=== PATIENT | female | born 1945 | race Caucasian/White ===

== ENCOUNTER → 2016-07-22 | Outpatient (CLI) | payer MEDICARE ==
[2015-10-02 11:45] VITALS: BP 170/90
[~2016-07-22] MED LIST: CALC-98 PO; CALC200T3 PO; CARB300C5 PO; CELE200C PO; CHOL239. PO; FURO20TA3 PO; HYDR25TA9 PO; MULT-658 PO; OMEG1CAP6 PO; OMEP20TA PO; SIMBICORT; VITA400C11 PO
--- NOTE | 2016-07-22 11:43 | RAD ---
Indication right leg pain. Grayscale color Doppler and spectral imaging was performed. Examination was targeted to the veins of the right lower extremity. The common femoral, femoral and popliteal vessels demonstrate normal flow compressibility and augmentation. No thrombus is seen. The visualized calf veins appeared unremarkable. The left common femoral vein also appeared normal. The IMPRESSION:: Negative right lower extremity venous analysis for DVT
== END | disposition home or self-care (01) ==
LOC: US 10:31
PROVIDERS: ATTEND Podiatrist Foot & Ankle Surgery
DX: I82.401 Acute embolism and thrombosis of unspecified deep veins of right lower extremity (principal)
CPT/HCPCS: 93971

== ENCOUNTER 2016-10-06 20:38 | Inpatient (IN) | payer MEDICARE ==
[~2016-10-06] VITALS: Ht 152.4 cm; Wt 86.2 kg
[~2016-10-06 20:38] MED LIST changes: -OMEP20TA PO; +OMEP20TA8 PO
[2016-10-06 21:22] LABS: BASO % 0 % (0-3); EOS % 0 % (0-3); HEMATOCRIT 35.5 % (36.0-47.0); HEMOGLOBIN 12.1 g/dL (12.0-15.5); LYMPH # 0.9 x10^3/uL (1.0-4.8); LYMPH % 5 % (24-48); MEAN CORPUSCULAR HEMOGLOBIN 31 pg (25-35); MEAN CORPUSCULAR HGB CONC 34 g/dL (31-37); MEAN CORPUSCULAR VOLUME 92 fL (79-100); MONO % 10 % (0-9); NEUT % 85 % (31-73); PLATELET COUNT 157 x10^3/uL (140-400); RED BLOOD COUNT 3.87 x10^6/uL (3.50-5.40); RED CELL DISTRIBUTION WIDTH 12.3 % (11.5-14.5); WHITE BLOOD COUNT 16.5 x10^3/uL (4.0-11.0)
[2016-10-06] MEDS ORDERED: ONDANSETRON PF 4 MG/2 ML VIAL. IV ONE (21:30)
[2016-10-06 21:37] LABS: CALCIUM 8.3 mg/dL (8.5-10.1); CREATININE 0.7 mg/dL (0.6-1.0); POTASSIUM 3.5 mmol/L (3.5-5.1)
[2016-10-06] MEDS: fentaNYL PF VIAL 100 MCG/2 ML VIAL IV PRN ×2 (21:40→22:47)
[2016-10-06 21:42] LABS: ALBUMIN 3.2 g/dL (3.4-5.0); ALBUMIN/GLOBULIN RATIO 0.9 (1.0-1.7); TOTAL BILIRUBIN 0.7 mg/dL (0.2-1.0); TOTAL PROTEIN 6.9 g/dL (6.4-8.2)
[2016-10-06 21:54] LABS: BILIRUBIN,URINE NEGATIVE (NEG); GLUCOSE,URINE NEGATIVE (NEG); NITRITE,URINE NEGATIVE (NEG); PROTEIN,URINE 30 mg/dL (NEG-TRACE); UROBILINOGEN,URINE 0.2 mg/dL (0.2 mg/dL)
--- NOTE | 2016-10-06 21:56 | ED.ADGEN ---
Past Medical History Past Medical History: COPD, Hypertension, Seizure Past Surgical History: Hip Replacement Alcohol Use: None Drug Use: None Adult General Chief Complaint Chief Complaint: LOWER EXT PAIN HPI HPI Patient is a 71 year old woman, history of COPD, hypertension, seizure disorder , who presents to the emergency department with a three-day history of left lower extremity redness and swelling. Patient denies any similar symptoms previously, denies any injuries, stated that she noted swelling in her leg, and itchiness with pain, denies any recent travel or surgery, any history of DVT or PE, states that she began feeling more fatigued, with mild shortness of breath, denies any chest pain, states she is expressing mild nausea, no focal weakness, numbness or tingling, complains of generalized weakness and malaise, states that she had fever at home up to 101. Currently she is afebrile at 99.2 orally in the ED. States that she has not taken any medication at home since this morning, when she took an [place] plus. States she has been taking all home medications as directed, does not take any blood thinners or aspirin. No GI or complaints. Review of Systems Review of Systems Constitutional: Fever 2 days, with generalized malaise. Eyes: Denies change in visual acuity. [] HENT: Denies nasal congestion or sore throat. [] Respiratory: Denies cough or shortness of breath. [] Cardiovascular: Denies chest pain or edema. [] GI: Denies abdominal pain, nausea, vomiting, bloody stools or diarrhea. [] : Denies dysuria. [] Musculoskeletal: Denies back pain, pain and swelling in the left lower extremity, with redness develop over the past 3 days, associated with generalized malaise. Integument: Denies rash. [] Neurologic: Denies headache, focal weakness or sensory changes. [] Endocrine: Denies polyuria or polydipsia. [] Lymphatic: Denies swollen glands. [] Psychiatric: Denies depression or anxiety. [] Current Medications Current Medications Current Medications Medications (Trade) Dose Ordered Sig/Rosanna Start Time Stop Time Status Last Admin Dose Admin Fentanyl Citrate (Fentanyl 2ml Vial) 25 mcg PRN Q15MIN PRN 10/06/16 21:00 10/07/16 20:59 10/06/16 21:40 25 MCG Ondansetron HCl (Zofran) 4 mg 1X ONCE 10/06/16 21:30 10/06/16 21:31 DC 10/06/16 21:40 4 MG Allergies Allergies Allergies Coded Allergies Type Severity Reaction Last Updated Verified Sulfa (Sulfonamide Antibiotics) Allergy Intermediate 10/06/16 Yes Physical Exam Physical Exam Constitutional: Well developed, well nourished, no acute distress, non-toxic appearance. [] HENT: Normocephalic, atraumatic, bilateral external ears normal, oropharynx moist, no oral exudates, nose normal. [] Eyes: PERRLA, EOMI, conjunctiva normal, no discharge. [] Neck: Normal range of motion, no tenderness, supple, no stridor. [] Cardiovascular:Heart rate regular rhythm, no murmur, S1, S2, no rubs or gallops. [] Lungs & Thorax: Patient with rhonchi noted at the right lung base, which she states is chronic, no chest or crepitus or tenderness. Lungs are otherwise clear. [] Abdomen: Bowel sounds normal, soft, no rebound, rigidity, no guarding, no tenderness, no masses, no pulsatile masses. [] Skin: Warm, dry, no erythema, no rash. [] Back: No midline or paraspinal tenderness, no CVA tenderness. [] Extremities: Patient with redness and swelling noted over the medial malleolus, extending up into the calf, no distinct rash, no abscess formation induration or evidence of injury, right lower extremity is normal, patient with trace pitting edema in the left lower extremity, no cyanosis, no clubbing, ROM intact , no edema. [] Neurologic: Alert and oriented X 3, normal motor function, normal sensory function, no focal deficits noted. [] Psychologic: Affect normal, judgement normal, mood normal. [] Current Patient Data Vital Signs Vital Signs Date Time Temp Pulse Resp B/P (MAP) Pulse Ox O2 Delivery O2 Flow Rate FiO2 10/06/16 21:40 Room Air 10/06/16 20:45 99.2 88 19 160/63 (95) 97 99.2 Lab Values Laboratory Tests Test 10/06/16 21:11 10/06/16 21:48 White Blood Count 16.5 x10^3/uL (4.0-11.0) H Red Blood Count 3.87 x10^6/uL (3.50-5.40) Hemoglobin 12.1 g/dL (12.0-15.5) Hematocrit 35.5 % (36.0-47.0) L Mean Corpuscular Volume 92 fL (79-100) Mean Corpuscular Hemoglobin 31 pg (25-35) Mean Corpuscular Hemoglobin Concent 34 g/dL (31-37) Red Cell Distribution Width 12.3 % (11.5-14.5) Platelet Count 157 x10^3/uL (140-400) Neutrophils (%) (Auto) 85 % (31-73) H Lymphocytes (%) (Auto) 5 % (24-48) L Monocytes (%) (Auto) 10 % (0-9) H Eosinophils (%) (Auto) 0 % (0-3) Basophils (%) (Auto) 0 % (0-3) Neutrophils # (Auto) 13.9 x10^3uL (1.8-7.7) H Lymphocytes # (Auto) 0.9 x10^3/uL (1.0-4.8) L Monocytes # (Auto) 1.6 x10^3/uL (0.0-1.1) H Eosinophils # (Auto) 0.0 x10^3/uL (0.0-0.7) Basophils # (Auto) 0.0 x10^3/uL (0.0-0.2) Segmented Neutrophils % 84 % (35-66) H Band Neutrophils % 2 % (0-9) Lymphocytes % 7 % (24-48) L Monocytes % 7 % (0-10) Platelet Estimate Adequate (ADEQUATE) Sodium Level 127 mmol/L (136-145) L Potassium Level 3.5 mmol/L (3.5-5.1) Chloride Level 91 mmol/L (98-107) L Carbon Dioxide Level 30 mmol/L (21-32) Anion Gap 6 (6-14) Blood Urea Nitrogen 7 mg/dL (7-20) Creatinine 0.7 mg/dL (0.6-1.0) Estimated GFR (Cockcroft-Gault) 82.0 BUN/Creatinine Ratio 10 (6-20) Glucose Level 129 mg/dL (70-99) H Calcium Level 8.3 mg/dL (8.5-10.1) L Total Bilirubin 0.7 mg/dL (0.2-1.0) Aspartate Amino Transferase (AST) 23 U/L (15-37) Alanine Aminotransferase (ALT) 20 U/L (14-59) Alkaline Phosphatase 84 U/L (46-116) Troponin I Quantitative < 0.017 ng/mL (0.000-0.055) Total Protein 6.9 g/dL (6.4-8.2) Albumin 3.2 g/dL (3.4-5.0) L Albumin/Globulin Ratio 0.9 (1.0-1.7) L Urine Collection Type U cath Urine Color Yellow Urine Clarity Clear Urine pH 7.0 Urine Specific [place] 1.010 Urine Protein 30 mg/dL (NEG-TRACE) Urine Glucose (UA) Negative mg/dL (NEG) Urine Ketones (Stick) 15 mg/dL (NEG) Urine Blood Small (NEG) Urine Nitrite Negative (NEG) Urine Bilirubin Negative (NEG) Urine Urobilinogen Dipstick 0.2 mg/dL (0.2 mg/dL) Urine Leukocyte Esterase Moderate (NEG) Urine RBC 11-20 /HPF (0-2) Urine WBC 20-40 /HPF (0-4) Urine Squamous Epithelial Cells Occ /LPF Urine Bacteria Many /HPF (0-FEW) Laboratory Tests 10/06/16 21:11 Laboratory Tests 10/06/16 21:11 EKG EKG EC: Sinus rhythm, heart rate 85 bpm, upright axis, QTC of 448, SC 190, QRS of 98, moderate baseline artifact noted, incomplete right bundle-branch block noted, contour normality is noted in the anterior septal leads, no ST elevations or depressions, abnormal ECG, does not meet STEMI criteria. As interpreted by me. Radiology/Procedures Radiology/Procedures Chest x-ray: One view: Patient slightly rotated, no infiltrates, no effusions, no pneumothorax, no soft tissue or bone abdomen abnormalities identified, normal cardiac silhouette, no changes when compared to chest x-ray from 2015. As interpreted by me. [] Impressions: Ankle x-ray: Three-view: Patient with evidence of degenerative changes, no evidence of acute fracture, subluxation, soft tissue or bony abnormality is identified. As interpreted by me. [facility] [address] [place] [address] IMAGING REPORT Signed PATIENT: ERMIAS DONALD ACCOUNT: [id number] : 1945 LOCATION: ER AGE: 71 SEX: F EXAM STATUS: REG ER ORD. PHYSICIAN: EMELINA CHU DO REASON: swelling/pain/concern for DVT PROCEDURE: VENOUS LOWER EXTREMITY LEFT Left lower extremity venous Doppler ultrasound History: LT LOWER LEG REDNESS SWELLING X3DAYS NO KNOWN INJURY Comparison: None. Procedure: Color flow Doppler, Doppler spectral analysis, and 2D images are obtained with and without compression in the area of the common femoral vein, superficial femoral vein - femoral vein junction, main femoral vein (superficial femoral vein) and popliteal vein. Veins of the proximal calf are also imaged. Findings: There is normal color flow, augmentation, and compressibility of all visualized vein segments. No evidence of deep venous thrombus is present. There is subcutaneous edema of the left lower leg. There is normal flow and compressibility of the lesser saphenous vein. There is thickening of the wall. Phlebitis could produce this appearance. IMPRESSION: 1. No evidence of left lower extremity deep venous thrombosis. 2. Wall thickening of the lesser saphenous vein may be due to phlebitis. Electronically signed by: Shankar Steel MD (10/06/2016 10:06 PM) [facility] DICTATED and SIGNED BY: SHANKAR STEEL MD DATE: 10/06/162203 CC: LITO MUNGUIA MD; EMELINA CHU DO ~ Course & Med Decision Making Course & Med Decision Making Pertinent Labs and Imaging studies reviewed. (See chart for details) Patient agreeable to receiving imaging and laboratory studies, along with pain medication. Ultrasound does not reveal evidence of DVT, x-ray was unremarkable both chest and ankle. Examination is consistent with sialitis as stated, patient noted to have a leukocytosis of 16.5, and hyponatremia with a sodium of 127, and his dehydration, previously patient's sodium was 137. Urinalysis reveals 20-40 WBCs, no nitrates, and has many bacteria, Patient states that she has "a long history of problems with sodium", and is on fluid restriction at home. She states that she has been trying to drink fluids as directed, but has been experiencing fever and other symptoms are the past several days which has been disrupting her usual intake. Patient remains afebrile in the emergency department, is agreeable for admission to the hospital, and initiation on antibiotics and gentle hydration, all questions answered to her satisfaction and the satisfaction of her brother at bedside. Findings as above discussed with Dr. granger of internal medicine, patient accepted to his service as a full admission to the medical telemetry floor, with IV hydration with normal saline 80 ml/hr, vancomycin and cefepime, and close monitoring as stated. Bridge orders entered per discussion. Dragon Disclaimer Dragon Disclaimer This electronic medical record was generated, in whole or in part, using a voice recognition dictation system. Departure Impression: Primary Impression: Cellulitis Additional Impressions: Leg pain, left Hyponatremia Fever Leukocytosis Disposition: ADMITTED INPATIENT Admitting Physician: Sandrine Granger Condition: IMPROVED Problem Qualifiers EMELINA CHU DO Oct 06, 2016 21:56
[2016-10-06 22:03] LABS: BACTERIA,URINE MANY /HPF (0-FEW); SQUAMOUS EPITHELIAL CELL,UR OCC /LPF; WBC,URINE 20-40 /HPF (0-4)
[2016-10-06 22:09] LABS: PLT ESTIMATE ADEQUATE (ADEQUATE)
--- NOTE | 2016-10-06 22:09 | RAD ---
Left lower extremity venous Doppler ultrasound History: LT LOWER LEG REDNESS SWELLING X3DAYS NO KNOWN INJURY Comparison: None. Procedure: Color flow Doppler, Doppler spectral analysis, and 2D images are obtained with and without compression in the area of the common femoral vein, superficial femoral vein - femoral vein junction, main femoral vein (superficial femoral vein) and popliteal vein. Veins of the proximal calf are also imaged. Findings: There is normal color flow, augmentation, and compressibility of all visualized vein segments. No evidence of deep venous thrombus is present. There is subcutaneous edema of the left lower leg. There is normal flow and compressibility of the lesser saphenous vein. There is thickening of the wall. Phlebitis could produce this appearance. IMPRESSION: 1. No evidence of left lower extremity deep venous thrombosis. 2. Wall thickening of the lesser saphenous vein may be due to phlebitis. Electronically signed by: Shankar Steel MD (10/06/2016 10:06 PM) [facility]
[2016-10-06] MEDS: CEFEPIME HCL 2 GM in IV NORMAL SALINE 100ML 100 ML IV SCH (22:44)
[2016-10-06] MEDS ORDERED: fentaNYL PF VIAL 100 MCG/2 ML VIAL IV PRN (22:45)
[2016-10-06] MEDS ORDERED: ONDANSETRON PF 4 MG/2 ML VIAL. IV PRN (22:45)
[2016-10-06] MEDS ORDERED: ACETAMINOPHEN 325 MG TABLET. PO PRN (22:45)
[2016-10-06] MEDS ORDERED: IV NORMAL SALINE 1000ML BAG 1,000 ML IV ONE (23:00)
[2016-10-06] MEDS ORDERED: VANCOMYCIN 2 GM in IV NORMAL SALINE 500ML BAG 500 ML IV ONE (23:00)
[2016-10-06 23:44] VITALS: BP 131/64
[2016-10-07] MEDS ORDERED: LOVA20TA2 PO (01:08)
[2016-10-07] MEDS ORDERED: BUDE10.2 IH (01:08)
[2016-10-07] MEDS ORDERED: AMLO5TAB2 PO (01:08)
[2016-10-07] MEDS ORDERED: WHEA152P PO (01:17)
[2016-10-07] MEDS: IV NORMAL SALINE 1000ML BAG 1,000 ML IV SCH ×2 (01:24→15:47)
[2016-10-07] MEDS: VANCOMYCIN PER PHARMACY MC PRN (02:29)
[2016-10-07 02:42] VITALS: BP 121/57
--- NOTE | 2016-10-07 05:21 | ACF ---
Admission Forms Criteria CELLULITIS Clinical Indications for Admission to Inpatient Care (Place 'X' for any and all applicable criteria): Admission is indicated for ANY ONE of the following(1)(2)(3)(4)(5): [ ]I. Limb-threatening infection [ ]II. High-risk comorbid condition as indicated by ANY ONE of the following: [ ]a) Uncontrolled diabetes (eg, HbA1c greater than 10% (0.1)) [ ]b) Cirrhosis [ ]c) Neutropenia [ ]d) Asplenia [ ]e) Immunosuppression [ ]f) Symptomatic heart failure [ ]III. Failure of outpatient therapy as indicated by ALL of the following: [ ]a) Progression or no improvement after adequate trial (minimum of 48 hours, with longer period for stable lower extremity infection) [ ]b) Adequate antibiotic regimen as indicated by use of ANY ONE of the following: [ ]i) First-generation cephalosporin (e.g., cephalexin) [ ]ii) Antistaphylococcal penicillin (e.g., dicloxacillin) [ ]iii) Penicillin-allergic patient regimen (clindamycin, extended-spectrum fluoroquinolone, or doxycycline) [ ]iv) Resistant organism (eg, methicillin-resistant Staphylococcus aureus) regimen (6) [ ]c) Outpatient intravenous therapy regimen is not appropriate due to ANY ONE of the following. (7)(8)(9)(10): [ ]i) It was tried and was not successful (eg, progression of infection). [ ]ii) It is not available or cannot be arranged in a clinically appropriate time frame (e.g., the next day). [ ]iii) Clinical presentation (eg, acuity of infection, rapidity of progression, confirmed or suspected bacteremia) is judged to require ALL of the following: [ ]1) Immediate initiation of intravenous therapy ( eg, cannot wait for next day) [ ]2) Intensity of patient monitoring and observation (eg, vital sign measurement, checks for infection progression) that cannot be provided at other than inpatient level of care [ ]IV. Mental status changes [ ]V. Bacteremia [ ]. Hemodynamic instability [ ]VII. Suspected necrotizing soft tissue infection (e.g., gas in tissue)(11)( 12) [ ]VIII. Orbital infection (13)(14) [ ]IX. Associated surgical procedure (e.g., abscess drainage, debridement) not amenable to outpatient, emergency department, or observation care [ ]X. Cutaneous gangrene [ ]XI. High fever (temperature greater than 39.5 degrees C (103.1 degrees F) (oral)) not responsive to outpatient, emergency department, or observation care therapy [X ]XIII. Inpatient admission required rather than observation care (Also use Cellulitis: Observation Care as appropriate) because of ANY ONE of the following : [ ]a) Periorbital or perineal infection that is severe or worsening [ ]b) Severe pain requiring acute inpatient management [ ]c) IV fluid to replace significant ongoing (e.g., for over 24 hours) losses (greater than 3L/m2 per day) [ ]d) Compartment syndrome monitoring (17) [ ]e) Strict or protective (eg, laminar flow) isolation [ ]f) Urgent debridement or skin grafting [ ]g) Bone or joint debridement [ ]h) Immediate inpatient surgery [X ]i) Other condition, treatment or monitoring requiring inpatient admission Extended stay beyond goal length of stay may be needed for (1)(18): [ ]a) Necrotizing soft tissue infection or fasciitis [ ]b) Gram-negative infection [ ]c) Methicillin-resistant Staphylococcal aureus (MRSA) infection [ ]d) Peripheral venous insufficiency with cellulitis [ ]e) Extensive edema [ ]f) Sepsis or continued Hemodynamic instability [ ]g) Continued high fever or mental status change [ ]h) Bacteremia [ ]i) Active serious comorbid conditions ( eg, heart failure, renal insufficiency) The original [facility] content created by [employer] has been revised. The portions of the content which have been revised are identified through the use of italic text or in bold, and [facility] has neither reviewed nor approved the modified material. All other unmodified content is copyright [facility] [employer] Please see references footnoted in the original [facility] edition 2016 Admission Criteria Met?: Yes PETERSON TOM Oct 07, 2016 05:21
--- NOTE | 2016-10-07 06:16 | EKG ---
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
[2016-10-07 06:23] LABS: BASO % 0 % (0-3); EOS % 0 % (0-3); HEMATOCRIT 32.8 % (36.0-47.0); HEMOGLOBIN 11.5 g/dL (12.0-15.5); LYMPH # 1.1 x10^3/uL (1.0-4.8); LYMPH % 8 % (24-48); MEAN CORPUSCULAR HEMOGLOBIN 32 pg (25-35); MEAN CORPUSCULAR HGB CONC 35 g/dL (31-37); MEAN CORPUSCULAR VOLUME 90 fL (79-100); MONO % 11 % (0-9); NEUT % 81 % (31-73); PLATELET COUNT 156 x10^3/uL (140-400); RED BLOOD COUNT 3.65 x10^6/uL (3.50-5.40); RED CELL DISTRIBUTION WIDTH 12.2 % (11.5-14.5); WHITE BLOOD COUNT 14.6 x10^3/uL (4.0-11.0)
[2016-10-07 06:38] LABS: CALCIUM 8.3 mg/dL (8.5-10.1); CREATININE 0.6 mg/dL (0.6-1.0); POTASSIUM 3.2 mmol/L (3.5-5.1)
[2016-10-07 07:00] VITALS: BP 120/75
--- NOTE | 2016-10-07 07:36 | RAD ---
Indication shortness of breath. A single view of the chest was obtained and is compared to an examination just over one year ago. There is mild cardiomegaly similar to the previous exam. Chronic interstitial background changes are noted similar to the previous exam. There is no consolidated pneumonia. Significant pleural fluid is not seen. There is no pneumothorax. There has not been a significant change compared to the prior exam. Chondroid lesion associated with the left humeral neck is noted appearing similar. IMPRESSION: Chronic changes. No acute finding. No significant change
--- NOTE | 2016-10-07 07:38 | RAD ---
Indication pain. No history of injury. AP oblique and lateral views of the left ankle were obtained. There is soft tissue swelling particularly medially. No acute bony finding is seen. Significant degenerative changes at the ankle are not seen. There is a bony density, seen on the lateral view, adjacent to the talus having a chronic appearance. IMPRESSION: No acute bony finding
[2016-10-07] MEDS: CEFEPIME HCL 2 GM in IV NORMAL SALINE 100ML 100 ML IV SCH (08:46)
[2016-10-07] MEDS: fentaNYL PF VIAL 100 MCG/2 ML VIAL IV PRN (08:47)
[2016-10-07 11:00] VITALS: BP 125/62
[2016-10-07] MEDS ORDERED: CALCIUM CARBONATE 500 MG TAB.CHEW PO PRN (11:15)
[2016-10-07] MEDS: BUDESONIDE 0.5 MG/2 ML NEBU. NEB SCH ×2 (12:00→19:24)
--- NOTE | 2016-10-07 12:32 | PDOC ---
Infectious Disease Note ROS ROS GEN: Denies fevers, chills, sweats HEENT: Denies blurred vision, sore throat CV: Denies chest pain RESP: Denies shortness of air, cough GI: Denies n/v/d NEURO: Denies confusion, dizziness MSK: Denies weakness, joint pain/swelling Vital Sign Vital Signs Vital Signs Date Time Temp Pulse Resp B/P (MAP) Pulse Ox O2 Delivery O2 Flow Rate FiO2 10/07/16 11:00 100.8 79 125/62 (83) 98 Room Air 100.8 10/07/16 08:47 20 Physical Exam PHYSICAL EXAM GENERAL: NAD, Alert HEENT: PERRL, OC/OP NECK: Supple, no JVD, no LN LUNGS: Clear HEART: S1S2, no gallop, no murmur ABD: Soft, NT, no organomegaly, no rebound EXT: No edema, no cyanosis DEAN OF GRADUATE STUDIES: Alert, oriented x 3, no focal neurologic deficit SKIN: No rash IV: ok Labs Lab Laboratory Tests Test 10/06/16 21:11 10/06/16 21:48 10/07/16 05:55 White Blood Count 16.5 x10^3/uL (4.0-11.0) 14.6 x10^3/uL (4.0-11.0) Red Blood Count 3.87 x10^6/uL (3.50-5.40) 3.65 x10^6/uL (3.50-5.40) Hemoglobin 12.1 g/dL (12.0-15.5) 11.5 g/dL (12.0-15.5) Hematocrit 35.5 % (36.0-47.0) 32.8 % (36.0-47.0) Mean Corpuscular Volume 92 fL (79-100) 90 fL (79-100) Mean Corpuscular Hemoglobin 31 pg (25-35) 32 pg (25-35) Mean Corpuscular Hemoglobin Concent 34 g/dL (31-37) 35 g/dL (31-37) Red Cell Distribution Width 12.3 % (11.5-14.5) 12.2 % (11.5-14.5) Platelet Count 157 x10^3/uL (140-400) 156 x10^3/uL (140-400) Neutrophils (%) (Auto) 85 % (31-73) 81 % (31-73) Lymphocytes (%) (Auto) 5 % (24-48) 8 % (24-48) Monocytes (%) (Auto) 10 % (0-9) 11 % (0-9) Eosinophils (%) (Auto) 0 % (0-3) 0 % (0-3) Basophils (%) (Auto) 0 % (0-3) 0 % (0-3) Neutrophils # (Auto) 13.9 x10^3uL (1.8-7.7) 11.8 x10^3uL (1.8-7.7) Lymphocytes # (Auto) 0.9 x10^3/uL (1.0-4.8) 1.1 x10^3/uL (1.0-4.8) Monocytes # (Auto) 1.6 x10^3/uL (0.0-1.1) 1.6 x10^3/uL (0.0-1.1) Eosinophils # (Auto) 0.0 x10^3/uL (0.0-0.7) 0.0 x10^3/uL (0.0-0.7) Basophils # (Auto) 0.0 x10^3/uL (0.0-0.2) 0.0 x10^3/uL (0.0-0.2) Segmented Neutrophils % 84 % (35-66) Band Neutrophils % 2 % (0-9) Lymphocytes % 7 % (24-48) Monocytes % 7 % (0-10) Platelet Estimate Adequate (ADEQUATE) Sodium Level 127 mmol/L (136-145) 129 mmol/L (136-145) Potassium Level 3.5 mmol/L (3.5-5.1) 3.2 mmol/L (3.5-5.1) Chloride Level 91 mmol/L (98-107) 95 mmol/L (98-107) Carbon Dioxide Level 30 mmol/L (21-32) 25 mmol/L (21-32) Anion Gap 6 (6-14) 9 (6-14) Blood Urea Nitrogen 7 mg/dL (7-20) 6 mg/dL (7-20) Creatinine 0.7 mg/dL (0.6-1.0) 0.6 mg/dL (0.6-1.0) Estimated GFR (Cockcroft-Gault) 82.0 98.0 BUN/Creatinine Ratio 10 (6-20) Glucose Level 129 mg/dL (70-99) 101 mg/dL (70-99) Calcium Level 8.3 mg/dL (8.5-10.1) 8.3 mg/dL (8.5-10.1) Total Bilirubin 0.7 mg/dL (0.2-1.0) Aspartate Amino Transf (AST/SGOT) 23 U/L (15-37) Alanine Aminotransferase (ALT/SGPT) 20 U/L (14-59) Alkaline Phosphatase 84 U/L (46-116) Troponin I Quantitative < 0.017 ng/mL (0.000-0.055) Total Protein 6.9 g/dL (6.4-8.2) Albumin 3.2 g/dL (3.4-5.0) Albumin/Globulin Ratio 0.9 (1.0-1.7) Urine Collection Type U cath Urine Color Yellow Urine Clarity Clear Urine pH 7.0 Urine Specific [place] 1.010 Urine Protein 30 mg/dL (NEG-TRACE) Urine Glucose (UA) Negative mg/dL (NEG) Urine Ketones (Stick) 15 mg/dL (NEG) Urine Blood Small (NEG) Urine Nitrite Negative (NEG) Urine Bilirubin Negative (NEG) Urine Urobilinogen Dipstick 0.2 mg/dL (0.2 mg/dL) Urine Leukocyte Esterase Moderate (NEG) Urine RBC 11-20 /HPF (0-2) Urine WBC 20-40 /HPF (0-4) Urine Squamous Epithelial Cells Occ /LPF Urine Bacteria Many /HPF (0-FEW) Objective Assessment Left foot cellulitis UTI with dysuria Sulfa allergy - rash Fever Plan Plan of Care Cont Vanc Change to Zosyn F/u labs and cults Await Ortho eval. May need further imaging Thank you # [id number] FREEMAN BROWN MD Oct 07, 2016 12:31
[2016-10-07] MEDS: PIPERACILLIN/TAZOBACTAM 3.375 GM in IV NORMAL SALINE 50ML 50 ML IV SCH ×2 (13:00→19:13)
--- NOTE | 2016-10-07 13:00 | PREOP HP ---
DATE OF SERVICE: 10/07/2016 CHIEF COMPLAINT: Ankle pain, dysuria, fatigue. HISTORY OF PRESENT ILLNESS: The patient is a 71-year-old obese woman with past medical history of hypertension, who presented to the hospital with a 3-day history of increasing fatigue as well as left ankle swelling and pain. She also had noted some urinary incontinence and mild dysuria in this time. She denies any fevers at home, but notes that she had a temperature of 100 in the Emergency Room. She denies any nausea, vomiting, any diarrhea, any chest pain or shortness of breath. In the Emergency Room, she was found with left ankle cellulitis, question septic joint as well as UTI and promptly admitted to the medical floor. PAST MEDICAL HISTORY: Hypertension, COPD, seizures. FAMILY HISTORY: Positive for AFib in mother. No diabetes, known in family. SOCIAL HISTORY: Lives by herself. No ongoing toxic habits, quit smoking several years ago. ALLERGIES: SULFA. MEDICATIONS: MAR reconciled with home medications. REVIEW OF SYSTEMS: Positive as per HPI. Rest of organ system review shows no further symptoms. PHYSICAL EXAMINATION: VITAL SIGNS: From today show a blood pressure of 120/75, heart rate at 76, respiratory rate at 20, currently afebrile, had a temperature of 100.6 at midnight. GENERAL: This is a morbidly obese woman, alert and oriented, in no acute distress. LUNGS: Clear to auscultation bilaterally. HEART: Regular rate and rhythm. ABDOMEN: Obese, positive bowel sounds. EXTREMITIES: Show significant 2-3+ swelling in the left ankle and fci up the snell surrounded with patchy erythema, significant pain to palpation and passive movement of the foot. Right foot shows no edema. SKIN: Warm, soft and dry. NEUROLOGIC: She appears grossly intact. LABORATORY DATA: CBC with a WBC of 14.6, hemoglobin 11.5 and platelets of 156. Chemistries with a BUN and creatinine of 6 and 0.6, sodium at 129 (improved from last night at 127), potassium at 3.2, calcium at 8.3 with an albumin of 3.2. Urine with 20-40 wbc and many bacteria. IMAGING: Ankle x-ray shows no acute bony findings, a soft tissue swelling particularly medially is noted. Chest x-ray shows chronic changes with a mild cardiomegaly and chronic interstitial background changes. Lower extremity ultrasound was obtained as well without any evidence of lower extremity DVT. ASSESSMENT AND PLAN: The patient is a 71-year-old woman presenting with at least cellulitis around her left ankle. Suspicion for a septic joint is given as well. We will obtain ID and Ortho consult for potential aspiration of the joint. She is currently on cefepime and vancomycin, which may be a bit of an overkill, but I leave decisions to Infectious Disease. We will continue all her home medications including several blood pressure medications as well as a celecoxib for arthritis. She is on Symbicort at home and this will be replaced with DuoNeb here in the hospital. Changes in her medications were discussed with her. She will be started on Lovenox for prophylaxis once a decision about the procedures has been made. Her hyponatremia is probably secondary to urinary tract infection. We will replete for now and continue to monitor. JASMYN PERALTA MD DR: ZAID/nts JOB#: [id number] / [id number] CHALO
[2016-10-07 15:00] VITALS: BP 148/82
[2016-10-07] MEDS: OMEGA-3 FATTY ACIDS/FISH OIL 1,000 MG CAPSULE. PO SCH (15:48)
[2016-10-07] MEDS: MULTIVITAMIN with MINERAL TABLET. PO SCH (15:48)
[2016-10-07] MEDS: CALCIUM CARB/VIT D3 500/200 TABLET. PO SCH (15:49)
[2016-10-07] MEDS: VITAMIN E 200 UNIT CAPSULE. PO SCH (15:49)
[2016-10-07] MEDS: PANTOPRAZOLE 40 MG TABLET.DR. PO SCH (15:49)
[2016-10-07] MEDS: carBAMazepine 200 MG TABLET PO SCH ×2 (15:49→21:19)
[2016-10-07] MEDS: amLODIPine BESYLATE 5 MG TABLET PO SCH (15:50)
[2016-10-07] MEDS: ALBUTEROL SULFATE 2.5 MG/3 ML NEBU. NEB SCH ×2 (16:00→19:24)
[2016-10-07 19:00] VITALS: BP_SYST 102; BP_SYST 119; BP_DIAS 59; BP_DIAS 61
[2016-10-07] MEDS: ATORVASTATIN CALCIUM 10 MG TABLET. PO SCH (21:19)
[2016-10-07 23:00] VITALS: BP 133/66
[2016-10-07] MEDS ORDERED: VANCOMYCIN 1.25 GM in IV NORMAL SALINE 250ML 250 ML IV SCH (23:00)
--- NOTE | 2016-10-08 | CONS ---
DATE OF CONSULTATION: 10/07/2016 ROOM: 558. REQUESTING PHYSICIAN: Dr. Gresham. REASON FOR CONSULTATION: Cellulitis, UTI. HISTORY OF PRESENT ILLNESS: The patient is a pleasant 71-year-old female with a history of obesity, COPD, and previous urinary tract infections, who states last she awakened with swelling and pain in her left ankle. She denies any trauma, no bites. No falls. Over the course of the next several days remained somewhat painful. She has tried not to take any medications for, but she began to feel groggy and felt that she had a fever. She had a temperature of 101 and then she presented to [facility] Emergency Room. White blood cell count was elevated at 16.5. Urinalysis was consistent with urinary tract infection, although she was not having any symptoms until this morning when she felt some burning. She has been placed on vancomycin and cefepime and currently states she is feeling somewhat better. She ate some lunch. She denies any headaches, no change in vision, no sore throat. She does have a runny nose she states every time she eats, but no nausea, vomiting, no diarrhea. She denies any falls or trauma. PAST MEDICAL HISTORY: Positive for obesity. She does have a history of previous urinary tract infection with Klebsiella back in 2013, hypertension, history of seizure disorder and COPD. PAST SURGICAL HISTORY: Positive for hip replacement. REVIEW OF SYSTEMS: Otherwise negative except for mentioned above. ALLERGIES: Listed as SULFA, which causes itching and rash she believes. SOCIAL HISTORY: She has no pets at home. No tobacco. FAMILY HISTORY: Noncontributory. No history of gout in the family. CURRENT MEDICATIONS: Include cefepime, vancomycin, amlodipine, Pulmicort, Tegretol, vitamin E. Other meds are available and reviewed in the chart. PHYSICAL EXAMINATION: VITAL SIGNS: Temperature currently 100.8, pulse 79, respirations 20, blood pressure 125/62, satting 98% on room air. CONSTITUTIONAL: She is very pleasant. She is cooperative. She is in no acute distress. She is obese. HEENT: Pupils are equal and reactive. Normal conjunctivae. Oral cavity, pharynx is clear. NECK: Supple. Good range of motion, no JVD. LUNGS: Clear to auscultation bilaterally. HEART: S1, S2. ABDOMEN: Obese, soft, nontender, nondistended, positive bowel sounds. EXTREMITIES: Without clubbing, cyanosis. Her left ankle has 2+ edema. Warm to touch. She can move the ankle joint without complications and she has gross erythema. SKIN: Otherwise, warm to touch without signs of rash. NEUROLOGIC: She is nonfocal, moves all extremities. PSYCHIATRIC: Affect is pleasant. LABORATORY DATA: White count 14.6, hemoglobin 11.5, platelets 156, neutrophils of 81, lymphs are 8, glucose of 101, creatinine of 0.68, normal liver function study tests on arrival. Urinalysis consistent with urinary tract infection. Cultures are currently pending. Ankle x-ray, no acute bony abnormality. Chest x-ray was clear. IMPRESSION: 1. Left foot cellulitis. 2. Urinary tract infection with dysuria. 3. SULFA ALLERGY CAUSES A RASH. 4. Fever. RECOMMENDATIONS: We will continue the vancomycin. We will change to Zosyn. Follow up labs and cultures, await orthopedic evaluation, may need additional imaging. Thank you for allowing us to participate in the patient's care. If you have any questions, please do not hesitate to contact me. FREEMAN BROWN MD DR: WILLA/evangelist JOB#: [id number] / [id number]
[2016-10-08] MEDS: PIPERACILLIN/TAZOBACTAM 3.375 GM in IV NORMAL SALINE 50ML 50 ML IV SCH ×5 (01:23→23:25)
[2016-10-08 03:00] VITALS: BP 118/59
[2016-10-08 05:14] LABS: BASO % 0 % (0-3); EOS % 1 % (0-3); HEMATOCRIT 30.5 % (36.0-47.0); HEMOGLOBIN 10.4 g/dL (12.0-15.5); LYMPH # 1.3 x10^3/uL (1.0-4.8); LYMPH % 12 % (24-48); MEAN CORPUSCULAR HEMOGLOBIN 31 pg (25-35); MEAN CORPUSCULAR HGB CONC 34 g/dL (31-37); MEAN CORPUSCULAR VOLUME 93 fL (79-100); MONO % 11 % (0-9); NEUT % 77 % (31-73); PLATELET COUNT 149 x10^3/uL (140-400); RED CELL DISTRIBUTION WIDTH 12.5 % (11.5-14.5); WHITE BLOOD COUNT 11.2 x10^3/uL (4.0-11.0)
[2016-10-08 05:34] LABS: CALCIUM 7.8 mg/dL (8.5-10.1); CREATININE 0.6 mg/dL (0.6-1.0); POTASSIUM 3.1 mmol/L (3.5-5.1)
[2016-10-08 07:00] VITALS: BP 129/57
[2016-10-08] MEDS: ALBUTEROL SULFATE 2.5 MG/3 ML NEBU. NEB SCH ×4 (07:34→19:22)
[2016-10-08] MEDS: BUDESONIDE 0.5 MG/2 ML NEBU. NEB SCH ×2 (07:35→19:22)
[2016-10-08] MEDS ORDERED: PSYLLIUM HUSK (SUGAR FREE) 1 PKT PACKET PO PRN (09:00)
[2016-10-08] MEDS: PANTOPRAZOLE 40 MG TABLET.DR. PO SCH (09:49)
[2016-10-08] MEDS: VITAMIN E 200 UNIT CAPSULE. PO SCH (09:49)
[2016-10-08] MEDS: OMEGA-3 FATTY ACIDS/FISH OIL 1,000 MG CAPSULE. PO SCH (09:49)
[2016-10-08] MEDS: MULTIVITAMIN with MINERAL TABLET. PO SCH (09:50)
[2016-10-08] MEDS: amLODIPine BESYLATE 5 MG TABLET PO SCH (09:50)
[2016-10-08] MEDS: carBAMazepine 200 MG TABLET PO SCH ×2 (09:51→20:23)
[2016-10-08] MEDS: CALCIUM CARB/VIT D3 500/200 TABLET. PO SCH (10:02)
[2016-10-08 11:11] VITALS: BP 129/56
--- NOTE | 2016-10-08 11:30 | PDOC ---
Infectious Disease Note Subjective Subjective Doing ok but foot hurst when she puts it down. A little wheezy this am ROS ROS GEN: Denies fevers, chills, sweats HEENT: Denies blurred vision, sore throat CV: Denies chest pain RESP: Denies shortness of air, cough GI: Denies n/v/d No dyuria NEURO: Denies confusion, dizziness MSK: Denies weakness Vital Sign Vital Signs Vital Signs Date Time Temp Pulse Resp B/P (MAP) Pulse Ox O2 Delivery O2 Flow Rate FiO2 10/08/16 11:11 98.8 76 18 129/56 (80) 96 Room Air 98.8 Physical Exam PHYSICAL EXAM GENERAL: NAD, Alert, coop HEENT: PERRL, OC/OP - clear NECK: Supple, no JVD, no LN LUNGS: Clear HEART: S1S2, no gallop, no murmur ABD: Soft, NT, no organomegaly, no rebound, obese EXT: LLE with 2 plus edema, still some warmth and erythema. 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, no focal neurologic deficit SKIN: No rash IV: ok Labs Lab Laboratory Tests Test 10/08/16 03:30 White Blood Count 11.2 x10^3/uL (4.0-11.0) Red Blood Count 3.30 x10^6/uL (3.50-5.40) Hemoglobin 10.4 g/dL (12.0-15.5) Hematocrit 30.5 % (36.0-47.0) Mean Corpuscular Volume 93 fL (79-100) Mean Corpuscular Hemoglobin 31 pg (25-35) Mean Corpuscular Hemoglobin Concent 34 g/dL (31-37) Red Cell Distribution Width 12.5 % (11.5-14.5) Platelet Count 149 x10^3/uL (140-400) Neutrophils (%) (Auto) 77 % (31-73) Lymphocytes (%) (Auto) 12 % (24-48) Monocytes (%) (Auto) 11 % (0-9) Eosinophils (%) (Auto) 1 % (0-3) Basophils (%) (Auto) 0 % (0-3) Neutrophils # (Auto) 8.6 x10^3uL (1.8-7.7) Lymphocytes # (Auto) 1.3 x10^3/uL (1.0-4.8) Monocytes # (Auto) 1.2 x10^3/uL (0.0-1.1) Eosinophils # (Auto) 0.1 x10^3/uL (0.0-0.7) Basophils # (Auto) 0.0 x10^3/uL (0.0-0.2) Sodium Level 129 mmol/L (136-145) Potassium Level 3.1 mmol/L (3.5-5.1) Chloride Level 96 mmol/L (98-107) Carbon Dioxide Level 26 mmol/L (21-32) Anion Gap 7 (6-14) Blood Urea Nitrogen 7 mg/dL (7-20) Creatinine 0.6 mg/dL (0.6-1.0) Estimated GFR (Cockcroft-Gault) 98.0 Glucose Level 124 mg/dL (70-99) Calcium Level 7.8 mg/dL (8.5-10.1) Objective Assessment Left foot cellulitis GNR UTI with dysuria - POA Sulfa allergy - rash Fever Plan Plan of Care Cont Vanc Zosyn F/u labs and cults Await Ortho eval. May need further imaging if worsens Elevation D/w family FREEMAN BROWN MD Oct 08, 2016 11:30
--- NOTE | 2016-10-08 12:22 | PDOC ---
PROGRESS NOTES Chief Complaint Chief Complaint Ankle cellulitis L ASSESSMENT AND PLAN: 1. L ankle cellulitis/ ? septic joint. appreciate ID service input. await ortho 2. Pain control: adequate 3. OA: celecoxib 4. COPD: no acute issues. nebs PRN 5. Hyponatremia: persisting. restart IVF. obtain urine lytes to r/o SIADH 6. UTI: prelim with >100K CFU GNR. should be covered by broad spectrum Abx for cellulitis 7. Epilepsy: no acute issues. continue home meds History of Present Illness History of Present Illness feels better today. no sob. Vitals Vitals Vital Signs Date Time Temp Pulse Resp B/P (MAP) Pulse Ox O2 Delivery O2 Flow Rate FiO2 10/08/16 11:37 Room Air 10/08/16 11:11 98.8 76 18 129/56 (80) 96 98.8 Physical Exam General: Alert, Oriented X3, Cooperative, No acute distress Heart: Regular rate Lungs: Clear Abdomen: Normal bowel sounds, No tenderness Extremities: No edema Skin: No rashes Labs LABS Laboratory Tests Test 10/08/16 03:30 White Blood Count 11.2 x10^3/uL (4.0-11.0) Red Blood Count 3.30 x10^6/uL (3.50-5.40) Hemoglobin 10.4 g/dL (12.0-15.5) Hematocrit 30.5 % (36.0-47.0) Mean Corpuscular Volume 93 fL (79-100) Mean Corpuscular Hemoglobin 31 pg (25-35) Mean Corpuscular Hemoglobin Concent 34 g/dL (31-37) Red Cell Distribution Width 12.5 % (11.5-14.5) Platelet Count 149 x10^3/uL (140-400) Neutrophils (%) (Auto) 77 % (31-73) Lymphocytes (%) (Auto) 12 % (24-48) Monocytes (%) (Auto) 11 % (0-9) Eosinophils (%) (Auto) 1 % (0-3) Basophils (%) (Auto) 0 % (0-3) Neutrophils # (Auto) 8.6 x10^3uL (1.8-7.7) Lymphocytes # (Auto) 1.3 x10^3/uL (1.0-4.8) Monocytes # (Auto) 1.2 x10^3/uL (0.0-1.1) Eosinophils # (Auto) 0.1 x10^3/uL (0.0-0.7) Basophils # (Auto) 0.0 x10^3/uL (0.0-0.2) Sodium Level 129 mmol/L (136-145) Potassium Level 3.1 mmol/L (3.5-5.1) Chloride Level 96 mmol/L (98-107) Carbon Dioxide Level 26 mmol/L (21-32) Anion Gap 7 (6-14) Blood Urea Nitrogen 7 mg/dL (7-20) Creatinine 0.6 mg/dL (0.6-1.0) Estimated GFR (Cockcroft-Gault) 98.0 Glucose Level 124 mg/dL (70-99) Calcium Level 7.8 mg/dL (8.5-10.1) JASMYN PERALTA MD Oct 08, 2016 12:22
[2016-10-08 14:55] VITALS: BP 130/57
--- NOTE | 2016-10-08 16:17 | PDOC ---
Provider Note Provider Note dictated MALGORZATA BECKMAN MD Oct 08, 2016 16:17
--- NOTE | 2016-10-08 16:20 | PDOC2 ---
CONSULT Date of Consult Date of Consult DATE: 10/08/16 TIME: 16:13 Reason for Consult Reason for Consult: left ankle pain and swelling Identification/Chief Complaint Chief Complaint left ankle pain Problems: Source Source: Chart review, Patient History of Present Illness Reason for Visit: The patient is a 71 year old chronically ill female who states that she woke up on am and had a painful and swollen left ankle. She came to the hospital and was found to have an elevated wbc to 16.5, and a uti. She was admitted and placed on antibiotics. She has no positive blood cultures, we are consulted to rule out septic arthritis versus cellulitus. She states that her ankle pain is the same or worsening since admission. ID is on board. She reports no subjective fevers, chills, nausea, or vomiting. Past Medical History Past Medical History noncontributory Past Surgical History Past Surgical History noncontributory Family History Family History noncontributory Social History No ALCOHOL: none Lives: Alone Current Problem List Problem List Problems Medical Problems: (1) Cellulitis Status: Acute (2) Fever Status: Acute (3) Hyponatremia Status: Acute (4) Leg pain, left Status: Acute (5) Leukocytosis Status: Acute Current Medications Current Medications Current Medications Fentanyl Citrate (Fentanyl 2ml Vial) 25 mcg PRN Q15MIN PRN IV PAIN GREATER THAN 3/10 Last administered on 10/07/16 08:47; Start 10/06/16 at 21:00; Stop 10/07 at 11:12; Status DC Ondansetron HCl (Zofran) 4 mg 1X ONCE IV Last administered on 10/06/16 21:40; Start 10/06/16 at 21:30; Stop 10/06/16 at 21:31; Status DC Vancomycin HCl (Vanco Per Pharmacy) 1 each PRN DAILY PRN MC SEE COMMENTS Last administered on 10/07/16 02:29; Start 10/06/16 at 22:30 Cefepime HCl 2 gm/ Sodium Chloride 100 ml @ 200 mls/hr Q12HR IV Last administered on 10/07/16 08:46; Start 10/06/16 at 23:00; Stop 10/07/16 at 12:25; Status DC Vancomycin HCl 2 gm/Sodium Chloride 500 ml @ 250 mls/hr 1X ONCE IV Last administered on 10/06/16 23:23; Start 10/06/16 at 23:00; Stop 10/07/16 at 00:59; Status DC Sodium Chloride 1,000 ml @ 80 mls/hr 1X ONCE IV Last administered on 22:45; Start 10/06/16 at 23:00; Stop 10/07/16 at 11:29; Status DC Ondansetron HCl (Zofran) 4 mg PRN Q8HRS PRN IV NAUSEA/VOMITING; Start 10/06/16 at 22:45; Stop 10/07/16 at 22:44; Status DC Fentanyl Citrate (Fentanyl 2ml Vial) 50 mcg PRN Q2HR PRN IV SEVERE PAIN Last administered on 10/07/16 15:48; Start 10/06/16 at 22:45; Stop 10/07/16 at 22:44; Status DC Sodium Chloride 1,000 ml @ 80 mls/hr [id number] IV Last administered on 10/07/16 15:47; Start 10/06/16 at 23:00; Stop 10/07/16 at 22:59; Status DC Acetaminophen (Tylenol) 650 mg PRN Q4HRS PRN PO FEVER; Start 10/06/16 at 22:45; Stop 10/07/16 at 22:44; Status DC Vancomycin HCl 1.25 gm/Sodium Chloride 250 ml @ 167 mls/hr Q24H IV Last administered on 10/07/16 23:06; Start 10/07/16 at 23:00 Vancomycin HCl 1 each 1X ONCE MC ; Start 10/08/16 at 22:30; Stop 10/08/16 at 22: 31 Amlodipine Besylate (Norvasc) 5 mg DAILY PO Last administered on 10/08/16 09:50 ; Start 10/07/16 at 12:00 Calcium Carbonate/ Glycine (Tums) 500 mg PRN BID PRN PO HEARTBURN / GAS Last administered on 10/08/16 09:52; Start 10/07/16 at 11:15 Celecoxib (CeleBREX) 200 mg QODAY PO ; Start 10/09/16 at 09:00 Fish Oil (Fish Oil) 1,000 mg DAILY PO Last administered on 10/08/16 09:49; Start 10/07/16 at 12:00 Budesonide (Pulmicort) 0.5 mg RTBID NEB Last administered on 10/08/16 07:35; Start 10/07/16 at 12:00 Calcium/Vitamin D (Oscal D 500mg/ 200uts) 1 tab [id number] PO Last administered on 10/08/16 10:02; Start 10/07/16 at 12:00 Carbamazepine (TEGretol) 300 mg BID PO Last administered on 10/08/16 09:51; Start 10/07/16 at 12:00; Stop 10/08/16 at 13:16; Status DC Atorvastatin Calcium (Lipitor) 5 mg QHS PO Last administered on 10/07/16 21:19 ; Start 10/07/16 at 21:00 Multivitamins (Thera M Plus) 1 tab DAILY PO Last administered on 10/08/16 09:50 ; Start 10/07/16 at 12:00 Pantoprazole Sodium (Protonix) 40 mg DAILYAC PO Last administered on 10/08/16 09:49; Start 10/07/16 at 12:00 Vitamin E 400 unit DAILY PO Last administered on 10/08/16 09:49; Start 10/07/16 at 12:00 Psyllium Hydrophilic Mucilloid (Metamucil Fiber Packet) 1 pkt PRN DAILY PRN PO CONSTIPATION; Start 10/08/16 at 09:00 Albuterol Sulfate (Ventolin Neb Soln) 2.5 mg RTQID NEB Last administered on 10/08 15:55; Start 10/07/16 at 12:00 Piperacillin Sod/ Tazobactam Sod 3.375 gm/Sodium Chloride 50 ml @ 100 mls/hr Q6HRS IV Last administered on 10/08/16 11:28; Start 10/07/16 at 13:00 Carbamazepine (TEGretol) 600 mg BID PO ; Start 10/08/16 at 21:00 Active Scripts Active Reported Benefiber (Wheat Dextrin) 152 Gm Powder 152 Gm PO PRN DAILY PRN Lovastatin 20 Mg Tablet 20 Mg PO HS Amlodipine Besylate 5 Mg Tablet 5 Mg PO DAILY Symbicort 160-4.5 Mcg Inhaler (Budesonide/Formoterol Fumarate) 10.2 Gm Hfa.aer.ad 2 Puff IH BID Tums (Calcium Carbonate) 200 Mg Tab.chew 200 Mg PO PRN BID PRN Fish Oil 1,000 Mg Capsule ([place]-3 Fatty Acids/Fish Oil) 1 Each Capsule 1 Each PO DAILY Calcium + Vitamin D Tablet (Calcium Carbonate/Vitamin D3) 1 Each Tablet 1 Each PO DAILY Centrum Silver Tablet (Multivits-Min/Fa/Lycopene/Lut) 1 Each Tablet 1 Each PO GUERO Vitamin E 400 Unit Capsule 400 Unit PO DAILY Omeprazole 20 Mg Tablet.dr 20 Mg PO DAILY Celebrex (Celecoxib) 200 Mg Capsule 200 Mg PO QODAY Carbatrol (Carbamazepine) 300 Mg Cpmp.12hr 300 Mg PO BID Allergies Allergies: Coded Allergies: Sulfa (Sulfonamide Antibiotics) (Verified Allergy, Intermediate, 10/06/16) ROS General: No: Chills, Night Sweats, Fatigue, Malaise, Appetite, Other Musculoskeletal: Yes Gait Disturbance, Yes Other (pain and swelling in the left ankle) Physical Exam General: Alert, Oriented X3, Cooperative, No acute distress Lungs: Normal air movement MUSCULOSKELETAL: Other (Left ankle with dark erythema centered over the medial and lateral malleolus. swelling over the medial malleolus. no fluctuance or drainage. no pain with df/ pf of the ankle. nvi distally. 2+ DP. ) Vitals VITALS Vital Signs Date Time Temp Pulse Resp B/P (MAP) Pulse Ox O2 Delivery O2 Flow Rate FiO2 10/08/16 15:56 Room Air 10/08/16 14:56 99.9 99.9 10/08/16 14:55 80 19 130/57 (81) 94 Labs Labs Laboratory Tests Test 10/06/16 21:11 10/06/16 21:48 10/07/16 05:55 10/08/16 03:30 White Blood Count 16.5 x10^3/uL (4.0-11.0) 14.6 x10^3/uL (4.0-11.0) 11.2 x10^3/uL (4.0-11.0) Red Blood Count 3.87 x10^6/uL (3.50-5.40) 3.65 x10^6/uL (3.50-5.40) 3.30 x10^6/uL (3.50-5.40) Hemoglobin 12.1 g/dL (12.0-15.5) 11.5 g/dL (12.0-15.5) 10.4 g/dL (12.0-15.5) Hematocrit 35.5 % (36.0-47.0) 32.8 % (36.0-47.0) 30.5 % (36.0-47.0) Mean Corpuscular Volume 92 fL (79-100) 90 fL (79-100) 93 fL (79-100) Mean Corpuscular Hemoglobin 31 pg (25-35) 32 pg (25-35) 31 pg (25-35) Mean Corpuscular Hemoglobin Concent 34 g/dL (31-37) 35 g/dL (31-37) 34 g/dL (31-37) Red Cell Distribution Width 12.3 % (11.5-14.5) 12.2 % (11.5-14.5) 12.5 % (11.5-14.5) Platelet Count 157 x10^3/uL (140-400) 156 x10^3/uL (140-400) 149 x10^3/uL (140-400) Neutrophils (%) (Auto) 85 % (31-73) 81 % (31-73) 77 % (31-73) Lymphocytes (%) (Auto) 5 % (24-48) 8 % (24-48) 12 % (24-48) Monocytes (%) (Auto) 10 % (0-9) 11 % (0-9) 11 % (0-9) Eosinophils (%) (Auto) 0 % (0-3) 0 % (0-3) 1 % (0-3) Basophils (%) (Auto) 0 % (0-3) 0 % (0-3) 0 % (0-3) Neutrophils # (Auto) 13.9 x10^3uL (1.8-7.7) 11.8 x10^3uL (1.8-7.7) 8.6 x10^3uL (1.8-7.7) Lymphocytes # (Auto) 0.9 x10^3/uL (1.0-4.8) 1.1 x10^3/uL (1.0-4.8) 1.3 x10^3/uL (1.0-4.8) Monocytes # (Auto) 1.6 x10^3/uL (0.0-1.1) 1.6 x10^3/uL (0.0-1.1) 1.2 x10^3/uL (0.0-1.1) Eosinophils # (Auto) 0.0 x10^3/uL (0.0-0.7) 0.0 x10^3/uL (0.0-0.7) 0.1 x10^3/uL (0.0-0.7) Basophils # (Auto) 0.0 x10^3/uL (0.0-0.2) 0.0 x10^3/uL (0.0-0.2) 0.0 x10^3/uL (0.0-0.2) Segmented Neutrophils % 84 % (35-66) Band Neutrophils % 2 % (0-9) Lymphocytes % 7 % (24-48) Monocytes % 7 % (0-10) Platelet Estimate Adequate (ADEQUATE) Sodium Level 127 mmol/L (136-145) 129 mmol/L (136-145) 129 mmol/L (136-145) Potassium Level 3.5 mmol/L (3.5-5.1) 3.2 mmol/L (3.5-5.1) 3.1 mmol/L (3.5-5.1) Chloride Level 91 mmol/L (98-107) 95 mmol/L (98-107) 96 mmol/L (98-107) Carbon Dioxide Level 30 mmol/L (21-32) 25 mmol/L (21-32) 26 mmol/L (21-32) Anion Gap 6 (6-14) 9 (6-14) 7 (6-14) Blood Urea Nitrogen 7 mg/dL (7-20) 6 mg/dL (7-20) 7 mg/dL (7-20) Creatinine 0.7 mg/dL (0.6-1.0) 0.6 mg/dL (0.6-1.0) 0.6 mg/dL (0.6-1.0) Estimated GFR (Cockcroft-Gault) 82.0 98.0 98.0 BUN/Creatinine Ratio 10 (6-20) Glucose Level 129 mg/dL (70-99) 101 mg/dL (70-99) 124 mg/dL (70-99) Calcium Level 8.3 mg/dL (8.5-10.1) 8.3 mg/dL (8.5-10.1) 7.8 mg/dL (8.5-10.1) Total Bilirubin 0.7 mg/dL (0.2-1.0) Aspartate Amino Transf (AST/SGOT) 23 U/L (15-37) Alanine Aminotransferase (ALT/SGPT) 20 U/L (14-59) Alkaline Phosphatase 84 U/L (46-116) Troponin I Quantitative < 0.017 ng/mL (0.000-0.055) Total Protein 6.9 g/dL (6.4-8.2) Albumin 3.2 g/dL (3.4-5.0) Albumin/Globulin Ratio 0.9 (1.0-1.7) Urine Collection Type U cath Urine Color Yellow Urine Clarity Clear Urine pH 7.0 Urine Specific [place] 1.010 Urine Protein 30 mg/dL (NEG-TRACE) Urine Glucose (UA) Negative mg/dL (NEG) Urine Ketones (Stick) 15 mg/dL (NEG) Urine Blood Small (NEG) Urine Nitrite Negative (NEG) Urine Bilirubin Negative (NEG) Urine Urobilinogen Dipstick 0.2 mg/dL (0.2 mg/dL) Urine Leukocyte Esterase Moderate (NEG) Urine RBC 11-20 /HPF (0-2) Urine WBC 20-40 /HPF (0-4) Urine Squamous Epithelial Cells Occ /LPF Urine Bacteria Many /HPF (0-FEW) Laboratory Tests Test 10/08/16 03:30 White Blood Count 11.2 x10^3/uL (4.0-11.0) Red Blood Count 3.30 x10^6/uL (3.50-5.40) Hemoglobin 10.4 g/dL (12.0-15.5) Hematocrit 30.5 % (36.0-47.0) Mean Corpuscular Volume 93 fL (79-100) Mean Corpuscular Hemoglobin 31 pg (25-35) Mean Corpuscular Hemoglobin Concent 34 g/dL (31-37) Red Cell Distribution Width 12.5 % (11.5-14.5) Platelet Count 149 x10^3/uL (140-400) Neutrophils (%) (Auto) 77 % (31-73) Lymphocytes (%) (Auto) 12 % (24-48) Monocytes (%) (Auto) 11 % (0-9) Eosinophils (%) (Auto) 1 % (0-3) Basophils (%) (Auto) 0 % (0-3) Neutrophils # (Auto) 8.6 x10^3uL (1.8-7.7) Lymphocytes # (Auto) 1.3 x10^3/uL (1.0-4.8) Monocytes # (Auto) 1.2 x10^3/uL (0.0-1.1) Eosinophils # (Auto) 0.1 x10^3/uL (0.0-0.7) Basophils # (Auto) 0.0 x10^3/uL (0.0-0.2) Sodium Level 129 mmol/L (136-145) Potassium Level 3.1 mmol/L (3.5-5.1) Chloride Level 96 mmol/L (98-107) Carbon Dioxide Level 26 mmol/L (21-32) Anion Gap 7 (6-14) Blood Urea Nitrogen 7 mg/dL (7-20) Creatinine 0.6 mg/dL (0.6-1.0) Estimated GFR (Cockcroft-Gault) 98.0 Glucose Level 124 mg/dL (70-99) Calcium Level 7.8 mg/dL (8.5-10.1) Images Images Xrays of the left ankle reveal anterior osteophytes. no acute fractures or dislocations. no subcutaneous gas. soft tissue stranding and swelling evident medially and laterally on xray. Assessment/Plan Assessment/Plan The patient is a chronically ill 71 year old female with 5 days of left ankle and lower leg pain, swelling, erythema. She has been on antibiotics for cellulitus with not much interval improvement per the patient. I do not want to aspirate her joint through the infected superficial tissue. She has no pain with ankle rom, no small arc pain with rom, decreased suspicion for septic arthritis. I believe this is overlying cellulitius with a possible abscess. I would recc an MRI if there is concern that she is not improving or may have an abscess. No indication for joint aspiration at this time because the risks outweigh the benefits. Please contact us if you believe surgical intervention is warranted. Thank you for this consult. JOAQUIN MARTINEZ MD Oct 08, 2016 16:19
--- NOTE | 2016-10-08 17:26 | CONS ---
DATE OF CONSULTATION: ATTENDING PHYSICIAN: Dr. Cristine Gresham. REASON FOR CONSULTATION: Dyspnea. HISTORY OF PRESENT ILLNESS: The patient is a pleasant 71-year-old female who follows me in the office for mild interstitial lung disease as well as obstructive sleep apnea. The patient was brought into the hospital after she started to have increasing fatigue and weakness and some encephalopathy. She noticed that her left ankle had swollen and was painful and red and indurated. She had mild urinary incontinence and dysuria as well. She had a fever of 100. She has no nausea, vomiting, diarrhea or any chest pain at the time of admission. However, since yesterday, she says she has been having more shortness of breath with exertion. She says she also has a cough with some green sputum production. Her chest x-ray shows mild chronic interstitial changes which correlates with her history of mild interstitial lung disease. She was started on broad-spectrum antibiotics. Venous Dopplers were negative of the lower extremity. Orthopedic has been consulted for possible left ankle abscess. PAST MEDICAL HISTORY: Hypertension, history of seizure disorder, history of CHELY and mild interstitial lung disease. PAST SURGICAL HISTORY: No recent surgeries. FAMILY HISTORY: Noncontributory to lungs. SOCIAL HISTORY: Minimal history of tobacco use, quit in 1990. ALLERGIES: SULFA. MEDICATIONS: All reviewed as listed in the MRAD including broad-spectrum antibiotics. REVIEW OF SYSTEMS: Twelve-point systems review obtained, pertinent positives discussed in my history of present illness, otherwise noncontributory. All systems that were negative were reviewed as well. PHYSICAL EXAMINATION: GENERAL: She is in no obvious respiratory distress. VITAL SIGNS: T-max of 100.4, room air pulse ox 94%. HEENT: Sclerae nonicteric. NECK: Supple. LUNGS: With diminished breath sounds. No crackles. CARDIOVASCULAR: Regular rate and rhythm. ABDOMEN: Soft, obese. EXTREMITIES: With left ankle swelling, induration, and erythema on the medial aspect. LABORATORY DATA: Reviewed. White cell count was 16.5 on admission, now 11.2, hemoglobin 10.4 and platelets are 149. BUN is 7 and creatinine 0.6. IMPRESSION: 1. Dyspnea associated with acute bronchitis. Her oxygen status stable and currently on room air at 94% saturation. 2. History of mild interstitial lung disease. Radiographically, does not appear to have any significant change. We will continue to monitor on a yearly basis by CT chest. 3. Acute bronchitis. 4. Left ankle cellulitis versus early abscess. Orthopedics are following along with Infectious Disease. 5. History of obstructive sleep apnea with good compliance with CPAP. RECOMMENDATIONS: 1. Continue broad-spectrum antibiotics per ID recommendation. 2. Follow chest x-ray if clinically anything changes. 3. Follow orthopedic recommendation. 4. P.r.n. oxygen. 5. CPAP at bedtime. 6. We will follow along with you. MALGORZATA BECKMAN MD DR: NELSON/evangelist JOB#: [id number] / [id number] CHALO
[2016-10-08 19:00] VITALS: BP 132/68
[2016-10-08] MEDS: ATORVASTATIN CALCIUM 10 MG TABLET. PO SCH (20:24)
[2016-10-08 23:00] VITALS: BP 135/69
[2016-10-09] MEDS: VANCOMYCIN PER PHARMACY MC PRN ×2 (00:05→12:36)
[2016-10-09] MEDS: VANCOMYCIN 1.5 GM in IV NORMAL SALINE 500ML BAG 500 ML IV SCH ×3 (00:26→22:59)
[2016-10-09] MEDS: PIPERACILLIN/TAZOBACTAM 3.375 GM in IV NORMAL SALINE 50ML 50 ML IV SCH ×3 (05:57→18:26)
[2016-10-09 07:00] VITALS: BP 151/71
[2016-10-09] MEDS: ALBUTEROL SULFATE 2.5 MG/3 ML NEBU. NEB SCH ×4 (07:04→19:31)
[2016-10-09] MEDS: BUDESONIDE 0.5 MG/2 ML NEBU. NEB SCH ×2 (07:04→19:31)
[2016-10-09] MEDS: VITAMIN E 200 UNIT CAPSULE. PO SCH (08:07)
[2016-10-09] MEDS: OMEGA-3 FATTY ACIDS/FISH OIL 1,000 MG CAPSULE. PO SCH (08:08)
[2016-10-09] MEDS: MULTIVITAMIN with MINERAL TABLET. PO SCH (08:08)
[2016-10-09] MEDS: amLODIPine BESYLATE 5 MG TABLET PO SCH (08:08)
[2016-10-09] MEDS: CALCIUM CARB/VIT D3 500/200 TABLET. PO SCH (08:08)
[2016-10-09] MEDS: carBAMazepine 200 MG TABLET PO SCH ×2 (08:08→21:59)
[2016-10-09] MEDS: CELECOXIB 200 MG CAPSULE. PO SCH (08:08)
[2016-10-09] MEDS: PANTOPRAZOLE 40 MG TABLET.DR. PO SCH (08:09)
[2016-10-09] MEDS ORDERED: ONDANSETRON PF 4 MG/2 ML VIAL. IV PRN (09:00)
--- NOTE | 2016-10-09 09:55 | PDOC ---
Infectious Disease Note Subjective Subjective Doing ok but foot hurts when she puts it down still ROS ROS GEN: Denies fevers, chills, sweats HEENT: Denies blurred vision, sore throat CV: Denies chest pain RESP: Denies shortness of air, cough GI: Denies n/v/d NEURO: Denies confusion, dizziness MSK: Denies weakness, joint pain/swelling Vital Sign Vital Signs Vital Signs Date Time Temp Pulse Resp B/P (MAP) Pulse Ox O2 Delivery O2 Flow Rate FiO2 10/09/16 08:08 68 151/71 10/09/16 07:05 94 Room Air 10/09/16 07:00 97.9 20 97.9 Physical Exam PHYSICAL EXAM GENERAL: NAD, Alert, coop HEENT: PERRL, OC/OP - clear NECK: Supple, no JVD, no LN LUNGS: Clear HEART: S1S2, no gallop, no murmur ABD: Soft, NT, no organomegaly, no rebound, obese EXT: LLE with 2 plus edema about the ankle only mainly on medial aspect, still some warmth and erythema. tender, no cyanosis RECEPTIONIST/TELEPHONE OPERATOR: Alert, oriented x 3, no focal neurologic deficit SKIN: No rash IV: ok Labs Lab Laboratory Tests Test 10/08/16 22:30 Vancomycin Level Trough 2.8 mcg/mL (10.0-20.0) Vancomycin Last Dose Date Vancomycin Last Dose Time Micro Klebsiella pneumoniae Greater than 100,000 colony forming units per mL ANTIMICROBIAL SUSCEPTIBILITY Final Comment S = Susceptible; I = Intermediate; R = Resistant P = Positive; N = Negative MICS are expressed in micrograms per mL Antibiotic RSLT#1 RSLT#2 RSLT#3 RSLT#4 Amoxicillin/Clavulanic Acid S Ampicillin R Cefepime S Ceftriaxone S Cefuroxime S Cephalothin S Ciprofloxacin S Ertapenem S Gentamicin S Imipenem S Levofloxacin S Nitrofurantoin S Piperacillin S Tetracycline S Tobramycin S Trimethoprim/Sulfa S Objective Assessment Left foot cellulitis - potential for abscess given stalling of improvement about the ankle Klebsiella UTI with dysuria - POA 10/06 Sulfa allergy - rash Fever Plan Plan of Care Cont Vanc Zosyn F/u labs in am and cults Needs MRI foot Elevation D/w family D/w FREEMAN Wise MD Oct 09, 2016 09:55
--- NOTE | 2016-10-09 10:19 | PDOC ---
PROGRESS NOTES Chief Complaint Chief Complaint Ankle cellulitis L ASSESSMENT AND PLAN: 1. L ankle cellulitis 2. SIRS POA, no sepsis 3. ILD, CHELY< chronic stable 4. Obesity BMI 37 5. Hypokalemia 3.3 6. Hyponatremia 129 in a COPD-er History of Present Illness History of Present Illness LEft ankle same, no improvement NOn diabetic NO fevers WBC down to 11 from 16 on admit ID on board Discussed with ID, swelling significant, xray neg for fx I still want to do imaging to r/o drainable fluid or abscess PT CANNOT bear weight on that extremity bec of pain Ortho note reviewed PLAN: MRI that joint COnt IV abx Add PT/OT PAin control CBC mariusz\ Replace K Vitals Vitals Vital Signs Date Time Temp Pulse Resp B/P (MAP) Pulse Ox O2 Delivery O2 Flow Rate FiO2 10/09/16 08:08 68 151/71 10/09/16 07:05 94 Room Air 10/09/16 07:00 97.9 20 97.9 Physical Exam General: Alert, Oriented X3, Cooperative, No acute distress Heart: Regular rate Lungs: Clear Abdomen: Normal bowel sounds, No tenderness Extremities: No edema Skin: No rashes Labs LABS Laboratory Tests Test 10/08/16 22:30 Vancomycin Level Trough 2.8 mcg/mL (10.0-20.0) Vancomycin Last Dose Date Vancomycin Last Dose Time Review of Systems Review of Systems pain left ankle, all else is neg Assessment and Plan Assessmemt and Plan Problems Medical Problems: (1) Cellulitis Status: Acute (2) Fever Status: Acute (3) Hyponatremia Status: Acute (4) Leg pain, left Status: Acute (5) Leukocytosis Status: Acute Problems: Comment Review of Relevant I have reviewed the following items kina (where applicable) has been applied. Labs Laboratory Tests Test 10/08/16 03:30 10/08/16 22:30 White Blood Count 11.2 x10^3/uL (4.0-11.0) Red Blood Count 3.30 x10^6/uL (3.50-5.40) Hemoglobin 10.4 g/dL (12.0-15.5) Hematocrit 30.5 % (36.0-47.0) Mean Corpuscular Volume 93 fL (79-100) Mean Corpuscular Hemoglobin 31 pg (25-35) Mean Corpuscular Hemoglobin Concent 34 g/dL (31-37) Red Cell Distribution Width 12.5 % (11.5-14.5) Platelet Count 149 x10^3/uL (140-400) Neutrophils (%) (Auto) 77 % (31-73) Lymphocytes (%) (Auto) 12 % (24-48) Monocytes (%) (Auto) 11 % (0-9) Eosinophils (%) (Auto) 1 % (0-3) Basophils (%) (Auto) 0 % (0-3) Neutrophils # (Auto) 8.6 x10^3uL (1.8-7.7) Lymphocytes # (Auto) 1.3 x10^3/uL (1.0-4.8) Monocytes # (Auto) 1.2 x10^3/uL (0.0-1.1) Eosinophils # (Auto) 0.1 x10^3/uL (0.0-0.7) Basophils # (Auto) 0.0 x10^3/uL (0.0-0.2) Sodium Level 129 mmol/L (136-145) Potassium Level 3.1 mmol/L (3.5-5.1) Chloride Level 96 mmol/L (98-107) Carbon Dioxide Level 26 mmol/L (21-32) Anion Gap 7 (6-14) Blood Urea Nitrogen 7 mg/dL (7-20) Creatinine 0.6 mg/dL (0.6-1.0) Estimated GFR (Cockcroft-Gault) 98.0 Glucose Level 124 mg/dL (70-99) Calcium Level 7.8 mg/dL (8.5-10.1) Vancomycin Level Trough 2.8 mcg/mL (10.0-20.0) Vancomycin Last Dose Date Vancomycin Last Dose Time Laboratory Tests Test 10/08/16 22:30 Vancomycin Level Trough 2.8 mcg/mL (10.0-20.0) Vancomycin Last Dose Date Vancomycin Last Dose Time Microbiology 10/06/16 Urine Culture - Final, Complete 10/06/16 Urine Culture Result 1 (PRAKASH) - Final, Complete 10/06/16 Antimicrobic Susceptibility - Final, Complete Medications Current Medications Fentanyl Citrate (Fentanyl 2ml Vial) 25 mcg PRN Q15MIN PRN IV PAIN GREATER THAN 3/10 Last administered on 10/07/16t 08:47; Start 10/06/16 at 21:00; Stop 10/07 at 11:12; Status DC Ondansetron HCl (Zofran) 4 mg 1X ONCE IV Last administered on 10/06/16 21:40; Start 10/06/16 at 21:30; Stop 10/06/16 at 21:31; Status DC Vancomycin HCl (Vanco Per Pharmacy) 1 each PRN DAILY PRN MC SEE COMMENTS Last administered on 10/09/16 00:05; Start 10/06/16 at 22:30 Cefepime HCl 2 gm/ Sodium Chloride 100 ml @ 200 mls/hr Q12HR IV Last administered on 10/07/16 08:46; Start 10/06/16 at 23:00; Stop 10/07/16 at 12:25; Status DC Vancomycin HCl 2 gm/Sodium Chloride 500 ml @ 250 mls/hr 1X ONCE IV Last administered on 10/06/16 23:23; Start 10/06/16 at 23:00; Stop 10/07/16 at 00:59; Status DC Sodium Chloride 1,000 ml @ 80 mls/hr 1X ONCE IV Last administered on 22:45; Start 10/06/16 at 23:00; Stop 10/07/16 at 11:29; Status DC Ondansetron HCl (Zofran) 4 mg PRN Q8HRS PRN IV NAUSEA/VOMITING; Start 10/06/16 at 22:45; Stop 10/07/16 at 22:44; Status DC Fentanyl Citrate (Fentanyl 2ml Vial) 50 mcg PRN Q2HR PRN IV SEVERE PAIN Last administered on 10/07/16 15:48; Start 10/06/16 at 22:45; Stop 10/07/16 at 22:44; Status DC Sodium Chloride 1,000 ml @ 80 mls/hr [id number] IV Last administered on 10/07/16 15:47; Start 10/06/16 at 23:00; Stop 10/07/16 at 22:59; Status DC Acetaminophen (Tylenol) 650 mg PRN Q4HRS PRN PO FEVER; Start 10/06/16 at 22:45; Stop 10/07/16 at 22:44; Status DC Vancomycin HCl 1.25 gm/Sodium Chloride 250 ml @ 167 mls/hr Q24H IV Last administered on 10/07/16 23:06; Start 10/07/16 at 23:00; Stop 10/08/16 at 23:01; Status DC Vancomycin HCl 1 each 1X ONCE MC Last administered on 10/08/16 22:30; Start at 22:30; Stop 10/08/16 at 22:31; Status DC Amlodipine Besylate (Norvasc) 5 mg DAILY PO Last administered on 10/09/16 08:08 ; Start 10/07/16 at 12:00 Calcium Carbonate/ Glycine (Tums) 500 mg PRN BID PRN PO HEARTBURN / GAS Last administered on 10/08/16 09:52; Start 10/07/16 at 11:15 Celecoxib (CeleBREX) 200 mg QODAY PO Last administered on 10/09/16 08:08; Start 10/09/16 at 09:00 Fish Oil (Fish Oil) 1,000 mg DAILY PO Last administered on 10/09/16 08:08; Start 10/07/16 at 12:00 Budesonide (Pulmicort) 0.5 mg RTBID NEB Last administered on 10/09/16 07:04; Start 10/07/16 at 12:00 Calcium/Vitamin D (Oscal D 500mg/ 200uts) 1 tab [id number] PO Last administered on 10/09/16 08:08; Start 10/07/16 at 12:00 Carbamazepine (TEGretol) 300 mg BID PO Last administered on 10/08/16 09:51; Start 10/07/16 at 12:00; Stop 10/08/16 at 13:16; Status DC Atorvastatin Calcium (Lipitor) 5 mg QHS PO Last administered on 10/08/16 20:24 ; Start 10/07/16 at 21:00 Multivitamins (Thera M Plus) 1 tab DAILY PO Last administered on 10/09/16 08:08 ; Start 10/07/16 at 12:00 Pantoprazole Sodium (Protonix) 40 mg DAILYAC PO Last administered on 10/09/16 08:09; Start 10/07/16 at 12:00 Vitamin E 400 unit DAILY PO Last administered on 10/09/16 08:07; Start 10/07/16 at 12:00 Psyllium Hydrophilic Mucilloid (Metamucil Fiber Packet) 1 pkt PRN DAILY PRN PO CONSTIPATION; Start 10/08/16 at 09:00 Albuterol Sulfate (Ventolin Neb Soln) 2.5 mg RTQID NEB Last administered on 10/09 07:04; Start 10/07/16 at 12:00 Piperacillin Sod/ Tazobactam Sod 3.375 gm/Sodium Chloride 50 ml @ 100 mls/hr Q6HRS IV Last administered on 10/09/16 05:57; Start 10/07/16 at 13:00 Carbamazepine (TEGretol) 600 mg BID PO Last administered on 10/09/16 08:08; Start 10/08/16 at 21:00 Potassium Chloride/Sodium Chloride 1,000 ml @ 125 mls/hr Q8H IV Last administered on 10/09/16 00:25; Start 10/08/16 at 23:00 Vancomycin HCl 1.5 gm/Sodium Chloride 500 ml @ 250 mls/hr Q12H IV Last administered on 10/09/16 00:26; Start 10/08/16 at 23:30 Vancomycin HCl 1 each 1X ONCE MC ; Start 10/10/16 at 11:00; Stop 10/10/16 at 11 :01 Acetaminophen (Tylenol) 500 mg PRN Q6HRS PRN PO MILD PAIN / TEMP; Start at 09:00 Ondansetron HCl (Zofran) 4 mg PRN Q6HRS PRN IV NAUSEA/VOMITING; Start 10/09/16 at 09:00 Active Scripts Active Reported Benefiber (Wheat Dextrin) 152 Gm Powder 152 Gm PO PRN DAILY PRN Lovastatin 20 Mg Tablet 20 Mg PO HS Amlodipine Besylate 5 Mg Tablet 5 Mg PO DAILY Symbicort 160-4.5 Mcg Inhaler (Budesonide/Formoterol Fumarate) 10.2 Gm Hfa.aer.ad 2 Puff IH BID Tums (Calcium Carbonate) 200 Mg Tab.chew 200 Mg PO PRN BID PRN Fish Oil 1,000 Mg Capsule ([place]-3 Fatty Acids/Fish Oil) 1 Each Capsule 1 Each PO DAILY Calcium + Vitamin D Tablet (Calcium Carbonate/Vitamin D3) 1 Each Tablet 1 Each PO DAILY Centrum Silver Tablet (Multivits-Min/Fa/Lycopene/Lut) 1 Each Tablet 1 Each PO GUERO Vitamin E 400 Unit Capsule 400 Unit PO DAILY Omeprazole 20 Mg Tablet.dr 20 Mg PO DAILY Celebrex (Celecoxib) 200 Mg Capsule 200 Mg PO QODAY Carbatrol (Carbamazepine) 300 Mg Cpmp.12hr 300 Mg PO BID Vitals/I & O Vital Sign - Last 24 Hours 10/08/16 10/08/16 10/08/16 10/08/16 11:11 11:37 14:55 14:56 Temp 98.8 100.4 99.9 98.8 100.4 99.9 Pulse 76 80 Resp 18 19 B/P (MAP) 129/56 (80) 130/57 (81) Pulse Ox 96 94 O2 Delivery Room Air Room Air Room Air 10/08/16 10/08/16 10/08/16 10/08/16 15:56 19:00 19:23 20:00 Temp 100.7 100.7 Pulse 77 Resp 20 B/P (MAP) 132/68 (89) Pulse Ox 93 O2 Delivery Room Air Room Air Room Air Room Air 10/08/16 10/09/16 10/09/16 10/09/16 23:00 07:00 07:05 08:08 Temp 99.5 97.9 99.5 97.9 Pulse 77 68 68 Resp 20 20 B/P (MAP) 135/69 (91) 151/71 (97) 151/71 Pulse Ox 92 95 94 O2 Delivery Room Air Room Air Room Air Intake and Output 10/08/16 10/08/16 10/09/16 15:00 23:00 07:00 Intake Total 488 ml 300 ml Output Total 1 ml Balance 488 ml -1 ml 300 ml ESPERANZA STARKS MD Oct 09, 2016 10:19
--- NOTE | 2016-10-09 10:33 | PDOC ---
PULMONARY PROGRESS NOTES Subjective no soa at rest Vitals Vital Signs Date Time Temp Pulse Resp B/P (MAP) Pulse Ox O2 Delivery O2 Flow Rate FiO2 10/09/16 08:08 68 151/71 10/09/16 07:05 94 Room Air 10/09/16 07:00 97.9 20 97.9 General: Alert, No acute distress Lungs: Clear Cardiovascular: S1 Abdomen: Soft Neuro Exam: Alert Extremities: Other (left ankle swelling, erythema) Labs Laboratory Tests Test 10/08/16 03:30 10/08/16 22:30 White Blood Count 11.2 x10^3/uL (4.0-11.0) Red Blood Count 3.30 x10^6/uL (3.50-5.40) Hemoglobin 10.4 g/dL (12.0-15.5) Hematocrit 30.5 % (36.0-47.0) Mean Corpuscular Volume 93 fL (79-100) Mean Corpuscular Hemoglobin 31 pg (25-35) Mean Corpuscular Hemoglobin Concent 34 g/dL (31-37) Red Cell Distribution Width 12.5 % (11.5-14.5) Platelet Count 149 x10^3/uL (140-400) Neutrophils (%) (Auto) 77 % (31-73) Lymphocytes (%) (Auto) 12 % (24-48) Monocytes (%) (Auto) 11 % (0-9) Eosinophils (%) (Auto) 1 % (0-3) Basophils (%) (Auto) 0 % (0-3) Neutrophils # (Auto) 8.6 x10^3uL (1.8-7.7) Lymphocytes # (Auto) 1.3 x10^3/uL (1.0-4.8) Monocytes # (Auto) 1.2 x10^3/uL (0.0-1.1) Eosinophils # (Auto) 0.1 x10^3/uL (0.0-0.7) Basophils # (Auto) 0.0 x10^3/uL (0.0-0.2) Sodium Level 129 mmol/L (136-145) Potassium Level 3.1 mmol/L (3.5-5.1) Chloride Level 96 mmol/L (98-107) Carbon Dioxide Level 26 mmol/L (21-32) Anion Gap 7 (6-14) Blood Urea Nitrogen 7 mg/dL (7-20) Creatinine 0.6 mg/dL (0.6-1.0) Estimated GFR (Cockcroft-Gault) 98.0 Glucose Level 124 mg/dL (70-99) Calcium Level 7.8 mg/dL (8.5-10.1) Vancomycin Level Trough 2.8 mcg/mL (10.0-20.0) Vancomycin Last Dose Date Vancomycin Last Dose Time Laboratory Tests Test 10/08/16 22:30 Vancomycin Level Trough 2.8 mcg/mL (10.0-20.0) Vancomycin Last Dose Date Vancomycin Last Dose Time Medications Active Scripts Medications Dose Route/Sig Max Daily Dose Days Date Category Benefiber (Wheat Dextrin) 152 Gm Powder 152 Gm PO PRN DAILY PRN 10/07/16 Reported Lovastatin 20 Mg Tablet 20 Mg PO HS 10/07/16 Reported Amlodipine Besylate 5 Mg Tablet 5 Mg PO DAILY 10/07/16 Reported Symbicort 160-4.5 Mcg Inhaler (Budesonide/Formoterol Fumarate) 10.2 Gm Hfa.aer.ad 2 Puff IH BID 10/07/16 Reported Tums (Calcium Carbonate) 200 Mg Tab.chew 200 Mg PO PRN BID PRN 05/10/13 Reported Fish Oil 1,000 Mg Capsule ([place]-3 Fatty Acids/Fish Oil) 1 Each Capsule 1 Each PO DAILY 05/10/13 Reported Calcium + Vitamin D Tablet (Calcium Carbonate/Vitamin D3) 1 Each Tablet 1 Each PO DAILY 05/10/13 Reported Centrum Silver Tablet (Multivits-Min/Fa/Lycopene/Lut) 1 Each Tablet 1 Each PO GUERO 05/10/13 Reported Vitamin E 400 Unit Capsule 400 Unit PO DAILY 05/10/13 Reported Omeprazole 20 Mg Tablet.dr 20 Mg PO DAILY 05/10/13 Reported Celebrex (Celecoxib) 200 Mg Capsule 200 Mg PO QODAY 05/10/13 Reported Carbatrol (Carbamazepine) 300 Mg Cpmp.12hr 300 Mg PO BID 05/10/13 Reported Impression . 1. Dyspnea associated with acute bronchitis. Her oxygen status stable and currently on room air at 94% saturation. 2. History of mild interstitial lung disease. Radiographically, does not appear to have any significant change. We will continue to monitor on a yearly basis by CT chest. 3. Acute bronchitis. 4. Left ankle cellulitis versus early abscess. Orthopedics are following along with Infectious Disease. 5. History of obstructive sleep apnea with good compliance with CPAP. Plan . 1. Continue broad-spectrum antibiotics per ID recommendation. 2. Follow chest x-ray if clinically anything changes. 3. Follow orthopedic recommendation. 4. P.r.n. oxygen. 5. CPAP at bedtime. 6. We will follow along with you. MALGORZATA BECKMAN MD Oct 09, 2016 10:33
[2016-10-09 11:00] VITALS: BP 149/75
[2016-10-09] MEDS ORDERED: GADOBUTROL 10 MMOL/10 ML VIAL IV ONE (14:45)
[2016-10-09 14:56] VITALS: BP 145/72
--- NOTE | 2016-10-09 16:00 | RAD ---
MR of the left ankle with and without contrast. HISTORY: Pain and swelling in left ankle. No known injury. Possible abscess. TECHNIQUE: Standard imaging before and after intravenous contrast. FINDINGS: There is generalized subcutaneous edema and swelling around the ankle. There is also some enhancement of the soft tissues mostly medially and posteriorly. No evidence of an organized fluid collection or abscess. No bone lesion or acute fracture. No marrow edema. No acute osteomyelitis. No significant joint effusion. 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 The visualized tendons are intact. No significant tendon sheath fluid. Mild thickening of the central band of the plantar aponeurosis compatible with mild scarring or chronic plantar fasciitis. The lateral ankle ligaments are poorly defined, possibly due to motion degradation but tearing or scarring is possible. IMPRESSION: 1. Diffuse soft tissue edema or swelling, compatible with cellulitis or soft tissue infection. 2. No drainable abscess or acute osteomyelitis. 3. Poorly visualized lateral ankle ligaments, suggesting injury of indeterminate age. Electronically signed by: Atilio Beverly MD (10/09/2016 3:57 PM) [facility]
--- NOTE | 2016-10-09 16:47 | PDOC ---
PROGRESS NOTES Subjective Subjective Problems overnight: None No nausea, vomiting, chest pain, worsened shortness of breath from baseline or new acute issues. Objective Vital Signs Vital Signs Date Time Temp Pulse Resp B/P (MAP) Pulse Ox O2 Delivery O2 Flow Rate FiO2 10/09/16 15:09 Room Air 10/09/16 14:56 97.9 70 20 145/72 (96) 94 97.9 Physical Exam Left ankle with continued dark erythema centered over the medial and lateral malleolus. swelling over the medial malleolus. no fluctuance or drainage. no pain with df/ pf of the ankle. nvi distally. 2+ DP Labs Laboratory Tests Test 10/08/16 03:30 10/08/16 22:30 White Blood Count 11.2 x10^3/uL (4.0-11.0) Red Blood Count 3.30 x10^6/uL (3.50-5.40) Hemoglobin 10.4 g/dL (12.0-15.5) Hematocrit 30.5 % (36.0-47.0) Mean Corpuscular Volume 93 fL (79-100) Mean Corpuscular Hemoglobin 31 pg (25-35) Mean Corpuscular Hemoglobin Concent 34 g/dL (31-37) Red Cell Distribution Width 12.5 % (11.5-14.5) Platelet Count 149 x10^3/uL (140-400) Neutrophils (%) (Auto) 77 % (31-73) Lymphocytes (%) (Auto) 12 % (24-48) Monocytes (%) (Auto) 11 % (0-9) Eosinophils (%) (Auto) 1 % (0-3) Basophils (%) (Auto) 0 % (0-3) Neutrophils # (Auto) 8.6 x10^3uL (1.8-7.7) Lymphocytes # (Auto) 1.3 x10^3/uL (1.0-4.8) Monocytes # (Auto) 1.2 x10^3/uL (0.0-1.1) Eosinophils # (Auto) 0.1 x10^3/uL (0.0-0.7) Basophils # (Auto) 0.0 x10^3/uL (0.0-0.2) Sodium Level 129 mmol/L (136-145) Potassium Level 3.1 mmol/L (3.5-5.1) Chloride Level 96 mmol/L (98-107) Carbon Dioxide Level 26 mmol/L (21-32) Anion Gap 7 (6-14) Blood Urea Nitrogen 7 mg/dL (7-20) Creatinine 0.6 mg/dL (0.6-1.0) Estimated GFR (Cockcroft-Gault) 98.0 Glucose Level 124 mg/dL (70-99) Calcium Level 7.8 mg/dL (8.5-10.1) Vancomycin Level Trough 2.8 mcg/mL (10.0-20.0) Vancomycin Last Dose Date Vancomycin Last Dose Time Laboratory Tests Test 10/08/16 22:30 Vancomycin Level Trough 2.8 mcg/mL (10.0-20.0) Vancomycin Last Dose Date Vancomycin Last Dose Time Imaging MRI of left ankle reveals soft tissue changes consisted with cellulitis with no focal drainable areas of fluid such as an abscess. Assessment Problems: (1) Cellulitis Problem Qualifiers (1) Cellulitis: Site of cellulitis: extremity Site of cellulitis of extremity: lower extremity Laterality: left Qualified Codes: L03.116 - Cellulitis of left lower limb RASHAD AGUIRRE PAC Oct 09, 2016 16:47
[2016-10-09 19:00] VITALS: BP 145/79
[2016-10-09] MEDS: ATORVASTATIN CALCIUM 10 MG TABLET. PO SCH (21:59)
[2016-10-09 23:00] VITALS: BP 136/77
[2016-10-10] MEDS: PIPERACILLIN/TAZOBACTAM 3.375 GM in IV NORMAL SALINE 50ML 50 ML IV SCH ×5 (01:13→23:55)
[2016-10-10 04:31] LABS: BASO % 0 % (0-3); EOS % 1 % (0-3); HEMATOCRIT 31.9 % (36.0-47.0); HEMOGLOBIN 10.8 g/dL (12.0-15.5); LYMPH % 21 % (24-48); MEAN CORPUSCULAR HEMOGLOBIN 32 pg (25-35); MEAN CORPUSCULAR HGB CONC 34 g/dL (31-37); MEAN CORPUSCULAR VOLUME 93 fL (79-100); MONO % 12 % (0-9); NEUT % 65 % (31-73); PLATELET COUNT 204 x10^3/uL (140-400); RED BLOOD COUNT 3.42 x10^6/uL (3.50-5.40); RED CELL DISTRIBUTION WIDTH 12.3 % (11.5-14.5); WHITE BLOOD COUNT 9.5 x10^3/uL (4.0-11.0)
[2016-10-10 05:09] LABS: CALCIUM 8.4 mg/dL (8.5-10.1); CREATININE 0.6 mg/dL (0.6-1.0); POTASSIUM 3.1 mmol/L (3.5-5.1)
[2016-10-10 07:00] VITALS: BP 158/81
[2016-10-10] MEDS: BUDESONIDE 0.5 MG/2 ML NEBU. NEB SCH ×2 (07:26→19:37)
[2016-10-10] MEDS: ALBUTEROL SULFATE 2.5 MG/3 ML NEBU. NEB SCH ×4 (07:26→19:37)
[2016-10-10] MEDS: PANTOPRAZOLE 40 MG TABLET.DR. PO SCH (07:49)
[2016-10-10] MEDS: MULTIVITAMIN with MINERAL TABLET. PO SCH (08:37)
[2016-10-10] MEDS: CALCIUM CARB/VIT D3 500/200 TABLET. PO SCH (08:38)
[2016-10-10] MEDS: VITAMIN E 200 UNIT CAPSULE. PO SCH (08:38)
[2016-10-10] MEDS: carBAMazepine 200 MG TABLET PO SCH ×2 (08:42→21:00)
[2016-10-10] MEDS: OMEGA-3 FATTY ACIDS/FISH OIL 1,000 MG CAPSULE. PO SCH (08:42)
[2016-10-10] MEDS: amLODIPine BESYLATE 5 MG TABLET PO SCH (08:42)
[2016-10-10 10:55] VITALS: BP 173/97
[2016-10-10] MEDS ORDERED: POTASSIUM CHLORIDE 20 MEQ TABLET.ER. PO ONE ×2 (11:00→11:39)
[2016-10-10] MEDS: VANCOMYCIN 1.5 GM in IV NORMAL SALINE 500ML BAG 500 ML IV SCH (11:30)
--- NOTE | 2016-10-10 11:50 | PDOC ---
PULMONARY PROGRESS NOTES Subjective no soa at rest Vitals Vital Signs Date Time Temp Pulse Resp B/P (MAP) Pulse Ox O2 Delivery O2 Flow Rate FiO2 10/10/16 11:34 96 Room Air 10/10/16 10:55 97.7 93 20 173/97 (122) 97.7 General: Alert, No acute distress Lungs: Clear Cardiovascular: S1 Abdomen: Soft Neuro Exam: Alert Extremities: Other (left ankle swelling, erythema) Labs Laboratory Tests Test 10/08/16 22:30 10/10/16 03:20 10/10/16 03:25 10/10/16 10:45 Vancomycin Level Trough 2.8 mcg/mL (10.0-20.0) 12.8 mcg/mL (10.0-20.0) Vancomycin Last Dose Date 10/09/16 Vancomycin Last Dose Time 2330 White Blood Count 9.5 x10^3/uL (4.0-11.0) Red Blood Count 3.42 x10^6/uL (3.50-5.40) Hemoglobin 10.8 g/dL (12.0-15.5) Hematocrit 31.9 % (36.0-47.0) Mean Corpuscular Volume 93 fL (79-100) Mean Corpuscular Hemoglobin 32 pg (25-35) Mean Corpuscular Hemoglobin Concent 34 g/dL (31-37) Red Cell Distribution Width 12.3 % (11.5-14.5) Platelet Count 204 x10^3/uL (140-400) Neutrophils (%) (Auto) 65 % (31-73) Lymphocytes (%) (Auto) 21 % (24-48) Monocytes (%) (Auto) 12 % (0-9) Eosinophils (%) (Auto) 1 % (0-3) Basophils (%) (Auto) 0 % (0-3) Neutrophils # (Auto) 6.2 x10^3uL (1.8-7.7) Lymphocytes # (Auto) 2.0 x10^3/uL (1.0-4.8) Monocytes # (Auto) 1.1 x10^3/uL (0.0-1.1) Eosinophils # (Auto) 0.1 x10^3/uL (0.0-0.7) Basophils # (Auto) 0.0 x10^3/uL (0.0-0.2) Sodium Level 135 mmol/L (136-145) Potassium Level 3.1 mmol/L (3.5-5.1) Chloride Level 99 mmol/L (98-107) Carbon Dioxide Level 26 mmol/L (21-32) Anion Gap 10 (6-14) Blood Urea Nitrogen 4 mg/dL (7-20) Creatinine 0.6 mg/dL (0.6-1.0) Estimated GFR (Cockcroft-Gault) 98.0 Glucose Level 124 mg/dL (70-99) Calcium Level 8.4 mg/dL (8.5-10.1) Laboratory Tests Test 10/10/16 03:20 10/10/16 03:25 10/10/16 10:45 White Blood Count 9.5 x10^3/uL (4.0-11.0) Red Blood Count 3.42 x10^6/uL (3.50-5.40) Hemoglobin 10.8 g/dL (12.0-15.5) Hematocrit 31.9 % (36.0-47.0) Mean Corpuscular Volume 93 fL (79-100) Mean Corpuscular Hemoglobin 32 pg (25-35) Mean Corpuscular Hemoglobin Concent 34 g/dL (31-37) Red Cell Distribution Width 12.3 % (11.5-14.5) Platelet Count 204 x10^3/uL (140-400) Neutrophils (%) (Auto) 65 % (31-73) Lymphocytes (%) (Auto) 21 % (24-48) Monocytes (%) (Auto) 12 % (0-9) Eosinophils (%) (Auto) 1 % (0-3) Basophils (%) (Auto) 0 % (0-3) Neutrophils # (Auto) 6.2 x10^3uL (1.8-7.7) Lymphocytes # (Auto) 2.0 x10^3/uL (1.0-4.8) Monocytes # (Auto) 1.1 x10^3/uL (0.0-1.1) Eosinophils # (Auto) 0.1 x10^3/uL (0.0-0.7) Basophils # (Auto) 0.0 x10^3/uL (0.0-0.2) Sodium Level 135 mmol/L (136-145) Potassium Level 3.1 mmol/L (3.5-5.1) Chloride Level 99 mmol/L (98-107) Carbon Dioxide Level 26 mmol/L (21-32) Anion Gap 10 (6-14) Blood Urea Nitrogen 4 mg/dL (7-20) Creatinine 0.6 mg/dL (0.6-1.0) Estimated GFR (Cockcroft-Gault) 98.0 Glucose Level 124 mg/dL (70-99) Calcium Level 8.4 mg/dL (8.5-10.1) Vancomycin Level Trough 12.8 mcg/mL (10.0-20.0) Vancomycin Last Dose Date 10/09/16 Vancomycin Last Dose Time 2330 Medications Active Scripts Medications Dose Route/Sig Max Daily Dose Days Date Category Benefiber (Wheat Dextrin) 152 Gm Powder 152 Gm PO PRN DAILY PRN 10/07/16 Reported Lovastatin 20 Mg Tablet 20 Mg PO HS 10/07/16 Reported Amlodipine Besylate 5 Mg Tablet 5 Mg PO DAILY 10/07/16 Reported Symbicort 160-4.5 Mcg Inhaler (Budesonide/Formoterol Fumarate) 10.2 Gm Hfa.aer.ad 2 Puff IH BID 10/07/16 Reported Tums (Calcium Carbonate) 200 Mg Tab.chew 200 Mg PO PRN BID PRN 05/10/13 Reported Fish Oil 1,000 Mg Capsule ([place]-3 Fatty Acids/Fish Oil) 1 Each Capsule 1 Each PO DAILY 05/10/13 Reported Calcium + Vitamin D Tablet (Calcium Carbonate/Vitamin D3) 1 Each Tablet 1 Each PO DAILY 05/10/13 Reported Centrum Silver Tablet (Multivits-Min/Fa/Lycopene/Lut) 1 Each Tablet 1 Each PO GUERO 05/10/13 Reported Vitamin E 400 Unit Capsule 400 Unit PO DAILY 05/10/13 Reported Omeprazole 20 Mg Tablet.dr 20 Mg PO DAILY 05/10/13 Reported Celebrex (Celecoxib) 200 Mg Capsule 200 Mg PO QODAY 05/10/13 Reported Carbatrol (Carbamazepine) 300 Mg Cpmp.12hr 300 Mg PO BID 05/10/13 Reported Impression . 1. Dyspnea associated with acute bronchitis. Her oxygen status stable and currently on room air at 94% saturation. 2. History of mild interstitial lung disease. Radiographically, does not appear to have any significant change. We will continue to monitor on a yearly basis by CT chest. 3. Acute bronchitis. 4. Left ankle cellulitis versus early abscess. Orthopedics are following along with Infectious Disease. 5. History of obstructive sleep apnea with good compliance with CPAP. Plan . 1. Continue broad-spectrum antibiotics per ID recommendation. 2. Follow chest x-ray if clinically anything changes. 3. Follow orthopedic recommendation. 4. P.r.n. oxygen. 5. CPAP at bedtime. 6. We will follow along with you. MALGORZATA BECKMAN MD Oct 10, 2016 11:50
--- NOTE | 2016-10-10 12:21 | PDOC ---
PROGRESS NOTES Chief Complaint Chief Complaint Ankle cellulitis L ASSESSMENT AND PLAN: L ankle cellulitis. no osteo or abscess . SIRS POA, no sepsis ILD, CHELY< chronic stable Obesity BMI 37 Hypokalemia 3.3 Hyponatremia 129 in a COPD-er possible acute bronchitis copd previous smoker + ucx mild ILD HTN plan: fu with ortho, id, pulm no sx planning on vanco and zosyn elevated left ankle dc ivf albuterol qid as per pulm replete k dvt ppx gi ppx ptot History of Present Illness History of Present Illness LEft ankle same, no improvement NOn diabetic NO fevers WBC down to 9.5 from 16 on admit ID on board Na 135, K 3.1 said some cough Vitals Vitals Vital Signs Date Time Temp Pulse Resp B/P (MAP) Pulse Ox O2 Delivery O2 Flow Rate FiO2 10/10/16 11:34 96 Room Air 10/10/16 10:55 97.7 93 20 173/97 (122) 97.7 Physical Exam General: Alert, Oriented X3, Cooperative, No acute distress Heart: Regular rate Lungs: Crackles (bl basilar mild crackles) Abdomen: Normal bowel sounds, No tenderness Extremities: No edema, Other (left ankle moderate swelling, with dark erythema , tenderness, no wound) Skin: No rashes Labs LABS Laboratory Tests Test 10/10/16 03:20 10/10/16 03:25 10/10/16 10:45 White Blood Count 9.5 x10^3/uL (4.0-11.0) Red Blood Count 3.42 x10^6/uL (3.50-5.40) Hemoglobin 10.8 g/dL (12.0-15.5) Hematocrit 31.9 % (36.0-47.0) Mean Corpuscular Volume 93 fL (79-100) Mean Corpuscular Hemoglobin 32 pg (25-35) Mean Corpuscular Hemoglobin Concent 34 g/dL (31-37) Red Cell Distribution Width 12.3 % (11.5-14.5) Platelet Count 204 x10^3/uL (140-400) Neutrophils (%) (Auto) 65 % (31-73) Lymphocytes (%) (Auto) 21 % (24-48) Monocytes (%) (Auto) 12 % (0-9) Eosinophils (%) (Auto) 1 % (0-3) Basophils (%) (Auto) 0 % (0-3) Neutrophils # (Auto) 6.2 x10^3uL (1.8-7.7) Lymphocytes # (Auto) 2.0 x10^3/uL (1.0-4.8) Monocytes # (Auto) 1.1 x10^3/uL (0.0-1.1) Eosinophils # (Auto) 0.1 x10^3/uL (0.0-0.7) Basophils # (Auto) 0.0 x10^3/uL (0.0-0.2) Sodium Level 135 mmol/L (136-145) Potassium Level 3.1 mmol/L (3.5-5.1) Chloride Level 99 mmol/L (98-107) Carbon Dioxide Level 26 mmol/L (21-32) Anion Gap 10 (6-14) Blood Urea Nitrogen 4 mg/dL (7-20) Creatinine 0.6 mg/dL (0.6-1.0) Estimated GFR (Cockcroft-Gault) 98.0 Glucose Level 124 mg/dL (70-99) Calcium Level 8.4 mg/dL (8.5-10.1) Vancomycin Level Trough 12.8 mcg/mL (10.0-20.0) Vancomycin Last Dose Date 10/09/16 Vancomycin Last Dose Time 2330 Review of Systems Review of Systems no fever, chills, sob or chest pain Assessment and Plan Assessmemt and Plan Problems Medical Problems: (1) Cellulitis Status: Acute (2) Fever Status: Acute (3) Hyponatremia Status: Acute (4) Leg pain, left Status: Acute (5) Leukocytosis Status: Acute Problems: Comment Review of Relevant I have reviewed the following items kina (where applicable) has been applied. Labs Laboratory Tests Test 10/08/16 22:30 10/10/16 03:20 10/10/16 03:25 10/10/16 10:45 Vancomycin Level Trough 2.8 mcg/mL (10.0-20.0) 12.8 mcg/mL (10.0-20.0) Vancomycin Last Dose Date 10/09/16 Vancomycin Last Dose Time 2330 White Blood Count 9.5 x10^3/uL (4.0-11.0) Red Blood Count 3.42 x10^6/uL (3.50-5.40) Hemoglobin 10.8 g/dL (12.0-15.5) Hematocrit 31.9 % (36.0-47.0) Mean Corpuscular Volume 93 fL (79-100) Mean Corpuscular Hemoglobin 32 pg (25-35) Mean Corpuscular Hemoglobin Concent 34 g/dL (31-37) Red Cell Distribution Width 12.3 % (11.5-14.5) Platelet Count 204 x10^3/uL (140-400) Neutrophils (%) (Auto) 65 % (31-73) Lymphocytes (%) (Auto) 21 % (24-48) Monocytes (%) (Auto) 12 % (0-9) Eosinophils (%) (Auto) 1 % (0-3) Basophils (%) (Auto) 0 % (0-3) Neutrophils # (Auto) 6.2 x10^3uL (1.8-7.7) Lymphocytes # (Auto) 2.0 x10^3/uL (1.0-4.8) Monocytes # (Auto) 1.1 x10^3/uL (0.0-1.1) Eosinophils # (Auto) 0.1 x10^3/uL (0.0-0.7) Basophils # (Auto) 0.0 x10^3/uL (0.0-0.2) Sodium Level 135 mmol/L (136-145) Potassium Level 3.1 mmol/L (3.5-5.1) Chloride Level 99 mmol/L (98-107) Carbon Dioxide Level 26 mmol/L (21-32) Anion Gap 10 (6-14) Blood Urea Nitrogen 4 mg/dL (7-20) Creatinine 0.6 mg/dL (0.6-1.0) Estimated GFR (Cockcroft-Gault) 98.0 Glucose Level 124 mg/dL (70-99) Calcium Level 8.4 mg/dL (8.5-10.1) Laboratory Tests Test 10/10/16 03:20 10/10/16 03:25 10/10/16 10:45 White Blood Count 9.5 x10^3/uL (4.0-11.0) Red Blood Count 3.42 x10^6/uL (3.50-5.40) Hemoglobin 10.8 g/dL (12.0-15.5) Hematocrit 31.9 % (36.0-47.0) Mean Corpuscular Volume 93 fL (79-100) Mean Corpuscular Hemoglobin 32 pg (25-35) Mean Corpuscular Hemoglobin Concent 34 g/dL (31-37) Red Cell Distribution Width 12.3 % (11.5-14.5) Platelet Count 204 x10^3/uL (140-400) Neutrophils (%) (Auto) 65 % (31-73) Lymphocytes (%) (Auto) 21 % (24-48) Monocytes (%) (Auto) 12 % (0-9) Eosinophils (%) (Auto) 1 % (0-3) Basophils (%) (Auto) 0 % (0-3) Neutrophils # (Auto) 6.2 x10^3uL (1.8-7.7) Lymphocytes # (Auto) 2.0 x10^3/uL (1.0-4.8) Monocytes # (Auto) 1.1 x10^3/uL (0.0-1.1) Eosinophils # (Auto) 0.1 x10^3/uL (0.0-0.7) Basophils # (Auto) 0.0 x10^3/uL (0.0-0.2) Sodium Level 135 mmol/L (136-145) Potassium Level 3.1 mmol/L (3.5-5.1) Chloride Level 99 mmol/L (98-107) Carbon Dioxide Level 26 mmol/L (21-32) Anion Gap 10 (6-14) Blood Urea Nitrogen 4 mg/dL (7-20) Creatinine 0.6 mg/dL (0.6-1.0) Estimated GFR (Cockcroft-Gault) 98.0 Glucose Level 124 mg/dL (70-99) Calcium Level 8.4 mg/dL (8.5-10.1) Vancomycin Level Trough 12.8 mcg/mL (10.0-20.0) Vancomycin Last Dose Date 10/09/16 Vancomycin Last Dose Time 2330 Microbiology 10/06/16 Urine Culture - Final, Complete 10/06/16 Urine Culture Result 1 (PRAKASH) - Final, Complete 10/06/16 Antimicrobic Susceptibility - Final, Complete Medications Current Medications Fentanyl Citrate (Fentanyl 2ml Vial) 25 mcg PRN Q15MIN PRN IV PAIN GREATER THAN 3/10 Last administered on 10/07/16 08:47; Start 10/06/16 at 21:00; Stop 10/07 at 11:12; Status DC Ondansetron HCl (Zofran) 4 mg 1X ONCE IV Last administered on 10/06/16 21:40; Start 10/06/16 at 21:30; Stop 10/06/16 at 21:31; Status DC Vancomycin HCl (Vanco Per Pharmacy) 1 each PRN DAILY PRN MC SEE COMMENTS Last administered on 10/09/16 12:36; Start 10/06/16 at 22:30 Cefepime HCl 2 gm/ Sodium Chloride 100 ml @ 200 mls/hr Q12HR IV Last administered on 10/07/16 08:46; Start 10/06/16 at 23:00; Stop 10/07/16 at 12:25; Status DC Vancomycin HCl 2 gm/Sodium Chloride 500 ml @ 250 mls/hr 1X ONCE IV Last administered on 10/06/16 23:23; Start 10/06/16 at 23:00; Stop 10/07/16 at 00:59; Status DC Sodium Chloride 1,000 ml @ 80 mls/hr 1X ONCE IV Last administered on 22:45; Start 10/06/16 at 23:00; Stop 10/07/16 at 11:29; Status DC Ondansetron HCl (Zofran) 4 mg PRN Q8HRS PRN IV NAUSEA/VOMITING; Start 10/06/16 at 22:45; Stop 10/07/16 at 22:44; Status DC Fentanyl Citrate (Fentanyl 2ml Vial) 50 mcg PRN Q2HR PRN IV SEVERE PAIN Last administered on 10/07/16 15:48; Start 10/06/16 at 22:45; Stop 10/07/16 at 22:44; Status DC Sodium Chloride 1,000 ml @ 80 mls/hr [id number] IV Last administered on 10/07/16 15:47; Start 10/06/16 at 23:00; Stop 10/07/16 at 22:59; Status DC Acetaminophen (Tylenol) 650 mg PRN Q4HRS PRN PO FEVER; Start 10/06/16 at 22:45; Stop 10/07/16 at 22:44; Status DC Vancomycin HCl 1.25 gm/Sodium Chloride 250 ml @ 167 mls/hr Q24H IV Last administered on 10/07/16 23:06; Start 10/07/16 at 23:00; Stop 10/08/16 at 23:01; Status DC Vancomycin HCl 1 each 1X ONCE MC Last administered on 10/08/16 22:30; Start at 22:30; Stop 10/08/16 at 22:31; Status DC Amlodipine Besylate (Norvasc) 5 mg DAILY PO Last administered on 10/10/16 08: 42; Start 10/07/16 at 12:00 Calcium Carbonate/ Glycine (Tums) 500 mg PRN BID PRN PO HEARTBURN / GAS Last administered on 10/08/16 09:52; Start 10/07/16 at 11:15 Celecoxib (CeleBREX) 200 mg QODAY PO Last administered on 10/09/16 08:08; Start 10/09/16 at 09:00 Fish Oil (Fish Oil) 1,000 mg DAILY PO Last administered on 10/10/16 08:42; Start 10/07/16 at 12:00 Budesonide (Pulmicort) 0.5 mg RTBID NEB Last administered on 10/10/16 07:26; Start 10/07/16 at 12:00 Calcium/Vitamin D (Oscal D 500mg/ 200uts) 1 tab [id number] PO Last administered on 10/10/16 08:38; Start 10/07/16 at 12:00 Carbamazepine (TEGretol) 300 mg BID PO Last administered on 10/08/16 09:51; Start 10/07/16 at 12:00; Stop 10/08/16 at 13:16; Status DC Atorvastatin Calcium (Lipitor) 5 mg QHS PO Last administered on 10/09/16 21:59 ; Start 10/07/16 at 21:00 Multivitamins (Thera M Plus) 1 tab DAILY PO Last administered on 10/10/16 08: 37; Start 10/07/16 at 12:00 Pantoprazole Sodium (Protonix) 40 mg DAILYAC PO Last administered on 10/10/16 07:49; Start 10/07/16 at 12:00 Vitamin E 400 unit DAILY PO Last administered on 10/10/16 08:38; Start at 12:00 Psyllium Hydrophilic Mucilloid (Metamucil Fiber Packet) 1 pkt PRN DAILY PRN PO CONSTIPATION; Start 10/08/16 at 09:00 Albuterol Sulfate (Ventolin Neb Soln) 2.5 mg RTQID NEB Last administered on 11:34; Start 10/07/16 at 12:00 Piperacillin Sod/ Tazobactam Sod 3.375 gm/Sodium Chloride 50 ml @ 100 mls/hr Q6HRS IV Last administered on 10/10/16 06:27; Start 10/07/16 at 13:00 Carbamazepine (TEGretol) 600 mg BID PO Last administered on 10/10/16 08:42; Start 10/08/16 at 21:00 Potassium Chloride/Sodium Chloride 1,000 ml @ 125 mls/hr Q8H IV Last administered on 10/10/16 04:38; Start 10/08/16 at 23:00; Stop 10/10/16 at 10:52 ; Status DC Vancomycin HCl 1.5 gm/Sodium Chloride 500 ml @ 250 mls/hr Q12H IV Last administered on 10/10/16 11:30; Start 10/08/16 at 23:30 Vancomycin HCl 1 each 1X ONCE MC ; Start 10/10/16 at 11:00; Stop 10/10/16 at 11 :01; Status DC Acetaminophen (Tylenol) 500 mg PRN Q6HRS PRN PO MILD PAIN / TEMP; Start at 09:00 Ondansetron HCl (Zofran) 4 mg PRN Q6HRS PRN IV NAUSEA/VOMITING; Start 10/09/16 at 09:00 Gadobutrol (Gadavist) 9 mmol 1X ONCE IV ; Start 10/09/16 at 14:45; Stop 10/09/16 at 14:46; Status DC Potassium Chloride (Klor-Con) 40 meq 1X ONCE PO Last administered on 11:46; Start 10/10/16 at 11:00; Stop 10/10/16 at 11:01; Status DC Active Scripts Active Reported Benefiber (Wheat Dextrin) 152 Gm Powder 152 Gm PO PRN DAILY PRN Lovastatin 20 Mg Tablet 20 Mg PO HS Amlodipine Besylate 5 Mg Tablet 5 Mg PO DAILY Symbicort 160-4.5 Mcg Inhaler (Budesonide/Formoterol Fumarate) 10.2 Gm Hfa.aer.ad 2 Puff IH BID Tums (Calcium Carbonate) 200 Mg Tab.chew 200 Mg PO PRN BID PRN Fish Oil 1,000 Mg Capsule ([place]-3 Fatty Acids/Fish Oil) 1 Each Capsule 1 Each PO DAILY Calcium + Vitamin D Tablet (Calcium Carbonate/Vitamin D3) 1 Each Tablet 1 Each PO DAILY Centrum Silver Tablet (Multivits-Min/Fa/Lycopene/Lut) 1 Each Tablet 1 Each PO GUERO Vitamin E 400 Unit Capsule 400 Unit PO DAILY Omeprazole 20 Mg Tablet.dr 20 Mg PO DAILY Celebrex (Celecoxib) 200 Mg Capsule 200 Mg PO QODAY Carbatrol (Carbamazepine) 300 Mg Cpmp.12hr 300 Mg PO BID Vitals/I & O Vital Sign - Last 24 Hours 10/09/16 10/09/16 10/09/16 10/09/16 14:56 15:09 19:00 19:22 Temp 97.9 99.6 97.9 99.6 Pulse 70 84 Resp 20 20 B/P (MAP) 145/72 (96) 145/79 (101) Pulse Ox 94 92 94 O2 Delivery Room Air Room Air Room Air Room Air 10/09/16 10/09/16 10/10/16 10/10/16 20:00 23:00 07:00 07:28 Temp 97.8 97.7 97.8 97.7 Pulse 84 70 Resp 20 20 B/P (MAP) 136/77 (96) 158/81 (106) Pulse Ox 93 95 94 O2 Delivery Room Air Room Air Room Air Room Air 10/10/16 10/10/16 10/10/16 10/10/16 08:00 08:42 10:55 11:34 Temp 97.7 97.7 Pulse 70 93 Resp 20 B/P (MAP) 158/81 173/97 (122) Pulse Ox 94 96 O2 Delivery Room Air Nasal Cannula Room Air Intake and Output 10/09/16 10/09/16 10/10/16 15:00 23:00 07:00 Intake Total 600 ml 1200 ml 1870 ml Output Total 500 ml 1550 ml Balance 600 ml 700 ml 320 ml EMMA BARNES MD Oct 10, 2016 12:21
[2016-10-10] MEDS ORDERED: ENOXAPARIN 40 MG/0.4 ML SYRINGE. SQ ONE (12:28)
--- NOTE | 2016-10-10 12:31 | PDOC ---
Infectious Disease Note Subjective Subjective Comfortable at the moment, Sharp pains w/ dependent position Tolerating abx well w/o problems ROS ROS GEN: Denies fevers, chills, sweats CV: Denies chest pain RESP: Denies shortness of air, cough GI: Denies n/v/d Vital Sign Vital Signs Vital Signs Date Time Temp Pulse Resp B/P (MAP) Pulse Ox O2 Delivery O2 Flow Rate FiO2 10/10/16 11:34 96 Room Air 10/10/16 10:55 97.7 93 20 173/97 (122) 97.7 Physical Exam PHYSICAL EXAM GENERAL: Up in chair, legs elevated, smiling LUNGS: Clear HEART: S1S2, no gallop, no murmur ABD: Obese, soft, NT EXT: Left ankle swelling, erythematous and warm [employer] TE[employer]ER: Alert, oriented x 3, no focal neurologic deficit SKIN: No rash IV: ok Labs Lab Laboratory Tests Test 10/10/16 03:20 10/10/16 03:25 10/10/16 10:45 White Blood Count 9.5 x10^3/uL (4.0-11.0) Red Blood Count 3.42 x10^6/uL (3.50-5.40) Hemoglobin 10.8 g/dL (12.0-15.5) Hematocrit 31.9 % (36.0-47.0) Mean Corpuscular Volume 93 fL (79-100) Mean Corpuscular Hemoglobin 32 pg (25-35) Mean Corpuscular Hemoglobin Concent 34 g/dL (31-37) Red Cell Distribution Width 12.3 % (11.5-14.5) Platelet Count 204 x10^3/uL (140-400) Neutrophils (%) (Auto) 65 % (31-73) Lymphocytes (%) (Auto) 21 % (24-48) Monocytes (%) (Auto) 12 % (0-9) Eosinophils (%) (Auto) 1 % (0-3) Basophils (%) (Auto) 0 % (0-3) Neutrophils # (Auto) 6.2 x10^3uL (1.8-7.7) Lymphocytes # (Auto) 2.0 x10^3/uL (1.0-4.8) Monocytes # (Auto) 1.1 x10^3/uL (0.0-1.1) Eosinophils # (Auto) 0.1 x10^3/uL (0.0-0.7) Basophils # (Auto) 0.0 x10^3/uL (0.0-0.2) Sodium Level 135 mmol/L (136-145) Potassium Level 3.1 mmol/L (3.5-5.1) Chloride Level 99 mmol/L (98-107) Carbon Dioxide Level 26 mmol/L (21-32) Anion Gap 10 (6-14) Blood Urea Nitrogen 4 mg/dL (7-20) Creatinine 0.6 mg/dL (0.6-1.0) Estimated GFR (Cockcroft-Gault) 98.0 Glucose Level 124 mg/dL (70-99) Calcium Level 8.4 mg/dL (8.5-10.1) Vancomycin Level Trough 12.8 mcg/mL (10.0-20.0) Vancomycin Last Dose Date 10/09/16 MRIVancomycin Last Dose Time 2330 MRI IMPRESSION: 1. Diffuse soft tissue edema or swelling, compatible with cellulitis or soft tissue infection. 2. No drainable abscess or acute osteomyelitis. 3. Poorly visualized lateral ankle ligaments, suggesting injury of indeterminate age. Objective Assessment Left foot cellulitis, MRI neg fluid collection reviewed 10/09 Klebsiella UTI with dysuria - POA 10/06 Sulfa allergy - rash Fever, better Plan Plan of Care Vanc and Zosyn Monitor labs Elevation Tubigrip D/w brother Attending Co-Sign Attending Co-Sign The patient was seen and interviewed as well as examined at the bedside. The chart was reviewed. The case was discussed. Agree with the plan of care. IRMA SIU APRN Oct 10, 2016 12:31 FREEMAN BROWN MD Oct 10, 2016 15:56
[2016-10-10] MEDS: VANCOMYCIN PER PHARMACY MC PRN (12:49)
[2016-10-10] MEDS: ENOXAPARIN 40 MG/0.4 ML SYRINGE. SQ SCH (13:12)
[2016-10-10 14:54] VITALS: BP 155/80
[2016-10-10 19:00] VITALS: BP 147/82
[2016-10-10] MEDS: ATORVASTATIN CALCIUM 10 MG TABLET. PO SCH (21:02)
[2016-10-10 22:53] VITALS: BP 157/91
[2016-10-11] MEDS: VANCOMYCIN 1.5 GM in IV NORMAL SALINE 500ML BAG 500 ML IV SCH ×2 (00:56→11:44)
[2016-10-11 02:39] VITALS: BP 159/99
[2016-10-11] MEDS: ACETAMINOPHEN 500 MG TABLET PO PRN ×2 (04:10→20:37)
[2016-10-11 05:26] LABS: BASO % 0 % (0-3); EOS % 2 % (0-3); HEMATOCRIT 30.3 % (36.0-47.0); HEMOGLOBIN 10.4 g/dL (12.0-15.5); LYMPH # 1.5 x10^3/uL (1.0-4.8); LYMPH % 14 % (24-48); MEAN CORPUSCULAR HEMOGLOBIN 31 pg (25-35); MEAN CORPUSCULAR HGB CONC 34 g/dL (31-37); MEAN CORPUSCULAR VOLUME 91 fL (79-100); MONO % 11 % (0-9); NEUT % 73 % (31-73); PLATELET COUNT 237 x10^3/uL (140-400); RED BLOOD COUNT 3.32 x10^6/uL (3.50-5.40); RED CELL DISTRIBUTION WIDTH 12.5 % (11.5-14.5)
[2016-10-11 05:36] LABS: CREATININE 0.8 mg/dL (0.6-1.0); GFR 70.3; POTASSIUM 3.4 mmol/L (3.5-5.1)
[2016-10-11] MEDS: PIPERACILLIN/TAZOBACTAM 3.375 GM in IV NORMAL SALINE 50ML 50 ML IV SCH ×3 (05:40→17:41)
[2016-10-11 05:44] LABS: CALCIUM 8.4 mg/dL (8.5-10.1)
[2016-10-11 07:00] VITALS: BP 171/89
[2016-10-11] MEDS: PANTOPRAZOLE 40 MG TABLET.DR. PO SCH (07:35)
[2016-10-11] MEDS: BUDESONIDE 0.5 MG/2 ML NEBU. NEB SCH ×2 (07:47→19:32)
[2016-10-11] MEDS: ALBUTEROL SULFATE 2.5 MG/3 ML NEBU. NEB SCH ×4 (07:47→19:32)
[2016-10-11] MEDS: CELECOXIB 200 MG CAPSULE. PO SCH (08:37)
[2016-10-11] MEDS: VITAMIN E 200 UNIT CAPSULE. PO SCH (08:37)
[2016-10-11] MEDS: carBAMazepine 200 MG TABLET PO SCH ×2 (08:37→20:37)
[2016-10-11] MEDS: OMEGA-3 FATTY ACIDS/FISH OIL 1,000 MG CAPSULE. PO SCH (08:38)
[2016-10-11] MEDS: MULTIVITAMIN with MINERAL TABLET. PO SCH (08:38)
[2016-10-11] MEDS: amLODIPine BESYLATE 5 MG TABLET PO SCH (08:38)
[2016-10-11] MEDS: CALCIUM CARB/VIT D3 500/200 TABLET. PO SCH (08:38)
--- NOTE | 2016-10-11 10:49 | PDOC ---
Infectious Disease Note Subjective Subjective Couldn't tolerate Tubigrip during sleep, plans to put them back on in a bit Starting to have some "skoots" now, small bouts of diarrhea Denies cramping, bloating or nausea ROS ROS GEN: Denies fevers, chills, sweats CV: Denies chest pain RESP: Denies shortness of air, cough GI: Denies n/v Vital Sign Vital Signs Vital Signs Date Time Temp Pulse Resp B/P (MAP) Pulse Ox O2 Delivery O2 Flow Rate FiO2 10/11/16 08:38 81 171/89 10/11/16 08:00 Room Air 10/11/16 07:47 95 10/11/16 07:00 97.7 20 97.7 Physical Exam PHYSICAL EXAM GENERAL: Up in chair, legs elevated, smiling LUNGS: Clear HEART: S1S2, no gallop, no murmur ABD: Obese, soft, NT EXT: Left ankle less swollen and warm. erythema slightly better, DP palpable BRIDGE INSTRUCTOR: Alert, oriented x 3, no focal neurologic deficit SKIN: No rash IV: ok Labs Lab Laboratory Tests Test 10/11/16 05:10 White Blood Count 11.0 x10^3/uL (4.0-11.0) Red Blood Count 3.32 x10^6/uL (3.50-5.40) Hemoglobin 10.4 g/dL (12.0-15.5) Hematocrit 30.3 % (36.0-47.0) Mean Corpuscular Volume 91 fL (79-100) Mean Corpuscular Hemoglobin 31 pg (25-35) Mean Corpuscular Hemoglobin Concent 34 g/dL (31-37) Red Cell Distribution Width 12.5 % (11.5-14.5) Platelet Count 237 x10^3/uL (140-400) Neutrophils (%) (Auto) 73 % (31-73) Lymphocytes (%) (Auto) 14 % (24-48) Monocytes (%) (Auto) 11 % (0-9) Eosinophils (%) (Auto) 2 % (0-3) Basophils (%) (Auto) 0 % (0-3) Neutrophils # (Auto) 8.1 x10^3uL (1.8-7.7) Lymphocytes # (Auto) 1.5 x10^3/uL (1.0-4.8) Monocytes # (Auto) 1.2 x10^3/uL (0.0-1.1) Eosinophils # (Auto) 0.2 x10^3/uL (0.0-0.7) Basophils # (Auto) 0.0 x10^3/uL (0.0-0.2) Sodium Level 137 mmol/L (136-145) Potassium Level 3.4 mmol/L (3.5-5.1) Chloride Level 101 mmol/L (98-107) Carbon Dioxide Level 27 mmol/L (21-32) Anion Gap 9 (6-14) Blood Urea Nitrogen 6 mg/dL (7-20) Creatinine 0.8 mg/dL (0.6-1.0) Estimated GFR (Cockcroft-Gault) 70.3 Glucose Level 142 mg/dL (70-99) Calcium Level 8.4 mg/dL (8.5-10.1) Objective Assessment Left foot cellulitis, MRI neg fluid collection, slowly improving Klebsiella UTI with dysuria - POA 8/6 Sulfa allergy - rash Fever, better Plan Plan of Care D/c Vanc begin zyvox po. Reduce fluid intake Cont Zosyn Monitor labs Elevation Tubigrip - couldnt tolerate Attending Co-Sign Attending Co-Sign The patient was seen and interviewed as well as examined at the bedside. The chart was reviewed. The case was discussed. Agree with the plan of care. IRMA SIU APRN Oct 11, 2016 10:49 FREEMAN BROWN MD Oct 11, 2016 15:24
[2016-10-11 11:00] VITALS: BP 141/66
[2016-10-11] MEDS ORDERED: POTASSIUM CHLORIDE 20 MEQ TABLET.ER. PO ONE (11:30)
--- NOTE | 2016-10-11 12:03 | PDOC ---
PULMONARY PROGRESS NOTES Subjective no soa at rest Vitals Vital Signs Date Time Temp Pulse Resp B/P (MAP) Pulse Ox O2 Delivery O2 Flow Rate FiO2 10/11/16 11:17 Room Air 10/11/16 11:00 97.7 70 20 141/66 (91) 95 97.7 General: Alert, No acute distress Lungs: Crackles (bl basilar mild crackles) Cardiovascular: S1 Abdomen: Soft Neuro Exam: Alert Extremities: Other (left ankle swelling, erythema) Labs Laboratory Tests Test 10/10/16 03:20 10/10/16 03:25 10/10/16 10:45 10/11/16 05:10 White Blood Count 9.5 x10^3/uL (4.0-11.0) 11.0 x10^3/uL (4.0-11.0) Red Blood Count 3.42 x10^6/uL (3.50-5.40) 3.32 x10^6/uL (3.50-5.40) Hemoglobin 10.8 g/dL (12.0-15.5) 10.4 g/dL (12.0-15.5) Hematocrit 31.9 % (36.0-47.0) 30.3 % (36.0-47.0) Mean Corpuscular Volume 93 fL (79-100) 91 fL (79-100) Mean Corpuscular Hemoglobin 32 pg (25-35) 31 pg (25-35) Mean Corpuscular Hemoglobin Concent 34 g/dL (31-37) 34 g/dL (31-37) Red Cell Distribution Width 12.3 % (11.5-14.5) 12.5 % (11.5-14.5) Platelet Count 204 x10^3/uL (140-400) 237 x10^3/uL (140-400) Neutrophils (%) (Auto) 65 % (31-73) 73 % (31-73) Lymphocytes (%) (Auto) 21 % (24-48) 14 % (24-48) Monocytes (%) (Auto) 12 % (0-9) 11 % (0-9) Eosinophils (%) (Auto) 1 % (0-3) 2 % (0-3) Basophils (%) (Auto) 0 % (0-3) 0 % (0-3) Neutrophils # (Auto) 6.2 x10^3uL (1.8-7.7) 8.1 x10^3uL (1.8-7.7) Lymphocytes # (Auto) 2.0 x10^3/uL (1.0-4.8) 1.5 x10^3/uL (1.0-4.8) Monocytes # (Auto) 1.1 x10^3/uL (0.0-1.1) 1.2 x10^3/uL (0.0-1.1) Eosinophils # (Auto) 0.1 x10^3/uL (0.0-0.7) 0.2 x10^3/uL (0.0-0.7) Basophils # (Auto) 0.0 x10^3/uL (0.0-0.2) 0.0 x10^3/uL (0.0-0.2) Sodium Level 135 mmol/L (136-145) 137 mmol/L (136-145) Potassium Level 3.1 mmol/L (3.5-5.1) 3.4 mmol/L (3.5-5.1) Chloride Level 99 mmol/L (98-107) 101 mmol/L (98-107) Carbon Dioxide Level 26 mmol/L (21-32) 27 mmol/L (21-32) Anion Gap 10 (6-14) 9 (6-14) Blood Urea Nitrogen 4 mg/dL (7-20) 6 mg/dL (7-20) Creatinine 0.6 mg/dL (0.6-1.0) 0.8 mg/dL (0.6-1.0) Estimated GFR (Cockcroft-Gault) 98.0 70.3 Glucose Level 124 mg/dL (70-99) 142 mg/dL (70-99) Calcium Level 8.4 mg/dL (8.5-10.1) 8.4 mg/dL (8.5-10.1) Vancomycin Level Trough 12.8 mcg/mL (10.0-20.0) Vancomycin Last Dose Date 10/09/16 Vancomycin Last Dose Time 2330 Laboratory Tests Test 10/11/16 05:10 White Blood Count 11.0 x10^3/uL (4.0-11.0) Red Blood Count 3.32 x10^6/uL (3.50-5.40) Hemoglobin 10.4 g/dL (12.0-15.5) Hematocrit 30.3 % (36.0-47.0) Mean Corpuscular Volume 91 fL (79-100) Mean Corpuscular Hemoglobin 31 pg (25-35) Mean Corpuscular Hemoglobin Concent 34 g/dL (31-37) Red Cell Distribution Width 12.5 % (11.5-14.5) Platelet Count 237 x10^3/uL (140-400) Neutrophils (%) (Auto) 73 % (31-73) Lymphocytes (%) (Auto) 14 % (24-48) Monocytes (%) (Auto) 11 % (0-9) Eosinophils (%) (Auto) 2 % (0-3) Basophils (%) (Auto) 0 % (0-3) Neutrophils # (Auto) 8.1 x10^3uL (1.8-7.7) Lymphocytes # (Auto) 1.5 x10^3/uL (1.0-4.8) Monocytes # (Auto) 1.2 x10^3/uL (0.0-1.1) Eosinophils # (Auto) 0.2 x10^3/uL (0.0-0.7) Basophils # (Auto) 0.0 x10^3/uL (0.0-0.2) Sodium Level 137 mmol/L (136-145) Potassium Level 3.4 mmol/L (3.5-5.1) Chloride Level 101 mmol/L (98-107) Carbon Dioxide Level 27 mmol/L (21-32) Anion Gap 9 (6-14) Blood Urea Nitrogen 6 mg/dL (7-20) Creatinine 0.8 mg/dL (0.6-1.0) Estimated GFR (Cockcroft-Gault) 70.3 Glucose Level 142 mg/dL (70-99) Calcium Level 8.4 mg/dL (8.5-10.1) Medications Active Scripts Medications Dose Route/Sig Max Daily Dose Days Date Category Benefiber (Wheat Dextrin) 152 Gm Powder 152 Gm PO PRN DAILY PRN 10/07/16 Reported Lovastatin 20 Mg Tablet 20 Mg PO HS 10/07/16 Reported Amlodipine Besylate 5 Mg Tablet 5 Mg PO DAILY 10/07/16 Reported Symbicort 160-4.5 Mcg Inhaler (Budesonide/Formoterol Fumarate) 10.2 Gm Hfa.aer.ad 2 Puff IH BID 10/07/16 Reported Tums (Calcium Carbonate) 200 Mg Tab.chew 200 Mg PO PRN BID PRN 05/10/13 Reported Fish Oil 1,000 Mg Capsule ([place]-3 Fatty Acids/Fish Oil) 1 Each Capsule 1 Each PO DAILY 05/10/13 Reported Calcium + Vitamin D Tablet (Calcium Carbonate/Vitamin D3) 1 Each Tablet 1 Each PO DAILY 05/10/13 Reported Centrum Silver Tablet (Multivits-Min/Fa/Lycopene/Lut) 1 Each Tablet 1 Each PO GUERO 05/10/13 Reported Vitamin E 400 Unit Capsule 400 Unit PO DAILY 05/10/13 Reported Omeprazole 20 Mg Tablet.dr 20 Mg PO DAILY 05/10/13 Reported Celebrex (Celecoxib) 200 Mg Capsule 200 Mg PO QODAY 05/10/13 Reported Carbatrol (Carbamazepine) 300 Mg Cpmp.12hr 300 Mg PO BID 05/10/13 Reported Impression . 1. Dyspnea associated with acute bronchitis. Her oxygen status stable and currently on room air at 94% saturation. 2. History of mild interstitial lung disease. Radiographically, does not appear to have any significant change. We will continue to monitor on a yearly basis by CT chest. 3. Acute bronchitis. 4. Left ankle cellulitis versus early abscess. Orthopedics are following along with Infectious Disease. 5. History of obstructive sleep apnea with good compliance with CPAP. Plan . 1. Continue broad-spectrum antibiotics per ID recommendation. 2. Follow chest x-ray PRN 3. Follow orthopedic/ ID recommendation. 4. P.r.n. oxygen. 5. CPAP at bedtime. 6. We will follow along with you. MALGORZATA BECKMAN MD Oct 11, 2016 12:03
[2016-10-11 12:15] LABS: ALBUMIN RAND UR 20.8 % (.); BETA RAND UR 34.3 % (.); GAMMA RAND UR 18.7 % (.); M-SPIKE, % Not Observed % (Not Observed); PROTEIN UR RAND 42.9 mg/dL (Not Estab.)
--- NOTE | 2016-10-11 12:51 | PDOC ---
PROGRESS NOTES Chief Complaint Chief Complaint Ankle cellulitis L ASSESSMENT AND PLAN: L ankle cellulitis. no osteo or abscess . SIRS POA, no sepsis ILD, CHELY< chronic stable Obesity BMI 37 Hypokalemia 3.3 Hyponatremia 129 in a COPD-er possible acute bronchitis copd previous smoker + ucx mild ILD HTN plan: fu with ortho, id, pulm no sx planning on vanco and zosyn elevated left ankle dc ivf albuterol qid as per pulm replete k dvt ppx gi ppx ptot History of Present Illness History of Present Illness LEft ankle still red, but swelling slightly better today NOn diabetic NO fevers wbc better ID on board Na 137, K 3.4 said some cough Vitals Vitals Vital Signs Date Time Temp Pulse Resp B/P (MAP) Pulse Ox O2 Delivery O2 Flow Rate FiO2 10/11/16 11:17 Room Air 10/11/16 11:00 97.7 70 20 141/66 (91) 95 97.7 Physical Exam General: Alert, Oriented X3, Cooperative, No acute distress Heart: Regular rate Lungs: Crackles (bl basilar mild crackles) Abdomen: Normal bowel sounds, No tenderness Extremities: No edema, Other (left ankle moderate swelling, with dark erythema , tenderness, no wound) Skin: No rashes Labs LABS Laboratory Tests Test 10/11/16 05:10 White Blood Count 11.0 x10^3/uL (4.0-11.0) Red Blood Count 3.32 x10^6/uL (3.50-5.40) Hemoglobin 10.4 g/dL (12.0-15.5) Hematocrit 30.3 % (36.0-47.0) Mean Corpuscular Volume 91 fL (79-100) Mean Corpuscular Hemoglobin 31 pg (25-35) Mean Corpuscular Hemoglobin Concent 34 g/dL (31-37) Red Cell Distribution Width 12.5 % (11.5-14.5) Platelet Count 237 x10^3/uL (140-400) Neutrophils (%) (Auto) 73 % (31-73) Lymphocytes (%) (Auto) 14 % (24-48) Monocytes (%) (Auto) 11 % (0-9) Eosinophils (%) (Auto) 2 % (0-3) Basophils (%) (Auto) 0 % (0-3) Neutrophils # (Auto) 8.1 x10^3uL (1.8-7.7) Lymphocytes # (Auto) 1.5 x10^3/uL (1.0-4.8) Monocytes # (Auto) 1.2 x10^3/uL (0.0-1.1) Eosinophils # (Auto) 0.2 x10^3/uL (0.0-0.7) Basophils # (Auto) 0.0 x10^3/uL (0.0-0.2) Sodium Level 137 mmol/L (136-145) Potassium Level 3.4 mmol/L (3.5-5.1) Chloride Level 101 mmol/L (98-107) Carbon Dioxide Level 27 mmol/L (21-32) Anion Gap 9 (6-14) Blood Urea Nitrogen 6 mg/dL (7-20) Creatinine 0.8 mg/dL (0.6-1.0) Estimated GFR (Cockcroft-Gault) 70.3 Glucose Level 142 mg/dL (70-99) Calcium Level 8.4 mg/dL (8.5-10.1) Review of Systems Review of Systems no fever, chills, sob or chest pain Assessment and Plan Assessmemt and Plan Problems Medical Problems: (1) Cellulitis Status: Acute (2) Fever Status: Acute (3) Hyponatremia Status: Acute (4) Leg pain, left Status: Acute (5) Leukocytosis Status: Acute Problems: Comment Review of Relevant I have reviewed the following items kina (where applicable) has been applied. Labs Laboratory Tests Test 10/10/16 03:20 10/10/16 03:25 10/10/16 10:45 10/11/16 05:10 White Blood Count 9.5 x10^3/uL (4.0-11.0) 11.0 x10^3/uL (4.0-11.0) Red Blood Count 3.42 x10^6/uL (3.50-5.40) 3.32 x10^6/uL (3.50-5.40) Hemoglobin 10.8 g/dL (12.0-15.5) 10.4 g/dL (12.0-15.5) Hematocrit 31.9 % (36.0-47.0) 30.3 % (36.0-47.0) Mean Corpuscular Volume 93 fL (79-100) 91 fL (79-100) Mean Corpuscular Hemoglobin 32 pg (25-35) 31 pg (25-35) Mean Corpuscular Hemoglobin Concent 34 g/dL (31-37) 34 g/dL (31-37) Red Cell Distribution Width 12.3 % (11.5-14.5) 12.5 % (11.5-14.5) Platelet Count 204 x10^3/uL (140-400) 237 x10^3/uL (140-400) Neutrophils (%) (Auto) 65 % (31-73) 73 % (31-73) Lymphocytes (%) (Auto) 21 % (24-48) 14 % (24-48) Monocytes (%) (Auto) 12 % (0-9) 11 % (0-9) Eosinophils (%) (Auto) 1 % (0-3) 2 % (0-3) Basophils (%) (Auto) 0 % (0-3) 0 % (0-3) Neutrophils # (Auto) 6.2 x10^3uL (1.8-7.7) 8.1 x10^3uL (1.8-7.7) Lymphocytes # (Auto) 2.0 x10^3/uL (1.0-4.8) 1.5 x10^3/uL (1.0-4.8) Monocytes # (Auto) 1.1 x10^3/uL (0.0-1.1) 1.2 x10^3/uL (0.0-1.1) Eosinophils # (Auto) 0.1 x10^3/uL (0.0-0.7) 0.2 x10^3/uL (0.0-0.7) Basophils # (Auto) 0.0 x10^3/uL (0.0-0.2) 0.0 x10^3/uL (0.0-0.2) Sodium Level 135 mmol/L (136-145) 137 mmol/L (136-145) Potassium Level 3.1 mmol/L (3.5-5.1) 3.4 mmol/L (3.5-5.1) Chloride Level 99 mmol/L (98-107) 101 mmol/L (98-107) Carbon Dioxide Level 26 mmol/L (21-32) 27 mmol/L (21-32) Anion Gap 10 (6-14) 9 (6-14) Blood Urea Nitrogen 4 mg/dL (7-20) 6 mg/dL (7-20) Creatinine 0.6 mg/dL (0.6-1.0) 0.8 mg/dL (0.6-1.0) Estimated GFR (Cockcroft-Gault) 98.0 70.3 Glucose Level 124 mg/dL (70-99) 142 mg/dL (70-99) Calcium Level 8.4 mg/dL (8.5-10.1) 8.4 mg/dL (8.5-10.1) Vancomycin Level Trough 12.8 mcg/mL (10.0-20.0) Vancomycin Last Dose Date 10/09/16 Vancomycin Last Dose Time 2330 Laboratory Tests Test 10/11/16 05:10 White Blood Count 11.0 x10^3/uL (4.0-11.0) Red Blood Count 3.32 x10^6/uL (3.50-5.40) Hemoglobin 10.4 g/dL (12.0-15.5) Hematocrit 30.3 % (36.0-47.0) Mean Corpuscular Volume 91 fL (79-100) Mean Corpuscular Hemoglobin 31 pg (25-35) Mean Corpuscular Hemoglobin Concent 34 g/dL (31-37) Red Cell Distribution Width 12.5 % (11.5-14.5) Platelet Count 237 x10^3/uL (140-400) Neutrophils (%) (Auto) 73 % (31-73) Lymphocytes (%) (Auto) 14 % (24-48) Monocytes (%) (Auto) 11 % (0-9) Eosinophils (%) (Auto) 2 % (0-3) Basophils (%) (Auto) 0 % (0-3) Neutrophils # (Auto) 8.1 x10^3uL (1.8-7.7) Lymphocytes # (Auto) 1.5 x10^3/uL (1.0-4.8) Monocytes # (Auto) 1.2 x10^3/uL (0.0-1.1) Eosinophils # (Auto) 0.2 x10^3/uL (0.0-0.7) Basophils # (Auto) 0.0 x10^3/uL (0.0-0.2) Sodium Level 137 mmol/L (136-145) Potassium Level 3.4 mmol/L (3.5-5.1) Chloride Level 101 mmol/L (98-107) Carbon Dioxide Level 27 mmol/L (21-32) Anion Gap 9 (6-14) Blood Urea Nitrogen 6 mg/dL (7-20) Creatinine 0.8 mg/dL (0.6-1.0) Estimated GFR (Cockcroft-Gault) 70.3 Glucose Level 142 mg/dL (70-99) Calcium Level 8.4 mg/dL (8.5-10.1) Microbiology 10/06/16 Urine Culture - Final, Complete 10/06/16 Urine Culture Result 1 (PRAKASH) - Final, Complete 10/06/16 Antimicrobic Susceptibility - Final, Complete Medications Current Medications Fentanyl Citrate (Fentanyl 2ml Vial) 25 mcg PRN Q15MIN PRN IV PAIN GREATER THAN 3/10 Last administered on 10/07/16 08:47; Start 10/06/16 at 21:00; Stop 10/07 at 11:12; Status DC Ondansetron HCl (Zofran) 4 mg 1X ONCE IV Last administered on 10/06/16 21:40; Start 10/06/16 at 21:30; Stop 10/06/16 at 21:31; Status DC Vancomycin HCl (Vanco Per Pharmacy) 1 each PRN DAILY PRN MC SEE COMMENTS Last administered on 10/10/16 12:49; Start 10/06/16 at 22:30 Cefepime HCl 2 gm/ Sodium Chloride 100 ml @ 200 mls/hr Q12HR IV Last administered on 10/07/16 08:46; Start 10/06/16 at 23:00; Stop 10/07/16 at 12:25; Status DC Vancomycin HCl 2 gm/Sodium Chloride 500 ml @ 250 mls/hr 1X ONCE IV Last administered on 10/06/16 23:23; Start 10/06/16 at 23:00; Stop 10/07/16 at 00:59; Status DC Sodium Chloride 1,000 ml @ 80 mls/hr 1X ONCE IV Last administered on 22:45; Start 10/06/16 at 23:00; Stop 10/07/16 at 11:29; Status DC Ondansetron HCl (Zofran) 4 mg PRN Q8HRS PRN IV NAUSEA/VOMITING; Start 10/06/16 at 22:45; Stop 10/07/16 at 22:44; Status DC Fentanyl Citrate (Fentanyl 2ml Vial) 50 mcg PRN Q2HR PRN IV SEVERE PAIN Last administered on 10/07/16 15:48; Start 10/06/16 at 22:45; Stop 10/07/16 at 22:44; Status DC Sodium Chloride 1,000 ml @ 80 mls/hr [id number] IV Last administered on 10/07/16 15:47; Start 10/06/16 at 23:00; Stop 10/07/16 at 22:59; Status DC Acetaminophen (Tylenol) 650 mg PRN Q4HRS PRN PO FEVER; Start 10/06/16 at 22:45; Stop 10/07/16 at 22:44; Status DC Vancomycin HCl 1.25 gm/Sodium Chloride 250 ml @ 167 mls/hr Q24H IV Last administered on 10/07/16 23:06; Start 10/07/16 at 23:00; Stop 10/08/16 at 23:01; Status DC Vancomycin HCl 1 each 1X ONCE MC Last administered on 10/08/16 22:30; Start at 22:30; Stop 10/08/16 at 22:31; Status DC Amlodipine Besylate (Norvasc) 5 mg DAILY PO Last administered on 10/11/16 08: 38; Start 10/07/16 at 12:00 Calcium Carbonate/ Glycine (Tums) 500 mg PRN BID PRN PO HEARTBURN / GAS Last administered on 10/08/16 09:52; Start 10/07/16 at 11:15 Celecoxib (CeleBREX) 200 mg QODAY PO Last administered on 10/11/16 08:37; Start 10/09/16 at 09:00 Fish Oil (Fish Oil) 1,000 mg DAILY PO Last administered on 10/11/16 08:38; Start 10/07/16 at 12:00 Budesonide (Pulmicort) 0.5 mg RTBID NEB Last administered on 10/11/16 07:47; Start 10/07/16 at 12:00 Calcium/Vitamin D (Oscal D 500mg/ 200uts) 1 tab [id number] PO Last administered on 10/11/16 08:38; Start 10/07/16 at 12:00 Carbamazepine (TEGretol) 300 mg BID PO Last administered on 10/08/16 09:51; Start 10/07/16 at 12:00; Stop 10/08/16 at 13:16; Status DC Atorvastatin Calcium (Lipitor) 5 mg QHS PO Last administered on 10/10/16 21:02 ; Start 10/07/16 at 21:00 Multivitamins (Thera M Plus) 1 tab DAILY PO Last administered on 10/11/16 08: 38; Start 10/07/16 at 12:00 Pantoprazole Sodium (Protonix) 40 mg DAILYAC PO Last administered on 10/11/16 07:35; Start 10/07/16 at 12:00 Vitamin E 400 unit DAILY PO Last administered on 10/11/16 08:37; Start at 12:00 Psyllium Hydrophilic Mucilloid (Metamucil Fiber Packet) 1 pkt PRN DAILY PRN PO CONSTIPATION; Start 10/08/16 at 09:00 Albuterol Sulfate (Ventolin Neb Soln) 2.5 mg RTQID NEB Last administered on 11:16; Start 10/07/16 at 12:00 Piperacillin Sod/ Tazobactam Sod 3.375 gm/Sodium Chloride 50 ml @ 100 mls/hr Q6HRS IV Last administered on 10/11/16 11:09; Start 10/07/16 at 13:00 Carbamazepine (TEGretol) 600 mg BID PO Last administered on 10/11/16 08:37; Start 10/08/16 at 21:00 Potassium Chloride/Sodium Chloride 1,000 ml @ 125 mls/hr Q8H IV Last administered on 10/10/16 04:38; Start 10/08/16 at 23:00; Stop 10/10/16 at 10:52 ; Status DC Vancomycin HCl 1.5 gm/Sodium Chloride 500 ml @ 250 mls/hr Q12H IV Last administered on 10/11/16 11:44; Start 10/08/16 at 23:30 Vancomycin HCl 1 each 1X ONCE MC ; Start 10/10/16 at 11:00; Stop 10/10/16 at 11 :01; Status DC Acetaminophen (Tylenol) 500 mg PRN Q6HRS PRN PO MILD PAIN / TEMP Last administered on 10/11/16 04:10; Start 10/09/16 at 09:00 Ondansetron HCl (Zofran) 4 mg PRN Q6HRS PRN IV NAUSEA/VOMITING; Start 10/09/16 at 09:00 Gadobutrol (Gadavist) 9 mmol 1X ONCE IV ; Start 10/09/16 at 14:45; Stop 10/09/16 at 14:46; Status DC Potassium Chloride (Klor-Con) 40 meq 1X ONCE PO Last administered on 11:46; Start 10/10/16 at 11:00; Stop 10/10/16 at 11:01; Status DC Enoxaparin Sodium (Lovenox 40mg Syringe) 40 mg Q24H SQ Last administered on 13:12; Start 10/10/16 at 13:00 Potassium Chloride (Klor-Con) 20 meq STK-MED ONCE PO ; Start 10/10/16 at 11:39; Stop 10/10/16 at 12:55; Status DC Enoxaparin Sodium (Lovenox 40mg Syringe) 40 mg STK-MED ONCE SQ ; Start 10/10/16 at 12:28; Stop 10/10/16 at 12:55; Status DC Potassium Chloride (Klor-Con) 40 meq 1X ONCE PO Last administered on 11:45; Start 10/11/16 at 11:30; Stop 10/11/16 at 11:31; Status DC Active Scripts Active Reported Benefiber (Wheat Dextrin) 152 Gm Powder 152 Gm PO PRN DAILY PRN Lovastatin 20 Mg Tablet 20 Mg PO HS Amlodipine Besylate 5 Mg Tablet 5 Mg PO DAILY Symbicort 160-4.5 Mcg Inhaler (Budesonide/Formoterol Fumarate) 10.2 Gm Hfa.aer.ad 2 Puff IH BID Tums (Calcium Carbonate) 200 Mg Tab.chew 200 Mg PO PRN BID PRN Fish Oil 1,000 Mg Capsule ([place]-3 Fatty Acids/Fish Oil) 1 Each Capsule 1 Each PO DAILY Calcium + Vitamin D Tablet (Calcium Carbonate/Vitamin D3) 1 Each Tablet 1 Each PO DAILY Centrum Silver Tablet (Multivits-Min/Fa/Lycopene/Lut) 1 Each Tablet 1 Each PO GUERO Vitamin E 400 Unit Capsule 400 Unit PO DAILY Omeprazole 20 Mg Tablet.dr 20 Mg PO DAILY Celebrex (Celecoxib) 200 Mg Capsule 200 Mg PO QODAY Carbatrol (Carbamazepine) 300 Mg Cpmp.12hr 300 Mg PO BID Vitals/I & O Vital Sign - Last 24 Hours 10/10/16 10/10/16 10/10/16 10/10/16 14:54 15:38 19:00 19:38 Temp 97.7 98.6 97.7 98.6 Pulse 81 78 Resp 20 18 B/P (MAP) 155/80 (105) 147/82 (103) Pulse Ox 94 97 95 O2 Delivery Room Air Room Air Room Air Room Air 10/10/16 10/10/16 10/11/16 10/11/16 20:00 22:53 02:39 07:00 Temp 99.1 97.7 97.7 99.1 97.7 97.7 Pulse 76 88 81 Resp 19 19 20 B/P (MAP) 157/91 (113) 159/99 (119) 171/89 (116) Pulse Ox 92 91 95 O2 Delivery Room Air Room Air Room Air Room Air 10/11/16 10/11/16 10/11/16 10/11/16 07:47 08:00 08:38 11:00 Temp 97.7 97.7 Pulse 81 70 Resp 20 B/P (MAP) 171/89 141/66 (91) Pulse Ox 95 95 O2 Delivery Room Air Room Air Room Air 10/11/16 11:17 O2 Delivery Room Air Intake and Output 10/10/16 10/10/16 10/11/16 15:00 23:00 07:00 Intake Total 1650 ml 1950 ml 600 ml Output Total 450 ml 800 ml Balance 1200 ml 1150 ml 600 ml EMMA BARNES MD Oct 11, 2016 12:51
[2016-10-11] MEDS: ENOXAPARIN 40 MG/0.4 ML SYRINGE. SQ SCH (13:02)
[2016-10-11] MEDS: VANCOMYCIN PER PHARMACY MC PRN (13:24)
[2016-10-11 15:00] VITALS: BP 143/68
[2016-10-11 19:42] VITALS: BP 143/76
[2016-10-11] MEDS: LINEZOLID 600 MG TABLET PO SCH (20:37)
[2016-10-11] MEDS: ATORVASTATIN CALCIUM 10 MG TABLET. PO SCH (20:37)
[2016-10-11 22:35] VITALS: BP 149/82
[2016-10-12] VITALS (7 sets, daily range): BP systolic 147–175; BP diastolic 79–104
[2016-10-12] MEDS: PIPERACILLIN/TAZOBACTAM 3.375 GM in IV NORMAL SALINE 50ML 50 ML IV SCH ×5 (00:08→23:21)
[2016-10-12] MEDS: ACETAMINOPHEN 500 MG TABLET PO PRN ×2 (02:58→20:28)
[2016-10-12 05:17] LABS: BASO # 0.1 x10^3/uL (0.0-0.2); BASO % 1 % (0-3); EOS % 2 % (0-3); HEMATOCRIT 31.1 % (36.0-47.0); HEMOGLOBIN 10.5 g/dL (12.0-15.5); LYMPH # 1.9 x10^3/uL (1.0-4.8); LYMPH % 20 % (24-48); MEAN CORPUSCULAR HEMOGLOBIN 31 pg (25-35); MEAN CORPUSCULAR HGB CONC 34 g/dL (31-37); MEAN CORPUSCULAR VOLUME 93 fL (79-100); MONO % 11 % (0-9); NEUT % 68 % (31-73); PLATELET COUNT 278 x10^3/uL (140-400); RED BLOOD COUNT 3.34 x10^6/uL (3.50-5.40); WHITE BLOOD COUNT 9.6 x10^3/uL (4.0-11.0)
[2016-10-12 05:34] LABS: CALCIUM 8.1 mg/dL (8.5-10.1); CREATININE 0.7 mg/dL (0.6-1.0); POTASSIUM 3.5 mmol/L (3.5-5.1)
[2016-10-12] MEDS: BUDESONIDE 0.5 MG/2 ML NEBU. NEB SCH ×2 (06:58→19:38)
[2016-10-12] MEDS: ALBUTEROL SULFATE 2.5 MG/3 ML NEBU. NEB SCH ×4 (06:58→19:38)
[2016-10-12] MEDS: CALCIUM CARB/VIT D3 500/200 TABLET. PO SCH (09:13)
[2016-10-12] MEDS: LINEZOLID 600 MG TABLET PO SCH ×2 (09:13→20:29)
[2016-10-12] MEDS: VITAMIN E 200 UNIT CAPSULE. PO SCH (09:13)
[2016-10-12] MEDS: MULTIVITAMIN with MINERAL TABLET. PO SCH (09:13)
[2016-10-12] MEDS: OMEGA-3 FATTY ACIDS/FISH OIL 1,000 MG CAPSULE. PO SCH (09:13)
[2016-10-12] MEDS: PANTOPRAZOLE 40 MG TABLET.DR. PO SCH (09:14)
--- NOTE | 2016-10-12 09:15 | PDOC ---
PROGRESS NOTES Chief Complaint Chief Complaint Ankle cellulitis L ASSESSMENT AND PLAN: L ankle cellulitis. no osteo or abscess . SIRS POA, no sepsis ILD, CHELY< chronic stable Obesity BMI 37 Hypokalemia 3.3 Hyponatremia 129 in a COPD-er possible acute bronchitis copd previous smoker + ucx mild ILD HTN History of Present Illness History of Present Illness Left ankle better! LEss swollen Able to work good with PT yesterday PT recs HH NO fevers, no white ct on iV abx by ID BP high! Getting her home norvasc 5 qD PLAN: INc norvasc to 1o qD Add labetolol prn Goal dc day is Friday Vitals Vitals Vital Signs Date Time Temp Pulse Resp B/P (MAP) Pulse Ox O2 Delivery O2 Flow Rate FiO2 10/12/16 07:00 98.1 93 20 175/104 (127) 95 Room Air 98.1 Physical Exam General: Alert, Oriented X3, Cooperative, No acute distress Heart: Regular rate Lungs: Crackles (bl basilar mild crackles) Abdomen: Normal bowel sounds, No tenderness Extremities: No edema, Other (left ankle moderate swelling, with dark erythema , tenderness, no wound) Skin: No rashes Labs LABS Laboratory Tests Test 10/12/16 04:40 White Blood Count 9.6 x10^3/uL (4.0-11.0) Red Blood Count 3.34 x10^6/uL (3.50-5.40) Hemoglobin 10.5 g/dL (12.0-15.5) Hematocrit 31.1 % (36.0-47.0) Mean Corpuscular Volume 93 fL (79-100) Mean Corpuscular Hemoglobin 31 pg (25-35) Mean Corpuscular Hemoglobin Concent 34 g/dL (31-37) Red Cell Distribution Width 13.0 % (11.5-14.5) Platelet Count 278 x10^3/uL (140-400) Neutrophils (%) (Auto) 68 % (31-73) Lymphocytes (%) (Auto) 20 % (24-48) Monocytes (%) (Auto) 11 % (0-9) Eosinophils (%) (Auto) 2 % (0-3) Basophils (%) (Auto) 1 % (0-3) Neutrophils # (Auto) 6.5 x10^3uL (1.8-7.7) Lymphocytes # (Auto) 1.9 x10^3/uL (1.0-4.8) Monocytes # (Auto) 1.0 x10^3/uL (0.0-1.1) Eosinophils # (Auto) 0.2 x10^3/uL (0.0-0.7) Basophils # (Auto) 0.1 x10^3/uL (0.0-0.2) Sodium Level 140 mmol/L (136-145) Potassium Level 3.5 mmol/L (3.5-5.1) Chloride Level 104 mmol/L (98-107) Carbon Dioxide Level 26 mmol/L (21-32) Anion Gap 10 (6-14) Blood Urea Nitrogen 7 mg/dL (7-20) Creatinine 0.7 mg/dL (0.6-1.0) Estimated GFR (Cockcroft-Gault) 82.0 Glucose Level 112 mg/dL (70-99) Calcium Level 8.1 mg/dL (8.5-10.1) Review of Systems Review of Systems denies 14 pt reviewed Assessment and Plan Assessmemt and Plan Problems Medical Problems: (1) Cellulitis Status: Acute (2) Fever Status: Acute (3) Hyponatremia Status: Acute (4) Leg pain, left Status: Acute (5) Leukocytosis Status: Acute Problems: Comment Review of Relevant I have reviewed the following items kina (where applicable) has been applied. Labs Laboratory Tests Test 10/10/16 10:45 10/11/16 05:10 10/12/16 04:40 Vancomycin Level Trough 12.8 mcg/mL (10.0-20.0) Vancomycin Last Dose Date 10/09/16 Vancomycin Last Dose Time 2330 White Blood Count 11.0 x10^3/uL (4.0-11.0) 9.6 x10^3/uL (4.0-11.0) Red Blood Count 3.32 x10^6/uL (3.50-5.40) 3.34 x10^6/uL (3.50-5.40) Hemoglobin 10.4 g/dL (12.0-15.5) 10.5 g/dL (12.0-15.5) Hematocrit 30.3 % (36.0-47.0) 31.1 % (36.0-47.0) Mean Corpuscular Volume 91 fL (79-100) 93 fL (79-100) Mean Corpuscular Hemoglobin 31 pg (25-35) 31 pg (25-35) Mean Corpuscular Hemoglobin Concent 34 g/dL (31-37) 34 g/dL (31-37) Red Cell Distribution Width 12.5 % (11.5-14.5) 13.0 % (11.5-14.5) Platelet Count 237 x10^3/uL (140-400) 278 x10^3/uL (140-400) Neutrophils (%) (Auto) 73 % (31-73) 68 % (31-73) Lymphocytes (%) (Auto) 14 % (24-48) 20 % (24-48) Monocytes (%) (Auto) 11 % (0-9) 11 % (0-9) Eosinophils (%) (Auto) 2 % (0-3) 2 % (0-3) Basophils (%) (Auto) 0 % (0-3) 1 % (0-3) Neutrophils # (Auto) 8.1 x10^3uL (1.8-7.7) 6.5 x10^3uL (1.8-7.7) Lymphocytes # (Auto) 1.5 x10^3/uL (1.0-4.8) 1.9 x10^3/uL (1.0-4.8) Monocytes # (Auto) 1.2 x10^3/uL (0.0-1.1) 1.0 x10^3/uL (0.0-1.1) Eosinophils # (Auto) 0.2 x10^3/uL (0.0-0.7) 0.2 x10^3/uL (0.0-0.7) Basophils # (Auto) 0.0 x10^3/uL (0.0-0.2) 0.1 x10^3/uL (0.0-0.2) Sodium Level 137 mmol/L (136-145) 140 mmol/L (136-145) Potassium Level 3.4 mmol/L (3.5-5.1) 3.5 mmol/L (3.5-5.1) Chloride Level 101 mmol/L (98-107) 104 mmol/L (98-107) Carbon Dioxide Level 27 mmol/L (21-32) 26 mmol/L (21-32) Anion Gap 9 (6-14) 10 (6-14) Blood Urea Nitrogen 6 mg/dL (7-20) 7 mg/dL (7-20) Creatinine 0.8 mg/dL (0.6-1.0) 0.7 mg/dL (0.6-1.0) Estimated GFR (Cockcroft-Gault) 70.3 82.0 Glucose Level 142 mg/dL (70-99) 112 mg/dL (70-99) Calcium Level 8.4 mg/dL (8.5-10.1) 8.1 mg/dL (8.5-10.1) Laboratory Tests Test 10/12/16 04:40 White Blood Count 9.6 x10^3/uL (4.0-11.0) Red Blood Count 3.34 x10^6/uL (3.50-5.40) Hemoglobin 10.5 g/dL (12.0-15.5) Hematocrit 31.1 % (36.0-47.0) Mean Corpuscular Volume 93 fL (79-100) Mean Corpuscular Hemoglobin 31 pg (25-35) Mean Corpuscular Hemoglobin Concent 34 g/dL (31-37) Red Cell Distribution Width 13.0 % (11.5-14.5) Platelet Count 278 x10^3/uL (140-400) Neutrophils (%) (Auto) 68 % (31-73) Lymphocytes (%) (Auto) 20 % (24-48) Monocytes (%) (Auto) 11 % (0-9) Eosinophils (%) (Auto) 2 % (0-3) Basophils (%) (Auto) 1 % (0-3) Neutrophils # (Auto) 6.5 x10^3uL (1.8-7.7) Lymphocytes # (Auto) 1.9 x10^3/uL (1.0-4.8) Monocytes # (Auto) 1.0 x10^3/uL (0.0-1.1) Eosinophils # (Auto) 0.2 x10^3/uL (0.0-0.7) Basophils # (Auto) 0.1 x10^3/uL (0.0-0.2) Sodium Level 140 mmol/L (136-145) Potassium Level 3.5 mmol/L (3.5-5.1) Chloride Level 104 mmol/L (98-107) Carbon Dioxide Level 26 mmol/L (21-32) Anion Gap 10 (6-14) Blood Urea Nitrogen 7 mg/dL (7-20) Creatinine 0.7 mg/dL (0.6-1.0) Estimated GFR (Cockcroft-Gault) 82.0 Glucose Level 112 mg/dL (70-99) Calcium Level 8.1 mg/dL (8.5-10.1) Microbiology 10/06/16 Urine Culture - Final, Complete 10/06/16 Urine Culture Result 1 (PRAKASH) - Final, Complete 10/06/16 Antimicrobic Susceptibility - Final, Complete Medications Current Medications Fentanyl Citrate (Fentanyl 2ml Vial) 25 mcg PRN Q15MIN PRN IV PAIN GREATER THAN 3/10 Last administered on 10/07/16 08:47; Start 10/06/16 at 21:00; Stop 10/07 at 11:12; Status DC Ondansetron HCl (Zofran) 4 mg 1X ONCE IV Last administered on 10/06/16 21:40; Start 10/06/16 at 21:30; Stop 10/06/16 at 21:31; Status DC Vancomycin HCl (Vanco Per Pharmacy) 1 each PRN DAILY PRN MC SEE COMMENTS Last administered on 10/11/16 13:24; Start 10/06/16 at 22:30; Stop 10/11/16 at 15:23 ; Status DC Cefepime HCl 2 gm/ Sodium Chloride 100 ml @ 200 mls/hr Q12HR IV Last administered on 10/07/16 08:46; Start 10/06/16 at 23:00; Stop 10/07/16 at 12:25; Status DC Vancomycin HCl 2 gm/Sodium Chloride 500 ml @ 250 mls/hr 1X ONCE IV Last administered on 10/06/16 23:23; Start 10/06/16 at 23:00; Stop 10/07/16 at 00:59; Status DC Sodium Chloride 1,000 ml @ 80 mls/hr 1X ONCE IV Last administered on 22:45; Start 10/06/16 at 23:00; Stop 10/07/16 at 11:29; Status DC Ondansetron HCl (Zofran) 4 mg PRN Q8HRS PRN IV NAUSEA/VOMITING; Start 10/06/16 at 22:45; Stop 10/07/16 at 22:44; Status DC Fentanyl Citrate (Fentanyl 2ml Vial) 50 mcg PRN Q2HR PRN IV SEVERE PAIN Last administered on 10/07/16 15:48; Start 10/06/16 at 22:45; Stop 10/07/16 at 22:44; Status DC Sodium Chloride 1,000 ml @ 80 mls/hr [id number] IV Last administered on 10/07/16 15:47; Start 10/06/16 at 23:00; Stop 10/07/16 at 22:59; Status DC Acetaminophen (Tylenol) 650 mg PRN Q4HRS PRN PO FEVER; Start 10/06/16 at 22:45; Stop 10/07/16 at 22:44; Status DC Vancomycin HCl 1.25 gm/Sodium Chloride 250 ml @ 167 mls/hr Q24H IV Last administered on 10/07/16 23:06; Start 10/07/16 at 23:00; Stop 10/08/16 at 23:01; Status DC Vancomycin HCl 1 each 1X ONCE MC Last administered on 10/08/16 22:30; Start at 22:30; Stop 10/08/16 at 22:31; Status DC Amlodipine Besylate (Norvasc) 5 mg DAILY PO Last administered on 10/11/16 08: 38; Start 10/07/16 at 12:00 Calcium Carbonate/ Glycine (Tums) 500 mg PRN BID PRN PO HEARTBURN / GAS Last administered on 10/08/16 09:52; Start 10/07/16 at 11:15 Celecoxib (CeleBREX) 200 mg QODAY PO Last administered on 10/11/16 08:37; Start 10/09/16 at 09:00 Fish Oil (Fish Oil) 1,000 mg DAILY PO Last administered on 10/11/16 08:38; Start 10/07/16 at 12:00 Budesonide (Pulmicort) 0.5 mg RTBID NEB Last administered on 10/12/16 06:58; Start 10/07/16 at 12:00 Calcium/Vitamin D (Oscal D 500mg/ 200uts) 1 tab [id number] PO Last administered on 10/11/16 08:38; Start 10/07/16 at 12:00 Carbamazepine (TEGretol) 300 mg BID PO Last administered on 10/08/16 09:51; Start 10/07/16 at 12:00; Stop 10/08/16 at 13:16; Status DC Atorvastatin Calcium (Lipitor) 5 mg QHS PO Last administered on 10/11/16 20:37 ; Start 10/07/16 at 21:00 Multivitamins (Thera M Plus) 1 tab DAILY PO Last administered on 10/11/16 08: 38; Start 10/07/16 at 12:00 Pantoprazole Sodium (Protonix) 40 mg DAILYAC PO Last administered on 10/11/16 07:35; Start 10/07/16 at 12:00 Vitamin E 400 unit DAILY PO Last administered on 10/11/16 08:37; Start at 12:00 Psyllium Hydrophilic Mucilloid (Metamucil Fiber Packet) 1 pkt PRN DAILY PRN PO CONSTIPATION; Start 10/08/16 at 09:00 Albuterol Sulfate (Ventolin Neb Soln) 2.5 mg RTQID NEB Last administered on 06:58; Start 10/07/16 at 12:00 Piperacillin Sod/ Tazobactam Sod 3.375 gm/Sodium Chloride 50 ml @ 100 mls/hr Q6HRS IV Last administered on 10/12/16 06:08; Start 10/07/16 at 13:00 Carbamazepine (TEGretol) 600 mg BID PO Last administered on 10/11/16 20:37; Start 10/08/16 at 21:00 Potassium Chloride/Sodium Chloride 1,000 ml @ 125 mls/hr Q8H IV Last administered on 10/10/16 04:38; Start 10/08/16 at 23:00; Stop 10/10/16 at 10:52 ; Status DC Vancomycin HCl 1.5 gm/Sodium Chloride 500 ml @ 250 mls/hr Q12H IV Last administered on 10/11/16 11:44; Start 10/08/16 at 23:30; Stop 10/11/16 at 15:23 ; Status DC Vancomycin HCl 1 each 1X ONCE MC ; Start 10/10/16 at 11:00; Stop 10/10/16 at 11 :01; Status DC Acetaminophen (Tylenol) 500 mg PRN Q6HRS PRN PO MILD PAIN / TEMP Last administered on 10/12/16 02:58; Start 10/09/16 at 09:00 Ondansetron HCl (Zofran) 4 mg PRN Q6HRS PRN IV NAUSEA/VOMITING; Start 10/09/16 at 09:00 Gadobutrol (Gadavist) 9 mmol 1X ONCE IV ; Start 10/09/16 at 14:45; Stop 10/09/16 at 14:46; Status DC Potassium Chloride (Klor-Con) 40 meq 1X ONCE PO Last administered on 11:46; Start 10/10/16 at 11:00; Stop 10/10/16 at 11:01; Status DC Enoxaparin Sodium (Lovenox 40mg Syringe) 40 mg Q24H SQ Last administered on 13:02; Start 10/10/16 at 13:00 Potassium Chloride (Klor-Con) 20 meq STK-MED ONCE PO ; Start 10/10/16 at 11:39; Stop 10/10/16 at 12:55; Status DC Enoxaparin Sodium (Lovenox 40mg Syringe) 40 mg STK-MED ONCE SQ ; Start 10/10/16 at 12:28; Stop 10/10/16 at 12:55; Status DC Potassium Chloride (Klor-Con) 40 meq 1X ONCE PO Last administered on 11:45; Start 10/11/16 at 11:30; Stop 10/11/16 at 11:31; Status DC Linezolid (Zyvox) 600 mg BID PO Last administered on 10/11/16 20:37; Start 01/17 at 21:00 Labetalol HCl (Normodyne) 20 mg PRN Q2HR PRN IVP HYPERTENSION, SEE COMMENTS; Start 10/12/16 at 08:45 Active Scripts Active Reported Benefiber (Wheat Dextrin) 152 Gm Powder 152 Gm PO PRN DAILY PRN Lovastatin 20 Mg Tablet 20 Mg PO HS Amlodipine Besylate 5 Mg Tablet 5 Mg PO DAILY Symbicort 160-4.5 Mcg Inhaler (Budesonide/Formoterol Fumarate) 10.2 Gm Hfa.aer.ad 2 Puff IH BID Tums (Calcium Carbonate) 200 Mg Tab.chew 200 Mg PO PRN BID PRN Fish Oil 1,000 Mg Capsule ([place]-3 Fatty Acids/Fish Oil) 1 Each Capsule 1 Each PO DAILY Calcium + Vitamin D Tablet (Calcium Carbonate/Vitamin D3) 1 Each Tablet 1 Each PO DAILY Centrum Silver Tablet (Multivits-Min/Fa/Lycopene/Lut) 1 Each Tablet 1 Each PO GUERO Vitamin E 400 Unit Capsule 400 Unit PO DAILY Omeprazole 20 Mg Tablet.dr 20 Mg PO DAILY Celebrex (Celecoxib) 200 Mg Capsule 200 Mg PO QODAY Carbatrol (Carbamazepine) 300 Mg Cpmp.12hr 300 Mg PO BID Vitals/I & O Vital Sign - Last 24 Hours 10/11/16 10/11/16 10/11/16 10/11/16 11:00 11:17 15:00 15:29 Temp 97.7 98.2 97.7 98.2 Pulse 70 66 Resp 20 20 B/P (MAP) 141/66 (91) 143/68 (93) Pulse Ox 95 97 O2 Delivery Room Air Room Air Room Air Room Air 10/11/16 10/11/16 10/11/16 10/11/16 19:34 19:42 20:15 22:35 Temp 97.8 98.3 97.8 98.3 Pulse 71 76 Resp 16 16 B/P (MAP) 143/76 (98) 149/82 (104) Pulse Ox 96 96 93 O2 Delivery Room Air Room Air Room Air Room Air 10/12/16 10/12/16 10/12/16 03:02 06:59 07:00 Temp 97.4 98.1 97.4 98.1 Pulse 77 93 Resp 18 20 B/P (MAP) 172/103 (126) 175/104 (127) Pulse Ox 95 96 95 O2 Delivery Room Air Room Air Room Air Intake and Output 10/11/16 10/11/16 10/12/16 14:59 22:59 06:59 Intake Total 970 ml 180 ml 900 ml Output Total 250 ml Balance 720 ml 180 ml 900 ml ESPERANZA STARKS MD Oct 12, 2016 09:15
[2016-10-12] MEDS: carBAMazepine 200 MG TABLET PO SCH ×2 (09:45→20:29)
[2016-10-12] MEDS: LABETALOL 20 MG/4 ML DISP.SYRIN. IVP PRN (09:45)
[2016-10-12] MEDS: ENOXAPARIN 40 MG/0.4 ML SYRINGE. SQ SCH (12:13)
--- NOTE | 2016-10-12 12:17 | PDOC ---
Infectious Disease Note Subjective Subjective patient says left leg is less painful and is looking better ROS ROS GEN: Denies fevers, chills, sweats CV: Denies chest pain RESP: Denies shortness of air, cough GI: Denies n/v Vital Sign Vital Signs Vital Signs Date Time Temp Pulse Resp B/P (MAP) Pulse Ox O2 Delivery O2 Flow Rate FiO2 10/12/16 11:42 95 Room Air 10/12/16 11:00 98.1 66 20 162/91 (114) 98.1 Physical Exam PHYSICAL EXAM GENERAL: Up in chair, legs elevated LUNGS: Clear HEART: S1S2, no gallop, no murmur ABD: Obese, soft, NT EXT: Left ankle less swollen and warm. erythema slightly better, DP palpable INVESTIGATION OFFICER: Alert, oriented x 3, no focal neurologic deficit SKIN: No rash IV: ok Labs Lab Laboratory Tests Test 10/12/16 04:40 White Blood Count 9.6 x10^3/uL (4.0-11.0) Red Blood Count 3.34 x10^6/uL (3.50-5.40) Hemoglobin 10.5 g/dL (12.0-15.5) Hematocrit 31.1 % (36.0-47.0) Mean Corpuscular Volume 93 fL (79-100) Mean Corpuscular Hemoglobin 31 pg (25-35) Mean Corpuscular Hemoglobin Concent 34 g/dL (31-37) Red Cell Distribution Width 13.0 % (11.5-14.5) Platelet Count 278 x10^3/uL (140-400) Neutrophils (%) (Auto) 68 % (31-73) Lymphocytes (%) (Auto) 20 % (24-48) Monocytes (%) (Auto) 11 % (0-9) Eosinophils (%) (Auto) 2 % (0-3) Basophils (%) (Auto) 1 % (0-3) Neutrophils # (Auto) 6.5 x10^3uL (1.8-7.7) Lymphocytes # (Auto) 1.9 x10^3/uL (1.0-4.8) Monocytes # (Auto) 1.0 x10^3/uL (0.0-1.1) Eosinophils # (Auto) 0.2 x10^3/uL (0.0-0.7) Basophils # (Auto) 0.1 x10^3/uL (0.0-0.2) Sodium Level 140 mmol/L (136-145) Potassium Level 3.5 mmol/L (3.5-5.1) Chloride Level 104 mmol/L (98-107) Carbon Dioxide Level 26 mmol/L (21-32) Anion Gap 10 (6-14) Blood Urea Nitrogen 7 mg/dL (7-20) Creatinine 0.7 mg/dL (0.6-1.0) Estimated GFR (Cockcroft-Gault) 82.0 Glucose Level 112 mg/dL (70-99) Calcium Level 8.1 mg/dL (8.5-10.1) Objective Assessment Left foot cellulitis, MRI neg fluid collection, slowly improving Klebsiella UTI with dysuria - POA / Sulfa allergy - rash Fever, better Plan Plan of Care zyvox po. Reduce fluid intake Cont Zosyn Monitor labs Elevation Tubigrip - couldn't tolerate Patient seen and examined. Chart reviewed. Case discussed with SURVEILLANCE CAMERA TECHNICIAN. Agree with above plan IRMA SIU APRN Oct 12, 2016 12:17 KWESI WANG MD Oct 12, 2016 19:03
[2016-10-12] MEDS: ATORVASTATIN CALCIUM 10 MG TABLET. PO SCH (20:29)
[2016-10-13 03:23] VITALS: BP 177/98
[2016-10-13] MEDS: PIPERACILLIN/TAZOBACTAM 3.375 GM in IV NORMAL SALINE 50ML 50 ML IV SCH ×4 (06:00→21:34)
[2016-10-13 07:00] VITALS: BP 171/105
[2016-10-13] MEDS: ALBUTEROL SULFATE 2.5 MG/3 ML NEBU. NEB SCH ×4 (07:45→20:15)
[2016-10-13] MEDS: BUDESONIDE 0.5 MG/2 ML NEBU. NEB SCH ×2 (07:45→20:15)
[2016-10-13] MEDS: MULTIVITAMIN with MINERAL TABLET. PO SCH (08:08)
[2016-10-13] MEDS: carBAMazepine 200 MG TABLET PO SCH ×2 (08:08→21:33)
[2016-10-13] MEDS: VITAMIN E 200 UNIT CAPSULE. PO SCH (08:08)
[2016-10-13] MEDS: CELECOXIB 200 MG CAPSULE. PO SCH (08:09)
[2016-10-13] MEDS: LINEZOLID 600 MG TABLET PO SCH ×2 (08:09→21:32)
[2016-10-13] MEDS: PANTOPRAZOLE 40 MG TABLET.DR. PO SCH (08:09)
[2016-10-13] MEDS: CALCIUM CARB/VIT D3 500/200 TABLET. PO SCH (08:09)
[2016-10-13] MEDS: OMEGA-3 FATTY ACIDS/FISH OIL 1,000 MG CAPSULE. PO SCH (08:09)
[2016-10-13] MEDS: amLODIPine BESYLATE 5 MG TABLET PO SCH (08:10)
--- NOTE | 2016-10-13 09:49 | PDOC ---
PULMONARY PROGRESS NOTES Subjective no soa at rest Vitals Vital Signs Date Time Temp Pulse Resp B/P (MAP) Pulse Ox O2 Delivery O2 Flow Rate FiO2 10/13/16 08:10 65 177/98 10/13/16 07:49 96 Room Air 10/13/16 07:00 97.7 18 97.7 General: Alert, No acute distress Lungs: Crackles (bl basilar mild crackles) Cardiovascular: S1 Abdomen: Soft Neuro Exam: Alert Extremities: Other (left ankle swelling, erythema) Labs Laboratory Tests Test 10/12/16 04:40 White Blood Count 9.6 x10^3/uL (4.0-11.0) Red Blood Count 3.34 x10^6/uL (3.50-5.40) Hemoglobin 10.5 g/dL (12.0-15.5) Hematocrit 31.1 % (36.0-47.0) Mean Corpuscular Volume 93 fL (79-100) Mean Corpuscular Hemoglobin 31 pg (25-35) Mean Corpuscular Hemoglobin Concent 34 g/dL (31-37) Red Cell Distribution Width 13.0 % (11.5-14.5) Platelet Count 278 x10^3/uL (140-400) Neutrophils (%) (Auto) 68 % (31-73) Lymphocytes (%) (Auto) 20 % (24-48) Monocytes (%) (Auto) 11 % (0-9) Eosinophils (%) (Auto) 2 % (0-3) Basophils (%) (Auto) 1 % (0-3) Neutrophils # (Auto) 6.5 x10^3uL (1.8-7.7) Lymphocytes # (Auto) 1.9 x10^3/uL (1.0-4.8) Monocytes # (Auto) 1.0 x10^3/uL (0.0-1.1) Eosinophils # (Auto) 0.2 x10^3/uL (0.0-0.7) Basophils # (Auto) 0.1 x10^3/uL (0.0-0.2) Sodium Level 140 mmol/L (136-145) Potassium Level 3.5 mmol/L (3.5-5.1) Chloride Level 104 mmol/L (98-107) Carbon Dioxide Level 26 mmol/L (21-32) Anion Gap 10 (6-14) Blood Urea Nitrogen 7 mg/dL (7-20) Creatinine 0.7 mg/dL (0.6-1.0) Estimated GFR (Cockcroft-Gault) 82.0 Glucose Level 112 mg/dL (70-99) Calcium Level 8.1 mg/dL (8.5-10.1) Medications Active Scripts Medications Dose Route/Sig Max Daily Dose Days Date Category Benefiber (Wheat Dextrin) 152 Gm Powder 152 Gm PO PRN DAILY PRN 10/07/16 Reported Lovastatin 20 Mg Tablet 20 Mg PO HS 10/07/16 Reported Amlodipine Besylate 5 Mg Tablet 5 Mg PO DAILY 10/07/16 Reported Symbicort 160-4.5 Mcg Inhaler (Budesonide/Formoterol Fumarate) 10.2 Gm Hfa.aer.ad 2 Puff IH BID 10/07/16 Reported Tums (Calcium Carbonate) 200 Mg Tab.chew 200 Mg PO PRN BID PRN 05/10/13 Reported Fish Oil 1,000 Mg Capsule ([place]-3 Fatty Acids/Fish Oil) 1 Each Capsule 1 Each PO DAILY 05/10/13 Reported Calcium + Vitamin D Tablet (Calcium Carbonate/Vitamin D3) 1 Each Tablet 1 Each PO DAILY 05/10/13 Reported Centrum Silver Tablet (Multivits-Min/Fa/Lycopene/Lut) 1 Each Tablet 1 Each PO GUERO 05/10/13 Reported Vitamin E 400 Unit Capsule 400 Unit PO DAILY 05/10/13 Reported Omeprazole 20 Mg Tablet.dr 20 Mg PO DAILY 05/10/13 Reported Celebrex (Celecoxib) 200 Mg Capsule 200 Mg PO QODAY 05/10/13 Reported Carbatrol (Carbamazepine) 300 Mg Cpmp.12hr 300 Mg PO BID 05/10/13 Reported Impression . 1. Dyspnea associated with acute bronchitis. Her oxygen status stable and currently on room air at 94% saturation. 2. History of mild interstitial lung disease. Radiographically, does not appear to have any significant change. We will continue to monitor on a yearly basis by CT chest. 3. Acute bronchitis. 4. Left ankle cellulitis versus early abscess. Orthopedics are following along with Infectious Disease. 5. History of obstructive sleep apnea with good compliance with CPAP. Plan . 1. Continue broad-spectrum antibiotics per ID recommendation. 2. Follow chest x-ray PRN 3. Follow ID recommendation. 4. P.r.n. oxygen. 5. CPAP at bedtime. 6. We will follow along with you. MALGORZATA BECKMAN MD Oct 13, 2016 09:49
[2016-10-13 10:30] VITALS: BP 113/88
--- NOTE | 2016-10-13 11:18 | PDOC ---
PROGRESS NOTES Chief Complaint Chief Complaint Ankle cellulitis L ASSESSMENT AND PLAN: L ankle cellulitis. no osteo or abscess . SIRS POA, no sepsis ILD, CHELY, chronic stable Obesity BMI 37 Hypokalemia 3.3, corrected Hyponatremia 129 in a COPD-er - BETTER/RESOLVED possible acute bronchitis, stable copd, stable previous smoker History of Present Illness History of Present Illness Left ankle better, but pt still unable to bear weight LEss swollen, redness seem to be more concentrated now BUt patient wants SNU than HH PT recs HH NO fevers, no white ct on iV abx by ID zosyn Being sifted to PO zyvox now by ID BP better once home med norvasc restarted PLAN: PO zyvox per ID Await Friday - see if can do SNU not HH Patient wants HH - I am agreeable to do that SHe lives alone and can barely bear weight on left leg Vitals Vitals Vital Signs Date Time Temp Pulse Resp B/P (MAP) Pulse Ox O2 Delivery O2 Flow Rate FiO2 10/13/16 10:30 98.1 67 18 113/88 (96) 96 Room Air 98.1 Physical Exam General: Alert, Oriented X3, Cooperative, No acute distress Heart: Regular rate Lungs: Crackles (bl basilar mild crackles) Abdomen: Normal bowel sounds, No tenderness Extremities: No edema, Other (left ankle moderate swelling, with dark erythema , tenderness, no wound) Skin: No rashes Review of Systems Review of Systems left leg pain unable to bear weight Assessment and Plan Assessmemt and Plan Problems Medical Problems: (1) Cellulitis Status: Acute (2) Fever Status: Acute (3) Hyponatremia Status: Acute (4) Leg pain, left Status: Acute (5) Leukocytosis Status: Acute Problems: Comment Review of Relevant I have reviewed the following items kina (where applicable) has been applied. Labs Laboratory Tests Test 10/12/16 04:40 White Blood Count 9.6 x10^3/uL (4.0-11.0) Red Blood Count 3.34 x10^6/uL (3.50-5.40) Hemoglobin 10.5 g/dL (12.0-15.5) Hematocrit 31.1 % (36.0-47.0) Mean Corpuscular Volume 93 fL (79-100) Mean Corpuscular Hemoglobin 31 pg (25-35) Mean Corpuscular Hemoglobin Concent 34 g/dL (31-37) Red Cell Distribution Width 13.0 % (11.5-14.5) Platelet Count 278 x10^3/uL (140-400) Neutrophils (%) (Auto) 68 % (31-73) Lymphocytes (%) (Auto) 20 % (24-48) Monocytes (%) (Auto) 11 % (0-9) Eosinophils (%) (Auto) 2 % (0-3) Basophils (%) (Auto) 1 % (0-3) Neutrophils # (Auto) 6.5 x10^3uL (1.8-7.7) Lymphocytes # (Auto) 1.9 x10^3/uL (1.0-4.8) Monocytes # (Auto) 1.0 x10^3/uL (0.0-1.1) Eosinophils # (Auto) 0.2 x10^3/uL (0.0-0.7) Basophils # (Auto) 0.1 x10^3/uL (0.0-0.2) Sodium Level 140 mmol/L (136-145) Potassium Level 3.5 mmol/L (3.5-5.1) Chloride Level 104 mmol/L (98-107) Carbon Dioxide Level 26 mmol/L (21-32) Anion Gap 10 (6-14) Blood Urea Nitrogen 7 mg/dL (7-20) Creatinine 0.7 mg/dL (0.6-1.0) Estimated GFR (Cockcroft-Gault) 82.0 Glucose Level 112 mg/dL (70-99) Calcium Level 8.1 mg/dL (8.5-10.1) Microbiology 10/06/16 Urine Culture - Final, Complete 10/06/16 Urine Culture Result 1 (PRAKASH) - Final, Complete 10/06/16 Antimicrobic Susceptibility - Final, Complete Medications Current Medications Fentanyl Citrate (Fentanyl 2ml Vial) 25 mcg PRN Q15MIN PRN IV PAIN GREATER THAN 3/10 Last administered on 10/07/16 08:47; Start 10/06/16 at 21:00; Stop 10/07 at 11:12; Status DC Ondansetron HCl (Zofran) 4 mg 1X ONCE IV Last administered on 10/06/16 21:40; Start 10/06/16 at 21:30; Stop 10/06/16 at 21:31; Status DC Vancomycin HCl (Vanco Per Pharmacy) 1 each PRN DAILY PRN MC SEE COMMENTS Last administered on 10/11/16 13:24; Start 10/06/16 at 22:30; Stop 10/11/16 at 15:23 ; Status DC Cefepime HCl 2 gm/ Sodium Chloride 100 ml @ 200 mls/hr Q12HR IV Last administered on 10/07/16 08:46; Start 10/06/16 at 23:00; Stop 10/07/16 at 12:25; Status DC Vancomycin HCl 2 gm/Sodium Chloride 500 ml @ 250 mls/hr 1X ONCE IV Last administered on 10/06/16 23:23; Start 10/06/16 at 23:00; Stop 10/07/16 at 00:59; Status DC Sodium Chloride 1,000 ml @ 80 mls/hr 1X ONCE IV Last administered on 22:45; Start 10/06/16 at 23:00; Stop 10/07/16 at 11:29; Status DC Ondansetron HCl (Zofran) 4 mg PRN Q8HRS PRN IV NAUSEA/VOMITING; Start 10/06/16 at 22:45; Stop 10/07/16 at 22:44; Status DC Fentanyl Citrate (Fentanyl 2ml Vial) 50 mcg PRN Q2HR PRN IV SEVERE PAIN Last administered on 10/07/16 15:48; Start 10/06/16 at 22:45; Stop 10/07/16 at 22:44; Status DC Sodium Chloride 1,000 ml @ 80 mls/hr [id number] IV Last administered on 10/07/16 15:47; Start 10/06/16 at 23:00; Stop 10/07/16 at 22:59; Status DC Acetaminophen (Tylenol) 650 mg PRN Q4HRS PRN PO FEVER; Start 10/06/16 at 22:45; Stop 10/07/16 at 22:44; Status DC Vancomycin HCl 1.25 gm/Sodium Chloride 250 ml @ 167 mls/hr Q24H IV Last administered on 10/07/16 23:06; Start 10/07/16 at 23:00; Stop 10/08/16 at 23:01; Status DC Vancomycin HCl 1 each 1X ONCE MC Last administered on 10/08/16 22:30; Start at 22:30; Stop 10/08/16 at 22:31; Status DC Amlodipine Besylate (Norvasc) 5 mg DAILY PO Last administered on 10/11/16 08: 38; Start 10/07/16 at 12:00; Stop 10/12/16 at 09:13; Status DC Calcium Carbonate/ Glycine (Tums) 500 mg PRN BID PRN PO HEARTBURN / GAS Last administered on 10/08/16 09:52; Start 10/07/16 at 11:15 Celecoxib (CeleBREX) 200 mg QODAY PO Last administered on 10/13/16 08:09; Start 10/09/16 at 09:00 Fish Oil (Fish Oil) 1,000 mg DAILY PO Last administered on 10/13/16 08:09; Start 10/07/16 at 12:00 Budesonide (Pulmicort) 0.5 mg RTBID NEB Last administered on 10/13/16 07:45; Start 10/07/16 at 12:00 Calcium/Vitamin D (Oscal D 500mg/ 200uts) 1 tab [id number] PO Last administered on 10/13/16 08:09; Start 10/07/16 at 12:00 Carbamazepine (TEGretol) 300 mg BID PO Last administered on 10/08/16 09:51; Start 10/07/16 at 12:00; Stop 10/08/16 at 13:16; Status DC Atorvastatin Calcium (Lipitor) 5 mg QHS PO Last administered on 10/12/16 20:29 ; Start 10/07/16 at 21:00 Multivitamins (Thera M Plus) 1 tab DAILY PO Last administered on 10/13/16 08: 08; Start 10/07/16 at 12:00 Pantoprazole Sodium (Protonix) 40 mg DAILYAC PO Last administered on 10/13/16 08:09; Start 10/07/16 at 12:00 Vitamin E 400 unit DAILY PO Last administered on 10/13/16 08:08; Start at 12:00 Psyllium Hydrophilic Mucilloid (Metamucil Fiber Packet) 1 pkt PRN DAILY PRN PO CONSTIPATION; Start 10/08/16 at 09:00 Albuterol Sulfate (Ventolin Neb Soln) 2.5 mg RTQID NEB Last administered on 07:45; Start 10/07/16 at 12:00 Piperacillin Sod/ Tazobactam Sod 3.375 gm/Sodium Chloride 50 ml @ 100 mls/hr Q6HRS IV Last administered on 10/13/16 06:00; Start 10/07/16 at 13:00 Carbamazepine (TEGretol) 600 mg BID PO Last administered on 10/13/16 08:08; Start 10/08/16 at 21:00 Potassium Chloride/Sodium Chloride 1,000 ml @ 125 mls/hr Q8H IV Last administered on 10/10/16 04:38; Start 10/08/16 at 23:00; Stop 10/10/16 at 10:52 ; Status DC Vancomycin HCl 1.5 gm/Sodium Chloride 500 ml @ 250 mls/hr Q12H IV Last administered on 10/11/16 11:44; Start 10/08/16 at 23:30; Stop 10/11/16 at 15:23 ; Status DC Vancomycin HCl 1 each 1X ONCE MC ; Start 10/10/16 at 11:00; Stop 10/10/16 at 11 :01; Status DC Acetaminophen (Tylenol) 500 mg PRN Q6HRS PRN PO MILD PAIN / TEMP Last administered on 10/12/16 20:28; Start 10/09/16 at 09:00 Ondansetron HCl (Zofran) 4 mg PRN Q6HRS PRN IV NAUSEA/VOMITING; Start 10/09/16 at 09:00 Gadobutrol (Gadavist) 9 mmol 1X ONCE IV ; Start 10/09/16 at 14:45; Stop 10/09/16 at 14:46; Status DC Potassium Chloride (Klor-Con) 40 meq 1X ONCE PO Last administered on 11:46; Start 10/10/16 at 11:00; Stop 10/10/16 at 11:01; Status DC Enoxaparin Sodium (Lovenox 40mg Syringe) 40 mg Q24H SQ Last administered on 12:13; Start 10/10/16 at 13:00 Potassium Chloride (Klor-Con) 20 meq STK-MED ONCE PO ; Start 10/10/16 at 11:39; Stop 10/10/16 at 12:55; Status DC Enoxaparin Sodium (Lovenox 40mg Syringe) 40 mg STK-MED ONCE SQ ; Start 10/10/16 at 12:28; Stop 10/10/16 at 12:55; Status DC Potassium Chloride (Klor-Con) 40 meq 1X ONCE PO Last administered on 11:45; Start 10/11/16 at 11:30; Stop 10/11/16 at 11:31; Status DC Linezolid (Zyvox) 600 mg BID PO Last administered on 10/13/16 08:09; Start 01/17 at 21:00 Labetalol HCl (Normodyne) 20 mg PRN Q2HR PRN IVP HYPERTENSION, SEE COMMENTS Last administered on 10/12/16 09:45; Start 10/12/16 at 08:45 Amlodipine Besylate (Norvasc) 10 mg DAILY PO Last administered on 10/13/16 08: 10; Start 10/13/16 at 09:00 Active Scripts Active Reported Benefiber (Wheat Dextrin) 152 Gm Powder 152 Gm PO PRN DAILY PRN Lovastatin 20 Mg Tablet 20 Mg PO HS Amlodipine Besylate 5 Mg Tablet 5 Mg PO DAILY Symbicort 160-4.5 Mcg Inhaler (Budesonide/Formoterol Fumarate) 10.2 Gm Hfa.aer.ad 2 Puff IH BID Tums (Calcium Carbonate) 200 Mg Tab.chew 200 Mg PO PRN BID PRN Fish Oil 1,000 Mg Capsule ([place]-3 Fatty Acids/Fish Oil) 1 Each Capsule 1 Each PO DAILY Calcium + Vitamin D Tablet (Calcium Carbonate/Vitamin D3) 1 Each Tablet 1 Each PO DAILY Centrum Silver Tablet (Multivits-Min/Fa/Lycopene/Lut) 1 Each Tablet 1 Each PO GUERO Vitamin E 400 Unit Capsule 400 Unit PO DAILY Omeprazole 20 Mg Tablet.dr 20 Mg PO DAILY Celebrex (Celecoxib) 200 Mg Capsule 200 Mg PO QODAY Carbatrol (Carbamazepine) 300 Mg Cpmp.12hr 300 Mg PO BID Vitals/I & O Vital Sign - Last 24 Hours 10/12/16 10/12/16 10/12/16 10/12/16 11:42 14:56 15:34 19:30 Temp 98.4 98.4 98.4 98.4 Pulse 67 70 Resp 20 18 B/P (MAP) 147/79 (101) 160/89 (112) Pulse Ox 95 96 97 94 O2 Delivery Room Air Room Air Room Air Room Air 10/12/16 10/12/16 10/12/16 10/12/16 19:39 19:44 20:00 20:06 Temp 98.4 98.4 Pulse 70 Resp 18 B/P (MAP) 160/89 (112) Pulse Ox 97 97 94 O2 Delivery Room Air Room Air Room Air Room Air 10/12/16 10/13/16 10/13/16 10/13/16 23:04 03:23 07:00 07:48 Temp 97.8 98.0 97.7 97.8 98.0 97.7 Pulse 72 65 84 Resp 16 14 18 B/P (MAP) 175/101 (125) 177/98 (124) 171/105 (127) Pulse Ox 92 95 94 96 O2 Delivery Room Air Room Air Room Air Room Air 10/13/16 10/13/16 10/13/16 10/13/16 07:49 08:00 08:10 10:30 Temp 98.1 98.1 Pulse 65 67 Resp 18 B/P (MAP) 177/98 113/88 (96) Pulse Ox 96 96 O2 Delivery Room Air Room Air Room Air Intake and Output 10/12/16 10/12/16 10/13/16 15:00 23:00 07:00 Intake Total 360 ml 2080 ml 700 ml Output Total 300 ml 2 ml Balance 360 ml 1780 ml 698 ml ESPERANZA STARKS MD Oct 13, 2016 11:18
--- NOTE | 2016-10-13 11:27 | PDOC ---
Infectious Disease Note Subjective Subjective Still painful and not able to plant heel to floor when walking Not very hungry but is but is eating. Loose stools. Denies cramping or bloating ROS ROS GEN: Denies fevers, chills, sweats CV: Denies chest pain RESP: Denies shortness of air, cough GI: Denies n/v Vital Sign Vital Signs Vital Signs Date Time Temp Pulse Resp B/P (MAP) Pulse Ox O2 Delivery O2 Flow Rate FiO2 10/13/16 10:30 98.1 67 18 113/88 (96) 96 Room Air 98.1 Physical Exam PHYSICAL EXAM GENERAL: Up in chair, legs elevated LUNGS: Clear HEART: S1S2, no gallop, no murmur ABD: Obese, soft, NT EXT: Left ankle less swollen and warm. erythema slightly better, DP palpable CASE PREPARER AND LINER: Alert, oriented x 3, no focal neurologic deficit SKIN: No rash IV: ok Objective Assessment Left foot cellulitis, MRI neg fluid collection, slowly improving Klebsiella UTI with dysuria - POA / Sulfa allergy - rash Fever, better Plan Plan of Care Zyvox and Zosyn Monitor labs Elevation Tubigrip - couldn't tolerate Patient seen and examined. Chart reviewed. Case discussed with SEO ASSOCIATE. Agree with above note and plan. IRMA SIU APRN Oct 13, 2016 11:27 KWESI WANG MD Oct 13, 2016 19:05
[2016-10-13] MEDS: ENOXAPARIN 40 MG/0.4 ML SYRINGE. SQ SCH (12:11)
[2016-10-13] MEDS: ACETAMINOPHEN 500 MG TABLET PO PRN ×2 (14:58→21:32)
[2016-10-13 15:00] VITALS: BP 145/81
[2016-10-13 19:00] VITALS: BP 163/67
[2016-10-13] MEDS: ATORVASTATIN CALCIUM 10 MG TABLET. PO SCH (21:33)
[2016-10-13 23:00] VITALS: BP 166/92
[2016-10-14 03:00] VITALS: BP 164/91
[2016-10-14] MEDS: PIPERACILLIN/TAZOBACTAM 3.375 GM in IV NORMAL SALINE 50ML 50 ML IV SCH ×3 (04:42→17:15)
[2016-10-14] MEDS: ALBUTEROL SULFATE 2.5 MG/3 ML NEBU. NEB SCH ×5 (07:03→19:18)
[2016-10-14] MEDS: BUDESONIDE 0.5 MG/2 ML NEBU. NEB SCH ×2 (07:05→19:18)
[2016-10-14 07:30] VITALS: BP 186/88
[2016-10-14] MEDS: LINEZOLID 600 MG TABLET PO SCH ×2 (08:19→21:53)
[2016-10-14] MEDS: CALCIUM CARB/VIT D3 500/200 TABLET. PO SCH (08:19)
[2016-10-14] MEDS: amLODIPine BESYLATE 5 MG TABLET PO SCH (08:20)
[2016-10-14] MEDS: OMEGA-3 FATTY ACIDS/FISH OIL 1,000 MG CAPSULE. PO SCH (08:20)
[2016-10-14] MEDS: MULTIVITAMIN with MINERAL TABLET. PO SCH (08:20)
[2016-10-14] MEDS: ACETAMINOPHEN 500 MG TABLET PO PRN ×3 (08:20→21:53)
[2016-10-14] MEDS: PANTOPRAZOLE 40 MG TABLET.DR. PO SCH (08:20)
[2016-10-14] MEDS: VITAMIN E 200 UNIT CAPSULE. PO SCH (08:20)
--- NOTE | 2016-10-14 10:23 | PDOC ---
PULMONARY PROGRESS NOTES Subjective no soa at rest Vitals Vital Signs Date Time Temp Pulse Resp B/P (MAP) Pulse Ox O2 Delivery O2 Flow Rate FiO2 10/14/16 08:20 83 186/88 10/14/16 07:30 97.5 18 92 Room Air 97.5 General: Alert, No acute distress Lungs: Crackles (bl basilar mild crackles) Cardiovascular: S1 Abdomen: Soft Neuro Exam: Alert Extremities: Other (left ankle swelling, erythema) Medications Active Scripts Medications Dose Route/Sig Max Daily Dose Days Date Category Benefiber (Wheat Dextrin) 152 Gm Powder 152 Gm PO PRN DAILY PRN 10/07/16 Reported Lovastatin 20 Mg Tablet 20 Mg PO HS 10/07/16 Reported Amlodipine Besylate 5 Mg Tablet 5 Mg PO DAILY 10/07/16 Reported Symbicort 160-4.5 Mcg Inhaler (Budesonide/Formoterol Fumarate) 10.2 Gm Hfa.aer.ad 2 Puff IH BID 10/07/16 Reported Tums (Calcium Carbonate) 200 Mg Tab.chew 200 Mg PO PRN BID PRN 05/10/13 Reported Fish Oil 1,000 Mg Capsule ([place]-3 Fatty Acids/Fish Oil) 1 Each Capsule 1 Each PO DAILY 05/10/13 Reported Calcium + Vitamin D Tablet (Calcium Carbonate/Vitamin D3) 1 Each Tablet 1 Each PO DAILY 05/10/13 Reported Centrum Silver Tablet (Multivits-Min/Fa/Lycopene/Lut) 1 Each Tablet 1 Each PO GUERO 05/10/13 Reported Vitamin E 400 Unit Capsule 400 Unit PO DAILY 05/10/13 Reported Omeprazole 20 Mg Tablet.dr 20 Mg PO DAILY 05/10/13 Reported Celebrex (Celecoxib) 200 Mg Capsule 200 Mg PO QODAY 05/10/13 Reported Carbatrol (Carbamazepine) 300 Mg Cpmp.12hr 300 Mg PO BID 05/10/13 Reported Impression . 1. Dyspnea associated with acute bronchitis. Her oxygen status stable and currently on room air at 94% saturation. 2. History of mild interstitial lung disease. Radiographically, does not appear to have any significant change. We will continue to monitor on a yearly basis by CT chest. 3. Acute bronchitis. 4. Left ankle cellulitis. Orthopedics are following along with Infectious Disease. 5. History of obstructive sleep apnea with good compliance with CPAP. Plan . 1. Continue broad-spectrum antibiotics per ID recommendation. 2. Follow chest x-ray PRN 3. Follow ID recommendation. 4. P.r.n. oxygen. 5. CPAP at bedtime. dc plans per MALGORZATA JAMES MD Oct 14, 2016 10:23
[2016-10-14 11:05] VITALS: BP 174/89
[2016-10-14] MEDS: carBAMazepine 200 MG TABLET PO SCH ×2 (11:46→21:52)
[2016-10-14] MEDS: ENOXAPARIN 40 MG/0.4 ML SYRINGE. SQ SCH (12:52)
--- NOTE | 2016-10-14 13:17 | PDOC ---
Infectious Disease Note Subjective Subjective Still painful and not able to plant heel to floor when walking, PT working with her Not very hungry but is but is eating. Loose stools. Denies cramping or bloating ROS ROS GEN: Denies fevers, chills, sweats CV: Denies chest pain RESP: Denies shortness of air, cough GI: Denies n/v Vital Sign Vital Signs Vital Signs Date Time Temp Pulse Resp B/P (MAP) Pulse Ox O2 Delivery O2 Flow Rate FiO2 10/14/16 11:44 Room Air 10/14/16 11:05 97.9 70 18 174/89 (117) 93 97.9 Physical Exam PHYSICAL EXAM GENERAL: Propped up in chair, NAD LUNGS: Clear HEART: S1S2, no gallop, no murmur ABD: Obese, soft, NT EXT: Left ankle less swollen; still erythematous but slightly better, DP palpable. mild warmth FRAMEWORK DEVELOPER: Alert, oriented x 3, no focal neurologic deficit SKIN: No rash IV: ok Objective Assessment Left foot cellulitis, MRI neg fluid collection, slowly improving Klebsiella UTI with dysuria - POA 10/06 Sulfa allergy - rash Fever, better Plan Plan of Care Zyvox and Zosyn. Expect to d/c Zosyn 10/15. cont po Zyvox. hope for D/c Monitor labs Elevation Tubigrip - now loose - will get tighter one Attending Co-Sign Attending Co-Sign The patient was seen and interviewed as well as examined at the bedside. The chart was reviewed. The case was discussed. Agree with the plan of care. IRMA SIU APRN Oct 14, 2016 13:17 FREEMAN BROWN MD Oct 14, 2016 17:05
[2016-10-14 15:00] VITALS: BP 156/72
--- NOTE | 2016-10-14 17:13 | PDOC ---
PROGRESS NOTES Chief Complaint Chief Complaint Ankle cellulitis L ASSESSMENT AND PLAN: 1. L ankle cellulitis: no osteo or abscess. appreciate ID service input: finishing yang tomorrow, adarsh castaneda 2. Hypokalemia: repleted. monitor 3. Hyponatremia: resolved 4. COPD/CHELY/ILD: no acute issues. nebs, O2 PRN 5. Obesity BMI 37 6. Dispo: poss rehab in AM History of Present Illness History of Present Illness able to walk with walker some. concerned about persistent redness, swelling Vitals Vitals Vital Signs Date Time Temp Pulse Resp B/P (MAP) Pulse Ox O2 Delivery O2 Flow Rate FiO2 10/14/16 15:24 Room Air 10/14/16 15:00 97.9 76 18 156/72 (100) 96 97.9 Physical Exam General: Alert, Oriented X3, Cooperative, No acute distress Heart: Regular rate Lungs: Clear Abdomen: Normal bowel sounds, No tenderness Extremities: No edema, Other (left ankle moderate swelling, with dark erythema , tenderness, no wound) Skin: No rashes JASMYN PERALTA MD Oct 14, 2016 17:12
[2016-10-14 19:00] VITALS: BP 174/82
[2016-10-14] MEDS: ATORVASTATIN CALCIUM 10 MG TABLET. PO SCH (21:53)
[2016-10-14 23:00] VITALS: BP 170/68
[2016-10-15] MEDS: PIPERACILLIN/TAZOBACTAM 3.375 GM in IV NORMAL SALINE 50ML 50 ML IV SCH ×2 (00:41→05:16)
[2016-10-15 03:00] VITALS: BP 173/81
[2016-10-15] MEDS: ACETAMINOPHEN 500 MG TABLET PO PRN ×2 (05:16→17:57)
[2016-10-15 07:00] LABS: BASO # 0.1 x10^3/uL (0.0-0.2); BASO % 1 % (0-3); EOS % 1 % (0-3); HEMATOCRIT 32.4 % (36.0-47.0); LYMPH # 1.6 x10^3/uL (1.0-4.8); LYMPH % 18 % (24-48); MEAN CORPUSCULAR HEMOGLOBIN 32 pg (25-35); MEAN CORPUSCULAR HGB CONC 34 g/dL (31-37); MEAN CORPUSCULAR VOLUME 93 fL (79-100); MONO % 7 % (0-9); NEUT % 73 % (31-73); PLATELET COUNT 329 x10^3/uL (140-400); RED BLOOD COUNT 3.49 x10^6/uL (3.50-5.40); RED CELL DISTRIBUTION WIDTH 13.2 % (11.5-14.5)
[2016-10-15] MEDS: ALBUTEROL SULFATE 2.5 MG/3 ML NEBU. NEB SCH ×4 (07:25→19:04)
[2016-10-15] MEDS: BUDESONIDE 0.5 MG/2 ML NEBU. NEB SCH ×2 (07:26→19:04)
[2016-10-15 07:32] LABS: CALCIUM 8.7 mg/dL (8.5-10.1); CREATININE 0.7 mg/dL (0.6-1.0)
[2016-10-15 07:52] LABS: POTASSIUM 2.8 mmol/L (3.5-5.1)
[2016-10-15 07:53] VITALS: BP 187/85
--- NOTE | 2016-10-15 08:46 | PDOC ---
PROGRESS NOTES Chief Complaint Chief Complaint Ankle cellulitis L ASSESSMENT AND PLAN: 1. L ankle cellulitis: slowly improving. no osteo or abscess. appreciate ID service input: finishing zosyn today, cont zyvox 2. HTN: porrly controlled. on max norvasc. add lisinopril 3. Hypokalemia: recurrent. replete aggressively PO. ?cause 4. Hyponatremia: resolved 5. COPD/CHELY/ILD: no acute issues. nebs, O2 PRN 6. Obesity BMI 37 7. Dispo: rehab when K stable History of Present Illness History of Present Illness feels good, foot still very stiff, achilles tendon tight Vitals Vitals Vital Signs Date Time Temp Pulse Resp B/P (MAP) Pulse Ox O2 Delivery O2 Flow Rate FiO2 10/15/16 07:26 Room Air 10/15/16 03:00 97.3 69 18 173/81 (111) 95 97.3 Physical Exam General: Alert, Oriented X3, Cooperative, No acute distress Heart: Regular rate Lungs: Clear Abdomen: Normal bowel sounds, No tenderness Extremities: No edema, Other (left ankle moderate swelling, with dark erythema , tenderness, no wound) Skin: No rashes Labs LABS Laboratory Tests Test 10/15/16 06:35 White Blood Count 9.0 x10^3/uL (4.0-11.0) Red Blood Count 3.49 x10^6/uL (3.50-5.40) Hemoglobin 11.0 g/dL (12.0-15.5) Hematocrit 32.4 % (36.0-47.0) Mean Corpuscular Volume 93 fL (79-100) Mean Corpuscular Hemoglobin 32 pg (25-35) Mean Corpuscular Hemoglobin Concent 34 g/dL (31-37) Red Cell Distribution Width 13.2 % (11.5-14.5) Platelet Count 329 x10^3/uL (140-400) Neutrophils (%) (Auto) 73 % (31-73) Lymphocytes (%) (Auto) 18 % (24-48) Monocytes (%) (Auto) 7 % (0-9) Eosinophils (%) (Auto) 1 % (0-3) Basophils (%) (Auto) 1 % (0-3) Neutrophils # (Auto) 6.6 x10^3uL (1.8-7.7) Lymphocytes # (Auto) 1.6 x10^3/uL (1.0-4.8) Monocytes # (Auto) 0.6 x10^3/uL (0.0-1.1) Eosinophils # (Auto) 0.1 x10^3/uL (0.0-0.7) Basophils # (Auto) 0.1 x10^3/uL (0.0-0.2) Sodium Level 140 mmol/L (136-145) Potassium Level 2.8 mmol/L (3.5-5.1) Chloride Level 101 mmol/L (98-107) Carbon Dioxide Level 28 mmol/L (21-32) Anion Gap 11 (6-14) Blood Urea Nitrogen 6 mg/dL (7-20) Creatinine 0.7 mg/dL (0.6-1.0) Estimated GFR (Cockcroft-Gault) 82.0 Glucose Level 111 mg/dL (70-99) Calcium Level 8.7 mg/dL (8.5-10.1) Magnesium Level 2.0 mg/dL (1.8-2.4) JASMYN PERALTA MD Oct 15, 2016 08:46
[2016-10-15] MEDS: OMEGA-3 FATTY ACIDS/FISH OIL 1,000 MG CAPSULE. PO SCH (09:25)
[2016-10-15] MEDS: LINEZOLID 600 MG TABLET PO SCH (09:25)
[2016-10-15] MEDS: MULTIVITAMIN with MINERAL TABLET. PO SCH (09:25)
[2016-10-15] MEDS: PANTOPRAZOLE 40 MG TABLET.DR. PO SCH (09:25)
[2016-10-15] MEDS: VITAMIN E 200 UNIT CAPSULE. PO SCH (09:25)
[2016-10-15] MEDS: amLODIPine BESYLATE 5 MG TABLET PO SCH (09:26)
[2016-10-15] MEDS: carBAMazepine 200 MG TABLET PO SCH ×2 (09:26→20:56)
[2016-10-15] MEDS: CALCIUM CARB/VIT D3 500/200 TABLET. PO SCH (09:26)
[2016-10-15] MEDS: POTASSIUM CHLORIDE 20 MEQ TABLET.ER. PO SCH ×3 (09:27→17:50)
[2016-10-15] MEDS: CELECOXIB 200 MG CAPSULE. PO SCH (09:28)
[2016-10-15] MEDS: LABETALOL 20 MG/4 ML DISP.SYRIN. IVP PRN (09:29)
--- NOTE | 2016-10-15 10:19 | PDOC ---
PULMONARY PROGRESS NOTES Subjective no soa at rest Vitals Vital Signs Date Time Temp Pulse Resp B/P (MAP) Pulse Ox O2 Delivery O2 Flow Rate FiO2 10/15/16 09:29 77 187/85 10/15/16 07:53 97.9 18 92 Room Air 97.9 General: Alert, No acute distress Lungs: Clear Cardiovascular: S1 Abdomen: Soft Neuro Exam: Alert Extremities: Other (left ankle swelling, erythema) Labs Laboratory Tests Test 10/15/16 06:35 White Blood Count 9.0 x10^3/uL (4.0-11.0) Red Blood Count 3.49 x10^6/uL (3.50-5.40) Hemoglobin 11.0 g/dL (12.0-15.5) Hematocrit 32.4 % (36.0-47.0) Mean Corpuscular Volume 93 fL (79-100) Mean Corpuscular Hemoglobin 32 pg (25-35) Mean Corpuscular Hemoglobin Concent 34 g/dL (31-37) Red Cell Distribution Width 13.2 % (11.5-14.5) Platelet Count 329 x10^3/uL (140-400) Neutrophils (%) (Auto) 73 % (31-73) Lymphocytes (%) (Auto) 18 % (24-48) Monocytes (%) (Auto) 7 % (0-9) Eosinophils (%) (Auto) 1 % (0-3) Basophils (%) (Auto) 1 % (0-3) Neutrophils # (Auto) 6.6 x10^3uL (1.8-7.7) Lymphocytes # (Auto) 1.6 x10^3/uL (1.0-4.8) Monocytes # (Auto) 0.6 x10^3/uL (0.0-1.1) Eosinophils # (Auto) 0.1 x10^3/uL (0.0-0.7) Basophils # (Auto) 0.1 x10^3/uL (0.0-0.2) Sodium Level 140 mmol/L (136-145) Potassium Level 2.8 mmol/L (3.5-5.1) Chloride Level 101 mmol/L (98-107) Carbon Dioxide Level 28 mmol/L (21-32) Anion Gap 11 (6-14) Blood Urea Nitrogen 6 mg/dL (7-20) Creatinine 0.7 mg/dL (0.6-1.0) Estimated GFR (Cockcroft-Gault) 82.0 Glucose Level 111 mg/dL (70-99) Calcium Level 8.7 mg/dL (8.5-10.1) Magnesium Level 2.0 mg/dL (1.8-2.4) Laboratory Tests Test 10/15/16 06:35 White Blood Count 9.0 x10^3/uL (4.0-11.0) Red Blood Count 3.49 x10^6/uL (3.50-5.40) Hemoglobin 11.0 g/dL (12.0-15.5) Hematocrit 32.4 % (36.0-47.0) Mean Corpuscular Volume 93 fL (79-100) Mean Corpuscular Hemoglobin 32 pg (25-35) Mean Corpuscular Hemoglobin Concent 34 g/dL (31-37) Red Cell Distribution Width 13.2 % (11.5-14.5) Platelet Count 329 x10^3/uL (140-400) Neutrophils (%) (Auto) 73 % (31-73) Lymphocytes (%) (Auto) 18 % (24-48) Monocytes (%) (Auto) 7 % (0-9) Eosinophils (%) (Auto) 1 % (0-3) Basophils (%) (Auto) 1 % (0-3) Neutrophils # (Auto) 6.6 x10^3uL (1.8-7.7) Lymphocytes # (Auto) 1.6 x10^3/uL (1.0-4.8) Monocytes # (Auto) 0.6 x10^3/uL (0.0-1.1) Eosinophils # (Auto) 0.1 x10^3/uL (0.0-0.7) Basophils # (Auto) 0.1 x10^3/uL (0.0-0.2) Sodium Level 140 mmol/L (136-145) Potassium Level 2.8 mmol/L (3.5-5.1) Chloride Level 101 mmol/L (98-107) Carbon Dioxide Level 28 mmol/L (21-32) Anion Gap 11 (6-14) Blood Urea Nitrogen 6 mg/dL (7-20) Creatinine 0.7 mg/dL (0.6-1.0) Estimated GFR (Cockcroft-Gault) 82.0 Glucose Level 111 mg/dL (70-99) Calcium Level 8.7 mg/dL (8.5-10.1) Magnesium Level 2.0 mg/dL (1.8-2.4) Medications Active Scripts Medications Dose Route/Sig Max Daily Dose Days Date Category Benefiber (Wheat Dextrin) 152 Gm Powder 152 Gm PO PRN DAILY PRN 10/07/16 Reported Lovastatin 20 Mg Tablet 20 Mg PO HS 10/07/16 Reported Amlodipine Besylate 5 Mg Tablet 5 Mg PO DAILY 10/07/16 Reported Symbicort 160-4.5 Mcg Inhaler (Budesonide/Formoterol Fumarate) 10.2 Gm Hfa.aer.ad 2 Puff IH BID 10/07/16 Reported Tums (Calcium Carbonate) 200 Mg Tab.chew 200 Mg PO PRN BID PRN 05/10/13 Reported Fish Oil 1,000 Mg Capsule ([place]-3 Fatty Acids/Fish Oil) 1 Each Capsule 1 Each PO DAILY 05/10/13 Reported Calcium + Vitamin D Tablet (Calcium Carbonate/Vitamin D3) 1 Each Tablet 1 Each PO DAILY 05/10/13 Reported Centrum Silver Tablet (Multivits-Min/Fa/Lycopene/Lut) 1 Each Tablet 1 Each PO GUERO 05/10/13 Reported Vitamin E 400 Unit Capsule 400 Unit PO DAILY 05/10/13 Reported Omeprazole 20 Mg Tablet.dr 20 Mg PO DAILY 05/10/13 Reported Celebrex (Celecoxib) 200 Mg Capsule 200 Mg PO QODAY 05/10/13 Reported Carbatrol (Carbamazepine) 300 Mg Cpmp.12hr 300 Mg PO BID 05/10/13 Reported Impression . 1. Dyspnea associated with acute bronchitis. Her oxygen status stable and currently on room air at 94% saturation. 2. History of mild interstitial lung disease. Radiographically, does not appear to have any significant change. We will continue to monitor on a yearly basis by CT chest. 3. Acute bronchitis. better 4. Left ankle cellulitis. Orthopedics are following along with Infectious Disease. 5. History of obstructive sleep apnea with good compliance with CPAP. 6. hypokalemia Plan . 1. Continue broad-spectrum antibiotics per ID recommendation. 2. Follow chest x-ray PRN 3. Follow ID recommendation. 4. P.r.n. oxygen. 5. CPAP at bedtime. 6. replace K dc plans per ID will see MALGORZATA Young MD Oct 15, 2016 10:19
[2016-10-15 10:56] VITALS: BP 147/65
--- NOTE | 2016-10-15 11:20 | PDOC ---
Infectious Disease Note Subjective Subjective Has some nausea post BP meds Not very hungry but is but is eating. Loose stools. Denies cramping or bloating ROS ROS GEN: Denies fevers, chills, sweats HEENT: Denies blurred vision, sore throat CV: Denies chest pain RESP: Denies shortness of air, cough GI: Denies n/v/d NEURO: Denies confusion, dizziness MSK: Denies weakness, joint pain/swelling Vital Sign Vital Signs Vital Signs Date Time Temp Pulse Resp B/P (MAP) Pulse Ox O2 Delivery O2 Flow Rate FiO2 10/15/16 09:29 77 187/85 10/15/16 07:53 97.9 18 92 Room Air 97.9 Physical Exam PHYSICAL EXAM GENERAL: Propped up in chair, NAD LUNGS: Clear HEART: S1S2, no gallop, no murmur ABD: Obese, soft, NT EXT: Left ankle less swollen; still erythematous but slightly better, DP palpable. mild warmth PROOFER: Alert, oriented x 3, no focal neurologic deficit SKIN: No rash IV: ok Labs Lab Laboratory Tests Test 10/15/16 06:35 White Blood Count 9.0 x10^3/uL (4.0-11.0) Red Blood Count 3.49 x10^6/uL (3.50-5.40) Hemoglobin 11.0 g/dL (12.0-15.5) Hematocrit 32.4 % (36.0-47.0) Mean Corpuscular Volume 93 fL (79-100) Mean Corpuscular Hemoglobin 32 pg (25-35) Mean Corpuscular Hemoglobin Concent 34 g/dL (31-37) Red Cell Distribution Width 13.2 % (11.5-14.5) Platelet Count 329 x10^3/uL (140-400) Neutrophils (%) (Auto) 73 % (31-73) Lymphocytes (%) (Auto) 18 % (24-48) Monocytes (%) (Auto) 7 % (0-9) Eosinophils (%) (Auto) 1 % (0-3) Basophils (%) (Auto) 1 % (0-3) Neutrophils # (Auto) 6.6 x10^3uL (1.8-7.7) Lymphocytes # (Auto) 1.6 x10^3/uL (1.0-4.8) Monocytes # (Auto) 0.6 x10^3/uL (0.0-1.1) Eosinophils # (Auto) 0.1 x10^3/uL (0.0-0.7) Basophils # (Auto) 0.1 x10^3/uL (0.0-0.2) Sodium Level 140 mmol/L (136-145) Potassium Level 2.8 mmol/L (3.5-5.1) Chloride Level 101 mmol/L (98-107) Carbon Dioxide Level 28 mmol/L (21-32) Anion Gap 11 (6-14) Blood Urea Nitrogen 6 mg/dL (7-20) Creatinine 0.7 mg/dL (0.6-1.0) Estimated GFR (Cockcroft-Gault) 82.0 Glucose Level 111 mg/dL (70-99) Calcium Level 8.7 mg/dL (8.5-10.1) Magnesium Level 2.0 mg/dL (1.8-2.4) Micro Klebsiella pneumoniae Greater than 100,000 colony forming units per mL ANTIMICROBIAL SUSCEPTIBILITY Final Comment S = Susceptible; I = Intermediate; R = Resistant P = Positive; N = Negative MICS are expressed in micrograms per mL Antibiotic RSLT#1 RSLT#2 RSLT#3 RSLT#4 Amoxicillin/Clavulanic Acid S Ampicillin R Cefepime S Ceftriaxone S Cefuroxime S Cephalothin S Ciprofloxacin S Ertapenem S Gentamicin S Imipenem S Levofloxacin S Nitrofurantoin S Piperacillin S Tetracycline S Tobramycin S Trimethoprim/Sulfa S Objective Assessment Left foot cellulitis, MRI neg fluid collection reviewed 10/09 -better HTN Klebsiella UTI with dysuria - POA 10/06 Sulfa allergy - rash Fever, better Plan Plan of Care Given HTN will stop Zyvox. She is not tachy or anxious but r/o a serotonin component Change to Doxy/Cefazolin Add probiotics Monitor labs Elevation Tubigrip - now loose - will get tighter one FREEMAN BROWN MD Oct 15, 2016 11:20
[2016-10-15] MEDS: DOXYCYCLINE HYCLATE 100 MG TABLET PO SCH ×2 (13:25→20:55)
[2016-10-15] MEDS: LISINOPRIL 10 MG TABLET PO SCH (13:25)
[2016-10-15] MEDS: LACTOBACILLUS ACIDOPH & BULGAR 1 TABLET. PO SCH ×2 (13:25→17:50)
[2016-10-15] MEDS: ENOXAPARIN 40 MG/0.4 ML SYRINGE. SQ SCH (13:27)
[2016-10-15 14:46] VITALS: BP 152/75
[2016-10-15 19:00] VITALS: BP 139/77
[2016-10-15] MEDS: ATORVASTATIN CALCIUM 10 MG TABLET. PO SCH (20:56)
[2016-10-15 23:00] VITALS: BP 171/92
[2016-10-16] MEDS: LABETALOL 20 MG/4 ML DISP.SYRIN. IVP PRN (01:55)
[2016-10-16 03:00] VITALS: BP 147/84
[2016-10-16] MEDS: ACETAMINOPHEN 500 MG TABLET PO PRN ×2 (04:22→10:54)
[2016-10-16 07:00] VITALS: BP 164/89
[2016-10-16] MEDS: BUDESONIDE 0.5 MG/2 ML NEBU. NEB SCH (07:17)
[2016-10-16] MEDS: ALBUTEROL SULFATE 2.5 MG/3 ML NEBU. NEB SCH ×3 (07:17→15:50)
[2016-10-16 08:32] LABS: BASO # 0.1 x10^3/uL (0.0-0.2); BASO % 1 % (0-3); EOS % 2 % (0-3); HEMATOCRIT 35.3 % (36.0-47.0); HEMOGLOBIN 11.5 g/dL (12.0-15.5); LYMPH # 1.9 x10^3/uL (1.0-4.8); LYMPH % 22 % (24-48); MEAN CORPUSCULAR HEMOGLOBIN 31 pg (25-35); MEAN CORPUSCULAR HGB CONC 33 g/dL (31-37); MEAN CORPUSCULAR VOLUME 95 fL (79-100); MONO % 7 % (0-9); NEUT % 69 % (31-73); PLATELET COUNT 306 x10^3/uL (140-400); RED BLOOD COUNT 3.73 x10^6/uL (3.50-5.40); RED CELL DISTRIBUTION WIDTH 13.3 % (11.5-14.5); WHITE BLOOD COUNT 8.7 x10^3/uL (4.0-11.0)
[2016-10-16 08:50] LABS: CALCIUM 8.7 mg/dL (8.5-10.1); CREATININE 0.9 mg/dL (0.6-1.0); GFR 61.4; MAGNESIUM 2.2 mg/dL (1.8-2.4); POTASSIUM 4.4 mmol/L (3.5-5.1)
[2016-10-16] MEDS ORDERED: LISINOPRIL 5 MG TABLET. PO SCH (09:00)
[2016-10-16] MEDS: LISINOPRIL 10 MG TABLET PO SCH (09:14)
[2016-10-16] MEDS: MULTIVITAMIN with MINERAL TABLET. PO SCH (09:14)
[2016-10-16] MEDS: amLODIPine BESYLATE 5 MG TABLET PO SCH (09:15)
[2016-10-16] MEDS: carBAMazepine 200 MG TABLET PO SCH (09:15)
[2016-10-16] MEDS: DOXYCYCLINE HYCLATE 100 MG TABLET PO SCH (09:15)
[2016-10-16] MEDS: PANTOPRAZOLE 40 MG TABLET.DR. PO SCH (09:15)
[2016-10-16] MEDS: CALCIUM CARB/VIT D3 500/200 TABLET. PO SCH (09:15)
[2016-10-16] MEDS: OMEGA-3 FATTY ACIDS/FISH OIL 1,000 MG CAPSULE. PO SCH (09:15)
[2016-10-16] MEDS: LACTOBACILLUS ACIDOPH & BULGAR 1 TABLET. PO SCH ×2 (09:15→12:38)
[2016-10-16] MEDS: VITAMIN E 200 UNIT CAPSULE. PO SCH (09:16)
--- NOTE | 2016-10-16 10:07 | PDOC ---
Infectious Disease Note Subjective Subjective Some better. Foot still hurts when ambulating Loose stools. Denies cramping or bloating - has been taking po potassium ROS ROS GEN: Denies fevers, chills, sweats HEENT: Denies blurred vision, sore throat CV: Denies chest pain RESP: Denies shortness of air, cough GI: Denies n/v/d NEURO: Denies confusion, dizziness MSK: Denies weakness, joint pain/swelling Vital Sign Vital Signs Vital Signs Date Time Temp Pulse Resp B/P (MAP) Pulse Ox O2 Delivery O2 Flow Rate FiO2 10/16/16 09:15 66 164/89 10/16/16 07:18 96 Room Air 10/16/16 07:00 98.1 17 98.1 Physical Exam PHYSICAL EXAM GENERAL: NAD, Alert, in chair HEENT: PERRL, OC/OP- clear NECK: Supple, no JVD, no LN LUNGS: Clear HEART: S1S2, no gallop, no murmur ABD: Soft, NT, no organomegaly, no rebound EXT: LLE with trace edema. No warmth. Still 2 plus erythema but improved. Skin is wrinkling, no cyanosis DYNAMOMETER TESTER ENGINE: Alert, oriented x 3, no focal neurologic deficit SKIN: No rash IV: ok Labs Lab Laboratory Tests Test 10/16/16 08:10 White Blood Count 8.7 x10^3/uL (4.0-11.0) Red Blood Count 3.73 x10^6/uL (3.50-5.40) Hemoglobin 11.5 g/dL (12.0-15.5) Hematocrit 35.3 % (36.0-47.0) Mean Corpuscular Volume 95 fL (79-100) Mean Corpuscular Hemoglobin 31 pg (25-35) Mean Corpuscular Hemoglobin Concent 33 g/dL (31-37) Red Cell Distribution Width 13.3 % (11.5-14.5) Platelet Count 306 x10^3/uL (140-400) Neutrophils (%) (Auto) 69 % (31-73) Lymphocytes (%) (Auto) 22 % (24-48) Monocytes (%) (Auto) 7 % (0-9) Eosinophils (%) (Auto) 2 % (0-3) Basophils (%) (Auto) 1 % (0-3) Neutrophils # (Auto) 6.0 x10^3uL (1.8-7.7) Lymphocytes # (Auto) 1.9 x10^3/uL (1.0-4.8) Monocytes # (Auto) 0.6 x10^3/uL (0.0-1.1) Eosinophils # (Auto) 0.1 x10^3/uL (0.0-0.7) Basophils # (Auto) 0.1 x10^3/uL (0.0-0.2) Sodium Level 142 mmol/L (136-145) Potassium Level 4.4 mmol/L (3.5-5.1) Chloride Level 104 mmol/L (98-107) Carbon Dioxide Level 29 mmol/L (21-32) Anion Gap 9 (6-14) Blood Urea Nitrogen 6 mg/dL (7-20) Creatinine 0.9 mg/dL (0.6-1.0) Estimated GFR (Cockcroft-Gault) 61.4 Glucose Level 108 mg/dL (70-99) Calcium Level 8.7 mg/dL (8.5-10.1) Magnesium Level 2.2 mg/dL (1.8-2.4) Micro Klebsiella pneumoniae Greater than 100,000 colony forming units per mL ANTIMICROBIAL SUSCEPTIBILITY Final Comment S = Susceptible; I = Intermediate; R = Resistant P = Positive; N = Negative MICS are expressed in micrograms per mL Antibiotic RSLT#1 RSLT#2 RSLT#3 RSLT#4 Amoxicillin/Clavulanic Acid S Ampicillin R Cefepime S Ceftriaxone S Cefuroxime S Cephalothin S Ciprofloxacin S Ertapenem S Gentamicin S Imipenem S Levofloxacin S Nitrofurantoin S Piperacillin S Tetracycline S Tobramycin S Trimethoprim/Sulfa S Objective Assessment Left foot cellulitis, - better MRI neg fluid collection reviewed 10/09 -better HTN -better Klebsiella UTI with dysuria - POA 10/06 Sulfa allergy - rash Fever, better Plan Plan of Care On abx since 10/07 and she is improving Doxy/Cefazolin. Change to po Keflex for d/c when HTN and K controlled Cont probiotics Monitor labs Elevation Tubigrip - now loose - will get tighter one FREEMAN BROWN MD Oct 16, 2016 10:07
[2016-10-16 10:37] VITALS: BP 151/81
[2016-10-16] MEDS: ENOXAPARIN 40 MG/0.4 ML SYRINGE. SQ SCH (12:39)
[2016-10-16 14:51] VITALS: BP 145/70
[2016-10-16] MEDS ORDERED: LISI10TA2 PO (15:21)
[2016-10-16] MEDS ORDERED: CEPH-263 PO (15:22)
== END 2016-10-16 17:30 | DRG 602 ==
LOC: ER 20:38 → 5 SOUTH 22:19
PROVIDERS: ADMIT Internal Medicine; ATTEND Internal Medicine
DX: L03.116 Cellulitis of left lower limb (principal); G93.40 Encephalopathy, unspecified; J84.9 Interstitial pulmonary disease, unspecified; N39.0 Urinary tract infection, site not specified; E87.1 Hypo-osmolality and hyponatremia; J44.0 Chronic obstructive pulmonary disease with (acute) lower respiratory infection; M00.9 Pyogenic arthritis, unspecified; B96.1 Klebsiella pneumoniae [K. pneumoniae] as the cause of diseases classified elsewhere; J20.9 Acute bronchitis, unspecified; B96.89 Other specified bacterial agents as the cause of diseases classified elsewhere; E66.9 Obesity, unspecified; Z68.37 Body mass index [BMI] 37.0-37.9, adult; E87.6 Hypokalemia; G40.909 Epilepsy, unspecified, not intractable, without status epilepticus; G47.33 Obstructive sleep apnea (adult) (pediatric); I10 Essential (primary) hypertension; M19.90 Unspecified osteoarthritis, unspecified site; R32 Unspecified urinary incontinence; Z96.649 Presence of unspecified artificial hip joint; Z88.2 Allergy status to sulfonamides; Z87.891 Personal history of nicotine dependence
CPT/HCPCS: 36415; 71010; 73610; 73723; 80048; 80053; 80202; 81001; 83735; 84166; 84484; 85007; 85025; 85027; 87086; 87186; 93005; 93971; 94250; 94640; 94760; 96361; 96374; J0690; J0692; J1650; J2405; J2543; J3010; J3370; J3490; J7030; J7040; J7050; J7613; J7626; 97110; 97116; 97530; 97535; 99285-25

== ENCOUNTER → 2017-01-03 | Outpatient (CLI) | payer MEDICARE ==
[~2017-01-03] MED LIST changes: +AMLO5TAB2 PO; +BUDE10.2 IH; +CEPH-263 PO; +LISI10TA2 PO; +LOVA20TA2 PO; +WHEA152P PO
--- NOTE | 2017-01-03 10:38 | RAD ---
Indication: Interstitial lung disease. Axial imaging through the chest was performed without contrast. Correlation is made with prior CT chest from 02/09/2016. No axillary lymphadenopathy is identified. Lymph nodes in the mediastinum and right paratracheal region appear stable. There are coronary arterial calcifications present. No pericardial or pleural fluid is identified. Significant bullous emphysematous changes throughout both lungs are again noted. The area of ill-defined airspace parenchymal density in the right middle lobe has significantly improved. There is a small stable nodular density identified in the right upper lobe, image 25 series 2. No new parenchymal mass is identified. The upper abdomen is unremarkable. Impression: Improved aeration to the right middle lobe when compared with exam from 02/09/2016. PQRS Compliance Statement: One or more of the following individualized dose reduction techniques were utilized for this examination: 1. Automated exposure control 2. Adjustment of the mA and/or kV according to patient size 3. Use of iterative reconstruction technique
== END | disposition home or self-care (01) ==
LOC: CT 09:27
PROVIDERS: ATTEND Internal Medicine Critical Care Medicine
DX: J84.9 Interstitial pulmonary disease, unspecified (principal)
CPT/HCPCS: 71250

== ENCOUNTER 2020-08-04 09:52 | Emergency (ER) | payer MEDICARE ==
[~2020-08-04] VITALS: Ht 152.4 cm; Wt 90.9 kg
[2020-08-04 09:52] VITALS: BP 204/79
[~2020-08-04 09:52] MED LIST changes: +AMLO-186 PO; -AMLO5TAB2 PO; +HYDR-2145 PO; -HYDR25TA9 PO; +LISI10TA16 PO; -LISI10TA2 PO
--- NOTE | 2020-08-04 10:02 | PHYS DOC ---
Past Medical History Past Medical History: COPD, Hypertension, Seizure Past Surgical History: Hip Replacement Smoking Status: Former Smoker Alcohol Use: None Drug Use: None General Adult EDM: Chief Complaint: KNEE PAIN HPI: HPI: This is a pleasant 75-year-old female who presents emergency department after injuring her right knee when she fell sustaining a mechanical fall by tripping on the concrete outside her house. This happened yesterday. She has had some swelling since with the throbbing aching nonradiating pain. She denies any pain in her hips or ankle. She denies hitting her head or loss of consciousness. Review of systems negative for chest pain shortness of breath abdominal pain vomiting diaphoresis fevers chills neck pain or headache. All other review of systems negative. Heart Score: C/O Chest Pain: No Risk Factors: Risk Factors: DM, Current or recent (<one month) smoker, HTN, HLP, family history of CAD, obesity. Risk Scores: Score 0 - 3: 2.5% MACE over next 6 weeks - Discharge Home Score 4 - 6: 20.3% MACE over next 6 weeks - Admit for Clinical Observation Score 7 - 10: 72.7% MACE over next 6 weeks - Early Invasive Strategies Allergies: Allergies: Allergies Coded Allergies Type Severity Reaction Last Updated Verified Sulfa (Sulfonamide Antibiotics) Allergy Intermediate 10/06/16 Yes Physical Exam: PE: Constitutional: Well developed, well nourished, no acute distress, non-toxic appearance. [] HENT: Normocephalic, atraumatic, bilateral external ears normal, oropharynx moist, no oral exudates, nose normal. [] No abrasions lacerations or ecchymosis of the head or neck. Eyes: PERRLA, EOMI, conjunctiva normal, no discharge. [] Neck: Normal range of motion, no tenderness, supple, no stridor. [] Cardiovascular:Heart rate regular rhythm, no murmur [] Lungs & Thorax: Bilateral breath sounds clear to auscultation [] Abdomen: Bowel sounds normal, soft, no tenderness, no masses, no pulsatile masses. [] Skin: Warm, dry, no erythema, no rash. [] Back: No tenderness, no CVA tenderness. [] Extremities: The patient's right lower extremity has swelling with ecchymosis and a mild abrasion overlying the anterior portion of the knee. No pain with passive range of motion of the right hip. Tenderness bilaterally on the knee. The ankle is nontender with normal range of motion. Palpable pulse and 2-second cap refill distally in the foot. The patient's left lower extremity is nontender and the joints with normal range of motion. No pain with passive range of motion of the left hip. The patient's left knee has mild area of ecchymosis but is nontender with normal range of motion. Ankle is nontender. The upper extremities are nontender with normal range of motion. No deformities. Palpable pulse with using cap refill and neurovascular intact. Neurologic: Alert and oriented X 3, normal motor function, normal sensory function, no focal deficits noted. [] Psychologic: Affect normal, judgement normal, mood normal. [] EKG: EKG: [] Radiology/Procedures: Radiology/Procedures: [] Course & Med Decision Making: Course & Med Decision Making Pertinent Labs and Imaging studies reviewed. (See chart for details) [] Knee x-ray shows no acute fracture. We will discharge patient to follow-up with PCP in 1 to 2 days for an outpatient MRI if her pain persists over the next 5 to 7 days. Dragon Disclaimer: Dragon Disclaimer: This electronic medical record was generated, in whole or in part, using a voice recognition dictation system. Departure Departure Impression: Primary Impression: Knee pain Disposition: HOME / SELF CARE / HOMELESS Condition: STABLE Referrals: LITO MUNGUIA MD (PCP) Patient Instructions: Knee Pain Additional Instructions: EMERGENCY DEPARTMENT GENERAL DISCHARGE INSTRUCTIONS Follow-up with your primary physician in 1 to 2 days. Return to the emergency department if you have any new or concerning findings. Thank you for coming to [facility] Emergency Department (ED) today and trusting us with you care. We trust that you had a positive experien ce in our Emergency Department. If you wish to speak to the department management, you may call the Director at [phone]. Follow up is important in emergency/acute care visits. This condition should be evaluated by your primary care physician and any necessary consulting services for continued management within a few days (1-2) after discharge. Return to the emergency department if you have any new or concerning symptoms including but not limited to fever, chills, nausea, vomiting, intractable pain, any new rashes, chest pain, shortness of breath, uncontrolled bleeding, difficulty breathing, and/or vision loss. 1. Do you have a private Doctor? If you do not have a private doctor, please ask for a resource list of physicians or clinics that may be able to assist you with follow up care. 2. If a lab test or culture has been done and does not come back immediately, your results will be reviewed and you will be notified if you need a change in treatment. 3. Your care today has been supervised by a physician who is specially trained in emergency care. Many problems require more than one evaluation for a complete diagnosis and treatment. We recommend that you schedule your follow up appointment as recommended to ensure complete treatment of you illness or injury. If you are unable to obtain follow up care and continue to have a problem, or if your condition worsens, we recommend that you return to the ED. 4. We are not able to safely determine your condition over the phone nor are we able to give sound medical advice over the phone. For these safety reasons, if you call for medical advice we will ask you to come to the ED for further evaluation. IF YOUR SYMPTOMS WORSEN OR NEW SYMPTOMS DEVELOP, OR YOU HAVE CONCERNS ABOUT YOUR CONDITION; OR IF YOUR CONDITION WORSENS WHILE YOU ARE WAITING FOR YOUR FOLLOW UP APPOINTMENT; EITHER CONTACT YOUR PRIMARY CARE DOCTOR, THE PHYSICIAN WHOSE NAME AND NUMBER YOU WERE GIVEN, OR RETURN TO THE ED IMMEDIATELY. MORENO BANSAL MD Aug 04, 2020 10:02
--- NOTE | 2020-08-04 10:39 | RAD ---
3 view study of the right knee Clinical indications: Right knee pain after a fall. FINDINGS: No acute fracture or dislocation or lytic process is seen. There is severe tricompartmental primary degenerative osteoarthritis of the right knee. Small right knee joint effusion is seen. IMPRESSION: No acute fracture. Tricompartmental primary degenerative osteoarthritis. Electronically signed by: Triston Esteban MD (08/04/2020 10:37 AM) [id number]
== END 2020-08-04 11:10 | disposition home or self-care (01) ==
LOC: ER 09:52
DX: S80.01XA Contusion of right knee, initial encounter (principal); J44.9 Chronic obstructive pulmonary disease, unspecified; I10 Essential (primary) hypertension; Z87.891 Personal history of nicotine dependence; Z88.2 Allergy status to sulfonamides; W01.0XXA Fall on same level from slipping, tripping and stumbling without subsequent striking against object, initial encounter; Y93.89 Activity, other specified; Y92.89 Other specified places as the place of occurrence of the external cause; Y99.8 Other external cause status
CPT/HCPCS: 73562; 99284

== ENCOUNTER → 2020-09-06 | Outpatient (CLI) | payer MEDICARE ==
[~2020-09-06] MED LIST changes: +CARV3.1210 PO; +LOSA100T14 PO
[2020-09-06 14:55] LABS: BASO % 0 % (0-3); EOS # 0.1 x10^3/uL (0.0-0.7); EOS % 2 % (0-3); HEMATOCRIT 39.3 % (36.0-47.0); HEMOGLOBIN 13.7 g/dL (12.0-15.5); LYMPH % 33 % (24-48); MEAN CORPUSCULAR HEMOGLOBIN 32 pg (25-35); MEAN CORPUSCULAR HGB CONC 35 g/dL (31-37); MEAN CORPUSCULAR VOLUME 93 fL (79-100); MONO # 0.5 x10^3/uL (0.0-1.1); MONO % 8 % (0-9); NEUT # 3.4 x10^3/uL (1.8-7.7); NEUT % 56 % (31-73); PLATELET COUNT 215 x10^3/uL (140-400); RED BLOOD COUNT 4.22 x10^6/uL (3.50-5.40); RED CELL DISTRIBUTION WIDTH 12.5 % (11.5-14.5)
[2020-09-06 15:03] LABS: PROTHROMBIN TIME PATIENT 12.4 SEC (11.7-14.0)
[2020-09-06 15:08] LABS: CALCIUM 9.2 mg/dL (8.5-10.1); CREATININE 0.7 mg/dL (0.6-1.0); GFR 81.1; POTASSIUM 4.3 mmol/L (3.5-5.1)
--- NOTE | 2020-09-06 15:39 | RAD ---
EXAMINATION: XR CHEST 2V CLINICAL HISTORY: Chest pain EXAM DATE/TIME: 09/06/2020 3:14 PM COMPARISON: 10/06/2016 FINDINGS: Lines, Tubes, and Devices: None. Cardiomediastinal Silhouette: Normal heart size. Aortic atherosclerotic calcification. Lungs and Pleura: Pulmonary hyperexpansion with increased AP diameter of the chest. Coarse diffuse in terstitial prominence bilaterally, increased from prior study and likely related to chronic changes. No definitive evidence of focal airspace consolidation or pleural effusion. Bones and Soft Tissues: Degenerative changes of the thoracic spine. Patchy sclerosis in the left prox imal humerus, incompletely evaluated but similar to prior study. IMPRESSION: No definitive evidence of acute cardiopulmonary abnormality. Findings compatible with COPD/emphysema. Electronically signed by: Bret Muñzo DO (09/06/2020 3:37 PM) GUIDO
[2020-09-07 04:20] LABS: HEMOGLOBIN A1C 5.4 % (4.8-5.6)
== END ==
LOC: SURGPAT 13:56
PROVIDERS: ATTEND Orthopaedic Surgery
DX: Z01.818 Encounter for other preprocedural examination (principal); M17.12 Unilateral primary osteoarthritis, left knee
CPT/HCPCS: 36415; 71046; 80048; 82306; 83036; 85025; 85610; 85651; 85730; 87641

== ENCOUNTER → 2020-09-13 | Outpatient (CLI) | payer MEDICARE ==
--- NOTE | 2020-09-13 14:02 | EKG ---
[facility] [address] [place] [address] Test Date: 2020-09-13 Test Time: 13:58:34 Pat Name: ERMIAS DONALD Department: Room: Gender: F Pet Stylist: : 1945 Requested By: JOSE J BAXTER Order Number: [id number] Reading MD: Reed Bledsoe Measurements Intervals Startex Rate: 56 P: 0 MT: 192 QRS: 0 QRSD: 82 T: 43 QT: 402 QTc: 390 Interpretive Statements SINUS RHYTHM LEFTWARD AXIS OTHERWISE NORMAL ECG Electronically Signed On 09-15-2020 15:25:08 CDT by Reed Bledsoe
== END ==
LOC: SURGPAT 13:32
PROVIDERS: ATTEND Orthopaedic Surgery
DX: Z01.818 Encounter for other preprocedural examination (principal); M17.12 Unilateral primary osteoarthritis, left knee
CPT/HCPCS: 93005

== ENCOUNTER → 2020-09-22 | Outpatient (CLI) | payer MEDICARE ==
[2020-09-06 14:30] VITALS: BP 198/84
--- NOTE | 2020-09-22 15:47 | CARD ---
MR#: [id number] Date of Study: 09/22/2020 Ordering Physician: MELODY BLEDSOE, Referring Physician: MELODY BLEDSOE, Tech: Tabatha Leslie, [facility] APPROVED REPORT EXAM: Two-dimensional and M-mode echocardiogram with Doppler and color Doppler. Other Information Quality : AverageHR: 67bpm INDICATION Murmur Congestive Heart Failure RISK FACTORS Hypertension Hyperlipidemia 2D DIMENSIONS RVDd3.4 (2.9-3.5cm)Left Atrium(2D)4.1 (1.6-4.0cm) IVSd1.1 (0.7-1.1cm)Aortic Root(2D)3.2 (2.0-3.7cm) LVDd5.2 (3.9-5.9cm)LVOT Diameter2.1 (1.8-2.4cm) PWd1.1 (0.7-1.1cm)LVDs3.3 (2.5-4.0cm) FS (%) 36.0 %SV85.3 ml Aortic Valve AoV Peak Tian.129.9cm/sAoV VTI30.7cm AO Peak GR.6.7mmHgLVOT Peak Tian.123.7cm/s LVOT VTI 28.32cmAO Mean GR.4mmHg IBIS (VMAX)2.26en8VJP (VTI)3.09cm2 AI P 1/2 Jrai637si Mitral Valve MV E Cqpiepxq32.8cm/sMV DECEL OVKL630wx MV A Qdkmsxbv84.0cm/sMV YKE63hn E/A Ratio1.2MVA (PHT)3.06cm2 TDI E/Lateral E'6.9E/Medial E'7.0 Pulmonary Valve PV Peak Oowciqaz99.0cm/sPV Peak Grad.3mmHg Tricuspid Valve TR P. Wdbcgivz341lx/sRAP XZZNWXFH0asWh TR Peak Gr.15vxQnOZBT78fuUu Pulmonary Vein S1 Hyavgaem48.2cm/sD2 Kzrtxnfm00.5cm/s PVa [id number] LEFT VENTRICLE The left ventricle is normal size. There is mild concentric left ventricular hypertrophy. The left ve ntricular systolic function is normal and the ejection fraction is within normal range. The Ejection Fraction is 55-60%. There is normal LV segmental wall motion. The left ventricular diastolic function and filling is normal for age. RIGHT VENTRICLE The right ventricle is normal size. There is normal right ventricular wall thickness. The right ventr icular systolic function is normal. ATRIA The left atrium size is normal. The right atrium size is normal. The interatrial septum is intact wit h no evidence for an atrial septal defect or patent foramen ovale as noted on 2-D or Doppler imaging. AORTIC VALVE The aortic valve is normal in structure and function. Doppler and Color Flow revealed trace aortic re gurgitation. There is no significant aortic valvular stenosis. Calculated aortic valve area is 2.68 c m2 with maximum pressure gradient of 8 mmHg and mean pressure gradient of 5 mmHg. MITRAL VALVE The mitral valve is normal in structure and function. There is no evidence of mitral valve prolapse. There is no mitral valve stenosis. Doppler and Color-flow revealed trace mitral regurgitation. TRICUSPID VALVE The tricuspid valve is normal in structure and function. Doppler and Color Flow revealed trace tricus pid regurgitation with an estimated PAP of 29 mmHg. There is no tricuspid valve stenosis. PULMONIC VALVE The pulmonic valve is not well visualized. Doppler and Color Flow revealed no pulmonic valvular regur gitation. GREAT VESSELS The aortic root is normal in size. The ascending aorta is normal in size. The IVC is normal in size a nd collapses >50% with inspiration. PERICARDIAL EFFUSION There is no evidence of significant pericardial effusion. Critical Notification Critical Value: No <Conclusion> The left ventricle is normal size. The left ventricular systolic function is normal and the ejection fraction is within normal range. The Ejection Fraction is 55-60%. There is mild concentric left ventricular hypertrophy. Doppler and Color Flow revealed trace aortic regurgitation. There is no significant aortic valvular stenosis. Doppler and Color-flow revealed trace mitral regurgitation. Doppler and Color Flow revealed trace tricuspid regurgitation with an estimated PAP of 29 mmHg. Signed by : Melody Bledsoe MD Electronically Approved : 09/22/2020 15:46:31
== END ==
LOC: ECHO 10:40
PROVIDERS: ATTEND Internal Medicine Cardiovascular Disease
DX: I51.7 Cardiomegaly (principal); R01.1 Cardiac murmur, unspecified
CPT/HCPCS: 93306

== ENCOUNTER → 2020-10-09 | Outpatient (CLI) | payer MEDICARE ==
[2020-09-06 14:30] VITALS: BP 198/84
== END ==
LOC: LAB 10:38
PROVIDERS: ATTEND Orthopaedic Surgery
DX: Z01.812 Encounter for preprocedural laboratory examination (principal); M17.12 Unilateral primary osteoarthritis, left knee
CPT/HCPCS: 87641

== ENCOUNTER 2020-10-17 09:35 | Inpatient (IN) | payer MEDICARE ==
[2020-09-06 14:30] VITALS: BP 198/84
[2020-10-17] VITALS (8 sets, daily range): BP systolic 105–186; BP diastolic 47–88
[~2020-10-17] VITALS: Ht 144.8 cm; Wt 101.5 kg
[~2020-10-17 09:35] MED LIST changes: +ACETAMINOPHEN 500 MG TABLET PO PRN; +CELECOXIB 100 MG CAPSULE. PO PRN; +GABAPENTIN 300 MG CAPSULE. PO PRN; +IV RINGERS,LACTATED 1000ML 1,000 ML IV SCH; +MORPHINE SULFATE 5 MG, KETOROLAC 30MG VIAL 30 MG, ROPIVacaine 0.5% PF 60 ML, EPINEPHrin... INT ART ONE; +PROCHLORPERAZINE 10 MG/2 ML VIAL. IVP PRN; +TRANEXAMIC ACID 1,000 MG in IV NS 50ML -- 1ST BAG INJ ONE; +TRANEXAMIC ACID 1,000 MG in IV NS 50ML -- 2ND BAG INJ ONE; +fentaNYL PF VIAL 100 MCG/2 ML VIAL IVP PRN
[2020-10-17] MEDS ORDERED: PROPOFOL 10 MG/ML (20ML) VIAL. IV ONE (10:08)
[2020-10-17] MEDS ORDERED: DEXAMETHASONE SOD PHOS 4 MG/ML VIAL ONE (10:08)
[2020-10-17] MEDS ORDERED: ONDANSETRON PF 4 MG/2 ML VIAL. ONE (10:08)
[2020-10-17 10:39] LABS: PROTHROMBIN TIME PATIENT 12.5 SEC (11.7-14.0)
[2020-10-17] MEDS ORDERED: fentaNYL PF VIAL 100 MCG/2 ML VIAL ONE (11:00)
--- NOTE | 2020-10-17 11:18 | HP ---
ADMIT DATE: 10/17/2020 CHIEF COMPLAINT: Degenerative joint disease, left knee. HISTORY OF PRESENT ILLNESS: The patient has longstanding degenerative joint disease of bilateral knees and has had significant worsening in the left knee pain after a fall in the driveway in early August. Right knee is functioning reasonably well and left knee hurts a lot and is very difficult to get up out of the chair and ambulate and continues to have severe pain and limitations to her activities of daily living. PAST MEDICAL HISTORY: Significant for high blood pressure, high cholesterol, reflux disease, seizures that are well controlled and COPD. PAST SURGICAL HISTORY: Bilateral total hip replacements, cataract removal and previous arthroscopic surgery remotely on the left knee. FAMILY HISTORY: She denies any family history. SOCIAL HISTORY: Quit smoking many years ago. Denies alcohol or drug use. MEDICATIONS: List is reviewed. ALLERGIES: SHE HAS AN ALLERGY TO SULFA. REVIEW OF SYSTEMS: Denies any chest pain, shortness of breath, recent febrile illness, focal weakness, numbness, tingling, radiating pain. PHYSICAL EXAMINATION: VITAL SIGNS: Per admission sheet. HEENT: Atraumatic, normocephalic. HEART: Regular rate and rhythm. LUNGS: Clear to auscultation bilaterally. ABDOMEN: Benign. EXTREMITIES: Examination of the left knee shows a varus more so than the right, medial more so than lateral joint line tenderness, moderate patellofemoral crepitus. No ligamentous instability other than the medial collateral ligament pseudolaxity. Moderate symptoms on the right knee. Normal alignment and stability of hips and ankles bilaterally. LABORATORY DATA: X-rays of bilateral knees show severe tricompartmental degenerative changes with most severe wear bone on bone medially. IMPRESSION: Primary osteoarthritis of bilateral knees, left knee pain, worse than right, history of bilateral total hip arthroplasties. TREATMENT PLAN: I went over with her risks, benefits, postoperative course of total knee arthroplasty including the possibility of continued pain, infection, nerve or blood vessel damage, medical or other anesthetic complications among others along with premature wear or loosening. All her questions were answered. She wishes to proceed with surgical evaluation and treatment, which will include [facility] observation to follow. [place] DR: Lea TID: [id number]
[2020-10-17] MEDS ORDERED: VANCOMYCIN 1 GM VIAL. ONE (11:31)
[2020-10-17] MEDS ORDERED: DEXTROSE 50% 25 GM / 50ML DISP.SYRIN. IV PRN (12:45)
[2020-10-17] MEDS ORDERED: fentaNYL PF VIAL 100 MCG/2 ML VIAL IVP PRN (12:45)
[2020-10-17] MEDS ORDERED: CALCIUM CARBONATE 500 MG TAB.CHEW PO PRN ×2 (12:45)
[2020-10-17] MEDS ORDERED: 0.9 % SODIUM CHLORIDE 10 ML DISP.SYRIN. IV PRN (12:45)
[2020-10-17] MEDS ORDERED: ZOLPIDEM 5 MG TABLET. PO PRN (12:45)
[2020-10-17] MEDS ORDERED: PROCHLORPERAZINE 5 MG TABLET. PO PRN (12:45)
[2020-10-17] MEDS ORDERED: MORPHINE SULFATE 2 MG/ML INJ. IVP PRN (12:45)
[2020-10-17] MEDS ORDERED: diphenhydrAMINE 50 MG/ML VIAL IVP PRN (12:45)
[2020-10-17] MEDS: MORPHINE SULFATE 2 MG/ML INJ. IVP PRN ×2 (12:52→13:01)
[2020-10-17] MEDS: SENNOSIDES/DOCUSATE 8.6/50MG TABLET. PO SCH (13:00)
--- NOTE | 2020-10-17 13:08 | PDOC4 ---
Operative Note Operative Note Date of surgery: 10/17/2020 Preoperative diagnosis: Degenerative arthritis left knee Postoperative diagnosis: Same Operative procedure: Left total knee arthroplasty Surgeon: Dougie Assist: Zachary espinal Anesthesia: General Estimated blood loss: 25 cc Complications: None Specimens: Cartilage surfaces to pathology Operative indications: Please see my dictated preoperative history and physical for detailed operative indications and note that we had reviewed preoperatively risks benefits postoperative course of the surgery including the possibility of infection continued pain nerve or blood vessel damage premature wear or loosening instability medical or other anesthetic complications among others and she agrees to proceed with surgical evaluation and treatment having given informed consent Operative text: Patient was identified procedure verified patient placed in the supine position on the operating table. After adequate amounts of general anesthesia were administered the left lower extremity was prepped and draped in standard sterile fashion with a thigh tourniquet and after timeout was performed patient procedure identified and verified the left lower extremity was exsanguinated by Esmarch bandage tourniquet inflated to 300 mmHg and a midline incision was made followed by a medial parapatellar approach fat pad was excised and patella everted and the distal femur drilled to accommodate the intramedullary cutting guide which was set at 5 degrees with standard distal cut. Menisci and cruciate ligaments were excised and a tibial cut was made using the extra medullary cutting guide aligned with the second toe and alignment verified with a spacer and drop jay. Tibia was prepared with a size E persona trial component. Femur was sized at a size 7 and AP lateral chamfer cuts were made and ligament balancing carried out. A medial release was carried out and I did achieve excellent stability with a 12 mm trial medial congruent articular surface spacer. Femoral lug holes were drilled and patella was not resurfaced. She had excellent tracking. Trial components were removed thorough irrigation carried out with normal saline solution and the following persona components were cemented in place with polymethylmethacrylate cement: A size E persona natural tibial component and size 8 standard right persona cruciate retaining femur. Excess cement was removed with a curette and a vitamin E medial congruent 12 mm height articular spacer was locked into place and the knee held into extension until cement was dry. Irrigation again carried out with dilute Betadine lavage and normal saline solution and 1 g vancomycin was placed in the knee joint. Retinaculum closed with #1 PDS suture in a running fashion subcutaneous closure with buried Vicryl sutures subcuticular closure with 3-0 strata fix Monocryl. A duke dressing was placed. Toes were noted to be warm pink following deflation of the tourniquet patient was returned to recovery room in stable condition having tolerated procedure well. Zachary espinal was present for the procedure and assisted in patient positioning prepping draping retraction closure dressings. JOSE J BAXTER MD Oct 17, 2020 13:08
[2020-10-17] MEDS: fentaNYL PF VIAL 100 MCG/2 ML VIAL IVP PRN ×2 (13:09→13:22)
--- NOTE | 2020-10-17 13:37 | RAD ---
EXAM: AP and Crosstable lateral views of the left knee. DATE: 10/17/2020 12:54 PM INDICATION: Reason: POST OP / Spl. Instructions: / History: COMPARISON: No Prior FINDINGS/ IMPRESSION: Changes of left total knee arthroplasty in good alignment without definite hardware complication or f racture. Expected soft tissue changes including soft tissue gas. Atherosclerotic vascular calcifications are seen. Electronically signed by: Tanner Augustin MD (10/17/2020 1:34 PM) [id number]
[2020-10-17] MEDS ORDERED: HYDROmorphone 2 MG/ML VIAL ONE (14:52)
[2020-10-17] MEDS: HYDROmorphone 2 MG/ML VIAL IVP PRN ×2 (14:56→15:08)
[2020-10-17] MEDS: IV NORMAL SALINE 1000ML BAG 1,000 ML IV SCH (15:05)
--- NOTE | 2020-10-17 15:26 | NUR ---
Arrived to unit by bed from PACU. Awakens but falls back to sleep. Can't keep conversation without falling asleep. Dressing on left knee is d/i with ice pack. Pedal pulses + bilaterally and warm touch. IVF's intact and infusing. O2 at 2l per n/c. Side rails up x's 2 with call light in reach. Brother at bedside. Cont. monitor.
[2020-10-17] MEDS ORDERED: WARFARIN 7.5 MG TABLET. PO ONE (16:00)
[2020-10-17] MEDS: FERROUS SULFATE 325 MG TABLET. PO SCH (17:00)
[2020-10-17] MEDS: CARVEDILOL 3.125 MG TABLET. PO SCH (17:00)
[2020-10-17] MEDS: ONDANSETRON PF 4 MG/2 ML VIAL. IVP SCH (18:00)
[2020-10-17] MEDS: ONDANSETRON ODT 4 MG TAB.RAPDIS. PO SCH (18:00)
--- NOTE | 2020-10-17 18:00 | NUR ---
Zofran and Iron not given due pt is sedated.
[2020-10-17] MEDS: ALBUTEROL SULFATE 2.5 MG/3 ML NEBU. NEB SCH (20:43)
[2020-10-17] MEDS: BUDESONIDE 0.5 MG/2 ML NEBU. NEB SCH (20:43)
[2020-10-17] MEDS ORDERED: NON FORMULARY ITEM (Budesonide/Formoterol Fumarate (Symbicort 160-4.5 Mcg Inhaler) 2 PUFF) IH SCH (21:00)
[2020-10-17] MEDS: carBAMazepine 200 MG TABLET PO SCH (21:04)
[2020-10-17] MEDS: ATORVASTATIN CALCIUM 10 MG TABLET. PO SCH (21:05)
[2020-10-18] MEDS: IV NORMAL SALINE 1000ML BAG 1,000 ML IV SCH (03:39)
[2020-10-18 03:40] VITALS: BP 117/50
[2020-10-18] MEDS: ONDANSETRON PF 4 MG/2 ML VIAL. IVP SCH ×3 (03:57→12:00)
[2020-10-18] MEDS: ONDANSETRON ODT 4 MG TAB.RAPDIS. PO SCH ×3 (05:35→12:00)
[2020-10-18] MEDS: GABAPENTIN 100 MG CAPSULE. PO SCH ×2 (05:35→14:00)
[2020-10-18] MEDS: traMADol 50 MG TABLET PO SCH ×3 (05:49→17:56)
[2020-10-18] MEDS ORDERED: MAGNESIUM HYDROXIDE 2,400 MG/30 ML ORAL.SUSP. PO PRN (06:00)
[2020-10-18 06:26] VITALS: BP 134/62
[2020-10-18 06:54] LABS: PROTHROMBIN TIME PATIENT 14.2 SEC (11.7-14.0)
[2020-10-18] MEDS: ALBUTEROL SULFATE 2.5 MG/3 ML NEBU. NEB SCH ×5 (07:24→20:48)
[2020-10-18] MEDS: BUDESONIDE 0.5 MG/2 ML NEBU. NEB SCH ×2 (07:24→20:48)
[2020-10-18] MEDS: CARVEDILOL 3.125 MG TABLET. PO SCH ×2 (08:00→17:00)
[2020-10-18] MEDS: FERROUS SULFATE 325 MG TABLET. PO SCH ×2 (08:06→17:55)
[2020-10-18] MEDS: MULTIVITAMIN with MINERAL TABLET. PO SCH (08:06)
[2020-10-18] MEDS: MELOXICAM 7.5 MG TABLET PO SCH (08:07)
[2020-10-18] MEDS: ACETAMINOPHEN 500 MG TABLET PO SCH ×2 (08:08→15:00)
[2020-10-18] MEDS: carBAMazepine 200 MG TABLET PO SCH ×2 (08:19→20:23)
[2020-10-18] MEDS: SENNOSIDES/DOCUSATE 8.6/50MG TABLET. PO SCH (08:20)
[2020-10-18] MEDS: LOSARTAN POTASSIUM 50 MG TABLET. PO SCH (09:00)
--- NOTE | 2020-10-18 09:30 | NUR ---
Pt had an episode with OT this morning. Pt was assisted to BSC and got light headed and diaphoretic. OT got the nurse to assess pt. Pt diaphoretic and pale. BP 117/52 with heart rate 71. Pt assisted back to med, cold cloth placed on forehead. Pt felt better. IVF's continued. Side rails up x's 2 with call light in reach. Pt stated " I just want to sleep". Cont. monitor.
--- NOTE | 2020-10-18 10:45 | NUR ---
Pt is able to participate in therapy without further incident.
--- NOTE | 2020-10-18 10:59 | NUR ---
Pharmacy Warfarin Dosing Note S: Pharmacy consulted to assist with anticoagulation therapy started 10/17/20 O: ERMIAS DONALD is a 75 year old F with TKA LABS: Last INR: 1.1 Last dose of 7.5 mg given on 10/17/20 at 2105 Ongoing Drug Interactions: MOBIC A:INR of 1.1 is below desired range. Target range for this patient is: 1.6 - 2.5 P: Warfarin dose: 5 mg Today at 1600 Bridge Therapy: None Next INR due 10/19/20 AM Pharmacy anticoagulation service will continue to follow. SABINE ANN [facility], 10/18/20 7013
[2020-10-18 11:15] VITALS: BP 138/54
[2020-10-18] MEDS ORDERED: ONDANSETRON ODT 4 MG TAB.RAPDIS. PO PRN (12:00)
--- NOTE | 2020-10-18 14:00 | NUR ---
Gabapentin and Tylenol not given. Pt taking Tramadol and hydrocodone.
[2020-10-18] MEDS ORDERED: WARFARIN 5 MG TABLET. PO ONE (16:00)
[2020-10-18] MEDS ORDERED: BISACODYL 10 MG SUPP.RECT. PR PRN (16:00)
[2020-10-18] MEDS: HYDROcodone/APAP 10/325 1 TAB TABLET PO PRN (16:41)
[2020-10-18] MEDS ORDERED: ACETAMINOPHEN 500 MG TABLET PO PRN (17:30)
[2020-10-18 18:51] VITALS: BP 128/59
[2020-10-18] MEDS: ATORVASTATIN CALCIUM 10 MG TABLET. PO SCH (20:22)
--- NOTE | 2020-10-18 20:37 | PDOC ---
PROGRESS NOTES Date of Service DATE: 10/18/20 TIME: 20:35 Subjective Subjective Problems overnight: Knee is sore and worse with getting up but overall has no other complaints Objective Vital Signs Vital Signs Date Time Temp Pulse Resp B/P (MAP) Pulse Ox O2 Delivery O2 Flow Rate FiO2 10/18/20 18:51 98.7 97 18 128/59 (82) 95 Room Air 98.7 10/18/20 16:50 2.0 Physical Exam Heriberto dressing bled through and was changed, good motion, neurovascular intact Labs Laboratory Tests Test 10/17/20 09:55 10/18/20 06:20 Prothrombin Time 12.5 SEC (11.7-14.0) 14.2 SEC (11.7-14.0) Prothromb Time International Ratio 0.9 (0.8-1.1) 1.1 (0.8-1.1) Activated Partial Thromboplast Time 31 SEC (24-38) Laboratory Tests Test 10/18/20 06:20 Prothrombin Time 14.2 SEC (11.7-14.0) Prothromb Time International Ratio 1.1 (0.8-1.1) Imaging Postop x-rays show good placement total knee arthroplasty Assessment Assessment POD#1 total knee arthroplasty Plan Plan of Care Continue mobilize with physical therapy Warfarin anticoagulation Plan [facility] facility on discharge due to lack of any family support and lives alone Justicifation of Admission Dx: Justifications for Admission: Justification of Admission Dx: N/A JOSE J BAXTER MD Oct 18, 2020 20:37
[2020-10-19] MEDS: traMADol 50 MG TABLET PO SCH ×2 (00:29→05:56)
[2020-10-19] MEDS: HYDROcodone/APAP 10/325 1 TAB TABLET PO PRN ×2 (01:42→07:58)
[2020-10-19 05:14] VITALS: BP 120/56
[2020-10-19 06:57] LABS: HEMATOCRIT 25.9 % (36.0-47.0)
[2020-10-19 07:23] LABS: PROTHROMBIN TIME PATIENT 26.8 SEC (11.7-14.0)
[2020-10-19] MEDS: SENNOSIDES/DOCUSATE 8.6/50MG TABLET. PO SCH (07:58)
[2020-10-19] MEDS: FERROUS SULFATE 325 MG TABLET. PO SCH ×2 (07:59→16:31)
[2020-10-19] MEDS: carBAMazepine 200 MG TABLET PO SCH ×2 (07:59→21:10)
[2020-10-19] MEDS: MELOXICAM 7.5 MG TABLET PO SCH (07:59)
[2020-10-19] MEDS: MULTIVITAMIN with MINERAL TABLET. PO SCH (07:59)
[2020-10-19] MEDS: CARVEDILOL 3.125 MG TABLET. PO SCH ×2 (08:00→16:30)
[2020-10-19] MEDS: ALBUTEROL SULFATE 2.5 MG/3 ML NEBU. NEB SCH ×3 (08:19→20:39)
[2020-10-19] MEDS: BUDESONIDE 0.5 MG/2 ML NEBU. NEB SCH ×2 (08:19→20:39)
[2020-10-19] MEDS: LOSARTAN POTASSIUM 50 MG TABLET. PO SCH (09:00)
--- NOTE | 2020-10-19 09:53 | NUR ---
Patient this morning gagging and vomiting clear liquid around 0945 stating she feels like it was her pain medication this nurse gave her at breakfast time. Patient states she has never taken hydrocodone before but knows oxycodone makes her sick and "feel funny". OT unable to be done at this time due to patients status. PT also notified. Patient states she prefers to take tramadol and would like to not even take hydro if possible. Order of tramadol increased to 50mg and will monitor.
[2020-10-19] MEDS: ONDANSETRON PF 4 MG/2 ML VIAL. IVP PRN ×2 (10:46→21:16)
[2020-10-19] MEDS: IV NORMAL SALINE 1000ML BAG 1,000 ML IV SCH (11:12)
--- NOTE | 2020-10-19 11:45 | NUR ---
Pharmacy Warfarin Dosing Note S:Pharmacy consulted to assist with anticoagulation therapy started 10/17/20 with target INR: 1.6 - 2.5 O:ERMIAS DONALD is a 75 year old F with TKA LABS: Last INR: 2.5 Last HGB: 9.0 Last HCT: 25.9 Last PLT: Last dose of 5 mg given on 10/18/20 at 1642 Previous Regimen: Vitamin K given: N Drug Interaction Changes: Same Interacting Drug Ongoing Drug Interactions: MOBIC A:INR of 2.5 is within desired range. Target range for this patient is: 1.6 - 2.5 P: Warfarin dose: 1 mg Today at 1600 Bridge Therapy: None Next INR due IN AM Pharmacy anticoagulation service will continue to follow. SALMA PACHECO [facility], 10/19/20 8438
[2020-10-19] MEDS ORDERED: WARFARIN 1 MG TABLET. PO ONE (16:00)
[2020-10-19] MEDS: traMADol 50 MG TABLET PO PRN (17:50)
[2020-10-19 18:24] VITALS: BP 144/58
[2020-10-19] MEDS: ATORVASTATIN CALCIUM 10 MG TABLET. PO SCH (21:10)
--- NOTE | 2020-10-19 21:23 | PDOC ---
PROGRESS NOTES Date of Service DATE: 10/19/20 TIME: 21:14 Subjective Subjective Problems overnight: Vomited this morning thought to be due to her pain medication, now no nausea and pain well controlled on tramadol Objective Vital Signs Vital Signs Date Time Temp Pulse Resp B/P (MAP) Pulse Ox O2 Delivery O2 Flow Rate FiO2 10/19/20 20:42 92 Room Air 10/19/20 18:24 99.0 78 18 144/58 (86) 99.0 10/18/20 20:50 2.0 Physical Exam Left knee dressing with slight bloody drainage really none current no redness or erythema good range of motion normal stability distal neurovascular status intact. IV is in the right hand and no reaction whatsoever dorsum of left hand only seems to have a little punctate rash not itchy not spreading anywhere else distal pulses capillary refill sensation all intact and no swelling in either hand Labs Laboratory Tests Test 10/18/20 06:20 10/19/20 05:00 10/19/20 05:10 Prothrombin Time 14.2 SEC (11.7-14.0) 26.8 SEC (11.7-14.0) Prothromb Time International Ratio 1.1 (0.8-1.1) 2.5 (0.8-1.1) SARS-CoV-2 RNA (SUSI) Negative (Negative) SARS-CoV-2 Antigen (Rapid) Negative (NEGATIVE) Hemoglobin 9.0 g/dL (12.0-15.5) Hematocrit 25.9 % (36.0-47.0) Mean Corpuscular Hemoglobin Concent 35 g/dL (31-37) Laboratory Tests Test 10/19/20 05:00 10/19/20 05:10 SARS-CoV-2 RNA (SUSI) Negative (Negative) SARS-CoV-2 Antigen (Rapid) Negative (NEGATIVE) Hemoglobin 9.0 g/dL (12.0-15.5) Hematocrit 25.9 % (36.0-47.0) Mean Corpuscular Hemoglobin Concent 35 g/dL (31-37) Prothrombin Time 26.8 SEC (11.7-14.0) Prothromb Time International Ratio 2.5 (0.8-1.1) Assessment Assessment POD#2 left total knee arthroplasty Plan Plan of Care Plan on [facility] facility tomorrow Continue tramadol only for pain due to reaction to hydrocodone and previous intolerance of oxycodone Justicifation of Admission Dx: Justifications for Admission: Justification of Admission Dx: Yes Comments: Vomiting and intolerance of pain medication today, Covid testing for [facility] facility admission in progress JOSE J BAXTER MD Oct 19, 2020 21:23
[2020-10-19] MEDS ORDERED: TRAM50TA PO (21:36)
--- NOTE | 2020-10-19 21:40 | SNU/HH DC ---
DISCHARGE ORDERS DISCHARGE INFORMATION: DISCHARGE DATE: Oct 20, 2020 FINAL DIAGNOSIS Status post total knee arthroplasty left CONDITION ON DISCHARGE: Stable CODE STATUS: Code Status: Full FDC: SNF STAY <30 DAYS: Yes POST DISCHARGE ORDERS: ACTIVITY ORDERS: Activity as tolerated WEIGHT BEARING STATUS: As tolerated BATHING ORDERS: Shower-keep dressing dry DIET AFTER DISCHARGE: Regular WOUND/INCISION CARE: Ice to area for comfort, Do not change dressing (Maintain duke dressing, call if saturated, when suction portion stops, cut tail of drain and tape over to maintain seal) FOLLOW-UP: PHYSICIAN FOLLOW-UP: Dr. Constantino or Jose Alejandro 2 weeks postop ANTICOAGULATION F/U NEEDED: [facility] to manage warfarin dosage and testing TREATMENT/EQUIPMENT ORDERS: Physical Therapy For: Evalulation/Treatment DISCHARGE MEDICATIONS: Home Meds Active Scripts Tramadol Hcl (TRAMADOL HCL) 50 Mg Tablet, 50 MG PO Q4HRS PRN for PAIN, #60 TAB Prov:JOSE J CONSTANTINO MD 10/19/20 Reported Medications Carvedilol (CARVEDILOL ) 3.125 Mg Tablet, 3.125 MG PO BIDWMEALS for CARDIAC, TAB 09/06/20 Losartan Potassium (LOSARTAN POTASSIUM) 100 Mg Tablet, 100 MG PO DAILY for HYPERTENSION, TAB 09/06/20 Celecoxib (CELEBREX) 200 Mg Capsule, 200 MG PO BID for INFLAMMATION for 30 Days, CAP 0 Refills 09/06/20 Lovastatin (LOVASTATIN) 20 Mg Tablet, 20 MG PO HS, TAB 10/07/16 Amlodipine Besylate (AMLODIPINE BESYLATE) 5 Mg Tablet, 5 MG PO DAILY, TAB 10/07/16 Budesonide/Formoterol Fumarate (SYMBICORT 160-4.5 MCG INHALER) 10.2 Gm Hfa.aer.ad, 2 PUFF IH BID, #10.6 GM 3 Refills 10/07/16 Calcium Carbonate (TUMS) 200 Mg Tab.chew, 200 MG PO PRN BID PRN for HEARTBURN / GAS, TAB.CHEW 05/10/13 [place]-3 Fatty Acids/Fish Oil (FISH OIL 1,000 MG CAPSULE) 1 Each Capsule, 1 EACH PO DAILY 05/10/13 Calcium Carbonate/Vitamin D3 (CALCIUM + VITAMIN D TABLET) 1 Each Tablet, 1 EACH PO DAILY 05/10/13 Multivits-Min/Fa/Lycopene/Lut (CENTRUM SILVER TABLET) 1 Each Tablet, 1 EACH PO bonita 05/10/13 Vitamin E (VITAMIN E) 400 Unit Capsule, 400 UNIT PO DAILY 05/10/13 Carbamazepine (CARBATROL) 300 Mg Cpmp.12hr, 300 MG PO BID 05/10/13 JOSE J CONSTANTINO MD Oct 19, 2020 21:40
[2020-10-19 22:35] VITALS: BP 108/52
[2020-10-20 06:17] VITALS: BP 119/53
[2020-10-20] MEDS: BUDESONIDE 0.5 MG/2 ML NEBU. NEB SCH ×2 (08:06→20:44)
[2020-10-20] MEDS: ALBUTEROL SULFATE 2.5 MG/3 ML NEBU. NEB SCH ×4 (08:06→20:44)
[2020-10-20 08:22] LABS: PROTHROMBIN TIME PATIENT 17.5 SEC (11.7-14.0)
[2020-10-20] MEDS: FERROUS SULFATE 325 MG TABLET. PO SCH ×2 (08:46→17:10)
[2020-10-20] MEDS: MELOXICAM 7.5 MG TABLET PO SCH (08:46)
[2020-10-20] MEDS: carBAMazepine 200 MG TABLET PO SCH ×2 (08:46→21:06)
[2020-10-20] MEDS: MULTIVITAMIN with MINERAL TABLET. PO SCH (08:46)
[2020-10-20] MEDS: SENNOSIDES/DOCUSATE 8.6/50MG TABLET. PO SCH (08:46)
[2020-10-20] MEDS: LOSARTAN POTASSIUM 50 MG TABLET. PO SCH (09:00)
--- NOTE | 2020-10-20 11:09 | NUR ---
Pharmacy Warfarin Dosing Note S:Pharmacy consulted to assist with anticoagulation therapy started 10/17/20 with target INR: 1.6 - 2.5 O:ERMIAS DONALD is a 75 year old F with TKA LABS: Last INR: 1.5 Last HGB: 9.0 Last HCT: 25.9 Last PLT: Last dose of 1 mg given on 10/19/20 at 1631 Drug Interaction Changes: Same Interacting Drug Ongoing Drug Interactions: MOBIC A:INR of 1.5 is below desired range. Target range for this patient is: 1.6 - 2.5 P: Warfarin dose: 3 mg Today at 1600 Bridge Therapy: None Next INR due 10/21/20 Pharmacy anticoagulation service will continue to follow. DHIRAJ CARUSO R[facility], 10/20/20 1353
[2020-10-20 11:19] VITALS: BP 130/60
[2020-10-20 11:44] LABS: HEMATOCRIT 25.1 % (36.0-47.0); HEMOGLOBIN 8.4 g/dL (12.0-15.5)
[2020-10-20] MEDS: IV NORMAL SALINE 1000ML BAG 1,000 ML IV SCH (12:45)
[2020-10-20] MEDS: traMADol 50 MG TABLET PO PRN (13:10)
--- NOTE | 2020-10-20 14:09 | PATHOLOGY ---
[facility] Accession Number: [id number] . 01 Material submitted: . knee - LEFT KNEE BONE AND TISSUE. Modifiers: left . 01 Clinical history: . OA LEFT TOTAL KNEE ARTHROSCOPY . 02 Diagnosis: Segments of bone and soft tissue, left total knee arthroplasty: - Advanced degenerative arthritis with focal subarticular fibrosis. . (JPM:mml; 10/20/2020) [facility] 10/20/2020 0955 Local . 02 Electronically signed: . Shai Coronado MD, Pathologist NPI- [id number] . 01 Gross description: . The specimen is received in formalin, labeled "Claire Lee, left knee bone and tissue" and consists of multiple hard irregular bone fragments with attached soft tissue aggregating 16.5 x 16.5 x 2.4 cm. The articular surfaces are schwartz-gillespie, dusky and slightly granular and displays a prominent area of eburnation (3.0 x 3.0 cm) as well as multiple areas of erosion (ranging from 1.4 x 1.0 cm to 1.9 x 1.5 cm). Osteophytic growths are present. Shift Manager sections are submitted in 2 cassettes following decalcification. ([place]; 10/18/2020) DKA/DKA 10/18/2020 1059 Local . 02 Pathologist provided ICD-10: M17.12 . 02 CPT . 008669, [id number] Specimen Comment: A courtesy copy of this report has been sent to [phone] Specimen Comment: Report sent to Performed at: [address], [place], [place] [id number] MD Ed Murray MD Phone: [phone] Performed at: 02 [facility] [address] [place], [place] [id number] MD Shai Coronado MD Phone: [phone]
[2020-10-20] MEDS ORDERED: WARFARIN 3 MG TABLET. PO ONE (16:00)
[2020-10-20] MEDS: CARVEDILOL 3.125 MG TABLET. PO SCH ×2 (17:00→17:11)
--- NOTE | 2020-10-20 17:17 | NUR ---
Held 0900 dose this morning. Gave 0900 dose at this time instead of giving 1700 dose.
--- NOTE | 2020-10-20 17:27 | NUR ---
Report called to [facility] and spoke with Anisa MATOS. Addendum: 10/20/20 at 1917 by TAVIA NAPOLES RN Above note written on wrong chart. Disregard.
[2020-10-20 18:29] VITALS: BP 150/71
--- NOTE | 2020-10-20 19:19 | NUR ---
Transferred to room #408 by erickson huggins. Report given to Tracey MATOS.
[2020-10-20 19:35] VITALS: BP 151/53
[2020-10-20] MEDS: ATORVASTATIN CALCIUM 10 MG TABLET. PO SCH (21:06)
[2020-10-21 07:00] VITALS: BP 134/46
[2020-10-21 07:35] LABS: PROTHROMBIN TIME PATIENT 16.3 SEC (11.7-14.0)
[2020-10-21] MEDS: BUDESONIDE 0.5 MG/2 ML NEBU. NEB SCH (08:10)
[2020-10-21] MEDS: ALBUTEROL SULFATE 2.5 MG/3 ML NEBU. NEB SCH ×2 (08:11→11:25)
[2020-10-21 09:19] LABS: HEMATOCRIT 25.3 % (36.0-47.0); HEMOGLOBIN 8.7 g/dL (12.0-15.5)
[2020-10-21] MEDS: SENNOSIDES/DOCUSATE 8.6/50MG TABLET. PO SCH (10:02)
[2020-10-21] MEDS: MELOXICAM 7.5 MG TABLET PO SCH (10:03)
[2020-10-21] MEDS: FERROUS SULFATE 325 MG TABLET. PO SCH (10:03)
[2020-10-21] MEDS: CARVEDILOL 3.125 MG TABLET. PO SCH (10:04)
[2020-10-21] MEDS: carBAMazepine 200 MG TABLET PO SCH (10:04)
[2020-10-21] MEDS: LOSARTAN POTASSIUM 50 MG TABLET. PO SCH (10:06)
[2020-10-21] MEDS: MULTIVITAMIN with MINERAL TABLET. PO SCH (10:10)
[2020-10-21 11:02] VITALS: BP 131/58
--- NOTE | 2020-10-21 11:53 | NUR ---
Pt will be discharging at 1300 to [facility].
--- NOTE | 2020-10-21 13:02 | NUR ---
Report called to Magdalene RODRIGUEZ at [facility] at 1250.
--- NOTE | 2020-10-21 13:25 | NUR ---
Pharmacy Warfarin Dosing Note S:Pharmacy consulted to assist with anticoagulation therapy started 10/17/20 with target INR: 1.6 - 2.5 O:ERMIAS DONALD is a 75 year old F with TKA Allergies:Sulfa (Sulfonamide Antibiotics) oxycodone Height: 4 feet, 9 inches Weight: 101.5 kg LABS: Last INR: 1.3 Last HGB: 8.7 Last HCT: 25.3 Last PLT: - Ongoing Drug Interactions: MOBIC A:INR below desired Range. Target Range for this patient is: 1.6 - 2.5 P: Warfarin dose: 3 mg will be given today prior to discharge. Give 3 mg daily. Draw INR on 10/23/20, and request attending physician to dose warfarin for a goal INR 1.6 - 2.5 through end of therapy 11/13/20 (4 weeks of therapy). Indication for warfarin is prevention of VTE after major joint surgery. SARAY HUMPHRIES [facility], 10/21/20 7430
--- NOTE | 2020-10-21 13:33 | NUR ---
Pt left at [address] [facility]
[2020-10-21] MEDS ORDERED: WARFARIN 3 MG TABLET. PO ONE (14:00)
== END 2020-10-21 13:20 | DRG 470 ==
LOC: SURG 09:35 → 4 SOUTHEST 12:35 → OBSVTOIN 10-18 08:12 → 4 NORTH 10-20 19:44
PROVIDERS: ADMIT Orthopaedic Surgery; ATTEND Orthopaedic Surgery
PROC: 0SRD0J9 Replacement of Left Knee Joint with Synthetic Substitute, Cemented, Open Approach (ICD-10-PCS; principal; 2020-10-17 11:00)
DX: M17.12 Unilateral primary osteoarthritis, left knee (principal); E78.00 Pure hypercholesterolemia, unspecified; J44.9 Chronic obstructive pulmonary disease, unspecified; M17.0 Bilateral primary osteoarthritis of knee; Z87.891 Personal history of nicotine dependence; Z96.643 Presence of artificial hip joint, bilateral; Z96.652 Presence of left artificial knee joint; K21.9 Gastro-esophageal reflux disease without esophagitis; Z20.822 Contact with and (suspected) exposure to COVID-19; Z88.2 Allergy status to sulfonamides; Z88.8 Allergy status to other drugs, medicaments and biological substances; Z60.2 Problems related to living alone
CPT/HCPCS: 36415; 73560; 85014; 85018; 85610; 85730; 86850; 86900; 86901; 87426; 94640; 94760; A4213; A4930; A6223; A6253; A6402; A6450; A6550; C1713; C1755; C1776; G0378; G0379; J0171; J0690; J0780; J1100; J1170; J1885; J2270; J2405; J2704; J2795; J3010; J3370; J7030; U0003; U0005; 97110-GP; 97116-GP; 97150-GP; 97530-GO; 97530-GP; 97535-GO; J7613; J7626

== ENCOUNTER 2020-11-24 05:23 | Inpatient (IN) | payer MEDICARE ==
[~2020-11-24] VITALS: Ht 144.8 cm; Wt 93.2 kg
[~2020-11-24 05:23] MED LIST changes: -ACETAMINOPHEN 500 MG TABLET PO PRN; -CELECOXIB 100 MG CAPSULE. PO PRN; -GABAPENTIN 300 MG CAPSULE. PO PRN; -IV RINGERS,LACTATED 1000ML 1,000 ML IV SCH; -MORPHINE SULFATE 5 MG, KETOROLAC 30MG VIAL 30 MG, ROPIVacaine 0.5% PF 60 ML, EPINEPHrin... INT ART ONE; -PROCHLORPERAZINE 10 MG/2 ML VIAL. IVP PRN; +TRAM50TA PO; -TRANEXAMIC ACID 1,000 MG in IV NS 50ML -- 1ST BAG INJ ONE; -TRANEXAMIC ACID 1,000 MG in IV NS 50ML -- 2ND BAG INJ ONE; -fentaNYL PF VIAL 100 MCG/2 ML VIAL IVP PRN
[2020-11-24] MEDS ORDERED: ONDANSETRON PF 4 MG/2 ML VIAL. IVP ONE (05:30)
[2020-11-24] MEDS ORDERED: IV NORMAL SALINE 1000ML BAG 1,000 ML IV ONE (06:00)
[2020-11-24 06:05] LABS: BASO % 0 % (0-3); EOS # 0.1 x10^3/uL (0.0-0.7); EOS % 1 % (0-3); HEMATOCRIT 33.1 % (36.0-47.0); LYMPH # 0.8 x10^3/uL (1.0-4.8); LYMPH % 6 % (24-48); MEAN CORPUSCULAR HEMOGLOBIN 30 pg (25-35); MEAN CORPUSCULAR HGB CONC 33 g/dL (31-37); MEAN CORPUSCULAR VOLUME 91 fL (79-100); MONO # 0.6 x10^3/uL (0.0-1.1); MONO % 5 % (0-9); NEUT # 12.5 x10^3/uL (1.8-7.7); NEUT % 89 % (31-73); PLATELET COUNT 187 x10^3/uL (140-400); RED BLOOD COUNT 3.65 x10^6/uL (3.50-5.40); RED CELL DISTRIBUTION WIDTH 13.7 % (11.5-14.5); WHITE BLOOD COUNT 14.1 x10^3/uL (4.0-11.0)
--- NOTE | 2020-11-24 06:08 | PHYS DOC ---
Past Medical History Past Medical History: COPD, Hypertension, Seizure Past Surgical History: Hip Replacement Smoking Status: Former Smoker Alcohol Use: None Drug Use: None Adult General Chief Complaint Chief Complaint: WEAKNESS/GENERALIZED HPI HPI Patient is a 75 year old female who presents with generalized weakness. She lives at home normally and takes care of herself and does not require assistive devices. Today, she comes to the ER complaining of weakness over the last 48 hours. She was unable to get up or out of bed or ambulate about her house this morning. She was just discharged from [facility] in [place] 2 days earlier. She had been there for 30 days following a hospitalization at this facility. Reportedly was doing very well and stable for discharge but her brother reports she immediately became too weak to navigate her house as normal. She was seen at [facility] 2 days ago and was diagnosed with urinary tract infection. She was started on medication for this but she does not know the name of it. She attributes her weakness to this medication. She denies chest pain or shortness of breath. No fever or viral symptoms. Denies abdominal pain. She reports to have been eating and drinking normally. Her brother has been helping her ambulate about her house but she was too weak this morning for him to assist her. Review of Systems Review of Systems Constitutional: Denies fever or chills, + generalized weakness Eyes: Denies change in visual acuity, redness, or eye pain HENT: Denies nasal congestion or sore throat Respiratory: Denies cough or shortness of breath Cardiovascular: No additional information not addressed in HPI GI: Denies abdominal pain, nausea, vomiting, bloody stools or diarrhea : Denies dysuria or hematuria Musculoskeletal: Denies back pain or joint pain Integument: Denies rash or skin lesions Neurologic: Denies headache, focal weakness or sensory changes Endocrine: Denies polyuria or polydipsia All other systems were reviewed and found to be within normal limits, except as documented in this note. Current Medications Current Medications Current Medications Medications (Trade) Dose Ordered Sig/Rosanna Start Time Stop Time Status Last Admin Dose Admin Ceftriaxone Sodium (Rocephin) 1 gm 1X ONCE 11/24/20 08:00 11/24/20 08:01 DC Ondansetron HCl (Zofran) 4 mg PRN Q8HRS PRN 9/24/21 08:30 11/25/20 08:29 Sodium Chloride 1,000 ml @ 100 mls/hr Q10H 11/24/20 08:30 11/25/20 08:29 Allergies Allergies Allergies Coded Allergies Type Severity Reaction Last Updated Verified Sulfa (Sulfonamide Antibiotics) Allergy Intermediate 09/06/20 Yes oxycodone Adverse Reaction Intermediate MAKES HER "CRAZY" 09/06/20 Yes Physical Exam Physical Exam Constitutional: Well developed, well nourished, no acute distress, non-toxic appearance. HENT: Normocephalic, atraumatic, bilateral external ears normal, oropharynx moist, no oral exudates, nose normal. Eyes: PERRLA, EOMI, conjunctiva normal Neck: Normal range of motion, no tenderness, supple Cardiovascular:Heart rate regular rhythm, no murmur Lungs & Thorax: Bilateral breath sounds clear to auscultation Abdomen: Bowel sounds normal, soft, no tenderness, no masses Skin: Warm, dry, no erythema, no rash. Back: No tenderness, no CVA tenderness. Extremities: No tenderness, no cyanosis, no clubbing, ROM intact, no edema. Neurologic: Alert and oriented X 3 Psychologic: Affect normal Current Patient Data Vital Signs Vital Signs Date Time Temp Pulse Resp B/P (MAP) Pulse Ox O2 Delivery O2 Flow Rate FiO2 11/24/20 05:23 98.0 78 20 152/69 (96) 93 Room Air 98.0 Lab Values Laboratory Tests Test 11/24/20 05:55 11/24/20 06:50 11/24/20 07:10 White Blood Count 14.1 x10^3/uL (4.0-11.0) H Red Blood Count 3.65 x10^6/uL (3.50-5.40) Hemoglobin 11.0 g/dL (12.0-15.5) L Hematocrit 33.1 % (36.0-47.0) L Mean Corpuscular Volume 91 fL (79-100) Mean Corpuscular Hemoglobin 30 pg (25-35) Mean Corpuscular Hemoglobin Concent 33 g/dL (31-37) Red Cell Distribution Width 13.7 % (11.5-14.5) Platelet Count 187 x10^3/uL (140-400) Neutrophils (%) (Auto) 89 % (31-73) H Lymphocytes (%) (Auto) 6 % (24-48) L Monocytes (%) (Auto) 5 % (0-9) Eosinophils (%) (Auto) 1 % (0-3) Basophils (%) (Auto) 0 % (0-3) Neutrophils # (Auto) 12.5 x10^3/uL (1.8-7.7) H Lymphocytes # (Auto) 0.8 x10^3/uL (1.0-4.8) L Monocytes # (Auto) 0.6 x10^3/uL (0.0-1.1) Eosinophils # (Auto) 0.1 x10^3/uL (0.0-0.7) Basophils # (Auto) 0.0 x10^3/uL (0.0-0.2) Platelet Estimate Pending Sodium Level 128 mmol/L (136-145) L Potassium Level 4.1 mmol/L (3.5-5.1) Chloride Level 93 mmol/L (98-107) L Carbon Dioxide Level 28 mmol/L (21-32) Anion Gap 7 (6-14) Blood Urea Nitrogen 21 mg/dL (7-20) H Creatinine 0.9 mg/dL (0.6-1.0) Estimated GFR (Cockcroft-Gault) 60.7 BUN/Creatinine Ratio 23 (6-20) H Glucose Level 117 mg/dL (70-99) H Calcium Level 8.8 mg/dL (8.5-10.1) Total Bilirubin 0.5 mg/dL (0.2-1.0) Aspartate Amino Transferase (AST) 18 U/L (15-37) Alanine Aminotransferase (ALT) 12 U/L (14-59) L Alkaline Phosphatase 84 U/L (46-116) Troponin I Quantitative < 0.017 ng/mL (0.000-0.055) Total Protein 6.1 g/dL (6.4-8.2) L Albumin 2.7 g/dL (3.4-5.0) L Albumin/Globulin Ratio 0.8 (1.0-1.7) L SARS-CoV-2 Antigen (Rapid) Negative (NEGATIVE) Urine Collection Type Unknown Urine Color Yellow Urine Clarity Clear Urine pH 6.0 (<5.0-8.0) Urine Specific [place] 1.010 (1.000-1.030) Urine Protein 100 mg/dL (NEG-TRACE) Urine Glucose (UA) Negative mg/dL (NEG) Urine Ketones (Stick) Negative mg/dL (NEG) Urine Blood Large (NEG) Urine Nitrite Negative (NEG) Urine Bilirubin Negative (NEG) Urine Urobilinogen Dipstick 0.2 mg/dL (0.2 mg/dL) Urine Leukocyte Esterase Moderate (NEG) Urine RBC 3-5 /HPF (0-2) Urine WBC >40 /HPF (0-4) Urine Squamous Epithelial Cells Few /LPF Urine Bacteria Few /HPF (0-FEW) Laboratory Tests 11/24/20 05:55 Laboratory Tests 11/24/20 05:55 EKG EKG 06:30: EKG completed and interpreted by ER physician. Normal sinus rhythm. No ST changes to suggest ischemia. Rate 79. Radiology/Procedures Radiology/Procedures [] Course & Med Decision Making Course & Med Decision Making Pertinent Labs and Imaging studies reviewed. (See chart for details) 06:25: Patient is seen and examined. No distress. Lungs are clear with exception of few expiratory wheezes. She does have known history of COPD and does not report feeling dyspneic. Denies any additional respiratory symptoms. Basic labs ordered. EKG is completed and appears normal. Will recheck urinalysis and screen for Covid. 08:10: All results are reviewed and discussed with the patient. All of her questions were answered. She has mild leukocytosis. She has UTI. Urine culture is pending. She is ordered to have 1 g of Rocephin IV. Her brother remains at the bedside. Arrangements had already been made for her to go back to [facility] in [place] and they will accept her. Currently, however, patient requires admission given her severe weakness. He is unable to ambulate. Will need antibiotics for UTI. Discussed with Dr[facility]. Patient is agreeable to this plan of care. Dragon Disclaimer Dragon Disclaimer This electronic medical record was generated, in whole or in part, using a voice recognition dictation system. Departure Departure Impression: Primary Impression: Urinary tract infection Additional Impressions: Generalized weakness Dehydration Disposition: ADMITTED INPATIENT Condition: IMPROVED Referrals: LITO MUNGUIA MD (PCP) Problem Qualifiers MALA OLVERA DO Nov 24, 2020 06:08
[2020-11-24 06:33] LABS: CALCIUM 8.8 mg/dL (8.5-10.1); CREATININE 0.9 mg/dL (0.6-1.0); GFR 60.7; POTASSIUM 4.1 mmol/L (3.5-5.1)
[2020-11-24 06:40] LABS: ALBUMIN 2.7 g/dL (3.4-5.0); ALBUMIN/GLOBULIN RATIO 0.8 (1.0-1.7); TOTAL BILIRUBIN 0.5 mg/dL (0.2-1.0); TOTAL PROTEIN 6.1 g/dL (6.4-8.2)
[2020-11-24 07:31] LABS: BILIRUBIN,URINE NEGATIVE (NEG); CLARITY,URINE CLEAR; COLOR,URINE YELLOW; NITRITE,URINE NEGATIVE (NEG); PROTEIN,URINE 100 mg/dL (NEG-TRACE); UROBILINOGEN,URINE 0.2 mg/dL (0.2 mg/dL)
[2020-11-24 07:44] LABS: WBC,URINE >40 /HPF (0-4)
[2020-11-24 07:45] LABS: BACTERIA,URINE FEW /HPF (0-FEW)
[2020-11-24] MEDS ORDERED: cefTRIAXone IV Push 1 GM VIAL. IVP ONE (08:00)
[2020-11-24] MEDS ORDERED: ONDANSETRON PF 4 MG/2 ML VIAL. IVP PRN ×2 (08:30→09:00)
[2020-11-24] MEDS: IV NORMAL SALINE 1000ML BAG 1,000 ML IV SCH ×3 (08:50→22:20)
[2020-11-24] MEDS ORDERED: ZOLPIDEM 5 MG TABLET. PO PRN (09:00)
[2020-11-24] MEDS ORDERED: ELECTROLYTE (NON-ICU) PROTOCOL. MC PRN (09:00)
[2020-11-24] MEDS ORDERED: oxyCODONE/APAP 5/325 1 TAB TABLET PO PRN ×2 (09:00)
[2020-11-24] MEDS ORDERED: oxyCODONE IR 5 MG TABLET PO PRN (09:00)
[2020-11-24] MEDS ORDERED: NON FORMULARY ITEM (Budesonide/Formoterol Fumarate (Symbicort 160-4.5 Mcg Inhaler) 2 PUFF) IH SCH (09:00)
[2020-11-24] MEDS ORDERED: CALCIUM CARBONATE 500 MG TAB.CHEW PO PRN (09:00)
[2020-11-24] MEDS ORDERED: ACETAMINOPHEN 325 MG TABLET. PO PRN (09:00)
[2020-11-24] MEDS ORDERED: traMADol 50 MG TABLET PO PRN (09:00)
[2020-11-24 09:11] LABS: % BANDS 22 % (0-9); % BASOS 1 % (0-3); % LYMPHS 4 % (24-48); % METAS 2 % (0-0); % MONOS 3 % (0-10); % SEGS 68 % (35-66); PLT ESTIMATE ADEQUATE (ADEQUATE); TOXIC VACUOLATION PRESENT
[2020-11-24] MEDS ORDERED: carBAMazepine 200 MG TABLET PO SCH (09:30)
--- NOTE | 2020-11-24 09:50 | PDOC1 ---
History and Physical Date of Service: DOS: DATE: 11/24/20 TIME: 09:31 Chief Complaint: Problems: (1) Urinary tract infection (2) Dehydration (3) Generalized weakness Chief Complain: Weakness History of Present Illness: HPI: Patient is a 75 year old female who presents with generalized weakness. She was just recently discharged from [facility] after a month-long stay at there. Apparently was in good condition where she left there however upon returning home started developing weakness. Her brother is at bedside has been helping take care of her. Weakness continued and patient did also start developing some altered mental status she went to [facility] a few days ago was diagnosed with a UTI and has been treated with Keflex. Has noticed weakness is gotten notably worse since starting treatment. Her brother had been helping her ambulate around her house but got to the point where he could not provide as much assistance as needed. She was supposed to have a PCP appointment this morning at 930. However patient was too weak to the point her brother could not even get her up and not I was called to bring her to the emergency room. When I saw them patient does seem a bit altered. Brother bedside confirmed history. She denies any headache, vision changes, chest pain, shortness of breath, fevers, abdominal pain. Past Medical/Surgical History: PMH/PSH: COPD, hypertension Allergies: Allergies: Coded Allergies: Sulfa (Sulfonamide Antibiotics) (Verified Allergy, Intermediate, 09/06/20) oxycodone (Verified Adverse Reaction, Intermediate, MAKES HER "CRAZY", 09/06/20) Family History: Family History: Noncontributory Social History: Social History: Denies alcohol tobacco or drug use Current Medications: Current Medications Current Medications Ondansetron HCl (Zofran) 4 mg 1X ONCE IVP Last administered on 11/24/20at 05:30; Start 11/24/20 at 05:30; Stop 11/24/20 at 05:35; Status DC Sodium Chloride 1,000 ml @ 1,000 mls/hr 1X ONCE IV Last administered on 11/24/20at 05:57; Start 11/24/20 at 06:00; Stop 11/24/20 at 06:59; Status DC Ceftriaxone Sodium (Rocephin) 1 gm 1X ONCE IVP Last administered on 11/24/20at 08:50; Start 11/24/20 at 08:00; Stop 11/24/20 at 08:01; Status DC Ondansetron HCl (Zofran) 4 mg PRN Q8HRS PRN IVP NAUSEA/VOMITING; Start 11/24/20 at 08:30; Stop 11/24/20 at 09:27; Status DC Sodium Chloride 1,000 ml @ 100 mls/hr Q10H IV Last administered on 11/24/20at 08:50; Start 11/24/20 at 08:30; Stop 11/25/20 at 08:29 Ondansetron HCl (Zofran) 4 mg PRN Q6HRS PRN IVP NAUSEA/VOMITING; Start 11/24/20 at 09:00 Calcium Carbonate/ Glycine (Tums) 500 mg PRN Q3HRS PRN PO UPSET STOMACH; Start 11/24/20 at 09:00 Zolpidem Tartrate (Ambien) 5 mg PRN QHS PRN PO INSOMNIA, MAY REPEAT IN 1HR; Start 11/24/20 at 09:00 Info (Non-Icu Electrolyte Protocol) 1 ea PRN DAILY PRN MC SEE COMMENTS; Start 11/24/20 at 09:00 Oxycodone HCl (Roxicodone) 5 mg PRN Q3HRS PRN PO BREAKTHROUGH PAIN; Start 11/24/20 at 09:00 Oxycodone/ Acetaminophen (Percocet 5/325) 1 tab PRN Q4HRS PRN PO MILD PAIN, 1ST CHOICE; Start 11/24/20 at 09:00 Oxycodone/ Acetaminophen (Percocet 5/325) 2 tab PRN Q4HRS PRN PO MODERATE PAIN, SEVERE PAIN; Start 11/24/20 at 09:00 Acetaminophen (Tylenol) 650 mg PRN Q6HRS PRN PO Headaches, Temp > 101.5F; Start 11/24/20 at 09:00 Senna/Docusate Sodium (Senna Plus) 1 tab BID PO ; Start 11/24/20 at 21:00 Heparin Sodium (Porcine) (Heparin Sodium) 5,000 unit Q8HRS SQ ; Start 11/24/20 at 14:00 Amlodipine Besylate (Norvasc) 5 mg DAILY PO ; Start 11/24/20 at 09:30 Carvedilol (Coreg) 3.125 mg BIDWMEALS PO ; Start 11/24/20 at 09:30 Tramadol HCl (Ultram) 50 mg PRN Q4HRS PRN PO MILD TO MODERATE PAIN; Start 11/24/20 at 09:00 Non-Formulary Medication (Budesonide/ Formoterol Fumarate (Symbicort 160-4.5 Mcg Inhaler)) 2 puff BID IH ; Start 11/24/20 at 09:00; Status UNV Carbamazepine (TEGretol) 300 mg BID PO ; Start 11/24/20 at 09:30 Losartan Potassium (Cozaar) 100 mg DAILY PO ; Start 11/24/20 at 10:00 Atorvastatin Calcium (Lipitor) 5 mg QHS PO ; Start 11/24/20 at 21:00 Active Scripts Active Tramadol Hcl 50 Mg Tablet 50 Mg PO Q4HRS PRN Reported Carvedilol (Carvedilol) 3.125 Mg Tablet 3.125 Mg PO BIDWMEALS Losartan Potassium 100 Mg Tablet 100 Mg PO DAILY Lovastatin 20 Mg Tablet 20 Mg PO HS Amlodipine Besylate 5 Mg Tablet 5 Mg PO DAILY Symbicort 160-4.5 Mcg Inhaler (Budesonide/Formoterol Fumarate) 10.2 Gm Hfa.aer.ad 2 Puff IH BID Tums (Calcium Carbonate) 200 Mg Tab.chew 200 Mg PO PRN BID PRN Calcium + Vitamin D Tablet (Calcium Carbonate/Vitamin D3) 1 Each Tablet 1 Each PO DAILY Centrum Silver Tablet (Multivits-Min/Fa/Lycopene/Lut) 1 Each Tablet 1 Each PO GUERO Carbatrol (Carbamazepine) 300 Mg Cpmp.12hr 300 Mg PO BID ROS: Review of Systems Review of System Negative unless in HPI Physical Exam: Vital Signs: Vital Signs Date Time Temp Pulse Resp B/P (MAP) Pulse Ox O2 Delivery O2 Flow Rate FiO2 11/24/20 05:23 98.0 78 20 152/69 (96) 93 Room Air 98.0 Physcial Exam: GEN: Alert and oriented although does seem altered with providing history HEENT: Normal cephalic, atraumatic, external auditory canals are patent EYES: Extraocular muscles are intact, pupil are equally round and reactive to light and accommodation MUSCULOSKELETAL: Well developed , well nourished, good range of motion ENDOCRINE: No thyromegaly was palpated LYMPHATICS: No cervical chain or axillary nodes were noted HEMATOPOIETIC: No bruising NECK: Supple, no JVD, no thyromegaly was noted LUNGS: Clear to auscultation in all lung freeman without rhonchi or wheezing HEART: RRR, S!, S2 present. Peripheral pulses intact, no obvious murmurs noted ABDOMEN: Soft, nontender. Positive bowel sounds, no organomegaly, normal bowel sounds EXTREMITIES: Without clubbing, cyanosis, or edema. Pedal pulses intact. Negative Homans sign NEUROLOGIC: Normal speech and tone. A&O x 3, moves all extremities, no obvious focal deficits PSYCHIATRIC: Normal affect, normal mood. Stable SKIN: No ulcerations or rashes, good skin turgor, no jaundice VASCULAR: Good capillary refill, neurovascular bundle appears to be intact Labs: Labs: Laboratory Tests Test 11/24/20 05:55 11/24/20 06:50 11/24/20 07:10 White Blood Count 14.1 x10^3/uL (4.0-11.0) Red Blood Count 3.65 x10^6/uL (3.50-5.40) Hemoglobin 11.0 g/dL (12.0-15.5) Hematocrit 33.1 % (36.0-47.0) Mean Corpuscular Volume 91 fL (79-100) Mean Corpuscular Hemoglobin 30 pg (25-35) Mean Corpuscular Hemoglobin Concent 33 g/dL (31-37) Red Cell Distribution Width 13.7 % (11.5-14.5) Platelet Count 187 x10^3/uL (140-400) Neutrophils (%) (Auto) 89 % (31-73) Lymphocytes (%) (Auto) 6 % (24-48) Monocytes (%) (Auto) 5 % (0-9) Eosinophils (%) (Auto) 1 % (0-3) Basophils (%) (Auto) 0 % (0-3) Neutrophils # (Auto) 12.5 x10^3/uL (1.8-7.7) Lymphocytes # (Auto) 0.8 x10^3/uL (1.0-4.8) Monocytes # (Auto) 0.6 x10^3/uL (0.0-1.1) Eosinophils # (Auto) 0.1 x10^3/uL (0.0-0.7) Basophils # (Auto) 0.0 x10^3/uL (0.0-0.2) Segmented Neutrophils % 68 % (35-66) Band Neutrophils % 22 % (0-9) Lymphocytes % 4 % (24-48) Monocytes % 3 % (0-10) Basophils % 1 % (0-3) Metamyelocytes % 2 % (0-0) Toxic Vacuolation Present Dohle Bodies Present Platelet Estimate Adequate (ADEQUATE) Sodium Level 128 mmol/L (136-145) Potassium Level 4.1 mmol/L (3.5-5.1) Chloride Level 93 mmol/L (98-107) Carbon Dioxide Level 28 mmol/L (21-32) Anion Gap 7 (6-14) Blood Urea Nitrogen 21 mg/dL (7-20) Creatinine 0.9 mg/dL (0.6-1.0) Estimated GFR (Cockcroft-Gault) 60.7 BUN/Creatinine Ratio 23 (6-20) Glucose Level 117 mg/dL (70-99) Calcium Level 8.8 mg/dL (8.5-10.1) Total Bilirubin 0.5 mg/dL (0.2-1.0) Aspartate Amino Transf (AST/SGOT) 18 U/L (15-37) Alanine Aminotransferase (ALT/SGPT) 12 U/L (14-59) Alkaline Phosphatase 84 U/L (46-116) Troponin I Quantitative < 0.017 ng/mL (0.000-0.055) Total Protein 6.1 g/dL (6.4-8.2) Albumin 2.7 g/dL (3.4-5.0) Albumin/Globulin Ratio 0.8 (1.0-1.7) SARS-CoV-2 Antigen (Rapid) Negative (NEGATIVE) Urine Collection Type Unknown Urine Color Yellow Urine Clarity Clear Urine pH 6.0 (<5.0-8.0) Urine Specific [place] 1.010 (1.000-1.030) Urine Protein 100 mg/dL (NEG-TRACE) Urine Glucose (UA) Negative mg/dL (NEG) Urine Ketones (Stick) Negative mg/dL (NEG) Urine Blood Large (NEG) Urine Nitrite Negative (NEG) Urine Bilirubin Negative (NEG) Urine Urobilinogen Dipstick 0.2 mg/dL (0.2 mg/dL) Urine Leukocyte Esterase Moderate (NEG) Urine RBC 3-5 /HPF (0-2) Urine WBC >40 /HPF (0-4) Urine Squamous Epithelial Cells Few /LPF Urine Bacteria Few /HPF (0-FEW) Laboratory Tests Test 11/24/20 05:55 11/24/20 06:50 11/24/20 07:10 White Blood Count 14.1 x10^3/uL (4.0-11.0) Red Blood Count 3.65 x10^6/uL (3.50-5.40) Hemoglobin 11.0 g/dL (12.0-15.5) Hematocrit 33.1 % (36.0-47.0) Mean Corpuscular Volume 91 fL (79-100) Mean Corpuscular Hemoglobin 30 pg (25-35) Mean Corpuscular Hemoglobin Concent 33 g/dL (31-37) Red Cell Distribution Width 13.7 % (11.5-14.5) Platelet Count 187 x10^3/uL (140-400) Neutrophils (%) (Auto) 89 % (31-73) Lymphocytes (%) (Auto) 6 % (24-48) Monocytes (%) (Auto) 5 % (0-9) Eosinophils (%) (Auto) 1 % (0-3) Basophils (%) (Auto) 0 % (0-3) Neutrophils # (Auto) 12.5 x10^3/uL (1.8-7.7) Lymphocytes # (Auto) 0.8 x10^3/uL (1.0-4.8) Monocytes # (Auto) 0.6 x10^3/uL (0.0-1.1) Eosinophils # (Auto) 0.1 x10^3/uL (0.0-0.7) Basophils # (Auto) 0.0 x10^3/uL (0.0-0.2) Segmented Neutrophils % 68 % (35-66) Band Neutrophils % 22 % (0-9) Lymphocytes % 4 % (24-48) Monocytes % 3 % (0-10) Basophils % 1 % (0-3) Metamyelocytes % 2 % (0-0) Toxic Vacuolation Present Dohle Bodies Present Platelet Estimate Adequate (ADEQUATE) Sodium Level 128 mmol/L (136-145) Potassium Level 4.1 mmol/L (3.5-5.1) Chloride Level 93 mmol/L (98-107) Carbon Dioxide Level 28 mmol/L (21-32) Anion Gap 7 (6-14) Blood Urea Nitrogen 21 mg/dL (7-20) Creatinine 0.9 mg/dL (0.6-1.0) Estimated GFR (Cockcroft-Gault) 60.7 BUN/Creatinine Ratio 23 (6-20) Glucose Level 117 mg/dL (70-99) Calcium Level 8.8 mg/dL (8.5-10.1) Total Bilirubin 0.5 mg/dL (0.2-1.0) Aspartate Amino Transf (AST/SGOT) 18 U/L (15-37) Alanine Aminotransferase (ALT/SGPT) 12 U/L (14-59) Alkaline Phosphatase 84 U/L (46-116) Troponin I Quantitative < 0.017 ng/mL (0.000-0.055) Total Protein 6.1 g/dL (6.4-8.2) Albumin 2.7 g/dL (3.4-5.0) Albumin/Globulin Ratio 0.8 (1.0-1.7) SARS-CoV-2 Antigen (Rapid) Negative (NEGATIVE) Urine Collection Type Unknown Urine Color Yellow Urine Clarity Clear Urine pH 6.0 (<5.0-8.0) Urine Specific [place] 1.010 (1.000-1.030) Urine Protein 100 mg/dL (NEG-TRACE) Urine Glucose (UA) Negative mg/dL (NEG) Urine Ketones (Stick) Negative mg/dL (NEG) Urine Blood Large (NEG) Urine Nitrite Negative (NEG) Urine Bilirubin Negative (NEG) Urine Urobilinogen Dipstick 0.2 mg/dL (0.2 mg/dL) Urine Leukocyte Esterase Moderate (NEG) Urine RBC 3-5 /HPF (0-2) Urine WBC >40 /HPF (0-4) Urine Squamous Epithelial Cells Few /LPF Urine Bacteria Few /HPF (0-FEW) Assessment/Plan Assessment/Plan Generalized weakness, dehydration, urinary tract infection, history of COPD, hypertension -Recently admitted and discharged from here see discharge summary for events of that admission. Discharged to [facility] and was there for 30 days. -Apparently was doing well on discharge however developed again worsening weakness -Went outside hospital diagnosed with UTI was placed on Keflex; patient reports weakness worsening after this -Patient's brother unable to provide level assistance needed thus brought to the emergency room -Patient does have UTI. Received 1 dose of Rocephin in the emergency room. Given possible adverse reaction to Keflex will avoid cephalosporins and treat with Macrobid. -PT OT ordered -DVT prophylaxis -Home meds resumed as indicated -Diet Justifications for Admission Other Justification PRATEEK STEVENS MD Nov 24, 2020 09:50
[2020-11-24 10:30] VITALS: BP 158/68
[2020-11-24] MEDS: NITROFURANTOIN MONOHYD/M-CRYST 100 MG CAPSULE. PO SCH ×2 (11:43→22:06)
[2020-11-24] MEDS: LOSARTAN POTASSIUM 50 MG TABLET. PO SCH (11:44)
[2020-11-24] MEDS: CARVEDILOL 3.125 MG TABLET. PO SCH ×2 (11:45→17:46)
[2020-11-24] MEDS: BUDESONIDE 0.5 MG/2 ML NEBU. NEB SCH ×2 (12:07→20:37)
[2020-11-24] MEDS: ALBUTEROL SULFATE 2.5 MG/3 ML NEBU. NEB SCH ×2 (12:07→20:37)
--- NOTE | 2020-11-24 12:08 | EKG ---
[facility] [address] [place] [address] Test Date: 2020-11-24 Test Time: 06:14:00 Pat Name: ERMIAS DONALD Department: Room: Gender: F Law Clerk: : 1945 Requested By: MALA OLVERA Order Number: [id number] Reading MD: Measurements Intervals [place] Rate: 79 P: 135 GA: 206 QRS: 168 QRSD: 102 T: 148 QT: 366 QTc: 421 Interpretive Statements SINUS RHYTHM ABNORMAL RIGHT AXIS DEVIATION CONSIDER RIGHT VENTRICULAR HYPERTROPHY T ABNORMALITY IN HIGH LATERAL LEADS ABNORMAL ECG RI6.01 No previous ECG available for comparison
[2020-11-24] MEDS: HEPARIN for SUB-Q USE 5,000 UNIT/ML VIAL. SQ SCH ×2 (14:46→22:13)
[2020-11-24 15:00] VITALS: BP 130/59
[2020-11-24] MEDS ORDERED: CARB300C8 PO (17:40)
[2020-11-24 19:00] VITALS: BP 121/57
[2020-11-24] MEDS: SENNOSIDES/DOCUSATE 8.6/50MG TABLET. PO SCH (22:05)
[2020-11-24] MEDS: ATORVASTATIN CALCIUM 10 MG TABLET. PO SCH (22:06)
[2020-11-24] MEDS: LACTOBACILLUS RHAMNOSUS GG 1 CAPSULE. PO SCH (22:06)
[2020-11-24 23:00] VITALS: BP 127/46
[2020-11-25 03:00] VITALS: BP 142/64
[2020-11-25] MEDS: HEPARIN for SUB-Q USE 5,000 UNIT/ML VIAL. SQ SCH ×3 (05:33→22:23)
[2020-11-25 07:00] VITALS: BP 140/63
[2020-11-25] MEDS: ALBUTEROL SULFATE 2.5 MG/3 ML NEBU. NEB SCH ×4 (07:32→20:38)
[2020-11-25] MEDS: BUDESONIDE 0.5 MG/2 ML NEBU. NEB SCH ×2 (07:33→20:38)
[2020-11-25] MEDS: CARVEDILOL 3.125 MG TABLET. PO SCH ×2 (08:00→17:16)
[2020-11-25] MEDS: NITROFURANTOIN MONOHYD/M-CRYST 100 MG CAPSULE. PO SCH ×2 (09:24→21:05)
[2020-11-25] MEDS: LACTOBACILLUS RHAMNOSUS GG 1 CAPSULE. PO SCH ×2 (09:24→21:05)
[2020-11-25] MEDS: LOSARTAN POTASSIUM 50 MG TABLET. PO SCH (09:24)
[2020-11-25] MEDS: SENNOSIDES/DOCUSATE 8.6/50MG TABLET. PO SCH ×2 (09:24→21:05)
[2020-11-25 11:00] VITALS: BP 131/65
[2020-11-25 11:33] LABS: BASO % 0 % (0-3); EOS # 0.1 x10^3/uL (0.0-0.7); EOS % 1 % (0-3); HEMATOCRIT 31.6 % (36.0-47.0); HEMOGLOBIN 10.5 g/dL (12.0-15.5); LYMPH # 1.1 x10^3/uL (1.0-4.8); LYMPH % 13 % (24-48); MEAN CORPUSCULAR HEMOGLOBIN 31 pg (25-35); MEAN CORPUSCULAR HGB CONC 33 g/dL (31-37); MEAN CORPUSCULAR VOLUME 93 fL (79-100); MONO # 0.8 x10^3/uL (0.0-1.1); MONO % 9 % (0-9); NEUT # 6.5 x10^3/uL (1.8-7.7); NEUT % 77 % (31-73); PLATELET COUNT 176 x10^3/uL (140-400); RED BLOOD COUNT 3.41 x10^6/uL (3.50-5.40); RED CELL DISTRIBUTION WIDTH 13.9 % (11.5-14.5); WHITE BLOOD COUNT 8.5 x10^3/uL (4.0-11.0)
[2020-11-25 11:49] LABS: ALBUMIN 2.4 g/dL (3.4-5.0); ALBUMIN/GLOBULIN RATIO 0.6 (1.0-1.7); CALCIUM 8.1 mg/dL (8.5-10.1); CREATININE 0.7 mg/dL (0.6-1.0); GFR 81.1; POTASSIUM 3.2 mmol/L (3.5-5.1); TOTAL BILIRUBIN 0.4 mg/dL (0.2-1.0); TOTAL PROTEIN 6.2 g/dL (6.4-8.2)
--- NOTE | 2020-11-25 11:49 | PDOC ---
[employer] PROGRESS NOTE Date of Service DOS: DATE: 11/25/20 TIME: 11:47 Chief Complaint Chief Complaint weakness History of Present Illness History of Present Illness Patient is a 75 year old female who presents with generalized weakness. She was just recently discharged from [facility] after a month-long stay at there. Apparently was in good condition where she left there however upon returning home started developing weakness. Her brother is at bedside has been helping take care of her. Weakness continued and patient did also start developing some altered mental status she went to [facility] a few days ago was diagnosed with a UTI and has been treated with Keflex. Has noticed weakness is gotten notably worse since starting treatment. Her brother had been helping her ambulate around her house but got to the point where he could not provide as much assistance as needed. She was supposed to have a PCP appointment this morning at 930. However patient was too weak to the point her brother could not even get her up and not I was called to bring her to the emergency room. When I saw them patient does seem a bit altered. Brother bedside confirmed history. She denies any headache, vision changes, chest pain, shortness of breath, fevers, abdominal pain. 11/25 Patient resting in bed when evaluated. Overall no major complaints. PT OT. Continue UTI treatment. Vitals/I&O Vitals/I&O: Vital Signs Date Time Temp Pulse Resp B/P (MAP) Pulse Ox O2 Delivery O2 Flow Rate FiO2 11/25/20 09:24 57 140/63 11/25/20 07:55 Room Air 2.0 11/25/20 07:36 98 11/25/20 07:00 97.8 18 97.8 I & O 11/24/20 11/24/20 11/25/20 15:00 23:00 07:00 Intake Total 1000 ml 1000 ml 0 ml Output Total 1200 ml 1200 ml Balance -200 ml 1000 ml -1200 ml Physical Exam General: Alert, Oriented X3, Cooperative Heart: Regular rate, Normal S1, Normal S2 Lungs: Clear Abdomen: Normal bowel sounds, Soft, No tenderness Extremities: No edema, Normal pulses Skin: No significant lesion Labs Labs: Laboratory Tests Test 11/25/20 11:15 White Blood Count 8.5 x10^3/uL (4.0-11.0) Red Blood Count 3.41 x10^6/uL (3.50-5.40) Hemoglobin 10.5 g/dL (12.0-15.5) Hematocrit 31.6 % (36.0-47.0) Mean Corpuscular Volume 93 fL (79-100) Mean Corpuscular Hemoglobin 31 pg (25-35) Mean Corpuscular Hemoglobin Concent 33 g/dL (31-37) Red Cell Distribution Width 13.9 % (11.5-14.5) Platelet Count 176 x10^3/uL (140-400) Neutrophils (%) (Auto) 77 % (31-73) Lymphocytes (%) (Auto) 13 % (24-48) Monocytes (%) (Auto) 9 % (0-9) Eosinophils (%) (Auto) 1 % (0-3) Basophils (%) (Auto) 0 % (0-3) Neutrophils # (Auto) 6.5 x10^3/uL (1.8-7.7) Lymphocytes # (Auto) 1.1 x10^3/uL (1.0-4.8) Monocytes # (Auto) 0.8 x10^3/uL (0.0-1.1) Eosinophils # (Auto) 0.1 x10^3/uL (0.0-0.7) Basophils # (Auto) 0.0 x10^3/uL (0.0-0.2) Assessment and Plan Assessmemt and Plan Problems Medical Problems: (1) Dehydration Status: Acute (2) Generalized weakness Status: Acute (3) Urinary tract infection Status: Acute Assessment/Plan Generalized weakness, dehydration, urinary tract infection, history of COPD, hypertension -Recently admitted and discharged from here see discharge summary for events of that admission. Discharged to [facility] and was there for 30 days. -Apparently was doing well on discharge however developed again worsening weakness -Went outside hospital diagnosed with UTI was placed on Keflex; patient reports weakness worsening after this -Patient's brother unable to provide level assistance needed thus brought to the emergency room -Patient does have UTI. Received 1 dose of Rocephin in the emergency room. Given possible adverse reaction to Keflex will avoid cephalosporins and treat with Macrobid. -PT OT ordered -DVT prophylaxis -Home meds resumed as indicated -Diet Comment Review of Relevant I have reviewed the following items kina (where applicable) has been applied. Medications: Current Medications Medications (Trade) Dose Ordered Sig/Rosanna Route PRN Reason Start Time Stop Time Status Last Admin Dose Admin Senna/Docusate Sodium (Senna Plus) 1 tab BID PO 11/24/20 21:00 11/25/20 09:24 Heparin Sodium (Porcine) (Heparin Sodium) 5,000 unit Q8HRS SQ 11/24/20 14:00 11/25/20 05:33 Atorvastatin Calcium (Lipitor) 5 mg QHS PO 11/24/20 21:00 11/24/20 22:06 Albuterol Sulfate (Ventolin Neb Soln) 2.5 mg Q6HRS NEB 11/24/20 12:00 11/25/20 07:32 Lactobacillus Rhamnosus (Culturelle) 1 cap BID PO 11/24/20 21:00 11/25/20 09:24 Carbamazepine (TEGretol XR) 600 mg BID PO 11/24/20 21:00 11/25/20 09:24 Justifications for Admission Other Justification PRATEEK STEVENS MD Nov 25, 2020 11:49
[2020-11-25] MEDS ORDERED: POTASSIUM CHLORIDE 20 MEQ TABLET.ER. PO ONE (14:00)
[2020-11-25 15:00] VITALS: BP 159/76
[2020-11-25 19:15] VITALS: BP 165/85
[2020-11-25] MEDS: ATORVASTATIN CALCIUM 10 MG TABLET. PO SCH (21:05)
[2020-11-25 23:09] VITALS: BP 165/92
[2020-11-26 03:18] VITALS: BP 142/82
[2020-11-26] MEDS: HEPARIN for SUB-Q USE 5,000 UNIT/ML VIAL. SQ SCH ×3 (06:14→22:11)
[2020-11-26 07:15] VITALS: BP 177/100
[2020-11-26] MEDS: ALBUTEROL SULFATE 2.5 MG/3 ML NEBU. NEB SCH ×4 (07:28→20:18)
[2020-11-26] MEDS: BUDESONIDE 0.5 MG/2 ML NEBU. NEB SCH ×2 (07:28→20:18)
[2020-11-26] MEDS: NITROFURANTOIN MONOHYD/M-CRYST 100 MG CAPSULE. PO SCH ×2 (08:18→21:06)
[2020-11-26] MEDS: SENNOSIDES/DOCUSATE 8.6/50MG TABLET. PO SCH ×2 (08:19→21:06)
[2020-11-26] MEDS: LOSARTAN POTASSIUM 50 MG TABLET. PO SCH (08:19)
[2020-11-26] MEDS: LACTOBACILLUS RHAMNOSUS GG 1 CAPSULE. PO SCH ×2 (08:19→21:06)
[2020-11-26] MEDS: CARVEDILOL 3.125 MG TABLET. PO SCH ×2 (08:20→17:13)
[2020-11-26] MEDS ORDERED: BISACODYL 10 MG SUPP.RECT. PR ONE (10:15)
[2020-11-26] MEDS: POLYETHYLENE GLYCOL 3350 17 GM PACKET. PO SCH (10:28)
--- NOTE | 2020-11-26 10:43 | PDOC ---
[employer] PROGRESS NOTE Date of Service DOS: DATE: 11/26/20 TIME: 10:42 Chief Complaint Chief Complaint weakness History of Present Illness History of Present Illness Patient is a 75 year old female who presents with generalized weakness. She was just recently discharged from [facility] after a month-long stay at there. Apparently was in good condition where she left there however upon returning home started developing weakness. Her brother is at bedside has been helping take care of her. Weakness continued and patient did also start developing some altered mental status she went to [facility] a few days ago was diagnosed with a UTI and has been treated with Keflex. Has noticed weakness is gotten notably worse since starting treatment. Her brother had been helping her ambulate around her house but got to the point where he could not provide as much assistance as needed. She was supposed to have a PCP appointment this morning at 930. However patient was too weak to the point her brother could not even get her up and not I was called to bring her to the emergency room. When I saw them patient does seem a bit altered. Brother bedside confirmed history. She denies any headache, vision changes, chest pain, shortness of breath, fevers, abdominal pain. 11/25 Patient resting in bed when evaluated. Overall no major complaints. PT OT. Continue UTI treatment. 11/26 Patient evaluated at bedside no major clinical changes. Complaining of some constipation requesting MiraLAX and suppository. Possible discharge to [place] tomorrow. Vitals/I&O Vitals/I&O: Vital Signs Date Time Temp Pulse Resp B/P (MAP) Pulse Ox O2 Delivery O2 Flow Rate FiO2 11/26/20 08:20 82 177/100 11/26/20 07:50 Nasal Cannula 2.0 11/26/20 07:31 99 11/26/20 07:15 99.1 18 99.1 I & O 11/25/20 11/25/20 11/26/20 15:00 23:00 07:00 Intake Total 240 ml 480 ml Output Total 950 ml 450 ml Balance -710 ml 30 ml Physical Exam General: Alert, Oriented X3, Cooperative Heart: Regular rate, Normal S1, Normal S2 Lungs: Clear Abdomen: Normal bowel sounds, Soft, No tenderness Extremities: No edema, Normal pulses Skin: No significant lesion Labs Labs: Laboratory Tests Test 11/25/20 11:15 White Blood Count 8.5 x10^3/uL (4.0-11.0) Red Blood Count 3.41 x10^6/uL (3.50-5.40) Hemoglobin 10.5 g/dL (12.0-15.5) Hematocrit 31.6 % (36.0-47.0) Mean Corpuscular Volume 93 fL (79-100) Mean Corpuscular Hemoglobin 31 pg (25-35) Mean Corpuscular Hemoglobin Concent 33 g/dL (31-37) Red Cell Distribution Width 13.9 % (11.5-14.5) Platelet Count 176 x10^3/uL (140-400) Neutrophils (%) (Auto) 77 % (31-73) Lymphocytes (%) (Auto) 13 % (24-48) Monocytes (%) (Auto) 9 % (0-9) Eosinophils (%) (Auto) 1 % (0-3) Basophils (%) (Auto) 0 % (0-3) Neutrophils # (Auto) 6.5 x10^3/uL (1.8-7.7) Lymphocytes # (Auto) 1.1 x10^3/uL (1.0-4.8) Monocytes # (Auto) 0.8 x10^3/uL (0.0-1.1) Eosinophils # (Auto) 0.1 x10^3/uL (0.0-0.7) Basophils # (Auto) 0.0 x10^3/uL (0.0-0.2) Sodium Level 132 mmol/L (136-145) Potassium Level 3.2 mmol/L (3.5-5.1) Chloride Level 99 mmol/L (98-107) Carbon Dioxide Level 28 mmol/L (21-32) Anion Gap 5 (6-14) Blood Urea Nitrogen 9 mg/dL (7-20) Creatinine 0.7 mg/dL (0.6-1.0) Estimated GFR (Cockcroft-Gault) 81.1 BUN/Creatinine Ratio 13 (6-20) Glucose Level 114 mg/dL (70-99) Calcium Level 8.1 mg/dL (8.5-10.1) Total Bilirubin 0.4 mg/dL (0.2-1.0) Aspartate Amino Transf (AST/SGOT) 44 U/L (15-37) Alanine Aminotransferase (ALT/SGPT) 22 U/L (14-59) Alkaline Phosphatase 120 U/L (46-116) Total Protein 6.2 g/dL (6.4-8.2) Albumin 2.4 g/dL (3.4-5.0) Albumin/Globulin Ratio 0.6 (1.0-1.7) Assessment and Plan Assessmemt and Plan Problems Medical Problems: (1) Dehydration Status: Acute (2) Generalized weakness Status: Acute (3) Urinary tract infection Status: Acute Generalized weakness, dehydration, urinary tract infection, history of COPD, hypertension -Recently admitted and discharged from here see discharge summary for events of that admission. Discharged to [facility] and was there for 30 days. -Apparently was doing well on discharge however developed again worsening weakness -Went outside hospital diagnosed with UTI was placed on Keflex; patient reports weakness worsening after this -Patient's brother unable to provide level assistance needed thus brought to the emergency room -Patient does have UTI. Received 1 dose of Rocephin in the emergency room. Given possible adverse reaction to Keflex will avoid cephalosporins and treat with Macrobid. -PT OT ordered -DVT prophylaxis -Home meds resumed as indicated -Diet Comment Review of Relevant I have reviewed the following items kina (where applicable) has been applied. Medications: Current Medications Medications (Trade) Dose Ordered Sig/Rosanna Route PRN Reason Start Time Stop Time Status Last Admin Dose Admin Potassium Chloride (Klor-Con) 40 meq 1X ONCE PO 11/25/20 14:00 11/25/20 14:01 DC 11/25/20 15:21 Polyethylene Glycol (miraLAX PACKET) 17 gm DAILY PO 11/26/20 10:15 11/26/20 10:28 Justifications for Admission Other Justification PRATEEK STEVENS MD Nov 26, 2020 10:43
[2020-11-26 11:05] VITALS: BP 147/82
[2020-11-26 15:20] VITALS: BP 150/87
[2020-11-26 19:15] VITALS: BP 138/78
[2020-11-26] MEDS: ATORVASTATIN CALCIUM 10 MG TABLET. PO SCH (21:06)
[2020-11-26 23:12] VITALS: BP 132/72
[2020-11-27] MEDS: ALBUTEROL SULFATE 2.5 MG/3 ML NEBU. NEB SCH ×5 (01:45→23:31)
[2020-11-27 03:11] VITALS: BP 144/70
[2020-11-27] MEDS: HEPARIN for SUB-Q USE 5,000 UNIT/ML VIAL. SQ SCH ×3 (06:26→21:16)
[2020-11-27 07:00] VITALS: BP 147/70
[2020-11-27] MEDS: BUDESONIDE 0.5 MG/2 ML NEBU. NEB SCH ×2 (07:03→19:17)
--- NOTE | 2020-11-27 08:48 | PDOC ---
PROGRESS NOTES Date of Service: DATE: 11/27/20 TIME: 08:45 Chief Complaint Chief Complaint impression Morbid obesity weakness severe protein-caloric malnutrition hypoxia bullous emphysematous changes throughout both lungs Degenerative arthritis, left knee./ Left total knee arthroplasty.10-21-20 plan 11-27 cxr today 6 MIN WALK ABG replace k bmp today REDUCE NARCOTIC USE DUE TO Hypoxia, probable obesity, hypoventilation syndrome Discharge Recommendations * Snf Unit History of Present Illness History of Present Illness 75 year old female who presents with generalized weakness. She was just recently discharged from [facility] after a month-long stay at there. Apparently was in good condition where she left there however upon returning home started developing weakness. Her brother is at bedside has been helping take care of her. Weakness continued and patient did also start developing some altered mental status she went to [facility] a few days ago was diagnosed with a UTI and has been treated with Keflex. Has noticed weakness is gotten notably worse since starting treatment. Her brother had been helping her ambulate around her house but got to the point where he could not provide as much assistance as needed. She was supposed to have a PCP appointment this morning at 930. However patient was too weak to the point her brother could not even get her up and not I was called to bring her to the emergency room. When I saw them patient does seem a bit altered. Brother bedside confirmed history. She denies any headache, vision changes, chest pain, shortness of breath, fevers, abdominal pain. 11/25 Patient resting in bed when evaluated. Overall no major complaints. PT OT. Continue UTI treatment. 11/26 Patient evaluated at bedside no major clinical changes. Complaining of some constipation requesting MiraLAX and suppository. Possible discharge to [place] 11-27 cxr today 6 MIN WALK ABG replace k bmp today REDUCE NARCOTIC USE DUE TO Hypoxia, probable obesity, hypoventilation syndrome, states she doesn't need narcotic today Discharge Recommendations * Snf Unit Vitals Vitals Vital Signs Date Time Temp Pulse Resp B/P (MAP) Pulse Ox O2 Delivery O2 Flow Rate FiO2 11/27/20 07:03 98 Nasal Cannula 2.0 11/27/20 07:00 98.1 66 20 147/70 (95) 98.1 Physical Exam General: Alert, Oriented X3, Cooperative Heart: Regular rate, Normal S1, Normal S2 Lungs: Clear Abdomen: Normal bowel sounds, Soft, No tenderness Extremities: No edema, Normal pulses Skin: No significant lesion Labs LABS PATIENT: ERMIAS DONALD ACCOUNT: [id number] : 1945 LOCATION: [place] AGE: 75 SEX: F EXAM STATUS: ADM IN ORD. PHYSICIAN: ROBERTO CARLOS HONG MD REASON: hypoxia PROCEDURE: CHEST AP ONLY XR CHEST 1V INDICATION: hypoxia COMPARISON STUDY: 09/06/2020. FINDINGS: Lungs: Normal lung volume. Prominent interstitial markings. Pleura: Trace bilateral pleural effusions. Heart and Mediastinum: Stable cardiomediastinal silhouette and great vessels. IMPRESSION: Prominent interstitial markings and trace bilateral pleural effusions, probably interstitial edema. Electronically signed by: Juan Story MD (11/27/2020 11:22 AM) [id number] DICTATED and SIGNED BY: JUAN STORY MD * * * * * Obesity Clinical Presentation * Stable Evaluation Complexity Level * Low Complexity Pt/caregiver agrees with plan of care/goals * Yes Patient condition at conclusion of therapy * Pt in chair * Call light in reach * Phone in reach * PtIn no apparent distress * Pt denies further needs Goal 1 - Bed Mobility Assistance Required * Independent Goal 3 - Ambulation Assistance Required * Independent Goal 3 - Ambulation Distance * 100' Goal 3 - Ambulation Device * Roller Walker Goal 3 Assessment * Appropriate - Continue Goal 4 - Stairs Assistance Required * Independent Goal 4 - Number of Stairs * 2-4 Goal 4 - Device on Stairs * Rail on Right Goal 4 Assessment * Appropriate - Continue Treatment Plan * Therapeutic Exercise * Bed Mobility Training * Gait Training Frequency of Treatment Expected * 5 visits/week Duration of Treatment Expected * 2 weeks Discharge Recommendations * Snf Unit Discharge Recommendation Comments * will try to get pt ready for home ARELY Tricuspid Valve TR P. Velocity 242cm/s RAP ESTIMATE 3mmHg TR Peak Gr. 26mmHg RVSP 29mmHg Pulmonary Vein S1 Velocity 51.2cm/s D2 Velocity 36.5cm/s PVa duration 133msec LEFT VENTRICLE The left ventricle is normal size. There is mild concentric left ventricular hypertrophy. The left ventricular systolic function is normal and the ejection fraction is within normal range. The Ejection Fraction is 55-60%. There is normal LV segmental wall motion. The left ventricular diastolic function and filling is normal for age. RIGHT VENTRICLE The right ventricle is normal size. There is normal right ventricular wall thickness. The right ventricular systolic function is normal. ATRIA The left atrium size is normal. The right atrium size is normal. The interatrial septum is intact with no evidence for an atrial septal defect or patent foramen ovale as noted on 2-D or Doppler imaging. AORTIC VALVE The aortic valve is normal in structure and function. Doppler and Color Flow revealed trace aortic regurgitation. There is no significant aortic valvular stenosis. Calculated aortic valve area is 2.68 cm2 with maximum pressure gradient of 8 mmHg and mean pressure gradient of 5 mmHg. MITRAL VALVE The mitral valve is normal in structure and function. There is no evidence of mitral valve prolapse. There is no mitral valve stenosis. Doppler and Color-flow revealed trace mitral regurgitation. TRICUSPID VALVE The tricuspid valve is normal in structure and function. Doppler and Color Flow revealed trace tricuspid regurgitation with an estimated PAP of 29 mmHg. There is no tricuspid valve stenosis. PULMONIC VALVE The pulmonic valve is not well visualized. Doppler and Color Flow revealed no pulmonic valvular regurgitation. GREAT VESSELS The aortic root is normal in size. The ascending aorta is normal in size. The IVC is normal in size and collapses >50% with inspiration. PERICARDIAL EFFUSION There is no evidence of significant pericardial effusion. Critical Notification Critical Value: No <Conclusion> The left ventricle is normal size. The left ventricular systolic function is normal and the ejection fraction is within normal range. The Ejection Fraction is 55-60%. There is mild concentric left ventricular hypertrophy. Doppler and Color Flow revealed trace aortic regurgitation. There is no significant aortic valvular stenosis. Doppler and Color-flow revealed trace mitral regurgitation. Doppler and Color Flow revealed trace tricuspid regurgitation with an estimated PAP of 29 mmHg. Signed by : Reed Bledsoe MD Electronically Approved : 09/22/2020 15:46:31 PATIENT: ERMIAS DONALD ACCOUNT: [id number] : 1945 LOCATION: [place] AGE: 71 SEX: F EXAM STATUS: REG CLI ORD. PHYSICIAN: MALGORZATA BECKMAN MD REASON: ILD PROCEDURE: CT CHEST WO CONTRAST Indication: Interstitial lung disease. Axial imaging through the chest was performed without contrast. Correlation is made with prior CT chest from 02/09/2016. No axillary lymphadenopathy is identified. Lymph nodes in the mediastinum and right paratracheal region appear stable. There are coronary arterial calcifications present. No pericardial or pleural fluid is identified. Significant bullous emphysematous changes throughout both lungs are again noted. The area of ill-defined airspace parenchymal density in the right middle lobe has significantly improved. There is a small stable nodular density identified in the right upper lobe, image 25 series 2. No new parenchymal mass is identified. The upper abdomen is unremarkable. Impression: Improved aeration to the right middle lobe when compared with exam from 02/09/2016. RS Compliance Statement: One or more of the following individualized dose reduction techniques were utilized for this examination: 1. Automated exposure control 2. Adjustment of the mA and/or kV according to patient size 3. Use of iterative reconstruction technique DICTATED and SIGNED BY: BI HICKS MD DATE: 01/03/17 1031 DERED: URINE CULTURE COMMENTS: Has specimen been collected/obtained? Y Procedure Result URINE CULTURE Final Final No Growth on 11/25/20 at 1519 Testing Performed by: [address] [address] For Inquires, the Physician may contact the Microbiology department at [phone] Unless otherwise specified, Testing Performed by: [facility] [address] [place] [address] For Inquires, the Physician may contact the Microbiology department at [phone] Assessment and Plan Assessmemt and Plan Problems Medical Problems: (1) Dehydration Status: Acute (2) Generalized weakness Status: Acute (3) Urinary tract infection Status: Acute Comment Review of Relevant I have reviewed the following items kina (where applicable) has been applied. Labs Laboratory Tests Test 11/25/20 11:15 White Blood Count 8.5 x10^3/uL (4.0-11.0) Red Blood Count 3.41 x10^6/uL (3.50-5.40) Hemoglobin 10.5 g/dL (12.0-15.5) Hematocrit 31.6 % (36.0-47.0) Mean Corpuscular Volume 93 fL (79-100) Mean Corpuscular Hemoglobin 31 pg (25-35) Mean Corpuscular Hemoglobin Concent 33 g/dL (31-37) Red Cell Distribution Width 13.9 % (11.5-14.5) Platelet Count 176 x10^3/uL (140-400) Neutrophils (%) (Auto) 77 % (31-73) Lymphocytes (%) (Auto) 13 % (24-48) Monocytes (%) (Auto) 9 % (0-9) Eosinophils (%) (Auto) 1 % (0-3) Basophils (%) (Auto) 0 % (0-3) Neutrophils # (Auto) 6.5 x10^3/uL (1.8-7.7) Lymphocytes # (Auto) 1.1 x10^3/uL (1.0-4.8) Monocytes # (Auto) 0.8 x10^3/uL (0.0-1.1) Eosinophils # (Auto) 0.1 x10^3/uL (0.0-0.7) Basophils # (Auto) 0.0 x10^3/uL (0.0-0.2) Sodium Level 132 mmol/L (136-145) Potassium Level 3.2 mmol/L (3.5-5.1) Chloride Level 99 mmol/L (98-107) Carbon Dioxide Level 28 mmol/L (21-32) Anion Gap 5 (6-14) Blood Urea Nitrogen 9 mg/dL (7-20) Creatinine 0.7 mg/dL (0.6-1.0) Estimated GFR (Cockcroft-Gault) 81.1 BUN/Creatinine Ratio 13 (6-20) Glucose Level 114 mg/dL (70-99) Calcium Level 8.1 mg/dL (8.5-10.1) Total Bilirubin 0.4 mg/dL (0.2-1.0) Aspartate Amino Transf (AST/SGOT) 44 U/L (15-37) Alanine Aminotransferase (ALT/SGPT) 22 U/L (14-59) Alkaline Phosphatase 120 U/L (46-116) Total Protein 6.2 g/dL (6.4-8.2) Albumin 2.4 g/dL (3.4-5.0) Albumin/Globulin Ratio 0.6 (1.0-1.7) Microbiology 11/24/20 Urine Culture - Final, Complete Medications Current Medications Ondansetron HCl (Zofran) 4 mg 1X ONCE IVP Last administered on 11/24/20at 05:30; Start 11/24/20 at 05:30; Stop 11/24/20 at 05:35; Status DC Sodium Chloride 1,000 ml @ 1,000 mls/hr 1X ONCE IV Last administered on at 05:57; Start 11/24/20 at 06:00; Stop 11/24/20 at 06:59; Status DC Ceftriaxone Sodium (Rocephin) 1 gm 1X ONCE IVP Last administered on 11/24/20at 08:50; Start 11/24/20 at 08:00; Stop 11/24/20 at 08:01; Status DC Ondansetron HCl (Zofran) 4 mg PRN Q8HRS PRN IVP NAUSEA/VOMITING; Start 11/24/20 at 08:30; Stop 11/24/20 at 09:27; Status DC Sodium Chloride 1,000 ml @ 100 mls/hr Q10H IV Last administered on 11/24/20at 22:20; Start 11/24/20 at 08:30; Stop 11/25/20 at 08:29; Status DC Ondansetron HCl (Zofran) 4 mg PRN Q6HRS PRN IVP NAUSEA/VOMITING; Start 11/24/20 at 09:00 Calcium Carbonate/ Glycine (Tums) 500 mg PRN Q3HRS PRN PO UPSET STOMACH; Start 11/24/20 at 09:00 Zolpidem Tartrate (Ambien) 5 mg PRN QHS PRN PO INSOMNIA, MAY REPEAT IN 1HR Last administered on 11/26/20at 21:06; Start 11/24/20 at 09:00 Info (Non-Icu Electrolyte Protocol) 1 ea PRN DAILY PRN MC SEE COMMENTS; Start 11/24/20 at 09:00 Oxycodone HCl (Roxicodone) 5 mg PRN Q3HRS PRN PO BREAKTHROUGH PAIN; Start 11/24/20 at 09:00 Oxycodone/ Acetaminophen (Percocet 5/325) 1 tab PRN Q4HRS PRN PO MODERATE PAIN; Start 11/24/20 at 09:00 Oxycodone/ Acetaminophen (Percocet 5/325) 2 tab PRN Q4HRS PRN PO SEVERE PAIN; Start 11/24/20 at 09:00 Acetaminophen (Tylenol) 650 mg PRN Q6HRS PRN PO Headaches, Temp > 101.5F; Start 11/24/20 at 09:00 Senna/Docusate Sodium (Senna Plus) 1 tab BID PO Last administered on 11/26/20at 21:06; Start 11/24/20 at 21:00 Heparin Sodium (Porcine) (Heparin Sodium) 5,000 unit Q8HRS SQ Last administered on 11/27/20at 06:26; Start 11/24/20 at 14:00 Amlodipine Besylate (Norvasc) 5 mg DAILY PO Last administered on 11/26/20at 08:19; Start 11/24/20 at 09:30 Carvedilol (Coreg) 3.125 mg BIDWMEALS PO Last administered on 11/26/20at 17:13; Start 11/24/20 at 09:30 Tramadol HCl (Ultram) 50 mg PRN Q4HRS PRN PO MILD PAIN 1-3; Start 11/24/20 at 09:00 Non-Formulary Medication (Budesonide/ Formoterol Fumarate (Symbicort 160-4.5 Mcg Inhaler)) 2 puff BID IH ; Start 11/24/20 at 09:00; Status UNV Carbamazepine (TEGretol) 300 mg BID PO Last administered on 11/24/20at 11:43; Start 11/24/20 at 09:30; Stop 11/24/20 at 17:47; Status DC Losartan Potassium (Cozaar) 100 mg DAILY PO Last administered on 11/26/20at 08:19; Start 11/24/20 at 10:00 Atorvastatin Calcium (Lipitor) 5 mg QHS PO Last administered on 11/26/20at 21:06; Start 11/24/20 at 21:00 Albuterol Sulfate (Ventolin Neb Soln) 2.5 mg Q6HRS NEB Last administered on 11/27/20at 07:03; Start 11/24/20 at 12:00 Budesonide (Pulmicort) 0.5 mg RTBID NEB Last administered on 11/27/20at 07:03; Start 11/24/20 at 10:00 Nitrofurantoin Macrocrystals (Macrobid) 100 mg BID PO Last administered on 11/26/20at 21:06; Start 11/24/20 at 09:45 Lactobacillus Rhamnosus (Culturelle) 1 cap BID PO Last administered on 11/26/20at 21:06; Start 11/24/20 at 21:00 Carbamazepine (TEGretol XR) 600 mg BID PO Last administered on 11/26/20at 21:06; Start 11/24/20 at 21:00 Potassium Chloride (Klor-Con) 40 meq 1X ONCE PO Last administered on 11/25/20at 15:21; Start 11/25/20 at 14:00; Stop 11/25/20 at 14:01; Status DC Polyethylene Glycol (miraLAX PACKET) 17 gm DAILY PO Last administered on 11/26/20at 10:28; Start 11/26/20 at 10:15 Bisacodyl (Dulcolax Supp) 10 mg 1X ONCE IL ; Start 11/26/20 at 10:15; Stop 11/26/20 at 10:16; Status DC Active Scripts Active Tramadol Hcl 50 Mg Tablet 50 Mg PO Q4HRS PRN Reported Carbamazepine 300 Mg Cpmp.12hr 2 Cap PO BID 30 Days Carvedilol (Carvedilol) 3.125 Mg Tablet 3.125 Mg PO BIDWMEALS Losartan Potassium 100 Mg Tablet 100 Mg PO DAILY Lovastatin 20 Mg Tablet 20 Mg PO HS Amlodipine Besylate 5 Mg Tablet 5 Mg PO DAILY Symbicort 160-4.5 Mcg Inhaler (Budesonide/Formoterol Fumarate) 10.2 Gm Hfa.aer.ad 2 Puff IH BID Tums (Calcium Carbonate) 200 Mg Tab.chew 200 Mg PO PRN BID PRN Calcium + Vitamin D Tablet (Calcium Carbonate/Vitamin D3) 1 Each Tablet 1 Each PO DAILY Centrum Silver Tablet (Multivits-Min/Fa/Lycopene/Lut) 1 Each Tablet 1 Each PO GUERO Vitals/I & O Vital Sign - Last 24 Hours 11/26/20 11/26/20 11/26/20 11/26/20 11:05 12:40 15:20 17:13 Temp 98.0 98.5 98.0 98.5 Pulse 77 74 74 Resp 18 18 B/P (MAP) 147/82 (103) 150/87 (108) 150/87 Pulse Ox 95 98 O2 Delivery BiPAP/CPAP Nasal Cannula BiPAP/CPAP O2 Flow Rate 2.0 11/26/20 11/26/20 11/26/20 11/26/20 19:15 19:35 20:26 23:12 Temp 97.9 98.0 97.9 98.0 Pulse 87 88 Resp 20 20 B/P (MAP) 138/78 (98) 132/72 (92) Pulse Ox 97 100 97 O2 Delivery Nasal Cannula Nasal Cannula Nasal Cannula Nasal Cannula O2 Flow Rate 2.0 2.0 2.0 2.0 11/27/20 11/27/20 11/27/20 11/27/20 01:45 03:11 07:00 07:03 Temp 97.3 98.1 97.3 98.1 Pulse 66 66 Resp 18 20 B/P (MAP) 144/70 (94) 147/70 (95) Pulse Ox 100 92 99 98 O2 Delivery HOME CPAP/RA BiPAP/CPAP Nasal Cannula Nasal Cannula O2 Flow Rate 2.0 2.0 Intake and Output 11/26/20 11/26/20 11/27/20 15:00 23:00 07:00 Intake Total 340 ml 120 ml 240 ml Output Total 502 ml 600 ml Balance 340 ml -382 ml -360 ml Justicifation of Admission Dx: Justifications for Admission: Justification of Admission Dx: Yes ROBERTO CARLOS HONG MD Nov 27, 2020 08:48
[2020-11-27] MEDS: SENNOSIDES/DOCUSATE 8.6/50MG TABLET. PO SCH ×2 (09:00→21:00)
[2020-11-27] MEDS: POLYETHYLENE GLYCOL 3350 17 GM PACKET. PO SCH (09:00)
[2020-11-27] MEDS: LOSARTAN POTASSIUM 50 MG TABLET. PO SCH (09:00)
[2020-11-27] MEDS: LACTOBACILLUS RHAMNOSUS GG 1 CAPSULE. PO SCH ×2 (09:18→21:12)
[2020-11-27] MEDS: CARVEDILOL 3.125 MG TABLET. PO SCH ×2 (09:19→16:41)
[2020-11-27] MEDS: NITROFURANTOIN MONOHYD/M-CRYST 100 MG CAPSULE. PO SCH ×2 (09:24→21:09)
--- NOTE | 2020-11-27 10:03 | NUR ---
PCR swab at 0930. Taken to lab [id number]
[2020-11-27 10:51] VITALS: BP 139/67
--- NOTE | 2020-11-27 10:53 | NUR ---
BIJAN following. Discussed with RN, pt from home alone. room air, cardiac diet. Therapy recommending SNF. Pt agreeable to SNF and wants to go back to [facility]. BIJAN phoned and faxed referral, awaiting acceptance decision. BIJAN will continue to follow. Addendum: 11/27/20 at 1355 by JULIETH THAKKAR Pt accepted at [facility]. Dr. Bowman notified, awaiting discharge orders. 6 minute walk ordered, pt does not need a 6 minute walk to go to a facility - Dr. Bowman and RN notified.
--- NOTE | 2020-11-27 11:24 | RAD ---
XR CHEST 1V INDICATION: hypoxia COMPARISON STUDY: 09/06/2020. FINDINGS: Lungs: Normal lung volume. Prominent interstitial markings. Pleura: Trace bilateral pleural effusions. Heart and Mediastinum: Stable cardiomediastinal silhouette and great vessels. IMPRESSION: Prominent interstitial markings and trace bilateral pleural effusions, probably interstitial edema. Electronically signed by: Aram Story MD (11/27/2020 11:22 AM) [id number]
[2020-11-27 11:56] LABS: CALCIUM 8.4 mg/dL (8.5-10.1); CREATININE 0.7 mg/dL (0.6-1.0); GFR 81.1; POTASSIUM 3.9 mmol/L (3.5-5.1)
[2020-11-27] MEDS ORDERED: FUROSEMIDE 40 MG/4 ML VIAL. IVP ONE (13:00)
[2020-11-27 14:46] VITALS: BP 134/59
[2020-11-27 19:00] VITALS: BP 137/62
[2020-11-27] MEDS: ATORVASTATIN CALCIUM 10 MG TABLET. PO SCH (21:09)
[2020-11-27 23:00] VITALS: BP 147/69
[2020-11-28 03:00] VITALS: BP 113/74
[2020-11-28] MEDS: HEPARIN for SUB-Q USE 5,000 UNIT/ML VIAL. SQ SCH ×2 (05:53→14:40)
[2020-11-28 07:00] VITALS: BP 158/66
[2020-11-28] MEDS: BUDESONIDE 0.5 MG/2 ML NEBU. NEB SCH (07:14)
[2020-11-28] MEDS: ALBUTEROL SULFATE 2.5 MG/3 ML NEBU. NEB SCH ×2 (07:14→12:35)
[2020-11-28 07:33] LABS: BASO # 0.1 x10^3/uL (0.0-0.2); BASO % 1 % (0-3); EOS # 0.2 x10^3/uL (0.0-0.7); EOS % 3 % (0-3); HEMATOCRIT 31.2 % (36.0-47.0); HEMOGLOBIN 10.5 g/dL (12.0-15.5); LYMPH # 1.7 x10^3/uL (1.0-4.8); LYMPH % 21 % (24-48); MEAN CORPUSCULAR HEMOGLOBIN 31 pg (25-35); MEAN CORPUSCULAR HGB CONC 34 g/dL (31-37); MEAN CORPUSCULAR VOLUME 91 fL (79-100); MONO % 12 % (0-9); NEUT # 5.3 x10^3/uL (1.8-7.7); NEUT % 64 % (31-73); PLATELET COUNT 264 x10^3/uL (140-400); RED BLOOD COUNT 3.42 x10^6/uL (3.50-5.40); RED CELL DISTRIBUTION WIDTH 13.9 % (11.5-14.5); WHITE BLOOD COUNT 8.3 x10^3/uL (4.0-11.0)
[2020-11-28 07:43] LABS: ALBUMIN 2.3 g/dL (3.4-5.0); ALBUMIN/GLOBULIN RATIO 0.6 (1.0-1.7); CALCIUM 8.4 mg/dL (8.5-10.1); CREATININE 0.6 mg/dL (0.6-1.0); GFR 96.9; POTASSIUM 3.2 mmol/L (3.5-5.1); TOTAL BILIRUBIN 0.4 mg/dL (0.2-1.0); TOTAL PROTEIN 6.2 g/dL (6.4-8.2)
[2020-11-28] MEDS: CARVEDILOL 3.125 MG TABLET. PO SCH ×2 (08:33→17:00)
[2020-11-28] MEDS: NITROFURANTOIN MONOHYD/M-CRYST 100 MG CAPSULE. PO SCH (08:33)
[2020-11-28] MEDS: LOSARTAN POTASSIUM 50 MG TABLET. PO SCH (08:34)
[2020-11-28] MEDS: LACTOBACILLUS RHAMNOSUS GG 1 CAPSULE. PO SCH (08:34)
[2020-11-28] MEDS: SENNOSIDES/DOCUSATE 8.6/50MG TABLET. PO SCH (08:35)
[2020-11-28] MEDS: POLYETHYLENE GLYCOL 3350 17 GM PACKET. PO SCH (08:35)
--- NOTE | 2020-11-28 09:52 | PDOC ---
PROGRESS NOTES Date of Service: DATE: 11/28/20 TIME: 09:50 Chief Complaint Chief Complaint impression Morbid obesity weakness severe protein-caloric malnutrition hypoxia bullous emphysematous changes throughout both lungs Degenerative arthritis, left knee./ Left total knee arthroplasty.10-21-20 Acute exac CHF, diastolic dysfunction plan 11-28 cxr reviewed ABG replace k AM K REDUCE NARCOTIC USE DUE TO Hypoxia, probable obesity, hypoventilation syndrome ECHO good urine output overnight 2900 cc echo pending, check troponin i Continue secondary prevention measures. Add ASA Plan for outpt MPI. d/c planning 34 min Discharge Recommendations * Care Home Unit History of Present Illness History of Present Illness 75 year old female who presents with generalized weakness. She was just recently discharged from [facility] after a month-long stay at there. Apparently was in good condition where she left there however upon returning home started developing weakness. Her brother is at bedside has been helping take care of her. Weakness continued and patient did also start developing some altered mental status she went to [facility] a few days ago was diagnosed with a UTI and has been treated with Keflex. Has noticed weakness is gotten notably worse since starting treatment. Her brother had been helping her ambulate around her house but got to the point where he could not provide as much assistance as needed. She was supposed to have a PCP appointme nt this morning at 930. However patient was too weak to the point her brother could not even get her up and not I was called to bring her to the emergency room. When I saw them patient does seem a bit altered. Brother bedside confirmed history. She denies any headache, vision changes, chest pain, shortness of breath, fevers, abdominal pain. 11/25 Patient resting in bed when evaluated. Overall no major complaints. PT OT. Continue UTI treatment. 11/26 Patient evaluated at bedside no major clinical changes. Complaining of some constipation requesting MiraLAX and suppository. Possible discharge to [place] 11-27 cxr today 6 MIN WALK ABG replace k bmp today REDUCE NARCOTIC USE DUE TO Hypoxia, probable obesity, hypoventilation syndrome, states she doesn't need narcotic today Discharge Recommendations * Care Home Unit Vitals Vitals Vital Signs Date Time Temp Pulse Resp B/P (MAP) Pulse Ox O2 Delivery O2 Flow Rate FiO2 11/28/20 08:34 63 158/66 11/28/20 08:00 Room Air 11/28/20 07:14 94 11/28/20 07:00 98.6 18 98.6 11/27/20 08:00 2.0 Physical Exam Physical Exam sitting up in bed in [facility] on room air General: Alert, Oriented X3, Cooperative, No acute distress Heart: Regular rate, Normal S1, Normal S2, No murmurs Lungs: Clear Abdomen: Normal bowel sounds, Soft, No tenderness Extremities: No clubbing, No cyanosis, No edema, Normal pulses Skin: No significant lesion Labs LABS Laboratory Tests Test 11/27/20 11:30 11/28/20 06:35 Sodium Level 134 mmol/L (136-145) 135 mmol/L (136-145) Potassium Level 3.9 mmol/L (3.5-5.1) 3.2 mmol/L (3.5-5.1) Chloride Level 99 mmol/L (98-107) 99 mmol/L (98-107) Carbon Dioxide Level 31 mmol/L (21-32) 29 mmol/L (21-32) Anion Gap 4 (6-14) 7 (6-14) Blood Urea Nitrogen 8 mg/dL (7-20) 7 mg/dL (7-20) Creatinine 0.7 mg/dL (0.6-1.0) 0.6 mg/dL (0.6-1.0) Estimated GFR (Cockcroft-Gault) 81.1 96.9 Glucose Level 121 mg/dL (70-99) 101 mg/dL (70-99) Calcium Level 8.4 mg/dL (8.5-10.1) 8.4 mg/dL (8.5-10.1) CX-Nqp-G-Type Natriuretic Peptide 8843 pg/mL (0-449) Thyroid Stimulating Hormone (TSH) 1.584 uIU/mL (0.358-3.74) White Blood Count 8.3 x10^3/uL (4.0-11.0) Red Blood Count 3.42 x10^6/uL (3.50-5.40) Hemoglobin 10.5 g/dL (12.0-15.5) Hematocrit 31.2 % (36.0-47.0) Mean Corpuscular Volume 91 fL (79-100) Mean Corpuscular Hemoglobin 31 pg (25-35) Mean Corpuscular Hemoglobin Concent 34 g/dL (31-37) Red Cell Distribution Width 13.9 % (11.5-14.5) Platelet Count 264 x10^3/uL (140-400) Neutrophils (%) (Auto) 64 % (31-73) Lymphocytes (%) (Auto) 21 % (24-48) Monocytes (%) (Auto) 12 % (0-9) Eosinophils (%) (Auto) 3 % (0-3) Basophils (%) (Auto) 1 % (0-3) Neutrophils # (Auto) 5.3 x10^3/uL (1.8-7.7) Lymphocytes # (Auto) 1.7 x10^3/uL (1.0-4.8) Monocytes # (Auto) 1.0 x10^3/uL (0.0-1.1) Eosinophils # (Auto) 0.2 x10^3/uL (0.0-0.7) Basophils # (Auto) 0.1 x10^3/uL (0.0-0.2) BUN/Creatinine Ratio 12 (6-20) Total Bilirubin 0.4 mg/dL (0.2-1.0) Aspartate Amino Transf (AST/SGOT) 15 U/L (15-37) Alanine Aminotransferase (ALT/SGPT) 17 U/L (14-59) Alkaline Phosphatase 106 U/L (46-116) Total Protein 6.2 g/dL (6.4-8.2) Albumin 2.3 g/dL (3.4-5.0) Albumin/Globulin Ratio 0.6 (1.0-1.7) Assessment and Plan Assessmemt and Plan Problems Medical Problems: (1) Dehydration Status: Acute (2) Generalized weakness Status: Acute (3) Urinary tract infection Status: Acute Comment Review of Relevant I have reviewed the following items kina (where applicable) has been applied. Labs Laboratory Tests Test 11/27/20 11:30 11/28/20 06:35 Sodium Level 134 mmol/L (136-145) 135 mmol/L (136-145) Potassium Level 3.9 mmol/L (3.5-5.1) 3.2 mmol/L (3.5-5.1) Chloride Level 99 mmol/L (98-107) 99 mmol/L (98-107) Carbon Dioxide Level 31 mmol/L (21-32) 29 mmol/L (21-32) Anion Gap 4 (6-14) 7 (6-14) Blood Urea Nitrogen 8 mg/dL (7-20) 7 mg/dL (7-20) Creatinine 0.7 mg/dL (0.6-1.0) 0.6 mg/dL (0.6-1.0) Estimated GFR (Cockcroft-Gault) 81.1 96.9 Glucose Level 121 mg/dL (70-99) 101 mg/dL (70-99) Calcium Level 8.4 mg/dL (8.5-10.1) 8.4 mg/dL (8.5-10.1) CB-Xhb-G-Type Natriuretic Peptide 8843 pg/mL (0-449) Thyroid Stimulating Hormone (TSH) 1.584 uIU/mL (0.358-3.74) White Blood Count 8.3 x10^3/uL (4.0-11.0) Red Blood Count 3.42 x10^6/uL (3.50-5.40) Hemoglobin 10.5 g/dL (12.0-15.5) Hematocrit 31.2 % (36.0-47.0) Mean Corpuscular Volume 91 fL (79-100) Mean Corpuscular Hemoglobin 31 pg (25-35) Mean Corpuscular Hemoglobin Concent 34 g/dL (31-37) Red Cell Distribution Width 13.9 % (11.5-14.5) Platelet Count 264 x10^3/uL (140-400) Neutrophils (%) (Auto) 64 % (31-73) Lymphocytes (%) (Auto) 21 % (24-48) Monocytes (%) (Auto) 12 % (0-9) Eosinophils (%) (Auto) 3 % (0-3) Basophils (%) (Auto) 1 % (0-3) Neutrophils # (Auto) 5.3 x10^3/uL (1.8-7.7) Lymphocytes # (Auto) 1.7 x10^3/uL (1.0-4.8) Monocytes # (Auto) 1.0 x10^3/uL (0.0-1.1) Eosinophils # (Auto) 0.2 x10^3/uL (0.0-0.7) Basophils # (Auto) 0.1 x10^3/uL (0.0-0.2) BUN/Creatinine Ratio 12 (6-20) Total Bilirubin 0.4 mg/dL (0.2-1.0) Aspartate Amino Transf (AST/SGOT) 15 U/L (15-37) Alanine Aminotransferase (ALT/SGPT) 17 U/L (14-59) Alkaline Phosphatase 106 U/L (46-116) Total Protein 6.2 g/dL (6.4-8.2) Albumin 2.3 g/dL (3.4-5.0) Albumin/Globulin Ratio 0.6 (1.0-1.7) Laboratory Tests Test 11/27/20 11:30 11/28/20 06:35 Sodium Level 134 mmol/L (136-145) 135 mmol/L (136-145) Potassium Level 3.9 mmol/L (3.5-5.1) 3.2 mmol/L (3.5-5.1) Chloride Level 99 mmol/L (98-107) 99 mmol/L (98-107) Carbon Dioxide Level 31 mmol/L (21-32) 29 mmol/L (21-32) Anion Gap 4 (6-14) 7 (6-14) Blood Urea Nitrogen 8 mg/dL (7-20) 7 mg/dL (7-20) Creatinine 0.7 mg/dL (0.6-1.0) 0.6 mg/dL (0.6-1.0) Estimated GFR (Cockcroft-Gault) 81.1 96.9 Glucose Level 121 mg/dL (70-99) 101 mg/dL (70-99) Calcium Level 8.4 mg/dL (8.5-10.1) 8.4 mg/dL (8.5-10.1) HC-Oiz-K-Type Natriuretic Peptide 8843 pg/mL (0-449) Thyroid Stimulating Hormone (TSH) 1.584 uIU/mL (0.358-3.74) White Blood Count 8.3 x10^3/uL (4.0-11.0) Red Blood Count 3.42 x10^6/uL (3.50-5.40) Hemoglobin 10.5 g/dL (12.0-15.5) Hematocrit 31.2 % (36.0-47.0) Mean Corpuscular Volume 91 fL (79-100) Mean Corpuscular Hemoglobin 31 pg (25-35) Mean Corpuscular Hemoglobin Concent 34 g/dL (31-37) Red Cell Distribution Width 13.9 % (11.5-14.5) Platelet Count 264 x10^3/uL (140-400) Neutrophils (%) (Auto) 64 % (31-73) Lymphocytes (%) (Auto) 21 % (24-48) Monocytes (%) (Auto) 12 % (0-9) Eosinophils (%) (Auto) 3 % (0-3) Basophils (%) (Auto) 1 % (0-3) Neutrophils # (Auto) 5.3 x10^3/uL (1.8-7.7) Lymphocytes # (Auto) 1.7 x10^3/uL (1.0-4.8) Monocytes # (Auto) 1.0 x10^3/uL (0.0-1.1) Eosinophils # (Auto) 0.2 x10^3/uL (0.0-0.7) Basophils # (Auto) 0.1 x10^3/uL (0.0-0.2) BUN/Creatinine Ratio 12 (6-20) Total Bilirubin 0.4 mg/dL (0.2-1.0) Aspartate Amino Transf (AST/SGOT) 15 U/L (15-37) Alanine Aminotransferase (ALT/SGPT) 17 U/L (14-59) Alkaline Phosphatase 106 U/L (46-116) Total Protein 6.2 g/dL (6.4-8.2) Albumin 2.3 g/dL (3.4-5.0) Albumin/Globulin Ratio 0.6 (1.0-1.7) Microbiology 11/24/20 Urine Culture - Final, Complete Medications Current Medications Ondansetron HCl (Zofran) 4 mg 1X ONCE IVP Last administered on 11/24/20at 05:30; Start 11/24/20 at 05:30; Stop 11/24/20 at 05:35; Status DC Sodium Chloride 1,000 ml @ 1,000 mls/hr 1X ONCE IV Last administered on 11/24/20at 05:57; Start 11/24/20 at 06:00; Stop 11/24/20 at 06:59; Status DC Ceftriaxone Sodium (Rocephin) 1 gm 1X ONCE IVP Last administered on 11/24/20at 08:50; Start 11/24/20 at 08:00; Stop 11/24/20 at 08:01; Status DC Ondansetron HCl (Zofran) 4 mg PRN Q8HRS PRN IVP NAUSEA/VOMITING; Start 11/24/20 at 08:30; Stop 11/24/20 at 09:27; Status DC Sodium Chloride 1,000 ml @ 100 mls/hr Q10H IV Last administered on 11/24/20at 22:20; Start 11/24/20 at 08:30; Stop 11/25/20 at 08:29; Status DC Ondansetron HCl (Zofran) 4 mg PRN Q6HRS PRN IVP NAUSEA/VOMITING Last administered on 11/27/20at 23:25; Start 11/24/20 at 09:00 Calcium Carbonate/ Glycine (Tums) 500 mg PRN Q3HRS PRN PO UPSET STOMACH; Start 11/24/20 at 09:00 Zolpidem Tartrate (Ambien) 5 mg PRN QHS PRN PO INSOMNIA, MAY REPEAT IN 1HR Last administered on 11/26/20at 21:06; Start 11/24/20 at 09:00 Info (Non-Icu Electrolyte Protocol) 1 ea PRN DAILY PRN MC SEE COMMENTS; Start 11/24/20 at 09:00 Oxycodone HCl (Roxicodone) 5 mg PRN Q3HRS PRN PO BREAKTHROUGH PAIN; Start 11/24/20 at 09:00; Stop 11/27/20 at 10:39; Status DC Oxycodone/ Acetaminophen (Percocet 5/325) 1 tab PRN Q4HRS PRN PO MODERATE PAIN; Start 11/24/20 at 09:00; Stop 11/27/20 at 11:48; Status DC Oxycodone/ Acetaminophen (Percocet 5/325) 2 tab PRN Q4HRS PRN PO SEVERE PAIN; Start 11/24/20 at 09:00; Stop 11/27/20 at 11:49; Status DC Acetaminophen (Tylenol) 650 mg PRN Q6HRS PRN PO Headaches, Temp > 101.5F; Start 11/24/20 at 09:00 Senna/Docusate Sodium (Senna Plus) 1 tab BID PO Last administered on 11/26/20at 21:06; Start 11/24/20 at 21:00 Heparin Sodium (Porcine) (Heparin Sodium) 5,000 unit Q8HRS SQ Last administered on 11/28/20at 05:53; Start 11/24/20 at 14:00 Amlodipine Besylate (Norvasc) 5 mg DAILY PO Last administered on 11/28/20 08:33; Start 11/24/20 at 09:30 Carvedilol (Coreg) 3.125 mg BIDWMEALS PO Last administered on 11/28/20 08:33; Start 11/24/20 at 09:30 Tramadol HCl (Ultram) 50 mg PRN Q4HRS PRN PO MILD PAIN 1-3; Start 11/24/20 at 09:00; Stop 11/27/20 at 13:52; Status DC Non-Formulary Medication (Budesonide/ Formoterol Fumarate (Symbicort 160-4.5 Mcg Inhaler)) 2 puff BID IH ; Start 11/24/20 at 09:00; Status UNV Carbamazepine (TEGretol) 300 mg BID PO Last administered on 11/24/20at 11:43; Start 11/24/20 at 09:30; Stop 11/24/20 at 17:47; Status DC Losartan Potassium (Cozaar) 100 mg DAILY PO Last administered on 11/28/20at 08:34; Start 11/24/20 at 10:00 Atorvastatin Calcium (Lipitor) 5 mg QHS PO Last administered on 11/27/20at 21:09; Start 11/24/20 at 21:00 Albuterol Sulfate (Ventolin Neb Soln) 2.5 mg Q6HRS NEB Last administered on 11/28/20at 07:14; Start 11/24/20 at 12:00 Budesonide (Pulmicort) 0.5 mg RTBID NEB Last administered on 11/28/20at 07:14; Start 11/24/20 at 10:00 Nitrofurantoin Macrocrystals (Macrobid) 100 mg BID PO Last administered on 11/28/20at 08:33; Start 11/24/20 at 09:45 Lactobacillus Rhamnosus (Culturelle) 1 cap BID PO Last administered on 11/28/20at 08:34; Start 11/24/20 at 21:00 Carbamazepine (TEGretol XR) 600 mg BID PO Last administered on 11/28/20at 08:33; Start 11/24/20 at 21:00 Potassium Chloride (Klor-Con) 40 meq 1X ONCE PO Last administered on 11/25/20at 15:21; Start 11/25/20 at 14:00; Stop 11/25/20 at 14:01; Status DC Polyethylene Glycol (miraLAX PACKET) 17 gm DAILY PO Last administered on 11/26/20at 10:28; Start 11/26/20 at 10:15 Bisacodyl (Dulcolax Supp) 10 mg 1X ONCE MI ; Start 11/26/20 at 10:15; Stop 11/26/20 at 10:16; Status DC Furosemide (Lasix) 40 mg 1X ONCE IVP Last administered on 11/27/20at 14:15; Start 11/27/20 at 13:00; Stop 11/27/20 at 13:01; Status DC Active Scripts Active Tramadol Hcl 50 Mg Tablet 50 Mg PO Q4HRS PRN Reported Carbamazepine 300 Mg Cpmp.12hr 2 Cap PO BID 30 Days Carvedilol (Carvedilol) 3.125 Mg Tablet 3.125 Mg PO BIDWMEALS Losartan Potassium 100 Mg Tablet 100 Mg PO DAILY Lovastatin 20 Mg Tablet 20 Mg PO HS Amlodipine Besylate 5 Mg Tablet 5 Mg PO DAILY Symbicort 160-4.5 Mcg Inhaler (Budesonide/Formoterol Fumarate) 10.2 Gm Hfa.aer.ad 2 Puff IH BID Tums (Calcium Carbonate) 200 Mg Tab.chew 200 Mg PO PRN BID PRN Calcium + Vitamin D Tablet (Calcium Carbonate/Vitamin D3) 1 Each Tablet 1 Each PO DAILY Centrum Silver Tablet (Multivits-Min/Fa/Lycopene/Lut) 1 Each Tablet 1 Each PO GUERO Vitals/I & O Vital Sign - Last 24 Hours 11/27/20 11/27/20 11/27/20 11/27/20 10:51 13:34 14:46 16:41 Temp 98.1 98.0 98.1 98.0 Pulse 66 73 73 Resp 20 18 B/P (MAP) 139/67 (91) 134/59 (84) 134/59 Pulse Ox 93 92 92 O2 Delivery Room Air Room Air Room Air 11/27/20 11/27/20 11/27/20 11/27/20 19:00 19:19 20:00 23:00 Temp 98.1 98.4 98.1 98.4 Pulse 64 57 Resp 18 18 B/P (MAP) 137/62 (87) 147/69 (95) Pulse Ox 92 94 92 O2 Delivery Room Air Room Air Room Air Room Air 11/27/20 11/28/20 11/28/20 11/28/20 23:31 03:00 07:00 07:14 Temp 97.5 98.6 97.5 98.6 Pulse 59 63 Resp 18 18 B/P (MAP) 113/74 (87) 158/66 (96) Pulse Ox 91 91 94 O2 Delivery HOME CPAP BiPAP/CPAP Room Air Room Air 11/28/20 11/28/20 11/28/20 11/28/20 08:00 08:33 08:33 08:34 Pulse 63 63 63 B/P (MAP) 158/66 158/66 158/66 O2 Delivery Room Air Intake and Output 11/27/20 11/27/20 11/28/20 15:00 23:00 07:00 Output Total 850 ml 1250 ml 800 ml Balance -850 ml -1250 ml -800 ml Justicifation of Admission Dx: Justifications for Admission: Justification of Admission Dx: Yes ROBERTO CARLOS HONG MD Nov 28, 2020 09:52
[2020-11-28] MEDS ORDERED: POTASSIUM CHLORIDE 20 MEQ TABLET.ER. PO ONE ×2 (10:00)
--- NOTE | 2020-11-28 10:02 | PDOC2 ---
CARDIAC CONSULT DATE OF CONSULT Date of Consult DATE: 11/28/20 TIME: 09:41 REASON FOR CONSULT Reason for Consult: CHF REFERRING PHYSICIAN Referring Physician: Fullbright SOURCE Source: Chart review, Patient HISTORY OF PRESENT ILLNESS HISTORY OF PRESENT ILLNESS This is a 75 yo female admitted for weakness. She has been feeling fatigue and was needing oxygen upon admission. Further testing noted that she has a UTI. She is able to care for herself at home and very functional and lives alone. Denies SOA, chest pain, or palpitations. Upon admission she was noted with possible CHF per CXR. Her pro NT BNP was high bu currently clinically she is compensated., Denies any orthopnea and does well with her home CPAP. No PND and no hxof heart disease. She has been vaccinated for covid-19. No intractable coughing. She has COPD and stable. NO fever or chills. PAST MEDICAL HISTORY Cardiovascular: HTN, Hyperlipidemia Pulmonary: COPD, Other (sleep apnea) Musculoskeletal: Osteoarthritis PAST SURGICAL HISTORY Past Surgical History: Total hip replacement (bilateral), Total knee replacement (left knee) FAMILY HISTORY Family History noncontributory to CV SOCIAL HISTORY Smoke: Quit ALCOHOL: none Drugs: None Lives: Alone CURRENT MEDICATIONS CURRENT MEDICATIONS Current Medications Medications (Trade) Dose Ordered Sig/Rosanna Route PRN Reason Start Time Stop Time Status Last Admin Dose Admin Furosemide (Lasix) 40 mg 1X ONCE IVP 11/27/20 13:00 11/27/20 13:01 DC 11/27/20 14:15 ALLERGIES ALLERGIES: Coded Allergies: Sulfa (Sulfonamide Antibiotics) (Verified Allergy, Intermediate, 09/06/20) oxycodone (Verified Adverse Reaction, Intermediate, MAKES HER "CRAZY", 09/06/20) ROS Review of System 14 point ROS evaluated with pertinent positives noted per HPI PHYSICAL EXAM General: Alert, Oriented X3, Cooperative, No acute distress HEENT: Atraumatic, Mucous membr. moist/pink Lungs: Clear to auscultation, Normal air movement Heart: Regular rate, Normal S1, Normal S2, No murmurs Abdomen: Soft, No tenderness Extremities: No cyanosis, No edema Skin: No breakdown, No significant lesion Neuro: Normal speech, Sensation intact Psych/Mental Status: Mental status NL, Mood NL MUSCULOSKELETAL: Osteoarthritic changes both hands VITALS/I&O VITALS/I&O: Vital Signs Date Time Temp Pulse Resp B/P (MAP) Pulse Ox O2 Delivery O2 Flow Rate FiO2 11/28/20 08:34 63 158/66 11/28/20 08:00 Room Air 11/28/20 07:14 94 11/28/20 07:00 98.6 18 98.6 11/27/20 08:00 2.0 I & O 11/27/20 11/27/20 11/28/20 15:00 23:00 07:00 Output Total 850 ml 1250 ml 800 ml Balance -850 ml -1250 ml -800 ml LABS Lab: Laboratory Tests Test 11/27/20 11:30 11/28/20 06:35 Sodium Level 134 mmol/L (136-145) L 135 mmol/L (136-145) L Potassium Level 3.9 mmol/L (3.5-5.1) 3.2 mmol/L (3.5-5.1) L Chloride Level 99 mmol/L (98-107) 99 mmol/L (98-107) Carbon Dioxide Level 31 mmol/L (21-32) 29 mmol/L (21-32) Anion Gap 4 (6-14) L 7 (6-14) Blood Urea Nitrogen 8 mg/dL (7-20) 7 mg/dL (7-20) Creatinine 0.7 mg/dL (0.6-1.0) 0.6 mg/dL (0.6-1.0) Estimated GFR (Cockcroft-Gault) 81.1 96.9 Glucose Level 121 mg/dL (70-99) H 101 mg/dL (70-99) H Calcium Level 8.4 mg/dL (8.5-10.1) L 8.4 mg/dL (8.5-10.1) L NN-Vmx-R-Type Natriuretic Peptide 8843 pg/mL (0-449) H Thyroid Stimulating Hormone (TSH) 1.584 uIU/mL (0.358-3.74) White Blood Count 8.3 x10^3/uL (4.0-11.0) Red Blood Count 3.42 x10^6/uL (3.50-5.40) L Hemoglobin 10.5 g/dL (12.0-15.5) L Hematocrit 31.2 % (36.0-47.0) L Mean Corpuscular Volume 91 fL (79-100) Mean Corpuscular Hemoglobin 31 pg (25-35) Mean Corpuscular Hemoglobin Concent 34 g/dL (31-37) Red Cell Distribution Width 13.9 % (11.5-14.5) Platelet Count 264 x10^3/uL (140-400) Neutrophils (%) (Auto) 64 % (31-73) Lymphocytes (%) (Auto) 21 % (24-48) L Monocytes (%) (Auto) 12 % (0-9) H Eosinophils (%) (Auto) 3 % (0-3) Basophils (%) (Auto) 1 % (0-3) Neutrophils # (Auto) 5.3 x10^3/uL (1.8-7.7) Lymphocytes # (Auto) 1.7 x10^3/uL (1.0-4.8) Monocytes # (Auto) 1.0 x10^3/uL (0.0-1.1) Eosinophils # (Auto) 0.2 x10^3/uL (0.0-0.7) Basophils # (Auto) 0.1 x10^3/uL (0.0-0.2) BUN/Creatinine Ratio 12 (6-20) Total Bilirubin 0.4 mg/dL (0.2-1.0) Aspartate Amino Transferase (AST) 15 U/L (15-37) Alanine Aminotransferase (ALT) 17 U/L (14-59) Alkaline Phosphatase 106 U/L (46-116) Total Protein 6.2 g/dL (6.4-8.2) L Albumin 2.3 g/dL (3.4-5.0) L Albumin/Globulin Ratio 0.6 (1.0-1.7) L Laboratory Tests 11/28/20 06:35 Laboratory Tests 11/27/20 11:30 11/28/20 06:35 ECHOCARDIOGRAM ECHOCARDIOGRAM <Conclusion> The left ventricle is normal size. The left ventricular systolic function is normal and the ejection fraction is within normal range. The Ejection Fraction is 55-60%. There is mild concentric left ventricular hypertrophy. Doppler and Color Flow revealed trace aortic regurgitation. There is no significant aortic valvular stenosis. Doppler and Color-flow revealed trace mitral regurgitation. Doppler and Color Flow revealed trace tricuspid regurgitation with an estimated PAP of 29 mmHg. DATE: 09/22/20 [id number] ASSESSMENT/PLAN ASSESSMENT/PLAN 1. UTI 2. Acute on chronic diastolic CHF: unclear etiology for decompensation. Received lasix. Now compensated 3. HTN: controlled 4. HLP: on statin 5. CHELY: home CPAP use 6. COPD: stable 7. Morbid obesity Recommendations 1. Continue antibiotics per PCP 2. Continue secondary prevention measures. Add ASA 3. Plan for outpt MPI. 4. COSTA Rivera APRN Nov 28, 2020 10:01
[2020-11-28 11:00] VITALS: BP 149/74
--- NOTE | 2020-11-28 11:40 | NUR ---
rapid covid swab done @ 1100. taken to lab 1103.
--- NOTE | 2020-11-28 11:42 | PDOC3 ---
Discharge Summary Date of Admission: Nov 24, 2020 Date of Discharge: Nov 28, 2020 Follow-Up: 1-2 days Admitting Diagnosis comment: HPI History of Present Illness: Patient is a 75 year old female who presents with generalized weakness. She was just recently discharged from [facility] after a month-long stay at there. Apparently was in good condition where she left there however upon returning home started developing weakness. Her brother is at bedside has been helping take care of her. Weakness continued and patient did also start developing some altered mental status she went to [facility] a few days ago was diagnosed with a UTI and has been treated with Keflex. Has noticed weakness is gotten notably worse since starting treatment. Her brother had been helping her ambulate around her house but got to the point where he could not provide as much assistance as needed. She was supposed to have a PCP appointment this morning at 930. However patient was too weak to the point her brother could not even get her up and not I was called to bring her to the emergency room. CONSULTS CARDIOLOGY COMPLICATIONS NONE D/C CONDITION GOOD D/C MEDS SEE MAR DISCHARGE DX Chief Complaint impression Morbid obesity weakness severe protein-caloric malnutrition hypoxia bullous emphysematous changes throughout both lungs Degenerative arthritis, left knee./ Left total knee arthroplasty.10-21-20 Acute exac CHF, diastolic dysfunction, NOW COMPENSATED plan 11-28 cxr reviewed replace k AM K REDUCE NARCOTIC USE DUE TO Hypoxia, probable obesity, hypoventilation syndrome ECHO good urine output overnight 2900 cc echo pending, check troponin i Continue secondary prevention measures. Add ASA Plan for outpt MPI. d/c planning 34 min Discharge Recommendations * Jail Unit History of Present Illness History of Present Illness 75 year old female who presents with generalized weakness. She was just recently discharged from [facility] after a month-long stay at there. Apparently was in good condition where she left there however upon returning home started developing weakness. Her brother is at bedside has been helping take care of her. Weakness continued and patient did also start developing some altered mental status she went to [facility] a few days ago was diagnosed with a UTI and has been treated with Keflex. Has noticed weakness is gotten notably worse since starting treatment. Her brother had been helping her ambulate around her house but got to the point where he could not provide as much assistance as needed. She was supposed to have a PCP appointment this morning at 930. However patient was too weak to the point her brother could not even get her up and not I was called to bring her to the emergency room. When I saw them patient does seem a bit altered. Brother bedside confirmed history. She denies any headache, vision changes, chest pain, shortness of breath, fevers, abdominal pain. 11/25 Patient resting in bed when evaluated. Overall no major complaints. PT OT. Continue UTI treatment. 11/26 Patient evaluated at bedside no major clinical changes. Complaining of some constipation requesting MiraLAX and suppository. Possible discharge to [facility] 11-27 cxr today 6 MIN WALK ABG replace k bmp today REDUCE NARCOTIC USE DUE TO Hypoxia, probable obesity, hypoventilation syndrome, states she doesn't need narcotic today Discharge Recommendations * Jail Unit * * * * 11-28 cxr noted replace k bmp in am d/c NARCOTIC USE DUE TO Hypoxia, probable obesity, hypoventilation syndrome, states she doesn't need narcotic today narcotics may reduce cardiac output d/c planning 32 min Discharge Recommendations * Jail Unit Vitals Vitals Vital Signs Date Time Temp Pulse Resp B/P (MAP) Pulse Ox O2 Delivery O2 Flow Rate FiO2 11/28/20 08:34 63 158/66 11/28/20 08:00 Room Air 11/28/20 07:14 94 11/28/20 07:00 98.6 18 98.6 11/27/20 08:00 2.0 Physical Exam Physical Exam sitting up in bed in nad on room air General: Alert, Oriented X3, Cooperative, No acute distress Heart: Regular rate, Normal S1, Normal S2, No murmurs Lungs: Clear Abdomen: Normal bowel sounds, Soft, No tenderness Extremities: No clubbing, No cyanosis, No edema, Normal pulses Skin: No significant lesion FINAL DIAGNOSIS Problems Medical Problems: (1) Dehydration Status: Acute (2) Generalized weakness Status: Acute (3) Urinary tract infection Status: Acute Brief Hospital Course Ms. Lee is a 75 old [sex] who presented with [UTI, WEAKNESS, ACUTE CHF EXAC ] CONDITION AT DISCHARGE: Improved Discharge Medications Current Medications Ondansetron HCl (Zofran) 4 mg 1X ONCE IVP Last administered on 11/24/20at 05:30; Start 11/24/20 at 05:30; Stop 11/24/20 at 05:35; Status DC Sodium Chloride 1,000 ml @ 1,000 mls/hr 1X ONCE IV Last administered on 11/24/20at 05:57; Start 11/24/20 at 06:00; Stop 11/24/20 at 06:59; Status DC Ceftriaxone Sodium (Rocephin) 1 gm 1X ONCE IVP Last administered on 11/24/20at 08:50; Start 11/24/20 at 08:00; Stop 11/24/20 at 08:01; Status DC Ondansetron HCl (Zofran) 4 mg PRN Q8HRS PRN IVP NAUSEA/VOMITING; Start 11/24/20 at 08:30; Stop 11/24/20 at 09:27; Status DC Sodium Chloride 1,000 ml @ 100 mls/hr Q10H IV Last administered on 11/24/20at 22:20; Start 11/24/20 at 08:30; Stop 11/25/20 at 08:29; Status DC Ondansetron HCl (Zofran) 4 mg PRN Q6HRS PRN IVP NAUSEA/VOMITING Last administered on 11/27/20at 23:25; Start 11/24/20 at 09:00 Calcium Carbonate/ Glycine (Tums) 500 mg PRN Q3HRS PRN PO UPSET STOMACH; Start 11/24/20 at 09:00 Zolpidem Tartrate (Ambien) 5 mg PRN QHS PRN PO INSOMNIA, MAY REPEAT IN 1HR Last administered on 11/26/20at 21:06; Start 11/24/20 at 09:00 Info (Non-Icu Electrolyte Protocol) 1 ea PRN DAILY PRN MC SEE COMMENTS; Start 11/24/20 at 09:00 Oxycodone HCl (Roxicodone) 5 mg PRN Q3HRS PRN PO BREAKTHROUGH PAIN; Start 11/24/20 at 09:00; Stop 11/27/20 at 10:39; Status DC Oxycodone/ Acetaminophen (Percocet 5/325) 1 tab PRN Q4HRS PRN PO MODERATE PAIN; Start 11/24/20 at 09:00; Stop 11/27/20 at 11:48; Status DC Oxycodone/ Acetaminophen (Percocet 5/325) 2 tab PRN Q4HRS PRN PO SEVERE PAIN; Start 11/24/20 at 09:00; Stop 11/27/20 at 11:49; Status DC Acetaminophen (Tylenol) 650 mg PRN Q6HRS PRN PO Headaches, Temp > 101.5F; Start 11/24/20 at 09:00 Senna/Docusate Sodium (Senna Plus) 1 tab BID PO Last administered on 11/26/20at 21:06; Start 11/24/20 at 21:00 Heparin Sodium (Porcine) (Heparin Sodium) 5,000 unit Q8HRS SQ Last administered on 11/28/20at 05:53; Start 11/24/20 at 14:00 Amlodipine Besylate (Norvasc) 5 mg DAILY PO Last administered on 11/28/20at 08:33; Start 11/24/20 at 09:30 Carvedilol (Coreg) 3.125 mg BIDWMEALS PO Last administered on 11/28/20at 08:33; Start 11/24/20 at 09:30 Tramadol HCl (Ultram) 50 mg PRN Q4HRS PRN PO MILD PAIN 1-3; Start 11/24/20 at 09:00; Stop 11/27/20 at 13:52; Status DC Non-Formulary Medication (Budesonide/ Formoterol Fumarate (Symbicort 160-4.5 Mcg Inhaler)) 2 puff BID IH ; Start 11/24/20 at 09:00; Status UNV Carbamazepine (TEGretol) 300 mg BID PO Last administered on 11/24/20at 11:43; Start 11/24/20 at 09:30; Stop 11/24/20 at 17:47; Status DC Losartan Potassium (Cozaar) 100 mg DAILY PO Last administered on 11/28/20at 08:34; Start 11/24/20 at 10:00 Atorvastatin Calcium (Lipitor) 5 mg QHS PO Last administered on 11/27/20at 21:09; Start 11/24/20 at 21:00 Albuterol Sulfate (Ventolin Neb Soln) 2.5 mg Q6HRS NEB Last administered on 11/28/20at 07:14; Start 11/24/20 at 12:00 Budesonide (Pulmicort) 0.5 mg RTBID NEB Last administered on 11/28/20at 07:14; Start 11/24/20 at 10:00 Nitrofurantoin Macrocrystals (Macrobid) 100 mg BID PO Last administered on 11/28/20at 08:33; Start 11/24/20 at 09:45 Lactobacillus Rhamnosus (Culturelle) 1 cap BID PO Last administered on at 08:34; Start 11/24/20 at 21:00 Carbamazepine (TEGretol XR) 600 mg BID PO Last administered on 11/28/20at 08:33; Start 11/24/20 at 21:00 Potassium Chloride (Klor-Con) 40 meq 1X ONCE PO Last administered on 11/25/20at 15:21; Start 11/25/20 at 14:00; Stop 11/25/20 at 14:01; Status DC Polyethylene Glycol (miraLAX PACKET) 17 gm DAILY PO Last administered on 11/26/20at 10:28; Start 11/26/20 at 10:15 Bisacodyl (Dulcolax Supp) 10 mg 1X ONCE HI ; Start 11/26/20 at 10:15; Stop 11/26/20 at 10:16; Status DC Furosemide (Lasix) 40 mg 1X ONCE IVP Last administered on 11/27/20at 14:15; Start 11/27/20 at 13:00; Stop 11/27/20 at 13:01; Status DC Potassium Chloride (Klor-Con) 40 meq 1X ONCE PO Last administered on 11/28/20at 10:40; Start 11/28/20 at 10:00; Stop 11/28/20 at 10:01; Status DC Aspirin (Ecotrin) 81 mg DAILYWBKFT PO ; Start 11/28/20 at 12:00 Potassium Chloride (Klor-Con) 40 meq 1X ONCE PO ; Start 11/28/20 at 10:00; Stop 11/28/20 at 10:01; Status Cancel Active Scripts Active Tramadol Hcl 50 Mg Tablet 50 Mg PO Q4HRS PRN Reported Carbamazepine 300 Mg Cpmp.12hr 2 Cap PO BID 30 Days Carvedilol (Carvedilol) 3.125 Mg Tablet 3.125 Mg PO BIDWMEALS Losartan Potassium 100 Mg Tablet 100 Mg PO DAILY Lovastatin 20 Mg Tablet 20 Mg PO HS Amlodipine Besylate 5 Mg Tablet 5 Mg PO DAILY Symbicort 160-4.5 Mcg Inhaler (Budesonide/Formoterol Fumarate) 10.2 Gm Hfa.aer.ad 2 Puff IH BID Tums (Calcium Carbonate) 200 Mg Tab.chew 200 Mg PO PRN BID PRN Calcium + Vitamin D Tablet (Calcium Carbonate/Vitamin D3) 1 Each Tablet 1 Each PO DAILY Centrum Silver Tablet (Multivits-Min/Fa/Lycopene/Lut) 1 Each Tablet 1 Each PO GUERO Vital Signs Vital Signs Date Time Temp Pulse Resp B/P (MAP) Pulse Ox O2 Delivery O2 Flow Rate FiO2 11/28/20 11:00 98.6 71 18 149/74 (99) 92 Room Air 98.6 11/27/20 08:00 2.0 Labs Laboratory Tests Test 11/27/20 11:30 11/28/20 06:35 11/28/20 11:00 Sodium Level 134 mmol/L (136-145) 135 mmol/L (136-145) Potassium Level 3.9 mmol/L (3.5-5.1) 3.2 mmol/L (3.5-5.1) Chloride Level 99 mmol/L (98-107) 99 mmol/L (98-107) Carbon Dioxide Level 31 mmol/L (21-32) 29 mmol/L (21-32) Anion Gap 4 (6-14) 7 (6-14) Blood Urea Nitrogen 8 mg/dL (7-20) 7 mg/dL (7-20) Creatinine 0.7 mg/dL (0.6-1.0) 0.6 mg/dL (0.6-1.0) Estimated GFR (Cockcroft-Gault) 81.1 96.9 Glucose Level 121 mg/dL (70-99) 101 mg/dL (70-99) Calcium Level 8.4 mg/dL (8.5-10.1) 8.4 mg/dL (8.5-10.1) TQ-Fbx-H-Type Natriuretic Peptide 8843 pg/mL (0-449) Thyroid Stimulating Hormone (TSH) 1.584 uIU/mL (0.358-3.74) White Blood Count 8.3 x10^3/uL (4.0-11.0) Red Blood Count 3.42 x10^6/uL (3.50-5.40) Hemoglobin 10.5 g/dL (12.0-15.5) Hematocrit 31.2 % (36.0-47.0) Mean Corpuscular Volume 91 fL (79-100) Mean Corpuscular Hemoglobin 31 pg (25-35) Mean Corpuscular Hemoglobin Concent 34 g/dL (31-37) Red Cell Distribution Width 13.9 % (11.5-14.5) Platelet Count 264 x10^3/uL (140-400) Neutrophils (%) (Auto) 64 % (31-73) Lymphocytes (%) (Auto) 21 % (24-48) Monocytes (%) (Auto) 12 % (0-9) Eosinophils (%) (Auto) 3 % (0-3) Basophils (%) (Auto) 1 % (0-3) Neutrophils # (Auto) 5.3 x10^3/uL (1.8-7.7) Lymphocytes # (Auto) 1.7 x10^3/uL (1.0-4.8) Monocytes # (Auto) 1.0 x10^3/uL (0.0-1.1) Eosinophils # (Auto) 0.2 x10^3/uL (0.0-0.7) Basophils # (Auto) 0.1 x10^3/uL (0.0-0.2) BUN/Creatinine Ratio 12 (6-20) Magnesium Level 1.8 mg/dL (1.8-2.4) Total Bilirubin 0.4 mg/dL (0.2-1.0) Aspartate Amino Transf (AST/SGOT) 15 U/L (15-37) Alanine Aminotransferase (ALT/SGPT) 17 U/L (14-59) Alkaline Phosphatase 106 U/L (46-116) Troponin I Quantitative 0.025 ng/mL (0.000-0.055) Total Protein 6.2 g/dL (6.4-8.2) Albumin 2.3 g/dL (3.4-5.0) Albumin/Globulin Ratio 0.6 (1.0-1.7) SARS-CoV-2 Antigen (Rapid) Negative (NEGATIVE) Laboratory Tests Test 11/28/20 06:35 11/28/20 11:00 White Blood Count 8.3 x10^3/uL (4.0-11.0) Red Blood Count 3.42 x10^6/uL (3.50-5.40) Hemoglobin 10.5 g/dL (12.0-15.5) Hematocrit 31.2 % (36.0-47.0) Mean Corpuscular Volume 91 fL (79-100) Mean Corpuscular Hemoglobin 31 pg (25-35) Mean Corpuscular Hemoglobin Concent 34 g/dL (31-37) Red Cell Distribution Width 13.9 % (11.5-14.5) Platelet Count 264 x10^3/uL (140-400) Neutrophils (%) (Auto) 64 % (31-73) Lymphocytes (%) (Auto) 21 % (24-48) Monocytes (%) (Auto) 12 % (0-9) Eosinophils (%) (Auto) 3 % (0-3) Basophils (%) (Auto) 1 % (0-3) Neutrophils # (Auto) 5.3 x10^3/uL (1.8-7.7) Lymphocytes # (Auto) 1.7 x10^3/uL (1.0-4.8) Monocytes # (Auto) 1.0 x10^3/uL (0.0-1.1) Eosinophils # (Auto) 0.2 x10^3/uL (0.0-0.7) Basophils # (Auto) 0.1 x10^3/uL (0.0-0.2) Sodium Level 135 mmol/L (136-145) Potassium Level 3.2 mmol/L (3.5-5.1) Chloride Level 99 mmol/L (98-107) Carbon Dioxide Level 29 mmol/L (21-32) Anion Gap 7 (6-14) Blood Urea Nitrogen 7 mg/dL (7-20) Creatinine 0.6 mg/dL (0.6-1.0) Estimated GFR (Cockcroft-Gault) 96.9 BUN/Creatinine Ratio 12 (6-20) Glucose Level 101 mg/dL (70-99) Calcium Level 8.4 mg/dL (8.5-10.1) Magnesium Level 1.8 mg/dL (1.8-2.4) Total Bilirubin 0.4 mg/dL (0.2-1.0) Aspartate Amino Transf (AST/SGOT) 15 U/L (15-37) Alanine Aminotransferase (ALT/SGPT) 17 U/L (14-59) Alkaline Phosphatase 106 U/L (46-116) Troponin I Quantitative 0.025 ng/mL (0.000-0.055) Total Protein 6.2 g/dL (6.4-8.2) Albumin 2.3 g/dL (3.4-5.0) Albumin/Globulin Ratio 0.6 (1.0-1.7) SARS-CoV-2 Antigen (Rapid) Negative (NEGATIVE) Allergies Allergies Coded Allergies Type Severity Reaction Last Updated Verified Sulfa (Sulfonamide Antibiotics) Allergy Intermediate 09/06/20 Yes oxycodone Adverse Reaction Intermediate MAKES HER "CRAZY" 09/06/20 Yes Disposition/Orders: Other (d/c to SNF) Justicifation of Admission Dx: Justifications for Admission: Justification of Admission Dx: Yes ROBERTO CARLOS HONG MD Nov 28, 2020 11:42
[2020-11-28] MEDS ORDERED: FURO-69 PO (11:50)
[2020-11-28] MEDS ORDERED: LACT1CAP19 PO (11:50)
[2020-11-28] MEDS ORDERED: POLY17PO52 PO (11:50)
[2020-11-28] MEDS ORDERED: ASPI-886 PO (11:50)
[2020-11-28] MEDS ORDERED: NITR100C6 PO (11:50)
[2020-11-28] MEDS ORDERED: POTA-121 PO (11:50)
[2020-11-28] MEDS ORDERED: ALBU2.5V8 NEB (11:50)
--- NOTE | 2020-11-28 11:53 | SNU/HH DC ---
DISCHARGE ORDERS DISCHARGE INFORMATION: DISCHARGE DATE: Nov 28, 2020 FINAL DIAGNOSIS Problems Medical Problems: (1) Dehydration Status: Acute (2) Generalized weakness Status: Acute (3) Urinary tract infection Status: Acute CONDITION ON DISCHARGE: Stable CODE STATUS: Code Status: Full FPC: SNF STAY <30 DAYS: Yes HOSPICE: HOSPICE: No HOSPICE EVAL & TREAT: No LTAC: ADMIT TO LTAC: No POST DISCHARGE ORDERS: ACTIVITY ORDERS: Activity as tolerated, Progressive ambulation WEIGHT BEARING STATUS: As tolerated BATHING ORDERS: No Tub Bath until see DIET AFTER DISCHARGE: Regular WOUND/INCISION CARE: Ice to area for comfort, Do not change dressing CHECKS AFTER DISCHARGE: CHECKS AFTER DISCHARGE: Check blood press - daily, Weigh Yourself Daily TREATMENT/EQUIPMENT ORDERS: ADAPTIVE EQUIPMENT NEEDED: None Physical Therapy For: Evalulation/Treatment Occupational Therapy For: Evaluation/Treatment DISCHARGE MEDICATIONS: Home Meds Active Scripts Potassium Chloride (KLOR-CON M20) 20 Meq Tab.er.prt, 1 TAB PO DAILY for REPLACEMENT for 10 Days, #10 TAB 0 Refills Prov:ROBERTO CARLOS HONG MD 11/28/20 Furosemide (LASIX) 20 Mg Tablet, 1 TAB PO DAILY for CHF for 14 Days, #14 TAB 0 Refills Prov:ROBERTO CARLOS HONG MD 11/28/20 Lactobacillus Rhamnosus Gg (CULTURELLE) 1 Each Cap.sprink, 1 CAP PO BID for SUPPLEMENT for 30 Days, #60 CAP Prov:RBOERTO CARLOS HONG MD 11/28/20 Polyethylene Glycol 3350 (POLYETHYLENE GLYCOL 3350) 17 Gm Powd.pack, 17 GM PO DAILY for PREVENT CONSTIPATION for 30 Days, #30 PKT Prov:ROBERTO CARLOS HONG MD 11/28/20 Aspirin (ASPIRIN EC) 81 Mg Tablet.dr, 81 MG PO DAILYWBKFT for HEART HEALTH for 30 Days, #30 TAB.SR Prov:ROBERTO CARLOS HONG MD 11/28/20 Albuterol Sulfate (Proair Hfa) 8.5 Gm Hfa.aer.ad, 2.5 MG NEB Q6HRS for NEEDED FOR SHORTNESS OF JAYSON for 10 Days, #1 INHALER Prov:ROBERTO CARLOS HONG MD 11/28/20 Nitrofurantoin Monohyd/M-Cryst (NITROFURANTOIN MONO-MCR 100 MG) 100 Mg Capsule, 100 MG PO BID for UTI for 7 Days, #14 CAP Prov:ROBERTO CARLOS HONG MD 11/28/20 Reported Medications Carbamazepine (CARBAMAZEPINE) 300 Mg Cpmp.12hr, 2 CAP PO BID for anticonvulsant for 30 Days, #120 CAP 0 Refills 11/24/20 Carvedilol (CARVEDILOL ) 3.125 Mg Tablet, 3.125 MG PO BIDWMEALS for CARDIAC, TAB 09/06/20 Losartan Potassium (LOSARTAN POTASSIUM) 100 Mg Tablet, 100 MG PO DAILY for HYPERTENSION, TAB 09/06/20 Lovastatin (LOVASTATIN) 20 Mg Tablet, 20 MG PO HS, TAB 10/07/16 Amlodipine Besylate (AMLODIPINE BESYLATE) 5 Mg Tablet, 5 MG PO DAILY, TAB 10/07/16 Budesonide/Formoterol Fumarate (SYMBICORT 160-4.5 MCG INHALER) 10.2 Gm Hfa.aer.ad, 2 PUFF IH BID, #10.6 GM 3 Refills 10/07/16 Calcium Carbonate (TUMS) 200 Mg Tab.chew, 200 MG PO PRN BID PRN for HEARTBURN / GAS, TAB.CHEW 05/10/13 Calcium Carbonate/Vitamin D3 (CALCIUM + VITAMIN D TABLET) 1 Each Tablet, 1 EACH PO DAILY 05/10/13 Multivits-Min/Fa/Lycopene/Lut (CENTRUM SILVER TABLET) 1 Each Tablet, 1 EACH PO bonita 05/10/13 Discontinued Scripts Tramadol Hcl (TRAMADOL HCL) 50 Mg Tablet, 50 MG PO Q4HRS PRN for PAIN, #60 TAB Prov:JOSE J BAXTER MD 10/19/20 ROBERTO CARLOS HONG MD Nov 28, 2020 11:53
[2020-11-28] MEDS ORDERED: ASPIRIN ENTERIC COATED 81 MG TABLET.DR. PO SCH (12:00)
[2020-11-28 15:00] VITALS: BP 143/61
[2020-11-28 17:00] VITALS: BP 143/61
--- NOTE | 2020-11-28 19:02 | CARD ---
MR#: [id number] Date of Study: 11/28/2020 Ordering Physician: ROBERTO CARLOS HONG, Referring Physician: ROBERTO CARLOS HONG, Tech: Faina Licea [facility] APPROVED REPORT EXAM: Two-dimensional and M-mode echocardiogram with Doppler and color Doppler. Other Information Quality : AverageHR: 62bpm Rhythm : NSR INDICATION Congestive Heart Failure RISK FACTORS Hypertension Obesity Hyperlipidemia 2D DIMENSIONS Left Atrium(2D)4.0 (1.6-4.0cm)IVSd1.1 (0.7-1.1cm) Aortic Root(2D)3.0 (2.0-3.7cm)LVDd4.8 (3.9-5.9cm) LVOT Diameter1.9 (1.8-2.4cm)PWd1.0 (0.7-1.1cm) LVDs3.2 (2.5-4.0cm)FS (%) 34.8 % SV69.9 ml Aortic Valve AoV Peak Tian.121.8cm/sAoV VTI27.0cm AO Peak GR.5.9mmHgLVOT Peak Tian.98.4cm/s AO Mean GR.3mmHgAVA (VMAX)2.34cm2 Mitral Valve MV E Xbmgkdey77.0cm/sMV DECEL [id number] MV A Gevxtyrj46.9cm/sE/A Ratio1.8 Pulmonary Valve PV Peak Bioxsmhz30.2cm/s Tricuspid Valve TR P. Dwpjxibz152ec/sTR Peak Gr.47mmHg LEFT VENTRICLE The left ventricle is normal size. There is normal left ventricular wall thickness. The left ventricu lar systolic function is low normal. LV ejection fraction is estimated at 50%. Slight septal wall mo tion abnormality. The left ventricular diastolic function and filling is normal for age. RIGHT VENTRICLE The right ventricle is normal size. There is normal right ventricular wall thickness. The right ventr icular systolic function is normal. ATRIA The left atrium size is normal. The right atrium size is normal. The interatrial septum is intact wit h no evidence for an atrial septal defect or patent foramen ovale as noted on 2-D or Doppler imaging. AORTIC VALVE The aortic valve is normal in structure and function. Doppler and Color Flow revealed trace aortic re gurgitation. There is no significant aortic valvular stenosis. MITRAL VALVE The mitral valve is normal in structure and function. There is no evidence of mitral valve prolapse. There is no mitral valve stenosis. Doppler and Color-flow revealed mild to moderate mitral regurgitat ion. TRICUSPID VALVE The tricuspid valve is normal in structure and function. Doppler and Color Flow revealed mild tricusp id regurgitation. There is no tricuspid valve stenosis. PULMONIC VALVE The pulmonary valve is normal in structure and function. Doppler and Color Flow revealed no pulmonic valvular regurgitation. GREAT VESSELS The aortic root is normal in size. The ascending aorta is normal in size. The IVC is normal in size a nd collapses >50% with inspiration. PERICARDIAL EFFUSION There is no evidence of significant pericardial effusion. Critical Notification Critical Value: No <Conclusion> The left ventricle is normal size. The left ventricular systolic function is low normal. LV ejection fraction is estimated at 50%. Slight septal wall motion abnormality. Doppler and Color Flow revealed trace aortic regurgitation. There is no significant aortic valvular stenosis. Doppler and Color-flow revealed mild to moderate mitral regurgitation. Doppler and Color Flow revealed mild tricuspid regurgitation. Signed by : Reed Bledsoe MD Electronically Approved : 11/28/2020 19:02:13
== END 2020-11-28 17:00 | DRG 291 ==
LOC: ER 05:23 → 4 NORTH 08:10
PROVIDERS: ADMIT Student in an Organized Health Care Education/Training Program; ATTEND Student in an Organized Health Care Education/Training Program
PROC: 5A09357 Assistance with Respiratory Ventilation, Less than 24 Consecutive Hours, Continuous Positive Airway Pressure (ICD-10-PCS; 2020-11-26)
PROC: 5A09357 Assistance with Respiratory Ventilation, Less than 24 Consecutive Hours, Continuous Positive Airway Pressure (ICD-10-PCS; 2020-11-27)
PROC: 5A09357 Assistance with Respiratory Ventilation, Less than 24 Consecutive Hours, Continuous Positive Airway Pressure (ICD-10-PCS; principal; 2020-11-28)
DX: I11.0 Hypertensive heart disease with heart failure (principal); E43 Unspecified severe protein-calorie malnutrition; N39.0 Urinary tract infection, site not specified; E66.2 Morbid (severe) obesity with alveolar hypoventilation; J84.9 Interstitial pulmonary disease, unspecified; Z68.41 Body mass index [BMI] 40.0-44.9, adult; I50.33 Acute on chronic diastolic (congestive) heart failure; E78.5 Hyperlipidemia, unspecified; E86.0 Dehydration; J43.9 Emphysema, unspecified; K59.00 Constipation, unspecified; M17.12 Unilateral primary osteoarthritis, left knee; R09.02 Hypoxemia; Z87.891 Personal history of nicotine dependence; Z96.643 Presence of artificial hip joint, bilateral; Z96.652 Presence of left artificial knee joint; M19.90 Unspecified osteoarthritis, unspecified site; Z88.2 Allergy status to sulfonamides; Z88.8 Allergy status to other drugs, medicaments and biological substances; Z60.2 Problems related to living alone
CPT/HCPCS: 36415; 71045; 80048; 80053; 81001; 83735; 83880; 84443; 84484; 85007; 85025; 87086; 87426; 93005; 93306; 94640; 94760; 96361; 96374; 96375; J0696; J1644; J1940; J2405; J7030; 97535-GO; 99285-25; G0378; J7613; J7626

== ENCOUNTER → 2021-02-15 | Outpatient (CLI) | payer MEDICARE ==
[~2021-02-15] MED LIST changes: +ALBU2.5V8 NEB; +ASPI-886 PO; +CARB300C8 PO; +FURO-69 PO; +LACT1CAP19 PO; +NITR100C6 PO; +POLY17PO52 PO; +POTA-121 PO
--- NOTE | 2021-02-15 16:51 | RAD ---
Chest radiograph 02/15/2021 12:12 PM INDICATION: Hypoxia history COMPARISON: 11/27/2020 TECHNIQUE: Frontal and lateral views of the chest are provided. FINDINGS: The cardiomediastinal silhouette is within normal limits. There are no pleural effusions. There is no pulmonary vascular congestion. There is no pneumothorax. There is similar appearance of bilateral diffuse reticular interstitial changes. No significant osseo us abnormality is identified. IMPRESSION: Chronic interstitial changes without acute consolidative process. Correlate with any underlying inter stitial lung disease. Electronically signed by: Sissy Sierra MD (02/15/2021 4:48 PM) [id number]
== END ==
LOC: RAD 11:54
PROVIDERS: ATTEND Internal Medicine Critical Care Medicine
DX: J84.89 Other specified interstitial pulmonary diseases (principal); R06.00 Dyspnea, unspecified; R09.02 Hypoxemia
CPT/HCPCS: 71046

== ENCOUNTER → 2021-03-13 | Outpatient (CLI) | payer MEDICARE ==
--- NOTE | 2021-03-13 15:06 | RAD ---
EXAM: CT Chest without IV contrast INDICATION: Reason: SHORT OF AIR, ILD vs CHF / Spl. Instructions: / History: TECHNIQUE: Multi-detector row CT images were acquired from the thoracic inlet through the upper abdo men without the use of IV contrast. Sagittal and coronal images were acquired from the transaxial calista a. All CT scans performed at this facility utilize dose optimization techniques as appropriate to the exam, including the following: Automated exposure control and adjustment of the mA and/or KV accordi ng to patient size (this includes techniques or standardized protocols for targeted exams where dose is indication/reason for exam). COMPARISON: Chest radiograph from 02/15/[address] chest from 01/03/2017 FINDINGS: The absence of IV contrast limits evaluation of soft tissue pathology. LUNGS/PLEURA: There is severe centrilobular and paraseptal emphysematous changes. There is a 8 mm nod ular opacity in the left upper lobe image 21/3. A 4 mm nodular thickening of the right minor fissure favoring a benign intrafissural node, essentially unchanged from prior exam. Scattered peripheral jas undglass opacities throughout bilateral lungs more pronounced in the anterior segment of the right up per lobe. Atelectasis and/or infiltrate in the lower lingula. There is dependent bibasilar subpleural reticulations with associated areas of honeycombing. No bronchiectasis is appreciated. Central airwa ys clear. MEDIASTINUM: No pathologic mediastinal or hilar adenopathy. Scattered calcified atheromatous plaques of the normal-sized thoracic aorta. The pulmonary trunk is dilated up to 3.6 cm maximal diameter sug gestive of foreign reticular hypertension. The heart is normal in size. No pericardial effusion. Mode rate calcified coronary atherosclerosis. The visualized thyroid and the esophagus are unremarkable. AXILLA/SOFT TISSUE: No supraclavicular or axillary adenopathy. There is a 9 mm oval soft tissue mass at the 3:00 position, 3 cm deep to the nipple in the right breast as seen on axial image 38/2, unchan ged from prior exam in 2017 favoring a benign etiology. OSSEOUS & SOFT TISSUE: Multilevel degenerative changes with osteopenia. No acute fracture or suspicio us osseous abnormalities. Soft tissues are unremarkable. ABDOMEN: The visualized portions of the upper abdomen are unremarkable. IMPRESSION: 1. Severe emphysematous changes with pulmonary findings most consistent with interstitial lung diseas e, minimal/mild progression from prior 2017 exam. 2. 8 mm nodular opacity in the left upper lobe and indeterminate groundglass opacities in the anterio r segment of the right upper lobe. Follow-up CT in 6-12 months and then at 18-24 months is recommende d. 3. Lingular opacity favors atelectasis and/or infiltrate. Recommend attention on follow-up. 4. Other chronic/incidental findings, as above. Electronically signed by: Samuel Farley DO (03/13/2021 3:04 PM) [facility]
== END ==
LOC: RAD 13:58
PROVIDERS: ATTEND Internal Medicine Critical Care Medicine
DX: J43.9 Emphysema, unspecified (principal); R91.8 Other nonspecific abnormal finding of lung field; I70.0 Atherosclerosis of aorta; N63.14 Unspecified lump in the right breast, lower inner quadrant; R06.02 Shortness of breath; M85.88 Other specified disorders of bone density and structure, other site
CPT/HCPCS: 71250

== ENCOUNTER → 2021-06-08 | Outpatient (CLI) | payer MEDICARE ==
[~2021-06-08] MED LIST changes: -OMEP20TA8 PO; +OMEP20TA91 PO
--- NOTE | 2021-06-08 15:10 | RAD ---
EXAMINATION: XR CHEST 2V CLINICAL HISTORY: INTERSTITIAL LUNG DISEASE, CONGESTIVE HEART FAILURE. EXAM DATE/TIME: 06/08/2021 12:59 PM COMPARISON: Chest radiograph 02/15/2021; Chest CT chest 03/13/2021, 01/03/2017, and 42,013 FINDINGS: Lines, Tubes, and Devices: None. Cardiomediastinal Silhouette: Normal heart size. Aortic atherosclerotic calcification. Lungs and Pleura: No evidence of focal airspace consolidation or pleural effusion. Diffuse interstiti al opacities, similar to prior study and likely chronic. Bones and Soft Tissues: Degenerative changes in the thoracic spine. Nonspecific heterogeneous scleros is in the left humeral head, similar on prior studies dating back to 2013 and therefore likely benign . IMPRESSION: No evidence of acute cardiopulmonary abnormality or significant interval change. Similar-appearing chronic interstitial changes. Electronically signed by: Bret Muñoz DO (06/08/2021 3:07 PM) [id number]
== END ==
LOC: RAD 12:48
PROVIDERS: ATTEND Internal Medicine Critical Care Medicine
DX: J84.89 Other specified interstitial pulmonary diseases (principal); M47.814 Spondylosis without myelopathy or radiculopathy, thoracic region
CPT/HCPCS: 71046